=== PATIENT | female | born 1995 | race Caucasian/White ===

== ENCOUNTER 2023-02-05 07:30 | Outpatient (RCR) | payer OTHER, SELFPAY | END 2023-06-05 23:59 | disposition home or self-care (01) | PROVIDERS: PCP Family Medicine; Visit Provider Family Medicine | DX: M54.9 Dorsalgia, unspecified (principal); M25.519 Pain in unspecified shoulder; Z51.89 Encounter for other specified aftercare | CPT/HCPCS: 97110; 97140; 97163; 97530 ==

== ENCOUNTER 2023-08-16 17:41 | Emergency (ER) | payer OTHER, SELFPAY ==
[2023-08-16 17:46] VITALS: BP 115/76; PULSE 80; RESP 18; TEMP 36.9; O2SAT 100; BMI 23.6
--- NOTE | 2023-08-16 18:24 | ED_ITS ---
HPI - General Adult General Chief complaint: Dizziness/Vertigo Stated complaint: 4.5 weeks , lightheaded Time Seen by Provider: 08/16/23 17:41 History of Present Illness HPI narrative: This 27-year-old female is foreign half weeks and comes in stating that she felt several episodes of lightheadedness today. She measured her blood pressure with a cuff on her wrist at home and found readings of 80/50 at the time. Upon arrival here her vital signs are reassuring. She has a fair amount of anxiety about these symptoms as she is newly with her 1st . 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 She states that she has been drinking lots of fluids. Related Data Home Medications Medication Instructions Recorded Confirmed No Known Home Medications 08/16/23 08/16/23 Allergies Allergy/AdvReac Type Severity Reaction Status Date / Time morphine Allergy Verified 08/16/23 17:53 Review of Systems Status of ROS: Reports: 10 or more systems reviewed and unremarkable except as noted in History and below Narrative: Constitutional: No fevers, no weight gain or loss. Eyes: No discharge. No vision changes. HENT: No congestion, no sore throat, no ear pain. Cardiovascular: No chest pain, no palpitations. Respiratory: No shortness of breath, no wheezes, no cough. Gastrointestinal: No abdominal pain, no vomiting, no diarrhea. Genitourinary: No dysuria, no hematuria. Musculoskeletal: Normal range of motion. Skin: No rashes, no pruritis. Neurological: No weakness, sensory change, speech change. Some episodes of lightheadedness as described above. Endo/Heme/Allergies: No bruising or bleeding. No polydipsia. Pysch: no suicidality, no anxiety, no insomnia. All other systems reviewed and are negative. Exam Narrative: Exam Narrative: Constitutional: Well-developed, well-nourished, no acute distress. HEENT: Normocephalic, atraumatic. Neck: Normal range of motion. Nontender. Supple. Heart: Regular. No murmurs. Normal rate. Intact distal pulses. Lungs: Clear to auscultation. No chest discomfort. No wheezes, rhonchi, or rales. Abdomen: Normal bowel sounds. Nontender. No rebound tenderness. Genitalia: Deferred. Back: No midline tenderness. Normal range of motion. Extremities: Normal range of motion. No injury. Skin: Intact. No rash. Warm. No erythema or pallor. Neurologic: No altered sensation. No weakness. Alert and oriented. Psychiatric: No suicidality. No anxiety or depression. No insomnia. Nursing notes and vitals signs are reviewed. Const: Vital Signs, click to edit/add: Vital Signs - 24 hr 08/16/23 17:46 Temperature 98.4 F Pulse Rate [Right Pulse Oximeter] 80 Respiratory Rate 18 Blood Pressure [Ri ght Upper Arm] 115/76 Pulse Oximetry 100 Oxygen Delivery Me thod Room Air Course Vital Signs Vital signs: Initial Vital Signs Temperature 98.4 F 08/16/23 17:46 Temperature Source Temporal Artery Scan 08/16/23 17:46 Pulse Rate 80 08/16/23 17:46 Respiratory Rate 18 08/16/23 17:46 Blood Pressure 115/76 08/16/23 17:46 Blood Pressure Mean 89 08/16/23 17:46 Blood Pressure Position Sitting 08/16/23 17:46 Pulse Oximetry 100 08/16/23 17:46 Oxygen Delivery Method Room Air 08/16/23 17:46 Vital Signs Temperature 98.4 F 08/16/23 17:46 Pulse Rate 80 08/16/23 17:46 Respiratory Rate 18 08/16/23 17:46 Blood Pressure 115/76 08/16/23 17:46 Pulse Oximetry 100 08/16/23 17:46 Oxygen Delivery Method Room Air 08/16/23 17:46 Temperature 98.4 F 08/16/23 17:46 Pulse Rate 80 08/16/23 17:46 Respiratory Rate 18 08/16/23 17:46 Blood Pressure 115/76 08/16/23 17:46 Pulse Oximetry 100 08/16/23 17:46 Oxygen Delivery Method Room Air 08/16/23 17:46 Medical Decision Making MDM Narrative Medical decision making narrative: This 27-year-old female comes in concerned about some feelings of generalized malaise today with some lower blood pressure readings prior to arrival here. She was feeling some episodes of lightheadedness but arrives here feeling normal with normal vital signs. She is 4 and half weeks with her 1st . She does indicate lots of anxiety about these things. 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 She states that these things are triggering lots of thoughts for her and her own symptoms and . She is sufficiently reassured with vital signs being normal and with lab results also returning with normal findings. Her potassium just slightly low at 3.4. She is okay to be discharged home and will follow-up with her primary physician. Lab Data Labs: Lab Results 08/16/23 Range/Units 18:24 WBC 7.46 (4.50-11.00) K/uL RBC 4.13 (4.00-5.20) m/uL Hgb 12.4 (12.0-16.0) gm/dL Hct 37.3 (33.0-51.0) % MCV 90 (80-100) fL MCH 30 (26-34) pg MCHC 33 (32-36) gm/dL RDW Coeff of Young 12.0 (11.5-15.5) % Plt Count 274 (140-440) K/uL Neut % (Auto) 66.7 (42.0-72.0) % Lymph % (Auto) 25.5 (20-44) % Alcorn % (Auto) 5.6 (0.0-11.0) % Eos % (Auto) 1.6 (0.0-7.0) % Baso % (Auto) 0.5 (0.0-3.0) % Neut # (Auto) 4.97 (1.7-7.0) K/uL Lymph # (Auto) 1.90 (0.90-2.90) K/uL Alcorn # (Auto) 0.40 (0.00-0.90) K/UL Eos # (Auto) 0.12 (0.00-0.50) K/uL Baso # (Auto) 0.04 (0.00-0.30) K/uL Abs Immat Gran (auto) 0.01 (0.00-0.30) K/uL Imm/Tot Granulo (auto) 0.1 % Sodium 138 (135-149) mmol/L Potassium 3.4 L (3.6-5.1) mmol/L Chloride 108 (96-114) mmol/L Carbon Dioxide 26 (20-32) mmol/L Anion Gap 4 L (7-15) mEq/L BUN 9 (5-24) mg/dL Creatinine 0.6 (0.5-1.5) mg/dL Estimated Creat Clear 102.95 Estimated GFR 128 ml/min Glucose 99 (60-115) mg/dL Calcium 8.9 (8.4-10.6) mg/dL Discharge Plan Discharge Clinical Impression: Episodic lightheadedness, Patient Disposition: Home, Self-Care Condition: Stable Additional Instructions: Continue current plans. Follow up with MD or return if symptoms are recurrent or worsening. Prescriptions: No Action No Known Home Medications Follow Up/Referrals: Ariela Machado MD [Primary Care Provider] - Stand Alone Forms: [employer] Info Instructions
[2023-08-16 18:30] LABS: Basophils Absolute Auto 0.04 K/uL (0.00-0.30); Basophils Percent Auto 0.5 % (0.0-3.0); Eosinophils Absolute Auto 0.12 K/uL (0.00-0.50); Eosinophils Percent Auto 1.6 % (0.0-7.0); Hematocrit 37.3 % (33.0-51.0); Hemoglobin* 12.4 gm/dL (12.0-16.0); Immature Granulocytes Abs Auto 0.01 K/uL (0.00-0.30); Immature Granulocytes Pct Auto 0.1 %; Lymphocytes Percent Auto 25.5 % (20-44); Mean Corpuscular HGB Conc 33 gm/dL (32-36); Mean Corpuscular Hemoglobin 30 pg (26-34); Mean Corpuscular Volume 90 fL (80-100); Monocytes Percent Auto 5.6 % (0.0-11.0); Neutrophils Absolute Auto 4.97 K/uL (1.7-7.0); Neutrophils Percent Auto 66.7 % (42.0-72.0); Platelet Count* 274 K/uL (140-440); Red Blood Count 4.13 m/uL (4.00-5.20); White Blood Count* 7.46 K/uL (4.50-11.00)
[2023-08-16 18:36] LABS: Slide Review Reflex No
--- OUTSIDE RECORDS SUMMARY | 2023-08-16 18:40 | XMS_ITS | Clinical Summary ---
Author Name Unknown Organization [facility] Address [place], [place] [address] Care Team Providers Care Manager Lsw Name Role Phone Ariela Machado MD Primary Care Provider [phone] Allergies Active Allergy Reactions Criticality Noted Date Comments Bupropion Other - Describe In Comment Field Morphine Anaphylaxis,Rash High 04/21/2019 Medications No known medications Active Problems No known active problems Resolved Problems Problem Noted Date Diagnosed Date Resolved Date COVID-19 virus infection 02/17/2020 Encounters Date Type Department Care Team Description 08/07/2023 8:50 AM CDT Orders Only [address] [id number] [facility] 08/07/2023 Travel from Last 3 Months Immunizations Name Administration Dates Next Due Adenovirus Type 4 and 7 12/08/2016 COVID-19 vaccine (Moderna 100mcg/0.5mL) PF, MDV 05/31/2021,04/27/2021 HPV 9 (Gardasil 9) 08/11/2017 Hepatitis B (Adult) 08/11/2017 Hepatitis B (Peds) 01/09/2017,12/08/2016 Inactivated Polio Vaccine 01/09/2017 Influenza, IIV3 (Age >=3 years) 05/05/2021,01/18 Influenza, IIV4 12/24/2022,,02/17/2019,01/14,03/12/2017,02/10/2017 Influenza, IIV4 (=>6mos) MDV 02/17/2019 Meningococcal Vaccine (Menactra) 12/08/2016 Tdap 12/08/2016 Family History Medical History Relation Name Comments Autism Brother 1 Autism Brother 2 twin Other Brother 2 NF 1 and fronta l lobe damage. Aspergers Heart attack Father Heart Disease Maternal Grandfather Lung cancer Maternal Grandmother Other Mother prediabetes No Known Problems Paternal Grandfather da d was adopted No Known Problems Paternal Grandmother da d was adopted Autism Sister Relation Name Status Comments Brother 1 Alive Brother 2 Alive Father Alive Maternal Grandfather Maternal Grandmother Mother Alive Paternal Grandfather Paternal Grandmother Sister Alive Social History Tobacco Use Types Packs/Day Years Used Date Smoking Tobacco: Former Cigarettes 0.3 1 0 07/03/2017 - 07/03/2018 Smokeless Tobacco: Never Tobacco Cessation:Counseling Given: Yes Alcohol Use Standard Drinks/Week Comments Yes 1 (1 standard drink = 0.6 oz pur e alcohol) PHQ-2 Answer Date Recorded PHQ-2 TOTAL SCORE 0 12/05/2021 Social Connections Answer Date Recorded Frequency of Communication with Friends and Fami ly 0 11/19/2022 Financial Resource Strain Answer Date R ecorded Difficulty of Paying Living Expenses 3 11/19/2022 Difficulty of Paying Living Expenses Not on file 11/19/2022 Food Insecurity Answer Date Recorded Worried About Running Out of Food in the Last Ye ar 1 11/19/2022 Transportation Needs Answer Date Record ed Lack of Transportation (Medical) 1 11/19/2022 Housing Stability Answer Date Recorded Unable to Pay for Housing in the Last Year 1 11/19/2022 Sex and Gender Information Value Date Recorded Sex Assigned at Not on file Gender Identity Not on file Sexual Orientation Not on file Obstetrics History Last Filed Vital Signs Vital Sign Reading Time Taken Comments Blood Pressure 92/62 12/24/2022 8:05 AM CDT Pulse 74 12/24/2022 8:05 AM CDT Temperature 36.3 ??C (97.4 ??F) 08/20/2022 1 1:03 AM CDT Respiratory Rate 18 04/23/2022 5:40 PM [employer]ATHODE [employer] Oxygen Saturation 99% 12/24/2022 8:05 AM CDT Inhaled Oxygen Concentration - - Weight 56.6 kg (124 lb 12.8 oz) 12/24/2022 8:05 AM CDT Height 155.3 cm (5' 1.14) 12/24/2022 8:05 AM CD T Body Mass Index 23.47 12/24/2022 8:05 AM CDT Plan of Treatment Upcoming Encounters Date Type Department Care Team (Late st Contact Info) Description 08/17/2023 8:40 AM CDT Orders Only [facility] [address] [place] [address] Lab, [facility] 08/19/2023 3:15 PM CDT Orders Only [facility] [address] [facility] [address] [place] [place] 08/28/2023 10:00 AM CDT OB Encounter [facility] [address] [place] [address] 09/25/2023 8:45 AM CDT OB Encounter [facility] [address] [facility] [address] Ariela Machado MD [address] [place] [address] Health Maintenance Due Date Last Done Comments HPV series for age 9-26 (2 - 3-dose series) 09/08/2017 08/11/2017 COVID-19 vaccine series (2022- season) 2022 05/31/2021, 04/27/2021 Depression screening for age 12+ 12/09/2022 12/09/2021, 12/09/2021, 12/06/2021, Additional history exists Pap test for age 21-65 11/24/2023 11/23/2020 Influenza for age 9-49 11/29/2023 , 01/24/2022, 05/05/2021, Additional history exists BMI (ht and wt on same day) for age 18+ 12/25/2023 12/24/2022, 11/19/2022, 12/05/2021, Additional history exists Tetanus booster 12/08/2026 12/08/2016 Tdap Completed 12/08/2016 Hepatitis C screening for age 18-79 Completed 12/05/2021 HIV for age 15-65 Completed 12/24/2022 Pneumococcal series for age 6-64 Aged Out No longer eligible based on patient's age to complete this topic Procedures Procedure Name Priority Date/Time Associated Diagnosis Comments HCG BETA QUANT, Routine 08/07/2023 9:07 AM CDT Early stage of ANTI HIV 1/2 Routine 12/24/2022 9:03 AM CDT Screening for HIV (human immunodeficiency virus) ANTI HCV Routine 12/05/2021 12:44 PM CDT Need for hepatitis C screening test COMPETITIVE SHOPPER THIN PREP PAP SCREEN IMAGED Routine 11/23/2020 8:39 AM CDT Pap smear for cervical cancer screening from Last 3 Months or Most Recently Relevant to Health Maintenance Results * HCG BETA QUANT, (08/07/2023 9:07 AM CDT) HCG BETA QUANT,PREGNANC Y 20 mIU/mL 08/07/2023 9:42 AM CDT [facility] Blood BLOOD SPECIMEN / Unknown Venipuncture / Unknown 08/07/2023 9:07 AM CDT 08/07/2023 9:08 AM CDT [facility] - 08/07/2023 9:42 AM CDT Expected Value for Healthy Non- premenopausal women <5.3mIU/mL FOR GESTATIONAL ASSESSMENT-See Range Table Below Weeks of gestation hCG mIU/mL 3 weeks gestation (5.8 - 71.2) 4 weeks gestation (9.5 - 750) 5 weeks gestation (217 - 7138) 6 weeks gestation (158 - 31,795) 7 weeks gestation (3,697 - 163,563) 8 weeks gestation (32,065 - 149,571) 9 weeks gestation (63,803 - 151,410) 10 weeks gestation (46,509 - 186,977) 12 weeks gestation (27,832 - 210,612) 14 weeks gestation (13,950 - 62,530) 15 weeks gestation (12,039 - 70,971) 16 weeks gestation (9,040 - 56,451) 17 weeks gestation (8,175 - 55,868) 18 weeks gestation (8,645 - 58,291) Biotin supplements may cause clinically significant interference for this test assay. ??If interference is suspected, it is strongly recommended that biotin is discontinued for at least one week prior to retesting. Ariela Machado MD CHEMISTRY [facility] [address] [place] [address] * ANTI HIV 1/2 (12/24/2022 9:03 AM CDT) Pathologist [facility] HIV-1/HIV-2 SCREEN Non-Reacti ve Non-Reacti ve 12/24/2022 4:48 PM CDT [facility] Comment:HIV-1 p24 and HIV-1/ HIV-2 Ab Not Detected. Blood BLOOD SPECIMEN / Unknown Venipuncture / Unknown 12/24/2022 9:03 AM CDT 12/24/2022 9:05 AM CDT Ariela Machado MD SEND OUTS Performing Organization Address City/[facility]/ZIP Co de Phone Number [facility] [address] [place] [address], [place] * ANTI HCV (12/05/2021 12:44 PM CDT) Pathologist [facility] HEPATITIS C ANTIBODY Non-React kyara Non-React kyara 12/06/2021 6:46 AM CDT [facility] Comment:Antibodies to HCV no t detected; does not exclude the possibility of exposure to HCV. Blood BLOOD SPECIMEN / Unknown Venipuncture / Unknown 12/05/2021 12:44 PM CDT 12/05/2021 12:47 PM CDT Ariela Machado MD SEND OUTS [facility] [address] [place] [address], [place] * COMPETITIVE SHOPPER THIN PREP PAP SCREEN IMAGED (11/23/2020 8:39 AM CDT) Case Report Gynecologic Cytology Report ? Case: [id number] ? Authorizing Provider: ??Ariela Machado MD ? Collected: ? 11/23/2020 0839 ? Ordering Location: ? [facility] ?? Received: ?11/23/2020 0905 ? Clinic ? First Screen: ?Angie Mercado ? Specimen: ?COMPETITIVE SHOPPER ThinPrep Vial Screening, Cervical ? 12/06/2020 1:32 PM CDT [facility] INTERPRETATION/ RESULT NEGATIVE FOR INTRAEPITHELIAL LESION OR MALIGNANCY (NIL) (none) 12/06/2020 1:32 PM CDT [facility] IMEN ADEQUACY Satisfactory for evaluation Endocervical component present 12/06/2020 1:32 PM CDT [facility] HPV REQUEST HPV if ASCUS 12/06/2020 1:32 PM CDT [facility] Date of LMP suppressed 12/06/2020 1:32 PM CDT [facility] Last Pap Date first 12/06/2020 1:32 PM CDT [facility] Last Pap Result First Pap/Unknown 1:32 PM CDT [facility] Abnormal Pap or [place] Bx in last 5 years No 12/06/2020 1:32 PM CDT [facility] Menstrual Status Hormonally Suppressed 12/06/2020 1:32 PM CDT [facility] [place] Bx Done Today No 12/06/2020 1:32 PM CDT [facility] Additional Information None given 12/06/2020 1:32 PM CDT [facility] Comment: Cytology is screened at [facility] - [address] [address] and [facility] - [address] [place] [address] and [facility] - [address] [facility] [address] [place] [address] Interpreted at [facility] - [address], [place] [address] Automated Review Successful 12/06/2020 1:32 PM CDT [facility] Comment:Specimen processed s uccessfully by automated ribbon hand device, ThinPrep Imaging System, [employer] Note The pap test is a screening technique, not a diagnostic procedure. It is used primarily to screen for squamous cancers and precursor lesions. Published studies have shown that it is subject to both false negative and false positive results. The pap test should not be used as the sole means to diagnose or exclude pre-malignant and malignant lesions. 12/06/2020 1:32 PM CDT [facility] Other (Cervical) Non-Blood / Unknown 11/23/2020 8:39 AM CDT 11/23/2020 9:05 AM CDT Ariela Machado MD PATHOLOGY/CYTOLOGY [facility] [address] [place] [address], from Last 3 Months or Most Recently Relevant to Health Maintenance Care Teams Manager Lsw Relationship Specialty Start Date End Date Ariela Machado MD [address] [place] [address] PCP - General Family Practice 08/04/19
--- OUTSIDE RECORDS SUMMARY | 2023-08-16 18:40 | XMS_ITS | Continuity of Care Document ---
Author Name [facility] Organization [facility] Care Team Providers Care Internship Coordinator Name Role Phone [facility] Unavailable Unavailable Problems Combined list of problems from Department of Defense and Veterans Affairs facilities. It does not include entries that were removed or entered in error. Problem Status Onset Date Problem Type Date of Resolution Comme nts Source Encounter for other specified special examinations Active 12/30/2016 Condition DoD Overweight Active Condition [facility] Medications Combined list of outpatient medications from Department of Defense and Veterans Affairs facilities.Medications provided include 1) outpatient medications from the last 15 months, and 2) patient-reported medications. Medication Details Route Status Patient Instructions Prescription Expires Prescription Number Last Dispense Date Ordering Provider Order Date Order Qty Source PREDNISONE (prednisone ), 20 MG, TABLET, ORAL, NOVITIUM/AN I PH, 500 ea. BOTTLE Active [id number] 2023 5 Pharmac y Data Transac tion Service Facilit y Allergies, Adverse Reactions, Alerts Combined list of allergies from Department of Defense and Veterans Affairs facilities. It does not include entries that were removed or entered in error. Substance Category Reaction Severity Reaction type Status Date Reported Comments Source BUPROPION Propensity to adverse reactions to drug (finding) Suicidal thoughts active 9 [facility] morphine Propensity to adverse reactions to drug Swelling of oral cavity structure, Anaphylaxis Active 8 [facility] MORPHINE Propensity to adverse reactions to drug (finding) Anaphylaxis active 9 [facility] MORPHINE (MORPHINE SULFATE) Drug allergy (disorder) Rash, Swelling of oral cavity structure active 8 [facility] Cassandra n Immunizations Combined list of available immunizations from the Department of Defense and Veterans Affairs facilities. Immunization Series Date Given Administered By Site Reaction Lot Number CVX Code Drug E Commerce Manager Status Comments Source INFLUENZA, INJECTABLE, QUADRIVALENT 2018 158 complet ed Partner: [facility]. Administe red by: [facility] Clinician (NPI=Not Provided) . Partner 0 Lot#: [id number] Mfr: [facility] [place] [facility] influenza, injectable, quadrivalent- pf 2017 Left Arm [id number] GlaxoSmithKli ne complet ed influenza , injectabl e, quadrival ent-pf 01/18/18 Given Ambulat ory Pharmac y Influenza, injectable, quadrivalent, preservative free 1 2017 CAHRLENE THOMAS V [id number] 150 Smithine (SK) complet ed Influenza , injectabl e, quadrival ent, preservat kyara free DoD influenza, injectable, quadrivalent- pf 2017 [id number] 150 GlaxoSmithKli ne complet ed influenza , injectabl e, quadrival ent-pf 01/14/18 Given Ambulat ory Pharmac y Influenza, injectable, quadrivalent, preservative free 0 2017 [id number] 150 Smithine (SK) complet ed Influenza , injectabl e, quadrival ent, preservat kyara free DoD Human Papillomaviru s 9-valent vaccine 2017 Left Arm [id number] Merck & Company Inc complet ed Human Papilloma virus 9-valent vaccine 08/11/17 Given Ambulat ory Pharmac y hepatitis B adult vaccine 2017 Left Arm [id number] 43 GlaxoSmithKli ne complet ed hepatitis B adult vaccine 08/11/17 Given Ambulat ory Pharmac y hepatitis B vaccine, adult dosage 1 2017 VIVIENNE SANCHEZ [id number] 43 [facility] ([facility]) complet ed hepatitis B vaccine, adult dosage DoD Human Papillomaviru s 9-valent vaccine 1 2017 VIVIENNE SANCHEZ [id number] Merck (MSD) complet ed Human Papilloma virus 9-valent vaccine DoD influenza, injectable, quadrivalent- pf 2016 Left Arm [id number] 150 GlaxoSmithKli ne complet ed influenza , injectabl e, quadrival ent-pf 03/12/17 Given Ambulat ory Pharmac y Influenza, injectable, quadrivalent, preservative free 1 2016 MIGUELANGEL BILLINGSLEY [id number] 150 Smithine (SK) complet ed Influenza , injectabl e, quadrival ent, preservat kyara free DoD influenza, injectable, quadrivalent- pf 2016 [id number] 150 GlaxoSmithKli ne complet ed influenza , injectabl e, quadrival ent-pf 02/10/17 Given Ambulat ory Pharmac y Influenza, injectable, quadrivalent, preservative free 0 2016 [id number] 150 SmithKline (SKB) complet ed Influenza , injectabl e, quadrival ent, preservat kyara free DoD poliovirus vaccine, inactivated 2016 Right Arm [id number] sanofi pasteur complet ed polioviru s vaccine, inactivat ed 01/09/17 Given Ambulat ory Pharmac y hepatitis B pediatric/ado lescent 2016 Left Arm [id number] 08 GlaxoSmithKli ne complet ed hepatitis B pediatric /adolesce nt 01/09/17 Given Ambulat ory Pharmac y hepatitis B vaccine, pediatric or pediatric/ado lescent dosage 2 2016 MAK ROBERTS [id number] 08 SmithKline (SKB) complet ed hepatitis B vaccine, pediatric or pediatric /adolesce nt dosage DoD poliovirus vaccine, inactivated 1 2016 MAK ROBERTS [id number] 10 Sanofi Pasteur ([facility]) complet ed polioviru s vaccine, inactivat ed DoD measles and rubella virus vaccine 0 2016 04 () Not Given measles and rubella virus vaccine DoD varicella virus vaccine 0 2016 21 () Not Given varicella virus vaccine DoD hepatitis A vaccine, adult dosage 0 2016 52 () Not Given hepatitis A vaccine, adult dosage DoD tetanus, diphtheria, acellular pertu is 2016 Right Arm [id number] Unknown complet ed tetanus, diphtheri a, acellular pertussis 12/08/16 Given Ambulat ory Pharmac y meningococcal A,C,Y,W-135 (MCV4P) 2016 Left Arm [id number] sanofi pasteur complet ed meningoco ccal A,C,Y,W-1 35 (MCV4P) 12/08/16 Given Ambulat ory Pharmac y hepatitis B pediatric/ado lescent 2016 Left Arm [id number] 08 GlaxoSmithKli ne complet ed hepatitis B pediatric /adolesce nt 12/08/16 Given Ambulat ory Pharmac y adenovirus vaccine, live 2016 [id number] 143 Unknown complet ed adenoviru s vaccine, live 12/08/16 Given Ambulat ory Pharmac y hepatitis B vaccine, pediatric or pediatric/ado lescent dosage 1 2016 MAK ROBERTS [id number] 08 SmithKline (SKB) complet ed hepatitis B vaccine, pediatric or pediatric /adolesce nt dosage DoD meningococcal polysaccharid e (groups A, C, Y and W-135) diphtheria toxoid conjugate vaccine (MCV4P) 1 2016 MAK ROBERTS [id number] 114 Sanofi Pasteur ([facility]) complet ed meningoco ccal polysacch aride (groups A, C, Y and W-135) diphtheri a toxoid conjugate vaccine (MCV4P) DoD tetanus toxoid, reduced diphtheria toxoid, and acellular pertu is vaccine, adsorbed 1 2016 MAK ROBERTS [id number] 115 Other (OTH) complet ed tetanus toxoid, reduced diphtheri a toxoid, and acellular pertussis vaccine, adsorbed DoD Adenovirus, type 4 and type 7, live, oral 1 2016 MAK ROBERTS [id number] 143 Other (OTH) complet ed Adenoviru s, type 4 and type 7, live, oral DoD Encounters Combined list of: 1) Encounters from Department of Veterans Affairs facilities going back up to thelast 18 months. 2) Encounters from the Department of Defense facilities going back up to 280 months. Location Location Details Encounter Type Encounter Number Reason For Visit Attending Provider ADM Date DC Date Status Disposition Source One or More A Facilitie s JUICE SCALEMAN History 03/30 One or More A Facilit ies JUICE SCALEMAN [facility](Op tometry [facility] 1523) OUTPATIENT [id number] Notes Entered by: KEAGAN HAN 05 Dec 2016 09 ------- ------- ------- ------- -- recruit KEAGAN Braswell 12/05 Released w/o Limitations [facility]( Optomet ry [facility] 1523) [facility](Au diology [facility] 1523) OUTPATIENT [id number] WENDY JOSHUA 12/05 Released w/o Limitations [facility] Audiolo gy [facility] 1523) [facility](Fe male Screening 1523) OUTPATIENT [id number] [facility] JUAN CARLOS LEÓN 12/08 Released w/o Limitations [facility]( Female Screeni ng 1523) [facility](Im munizatio n 1523) OUTPATIENT [id number] Notes Entered by: LAMONT VIGIL 08 Dec 2016 1022 ------- ------- ------- ------- -- P4 Immuniz ations ELENA ROQUE 12/08 Released w/o Limitations [facility]( Immuniz ation 1523) [facility](Co urage (White) 1007) OUTPATIENT [id number] ERFU LEG PX AFSHAN JACINTO 12/11 Sick at Home/Quarter s [facility]( Courage (White) 1007) [facility](Co urage (White) 1007) OUTPATIENT [id number] Cold Sx/Vomi tting TONY MESA V 12/18 Sick at Home/Quarter s [facility]( [place] (White) 1007) [facility] Female) OUTPATIENT [id number] Notes Entered by: SUNDEEP PARKS 18 Dec 2016 1333 ------- ------- ------- ------- -- SHEREE BARLOW 12/18 Released w/o Limitations [facility]( [facility] Female) [facility](Sp ecial Physicals [facility] 1007) OUTPATIENT [id number] ALEXA DEMPSEY 12/23 Released w/o Limitations [facility]( Special Physica ls [facility] 1007) [facility](Sp ecial Physicals [facility] 1007) OUTPATIENT [id number] Notes Entered by: JOHN CARTER 30 Dec 2016 1136 ------- ------- ------- ------- -- UMO Special Duty Physica l Review JOHN RIVERA 12/30 Released w/o Limitations [facility]( Special Physica ls [facility] 1007) [facility](Im munizatio n 1523) OUTPATIENT [id number] Notes Entered by: LAMONT VIGIL ON L 09 Jan 2017 0922 ------- ------- ------- ------- -- 5-2 Immuniz ations DAVE PATEL 01/09 Released w/o Limitations [facility]( Immuniz ation 1523) [facility](We ekend Mil Sick Call 1007) OUTPATIENT [id number] Notes Entered by: CARMEN TAYLOR 11 Jan 2017 0640 ------- ------- ------- ------- -- Cold Sx TORRES OCAMPO 01/11 Sick at Home/Quarter s [facility]( Mil Sick Call 1007) [facility] Preventiv e Med) OUTPATIENT [id number] Notes Entered by: MIGUELANGEL BILLINGSLEY 12 Mar 2017 1110 ------- ------- ------- ------- -- Flu Vx MIGUELANGEL BILLINGSLEY 03/12 Released w/o Limitations [facility] Andrade mukul([facility] C Prevent kyara Med) [facility] Undersea Medicine) OUTPATIENT [id number] Notes Entered by: MARIFER KAMINSKI 08 Apr 2017 0648 ------- ------- ------- ------- -- RANKIN/ upset stomach SUDARSHAN BURT 04/08 Sick at Home/Quarter s [facility] Andrade gilman([facility] C Underse a Medicin e) [facility] Charlesviri nelson([facility]) OUTPATIENT [id number] Notes Entered by: MARIFER KAMINSKI 22 Apr 2017 0637 ------- ------- ------- ------- -- SUDARSHAN Gallegos 04/22 Sick at Home/Quarter s [facility] Andrade gilman([facility] C Underse a Medicin e) [facility] Cassandra nelson([facility]) OUTPATIENT [id number] Notes Entered by: NEEL HALL 07 May 2017 1455 ------- ------- ------- ------- -- MILAGRO MORA 05/07 Released w/o Limitations [facility] Andrade gilman([facility] C Underse a Medicin e) [facility] Cassandra nelson([facility] Medicine) OUTPATIENT [id number] back pain/so re throat RANGEL JOSE ANGEL Leonie 05/19 Released with Work/Duty Limitations [facility]rade gilman([facility] Underse a Medicin e) [facility] Cassandra nelson([facility]) OUTPATIENT [id number] parul zamora dunia,MILAGRO Cota 05/27 Released w/o Limitations [facility] Andrade mukul([facility] C Underse a Medicin e) [facility] Cassandra nelson([facility]) OUTPATIENT [id number] nose bleeds, headach e, MILAGRO Rehman 06/08 Released with Work/Duty Limitations [facility]rade [facility]ul([facility] C Underse a Medicin e) [facility] Cassandra nelson([facility] Physical Therapy) OUTPATIENT [id number] Low back pain TIMUR AVENDANO 06/10 Released w/o Limitations [facility]rade [facility]ul([facility] C Physica l Therapy ) [facility] Cassandra nelson([facility] Physical Therapy) OUTPATIENT [id number] BARBARA ALTAMIRANO 06/15 Released w/o Limitations [facility]rade [facility]ul([facility] C Physica l Therapy ) [facility] Physical Therapy) OUTPATIENT [id number] BARBARA ALTAMIRANO 06/17 Released w/o Limitations [facility] Andrade gilman([facility] C Physica l Therapy ) [facility] Physical Therapy) OUTPATIENT [id number] BARBARA ALTAMIRANO 06/24 Released w/o Limitations [facility]rade gilman([facility] C Physica l Therapy ) [facility] Physical Therapy) OUTPATIENT [id number] BARBARA ALTAMIRANO 06/29 Released w/o Limitations [facility] Andrade gilman([facility] C Physica l Therapy ) [facility] Occupjackson purchase medical centero [facility]) OUTPATIENT [id number] Notes Entered by: ALDA BAUGH 29 Jun 2017 1000 ------- ------- ------- ------- -- smoking cessati on SAUL DAVILA 06/29 Released w/o Limitations [facility] Anrdade gilman([facility] Occupat [facility]) [facility] Cassandra nelson([facility] Physical Therapy) OUTPATIENT [id number] BARBARA ALTAMIRANO 07/01 Released w/o Limitations [facility] C Physica l Therapy ) [facility] Cassandra nelson([facility] Undersea Medicine) OUTPATIENT [id number] Notes Entered by: ZOE THAKKAR 03 Jul 2017 1219 ------- ------- ------- ------- -- SUDARSHAN Buchanan 07/03 Released with Work/Duty Limitations [facility] C Underse a Medicin e) [facility] Cassandra nelson([facility] Undersea Medicine) OUTPATIENT [id number] PT F/U JOSE ANGEL MULTANI 07/03 Released w/o Limitations [facility]rade gil[facility] C Underse a Medicin e) [facility] Physical Therapy) OUTPATIENT [id number] BARBARA ALTAMIRANO 07/06 Released w/o Limitations [facility] Andrade gilman([facility] C Physica l Therapy ) [facility] n([facility] Psychiatr y Clinic) OUTPATIENT [id number] SOFIE PANTOJA 07/09 Released w/o Limitations [facility] Andrade gilman([facility] C Psychia try Clinic) [facility]) TELE CONSULT [id number] Notes Entered by: MARIA DEL ROSARIO DAVILA 13 Jul 2017 1128 ------- ------- ------- ------- -- Tobacco Cessati on F/u LOLA SAUL Thayer 07/13 Referred for Appointment [facility] Andrade gilman([facility] Occupat ional Health) [facility] Psychiatr y Clinic) OUTPATIENT [id number] f/SOFIE Lang 07/22 Released w/o Limitations [facility] Andrade mukul([facility] C Psychia try Clinic) [facility] Psychiatr y Clinic) OUTPATIENT [id number] F/U SOFIE JACOB 07/27 Released w/o Limitations [facility]rade [facility] C Psychia try Clinic) [facility]) TELE CONSULT [id number] Notes Entered by: MARIA DEL ROSARIO DAVILA 04 Aug 2017 1012 ------- ------- ------- ------- -- Tobacco cessati on follow up SAUL DAVILA 08/04 Referred for Appointment [facility] Occupat ional Health) [facility] nelson([facility] Unders Medicine) TELE CONSULT [id number] Notes Entered by: MAYDA FELIZ 07 Aug 2017 0955 ------- ------- ------- ------- -- Network [facility] - [facility] 4.[facility].18 JOSE ANGEL MULTANI 08/07 [facility] C Underse a Medicin e) [facility]) TELE CONSULT [id number] Notes Entered by: MAYDA FELIZ 07 Aug 2017 0956 ------- ------- ------- ------- -- Network Results - [facility] 4.23.18 JOSE ANGEL MULTANI Leonie 08/07 [facility] Underse a Medicin e) [facility]) OUTPATIENT [id number] Notes Entered by: Bronson SANCHEZ 10 Aug 2017 1527 ------- ------- ------- ------- -- HEP#3, HPV#1 VIVIENNE SANCHEZ 08/10 Released w/o Limitations [facility] Communi [facility]) [facility] Occupatio [facility]) OUTPATIENT [id number] HCW/BBF FABRIZIO ALVAREZ 08/13 Released w/o Limitations [facility] g[facility]man([facility]) [facility] Psychiatr y Clinic) OUTPATIENT [id number] f/u SOFIE JACOB 08/13 Released w/o Limitations [facility] Psychia try Clinic) [facility] Physical Therapy) OUTPATIENT [id number] TIMUR AVENDANO 08/13 Released w/o Limitations [facility] Physica l Therapy ) [facility] Fam Med [facility]) TELE CONSULT [id number] Notes Entered by: JORDON SIMEON 28 Aug 2017 1027 ------- ------- ------- ------- -- June Rai Hadley report JORDON SIMEON 08/28 [facility] Fam Med [facility] Gold) [facility] Undersea Medicine) OUTPATIENT [id number] Notes Entered by: CHAD CAST 31 Aug 2017 1050 ------- ------- ------- ------- -- NAUSEA/ VOMITTI NG X2 DAYS SUDARSHAN BURT 08/31 Sick at Home/Quarter s [facility] C Underse a Medicin e) [facility] n([facility] Physical Therapy) OUTPATIENT [id number] CARLOZ LEI 09/02 Released w/o Limitations [facility] C Physica l Therapy ) [facility] Cassandra nelson([facility] Physical Therapy) OUTPATIENT [id number] CARLOZ LEI 09/09 Released w/o Limitations [facility] C Physica l Therapy ) [facility] nelson([facility] Psychiatr y Clinic) OUTPATIENT [id number] F/U SOFIE JACOB 09/11 Released w/o Limitations [facility] C Psychia try Clinic) [facility] nelson([facility] Physical Therapy) OUTPATIENT [id number] CARLOZ LEI 09/14 Released w/o Limitations [facility] C Physica l Therapy ) [facility] nelson([facility] Undersea Medicine) OUTPATIENT [id number] CONNIE MCGINNIS 09/16 Released with Work/Duty Limitations [facility]rade [facility]ul([facility] C Underse a Medicin e) [facility]andra nelson([facility] Physical Therapy) OUTPATIENT [id number] CARLOZ LEI 09/23 Released w/o Limitations [facility] C Physica l Therapy ) [facility]andra nelson([facility] Psychiatr y Clinic) OUTPATIENT [id number] F/U SOFIE JACOB 09/23 Released w/o Limitations [facility]rade [facility] C Psychia try Clinic) [facility] Cassandra nelson([facility] Case Managemen t) OUTPATIENT [id number] Notes Entered by: CAROLINA PERES 29 Sep 2017 0752 ------- ------- ------- ------- -- LIMDU review for cc/cm needs SHREYAS , GORGE M 09/29 Released w/o Limitations [facility]rade g[facility]man([facility] C Case Managem ent) [facility] Cassandra nelson([facility] Undersea Medicine) OUTPATIENT [id number] Notes Entered by: SUDARSHAN ANDRADE 08 Oct 2017 0903 ------- ------- ------- ------- -- Cold Symptom s SUDARSHAN BURT 10/08 Sick at Home/Quarter s [facility] C Underse a Medicin e) [facility] Psychiatr y Clinic) OUTPATIENT [id number] f/u SOFIE JACOB 10/08 Released w/o Limitations [facility] C Psychia try Clinic) [facility] Physical Therapy) OUTPATIENT [id number] TIMUR Hebert 10/09 Released w/o Limitations [facility] C Physica l Therapy ) [facility] Psychiatr y Clinic) OUTPATIENT [id number] F/U SOFIE JACOB 10/27 Released w/o Limitations [facility] C Psychia try Clinic) [facility] Psychiatr y Clinic) OUTPATIENT [id number] f/u SOFIE JACOB 11/05 Released w/o Limitations [facility] C Psychia try Clinic) [facility] Undersea Medicine) TELE CONSULT [id number] Notes Entered by: CAMILA WATERMAN 06 Nov 2017 1053 ------- ------- ------- ------- -- Network Results - Mental Health 11/05/17 VENESSA BAKER 11/06 [facility] C Underse a Medicin e) [facility] Undersea Medicine) OUTPATIENT [id number] F/U TCD VENESSA BAKER 11/12 Released w/o Limitations [facility]rade [facility]man([facility] C Underse a Medicin e) [facility] Case Managemen t) OUTPATIENT [id number] Notes Entered by: Swati ARTEAGA 13 Nov 2017 1046 ------- ------- ------- ------- -- Case Managem ent BARBARA ARTEAGA 11/13 Released w/o Limitations [facility]rade [facility]ul([facility] Case Managem ent) [facility] Psychiatr y Clinic) OUTPATIENT [id number] F/U SOFIE JACOB 11/17 Released w/o Limitations [facility]rade [facility]ul([facility] Psychia try Clinic) [facility] Undersea Medicine) OUTPATIENT [id number] spider bite/he VENESSA Devine 11/26 Released w/o Limitations [facility] Andrade gilman([facility] C Underse a Medicin e) [facility] Occupatio nal Health) OUTPATIENT [id number] BRIANDA SHAW 12/17 Released w/o Limitations [facility] Andrade mukul([facility] Occupat ional Health) [facility] Undersea Medicine) OUTPATIENT [id number] prt VENESSA Young 12/21 Released w/o Limitations [facility] Andrade mukul([facility] C Underse a Medicin e) [facility] Undersea Medicine) OUTPATIENT [id number] Notes Entered by: ZOE THAKKAR 25 Dec 2017 0822 ------- ------- ------- ------- -- Cold sx x1wk SUDARSHAN BURT 12/25 Sick at Home/Quarter s [facility] Andrade mukul([facility] C Underse a Medicin [facility]) [facility] Hearing Conservat ion) OUTPATIENT [id number] Notes Entered by: RIVER ROBLES 06 Jan 2018 1348 ------- ------- ------- ------- -- Termina tion Audiogr RIVER Mayers 01/06 Released w/o Limitations [facility] Andrade gilman([facility] C Hearing Conserv ation) [facility] Cassandra n([facility] Optometry Clinic) OUTPATIENT [id number] EYE EXAM CATY NEW Graciela 01/13 Released w/o Limitations [facility] Andrade gilman([facility] Optomet ry Clinic) [facility] Preventiv e Med) OUTPATIENT [id number] Notes Entered by: West THOMAS 18 Jan 2018 1102 ------- ------- ------- ------- -- Flu Vx CHARLENE THOMAS 01/18 Released w/o Limitations [facility] Andrade gilman([facility] Prevent kyara Med) [facility] Undersea Medicine) OUTPATIENT [id number] Ad Sep Pe VENESSA BAKER 02/01 Released w/o Limitations [facility] Andrade gilman([facility] Underse a Medicin e) [facility] Undersea Medicine) OUTPATIENT [id number] 1 cold sx VENESSA BAKER 03/08 Released w/o Limitations [facility] Andrade gilman([facility] Underse a Medicin e) Procedures Combined list of: 1) Procedures from [facility], not all VA non-surgical procedures are included; 2) All procedures from the Department of Defense facilities. Procedure Procedure Type Code Date Perfomer Comments Sourc e No data available for this section Ambulatory Pharmacy Psychotherapy Individual Approximately 45 Minutes Psychotherapy Individual Approximately 45 Minutes [id number] 06/08 ESTEBAN WONG Influenza Split Virus Vaccine IM Preserv Free 0.5mL Dosage Quadrivalent Influenza Split Virus Vaccine IM Preserv Free 0.5mL Dosage Quadrivalent 41186 03/12 MIGUELANGEL BILLINGSLEY Influenza Seasonal, injectable quadrivalent - preservative free; Series #: 1; .5 mL; IM; Left Arm; g: [employer]; Lot: [id number]; VIS given (Itz: 11/03/2014). DoD Immunization Administration By Injection, One Vaccine Immunization Administration By Injection, One Vaccine 81690 03/12 MIGUELANGEL BILLINGSLEY [facility] Immunization Administration By Injection, One Vaccine Immunization Administration By Injection, One Vaccine 12917 01/09 MAK ROBERTS [facility] Immunization Administration By Injection, Each Additional Vaccine Immunization Administration By Injection, Each Additional Vaccine 20052 01/09 MAK ROBERTS [facility] Vaccines Viral Polio, Inactivated Vaccines Viral Polio, Inactivated 60692 01/09 MAK ROBERTS IPV; Series #: 1; .5 mL; SC; Right Arm; Mfg: Sanofi Pasteur; Lot: [id number]; VIS given (Itz: 10/17/15; 02/01/15 - Multiple). DoD Hepatitis B Vaccine (Active); To 11 Years Hepatitis B Vaccine (Active); To 11 Years 0267501/09 MAK ROBERTS Hep B, adolescent or pediatric; Series #: 2; .5 mL; IM; Left Arm; Mfg: [employer]; Lot: [id number]; VIS given (Itz: 10/17/2015). [facility] Patient education, not otherwise cla ified, non-physician provider, group, per se ion 12/18 SHEREE LATHAM [facility] Physician Supervised Injection Intramuscular Antibiotic Physician Supervised Injection Intramuscular Antibiotic 70042 12/08 MAK ROBERTS [facility] Injection, penicillin g benzathine, 100,000 units 12/08 MAK ROBERTS [facility] Immunization Admin Intranasal / Oral Each Additional Vaccine Immunization Admin Intranasal / Oral Each Additional Vaccine 59678 12/08 MAK ROBERTS [facility] Vaccines Adenovirus Type 4 Live, For Oral Use Vaccines Adenovirus Type 4 Live, For Oral Use 24346 12/08 MAK ROBERTS [facility] Vaccines Adenovirus Type 7 Live, For Oral Use Vaccines Adenovirus Type 7 Live, For Oral Use 81817 12/08 MAK ROBERTS [facility] Hepatitis B Vaccine (Active); To 11 Years Hepatitis B Vaccine (Active); Reader To 11 Years 3449512/08 MAK ROBERTS Hep B, adolescent or pediatric; Series #: 1; .5 mL; IM; Left Arm; Mfg: [employer]GoMet[employer]; Lot: [id number]; VIS given (Itz: 10/17/2015). [facility] Meningococcal Polysaccharide Diphtheria Toxoid Conjugate Vaccine 12/08 MAK ROBERTS Meningococcal MCV4P; Series #: 1; .5 mL; IM; Left Arm; Mfg: Sanofi Pasteur; Lot: [id number]; VIS given (Itz: 06/28/2015). [facility] Tdap Vaccine Tdap Vaccine 39637 12/08 MAK ROBERTS Tdap; Series #: 1; .5 mL; IM; Right Arm; Mfg: Other; Lot: [id number]; VIS given (Itz: 05/23/14). DoD Immunization Administration By Injection, One Vaccine Immunization Administration By Injection, One Vaccine 46875 12/08 MAK ROBERTS Immunization Administration By Injection, Each Additional Vaccine Immunization Administration By Injection, Each Additional Vaccine 64975 12/08 MAK ROBERTS Audiometry Group Testing Audiometry Group Testing 87765 12/05 WENDY JOSHUA Threshold Audiogram (Pure Tone) Threshold Audiogram (Pure Tone) 97329 12/05 WENDY JOSHUA [employer] Services Fitting Monofocal Except For Aphakia Spectacles Services Fitting Monofocal Except For Aphakia 11510 12/05 KEAGAN HAN Determination Of Refractive State Determination Of Refractive State 01312 12/05 KEAGAN HAN Visual Function Screening Visual Function Screening 29945 12/05 KEAGAN HAN Psychotherapy Individual Approximately 60 Minutes Psychotherapy Individual Approximately 60 Minutes 02036 01/27 ESTEBAN WONG Psychotherapy Individual Approximately 60 Minutes Psychotherapy Individual Approximately 60 Minutes 46268 01/18 ESTEBAN WONG Immunization Administration By Injection, One Vaccine Immunization Administration By Injection, One Vaccine 64416 01/18 MAJOR, CHARLENE LIMA [facility] Influenza Split Virus Vaccine IM Preserv Free 0.5mL Dosage Quadrivalent Influenza Split Virus Vaccine IM Preserv Free 0.5mL Dosage Quadrivalent 92239 01/18 CHARLENE THOMAS Influenza Seasonal, injectable quadrivalent - preservative free; Series #: 1; .5 mL; IM; Left Arm; Mfg: [employer]; Lot: [id number]; VIS given (Itz: 11/03/2014). [facility] Determination Of Refractive State Determination Of Refractive State 11649 01/13 CATY NEW [facility] Ophthalmological New Patient Start Comprehensive Care Ophthalmological New Patient Start Comprehensive Care 09218 01/13 CATY NEW [facility] Threshold Audiogram (Pure Tone) Automated Threshold Audiogram (Pure Tone) Automated 0208T 01/06 RIVER ROBLES DoD Psychotherapy Individual Approximately 30 Minutes Psychotherapy Individual Approximately 30 Minutes 24484 01/06 ESTEBAN WONG [facility] Psychotherapy Individual Approximately 60 Minutes Psychotherapy Individual Approximately 60 Minutes 41075 12/29 ESTEBAN WONG Psychotherapy Individual Approximately 60 Minutes Psychotherapy Individual Approximately 60 Minutes 47062 12/22 ESTEBAN WONG Preventive Medicine Administration Of Health Risk Questionnaire Patient-Focused Preventive Medicine Administration Of Health Risk Questionnaire Patient-Focused 50208 12/17 BRIANDA CASTILLO Psychotherapy Individual Approximately 60 Minutes Psychotherapy Individual Approximately 60 Minutes 10244 12/16 ESTEBAN WONG Psychotherapy Individual Approximately 60 Minutes Psychotherapy Individual Approximately 60 Minutes 48467 12/03 ESTEBAN WONG Psychotherapy Individual Approximately 30 Minutes Psychotherapy Individual Approximately 30 Minutes 49638 11/23 CHU SMITH Psychotherapy With Medication Management Psychotherapy With Medication Management 73366 11/19 SOFIE JACOB Psychotherapy Individual Approximately 45 Minutes Psychotherapy Individual Approximately 45 Minutes 43642 11/19 SOFIE JACOB Psychotherapy Individual Approximately 45 Minutes Psychotherapy Individual Approximately 45 Minutes 50030 11/16 ESTEBAN WONG Psychotherapy Individual Approximately 60 Minutes Psychotherapy Individual Approximately 60 Minutes 59309 11/13 ESTEBAN WONG Case Management, each 15 minutes 11/13 BARBARA ARTEAGA Psychotherapy Individual Approximately 60 Minutes Psychotherapy Individual Approximately 60 Minutes 57173 11/11 ESTEBAN WONG Psychotherapy With Medication Management Psychotherapy With Medication Management 40473 11/06 SOFIE JACOB Psychotherapy Individual Approximately 45 Minutes Psychotherapy Individual Approximately 45 Minutes 93796 11/06 SOFIE JACOB Psychotherapy Individual Approximately 60 Minutes Psychotherapy Individual Approximately 60 Minutes 57796 11/05 ESTEBAN WONG Psychotherapy With Medication Management Psychotherapy With Medication Management 14410 10/29 SOFIE JACOB Psychotherapy Individual Approximately 45 Minutes Psychotherapy Individual Approximately 45 Minutes 07528 10/29 SOFIE JACOB Psychotherapy Individual Approximately 60 Minutes Psychotherapy Individual Approximately 60 Minutes 07049 10/29 ESTEBAN WONG Psychotherapy Individual Approximately 30 Minutes Psychotherapy Individual Approximately 30 Minutes 79828 10/26 ESTEBAN WONG Psychotherapy Individual Approximately 60 Minutes Psychotherapy Individual Approximately 60 Minutes 17354 10/15 ESTEBAN WONG Psychotherapy Individual Approximately 60 Minutes Psychotherapy Individual Approximately 60 Minutes 65238 10/14 ESTEBAN WONG Psychotherapy Individual Approximately 60 Minutes Psychotherapy Individual Approximately 60 Minutes 88031 10/13 ESTEBAN WONG Physical Therapy Service Re-Evaluation Physical Therapy Service Re-Evaluation 59885 10/09 TIMUR AVENDANO [facility] Psychotherapy With Medication Management Psychotherapy With Medication Management 54233 10/08 SOFIE JACOB Psychotherapy Individual Approximately 45 Minutes Psychotherapy Individual Approximately 45 Minutes 42208 10/08 SOFIE JACOB Psychotherapy Individual Approximately 30 Minutes Psychotherapy Individual Approximately 30 Minutes 07019 10/05 ESTEBAN WONG Psychotherapy Individual Approximately 45 Minutes Psychotherapy Individual Approximately 45 Minutes 91209 10/02 ESTEBAN WONG Case Management, each 15 minutes 09/29 GORGE BARKER Psychotherapy Individual Approximately 30 Minutes Psychotherapy Individual Approximately 30 Minutes 44619 09/28 ESTEBAN WONG Modalities Cryotherapy Cold Packs Modalities Cryotherapy Cold Packs 00835 09/24 CARLOZ LEI Taping Knee Taping Knee 71903 09/24 CARLOZ LEI Physical Therapy: ___ Se ion Segments, 15 Minutes Each Physical Therapy: ___ Session Segments, 15 Minutes Each 33759 09/24 CARLOZ LEI Psychotherapy With Medication Management Psychotherapy With Medication Management 21015 09/23 SOFIE JACOB Psychotherapy Individual Approximately 45 Minutes Psychotherapy Individual Approximately 45 Minutes 72450 09/23 SOFIE JACOB Psychotherapy Individual Approximately 60 Minutes Psychotherapy Individual Approximately 60 Minutes 80503 09/22 ESTEBAN WONG Modalities Cryotherapy Cold Packs Modalities Cryotherapy Cold Packs 43160 09/15 RATNA LEIELA E Bao Physical Therapy Mobilization Joint Physical Therapy Mobilization Joint 19592 09/15 CARLOZ LEI E Bao Physical Therapy: ___ Se ion Segments, 15 Minutes Each Physical Therapy: ___ Session Segments, 15 Minutes Each 43610 09/15 RATNA LEIELA E Bao Psychotherapy Individual Approximately 30 Minutes Psychotherapy Individual Approximately 30 Minutes 17060 09/11 ESTEBAN WONG Psychotherapy With Medication Management Psychotherapy With Medication Management 82190 09/11 SOFIE JACOB Psychotherapy Individual Approximately 45 Minutes Psychotherapy Individual Approximately 45 Minutes 33294 09/11 SOFIE JACOB Psychotherapy Individual Approximately 60 Minutes Psychotherapy Individual Approximately 60 Minutes 86352 09/10 ESTEBAN WONG Modalities Cryotherapy Cold Packs Modalities Cryotherapy Cold Packs 45909 09/09 RATNA LEIELA Bronson Gore Physical Therapy: ___ Se ion Segments, 15 Minutes Each Physical Therapy: ___ Session Segments, 15 Minutes Each 91064 09/09 RATNA LEIELA Bronson Gore Psychotherapy Individual Approximately 45 Minutes Psychotherapy Individual Approximately 45 Minutes 91262 09/08 ESTEBAN WONG Psychotherapy Individual Approximately 30 Minutes Psychotherapy Individual Approximately 30 Minutes 74458 09/03 ESTEBAN WONG Modalities Cryotherapy Cold Packs Modalities Cryotherapy Cold Packs 74328 09/02 CARLOZ LEI Taping Lower Back Taping Lower Back 51626 09/02 CARLOZ LEI Physical Therapy: ___ Se ion Segments, 15 Minutes Each Physical Therapy: ___ Session Segments, 15 Minutes Each 37500 09/02 CARLOZ LEI Psychotherapy Individual Approximately 45 Minutes Psychotherapy Individual Approximately 45 Minutes 61502 08/25 ESTEBAN WONG Psychotherapy With Medication Management Psychotherapy With Medication Management 68550 08/13 SOFIE JACOB Psychotherapy Individual Approximately 45 Minutes Psychotherapy Individual Approximately 45 Minutes 33129 08/13 SOFIE JACOB Pelvic belt/harne /boot 08/13 TIMUR AVENDANO [facility] Physical Therapy Service Re-Evaluation Physical Therapy Service Re-Evaluation 46145 08/13 TIMUR AVENDANO Human Papilloma Virus Vaccine, Nonavalent Human Papilloma Virus Vaccine, Nonavalent 99600 08/11 VIVIENNE SANCHEZ HPV9; Series #: 1; .5 mL; IM; Left Arm; Mfg: Merck; Lot: [id number]; VIS given (Itz: 02/29/2016). [facility] Immunization Administration By Injection, One Vaccine Immunization Administration By Injection, One Vaccine 2935008/11 VIVIENNE SANCHEZ [facility] Immunization Administration By Injection, Each Additional Vaccine Immunization Administration By Injection, Each Additional Vaccine 9994608/11 VIVIENNE SANCHEZ [facility] Hepatitis B Vaccine (Active) Adult Dosage 3 Dose Schedule Hepatitis B Vaccine (Active) Adult Dosage 3 Dose Schedule 5549708/11 VIVIENNE SANCHEZ Hep B - Adult; Series #: 1; 1.0 mL; IM; Left Arm; Mfg: Sl[employer] Realty; Lot: [id number]; VIS given (Itz: 10/17/2015). [facility] Psychotherapy Individual Approximately 60 Minutes Psychotherapy Individual Approximately 60 Minutes 4929308/10 ESTEBAN WONG [facility] Psychotherapy Individual Approximately 45 Minutes Psychotherapy Individual Approximately 45 Minutes [id number]/27 ESTEBAN WONG [facility] Psychotherapy With Medication Management Psychotherapy With Medication Management 1765207/27 SOFIE JACOB [facility] Psychotherapy Individual Approximately 30 Minutes Psychotherapy Individual Approximately 30 Minutes 4730107/22 ESTEBAN WONG [facility] Psychotherapy With Medication Management Psychotherapy With Medication Management 5000207/22 SOFIE JACOB [facility] Psychotherapy Individual Approximately 45 Minutes Psychotherapy Individual Approximately 45 Minutes 3483307/22 SOFIE JACOB [facility] Psychotherapy Individual Approximately 30 Minutes Psychotherapy Individual Approximately 30 Minutes 3962807/21 ESTEBAN WONG [facility] Psychotherapy Individual Approximately 30 Minutes Psychotherapy Individual Approximately 30 Minutes 6084507/20 ESTEBAN WONG [facility] Psychotherapy Individual Approximately 30 Minutes Psychotherapy Individual Approximately 30 Minutes 6452107/10 ESTEBAN WONG [facility] Physical Therapy: ___ Se ion Segments, 15 Minutes Each Physical Therapy: ___ Session Segments, 15 Minutes Each 07202 07/09 BARBARA ALTAMIRANO [facility] Psychotherapy With Medication Management Psychotherapy With Medication Management 6163407/09 SOFIE JACOB [facility] Psychotherapy Individual Approximately 45 Minutes Psychotherapy Individual Approximately 45 Minutes [id number]/09 NIDIASOFIE Swati [facility] Psychotherapy Individual Approximately 60 Minutes Psychotherapy Individual Approximately 60 Minutes 32112 07/06 ESTEBAN WONG [facility] Physical Therapy: ___ Se ion Segments, 15 Minutes Each Physical Therapy: ___ Session Segments, 15 Minutes Each 85756 07/03 BARBARA ALTAMIRANO [facility] Psychotherapy Individual Approximately 45 Minutes Psychotherapy Individual Approximately 45 Minutes 91290 07/03 ESTEBAN WONG [facility] Psychotherapy Individual Approximately 60 Minutes Psychotherapy Individual Approximately 60 Minutes 82643 06/30 ESTEBAN WONG [facility] Physical Therapy: ___ Se ion Segments, 15 Minutes Each Physical Therapy: ___ Session Segments, 15 Minutes Each 75637 06/30 BARBARA ALTAMIRANO [facility] Physical Therapy: ___ Se ion Segments, 15 Minutes Each Physical Therapy: ___ Session Segments, 15 Minutes Each 80846 06/29 BARBARA ALTAMIRANO [facility] Patient Counseling Medical Management Individual Patient Patient Counseling Medical Management Individual Patient 26948 06/29 SAUL DAVILA [facility] Psychotherapy Individual Approximately 30 Minutes Psychotherapy Individual Approximately 30 Minutes 48264 06/25 ESTEBAN WONG [facility] Psychotherapy Individual Approximately 30 Minutes Psychotherapy Individual Approximately 30 Minutes 56613 06/23 ESTEBAN WONG [facility] Psychotherapy Individual Approximately 60 Minutes Psychotherapy Individual Approximately 60 Minutes 00204 06/23 ESTEBAN WONG [facility] Physical Therapy: ___ Se ion Segments, 15 Minutes Each Physical Therapy: ___ Session Segments, 15 Minutes Each 96551 06/22 BARBARA ALTAMIRANO [facility] Physical Therapy: ___ Se ion Segments, 15 Minutes Each Physical Therapy: ___ Session Segments, 15 Minutes Each 31095 06/19 BARBARA ALTAMIRANO [facility] Health And Behav A e mt Each Additional 15 Min [place] e ment Health And Behav Assessmt Each Additional 15 Min Reassessment 13304 06/18 ESTEBAN WONG [facility] Psychotherapy Individual Approximately 45 Minutes Psychotherapy Individual Approximately 45 Minutes 06846 06/17 ESTEBAN WONG [facility] Psychotherapy Individual Approximately 60 Minutes Psychotherapy Individual Approximately 60 Minutes 06096 06/17 ESTEBAN WONG [facility] Physical Therapy Service Evaluation Moderate Complexity Physical Therapy Service Evaluation Moderate Complexity 84311 06/10 TIMUR AVENDANO [facility] Physical Therapy: ___ Se ion Segments, 15 Minutes Each Physical Therapy: ___ Session Segments, 15 Minutes Each 03866 06/10 TIMUR AVENDANO [facility] Psychotherapy Individual Approximately 45 Minutes Psychotherapy Individual Approximately 45 Minutes 31295 06/09 ESTEBAN WONG DoD Psychotherapy Individual Approximately 60 Minutes Psychotherapy Individual Approximately 60 Minutes 01675 06/09 ESTEBAN WONG [facility] Brief communication technology-based service, e.g. virtual check-in, by a physician or other qualified health care profbronson nguyen who can report evaluation and management services, provided to an established patient, not originating from a related E/M service provided within the previous 7 days nor leading to an E/M service or procedure within the next 24 hours or soonest available appointment; 5-10 minutes of medical discu CARTER Pruitt [facility] BRIEF COMM TECH-BASE SERV,E.G. VIRT CHK-IN,BY PHYS/OTH QUAL HCP,RPT E&M SERV,PROV TO EST PT,NOT ORIG FRM REL E/M SERV PROV W/IN PREV 7DAY NOR LEAD TO E/M SRV/PX W/IN NEXT 24HR/SOON MIRIAM; 5-10 MIN DISC 07/31 [facility] HEPATITIS B VACCINE (HEPB), PEDIATRIC/ADOLESCENT DOSAGE, 3 DOSE SCHEDULE, FOR INTRAMUSCULAR USE 01/09 [facility] PATIENT EDUCATION, NOT OTHERWISE CLASSIFIED, NON-PHYSICIAN PROVIDER, GROUP, PER SESSION 12/18 [facility] INJECTION, PENICILLIN G BENZATHINE, 100,000 UNITS 12/08 [facility] AUDIOMETRIC TESTING OF GROUPS 12/05 [facility] DETERMINATION OF REFRACTIVE STATE 12/05 DoD PSYCHOTHERAPY, 60 MINUTES WITH PATIENT 01/27 DoD IMMUNIZATION ADMINISTRATION (INCLUDES PERCUTANEOUS, INTRADERMAL, SUBCUTANEOUS, OR INTRAMUSCULAR INJECTIONS); 1 VACCINE (SINGLE OR COMBINATION VACCINE/TOXOID) 01/18 DoD PSYCHOTHERAPY, 60 MINUTES WITH PATIENT 01/18 DoD DETERMINATION OF REFRACTIVE STATE 01/13 [facility] PURE TONE AUDIOMETRY (THRESHOLD), AUTOMATED; AIR ONLY 01/06 DoD PSYCHOTHERAPY, 30 MINUTES WITH PATIENT 01/06 DoD PSYCHOTHERAPY, 60 MINUTES WITH PATIENT 12/29 DoD PSYCHOTHERAPY, 60 MINUTES WITH PATIENT 12/22 DoD ADMINISTRATION OF PATIENT-FOCUSED HEALTH RISK ASSESSMENT INSTRUMENT (EG, HEALTH HAZARD APPRAISAL) WITH SCORING AND DOCUMENTATION, PER STANDARDIZED INSTRUMENT 12/17 DoD PSYCHOTHERAPY, 60 MINUTES WITH PATIENT 12/16 DoD PSYCHOTHERAPY, 60 MINUTES WITH PATIENT 12/03 DoD PSYCHOTHERAPY, 30 MINUTES WITH PATIENT 11/23 DoD PHARMACOLOGIC MANAGEMENT, INCLUDING PRESCRIPTION AND REVIEW OF MEDICATION, WHEN PERFORMED WITH PSYCHOTHERAPY SERVICES (LIST SEPARATELY IN ADDITION TO THE CODE FOR PRIMARY PROCEDURE) 11/17 DoD PSYCHOTHERAPY, 45 MINUTES WITH PATIENT 11/16 DoD PSYCHOTHERAPY, 60 MINUTES WITH PATIENT 11/13 DoD CASE MANAGEMENT, EACH 15 MINUTES 11/13 DoD PSYCHOTHERAPY, 60 MINUTES WITH PATIENT 11/11 DoD PSYCHOTHERAPY, 60 MINUTES WITH PATIENT 11/05 DoD PHARMACOLOGIC MANAGEMENT, INCLUDING PRESCRIPTION AND REVIEW OF MEDICATION, WHEN PERFORMED WITH PSYCHOTHERAPY SERVICES (LIST SEPARATELY IN ADDITION TO THE CODE FOR PRIMARY PROCEDURE) 11/05 DoD PSYCHOTHERAPY, 60 MINUTES WITH PATIENT 10/29 DoD PHARMACOLOGIC MANAGEMENT, INCLUDING PRESCRIPTION AND REVIEW OF MEDICATION, WHEN PERFORMED WITH PSYCHOTHERAPY SERVICES (LIST SEPARATELY IN ADDITION TO THE CODE FOR PRIMARY PROCEDURE) 10/27 DoD PSYCHOTHERAPY, 30 MINUTES WITH PATIENT 10/26 DoD PSYCHOTHERAPY, 60 MINUTES WITH PATIENT 10/15 DoD PSYCHOTHERAPY, 60 MINUTES WITH PATIENT 10/14 DoD PSYCHOTHERAPY, 60 MINUTES WITH PATIENT 10/13 DoD RE-EVAL,PHYSICAL THERAPY EST PLAN OF CARE,REQ:EXAM,REV,HX & USE,STAND TESTS &ROWDY REQ;REV PLAN OF CARE USING STAND PAT ASSESS INSTR &/ROWDY ASSESS FUNC OUTCOME TYP,20 MIN SPENT [id number]-OS-[id number] W PAT&/FAM 10/09 DoD PHARMACOLOGIC MANAGEMENT, INCLUDING PRESCRIPTION AND REVIEW OF MEDICATION, WHEN PERFORMED WITH PSYCHOTHERAPY SERVICES (LIST SEPARATELY IN ADDITION TO THE CODE FOR PRIMARY PROCEDURE) 10/08 DoD PSYCHOTHERAPY, 30 MINUTES WITH PATIENT 10/05 DoD PSYCHOTHERAPY, 45 MINUTES WITH PATIENT 10/02 DoD CASE MANAGEMENT, EACH 15 MINUTES 09/29 DoD PSYCHOTHERAPY, 30 MINUTES WITH PATIENT 09/28 DoD PHARMACOLOGIC MANAGEMENT, INCLUDING PRESCRIPTION AND REVIEW OF MEDICATION, WHEN PERFORMED WITH PSYCHOTHERAPY SERVICES (LIST SEPARATELY IN ADDITION TO THE CODE FOR PRIMARY PROCEDURE) 09/23 DoD APPLICATION OF A MODALITY TO 1 OR MORE AREAS; HOT OR COLD PACKS 09/23 DoD PSYCHOTHERAPY, 60 MINUTES WITH PATIENT 09/22 DoD APPLICATION OF A MODALITY TO 1 OR MORE AREAS; HOT OR COLD PACKS 09/14 DoD PSYCHOTHERAPY, 30 MINUTES WITH PATIENT 09/11 DoD PHARMACOLOGIC MANAGEMENT, INCLUDING PRESCRIPTION AND REVIEW OF MEDICATION, WHEN PERFORMED WITH PSYCHOTHERAPY SERVICES (LIST SEPARATELY IN ADDITION TO THE CODE FOR PRIMARY PROCEDURE) 09/11 DoD PSYCHOTHERAPY, 60 MINUTES WITH PATIENT 09/10 DoD APPLICATION OF A MODALITY TO 1 OR MORE AREAS; HOT OR COLD PACKS 09/09 DoD PSYCHOTHERAPY, 45 MINUTES WITH PATIENT 09/08 DoD PSYCHOTHERAPY, 30 MINUTES WITH PATIENT 09/03 DoD APPLICATION OF A MODALITY TO 1 OR MORE AREAS; HOT OR COLD PACKS 09/02 DoD PSYCHOTHERAPY, 45 MINUTES WITH PATIENT 08/25 DoD PELVIC BELT/HARNESS/BOOT 08/13 DoD PHARMACOLOGIC MANAGEMENT, INCLUDING PRESCRIPTION AND REVIEW OF MEDICATION, WHEN PERFORMED WITH PSYCHOTHERAPY SERVICES (LIST SEPARATELY IN ADDITION TO THE CODE FOR PRIMARY PROCEDURE) 08/13 DoD PSYCHOTHERAPY, 45 MINUTES WITH PATIENT 08/13 DoD IMMUNIZATION ADMINISTRATION (INCLUDES PERCUTANEOUS, INTRADERMAL, SUBCUTANEOUS, OR INTRAMUSCULAR INJECTIONS); EACH ADDITIONAL VACCINE (SINGLE OR COMBINATION VACCINE/TOXOID) 08/10 DoD PSYCHOTHERAPY, 60 MINUTES WITH PATIENT 08/10 DoD PSYCHOTHERAPY, 45 MINUTES WITH PATIENT 07/27 DoD PHARMACOLOGIC MANAGEMENT, INCLUDING PRESCRIPTION AND REVIEW OF MEDICATION, WHEN PERFORMED WITH PSYCHOTHERAPY SERVICES (LIST SEPARATELY IN ADDITION TO THE CODE FOR PRIMARY PROCEDURE) 07/27 DoD PHARMACOLOGIC MANAGEMENT, INCLUDING PRESCRIPTION AND REVIEW OF MEDICATION, WHEN PERFORMED WITH PSYCHOTHERAPY SERVICES (LIST SEPARATELY IN ADDITION TO THE CODE FOR PRIMARY PROCEDURE) 07/22 DoD PSYCHOTHERAPY, 30 MINUTES WITH PATIENT 07/22 DoD PSYCHOTHERAPY, 30 MINUTES WITH PATIENT 07/21 DoD PSYCHOTHERAPY, 30 MINUTES WITH PATIENT 07/20 DoD PSYCHOTHERAPY, 30 MINUTES WITH PATIENT 07/10 DoD PHARMACOLOGIC MANAGEMENT, INCLUDING PRESCRIPTION AND REVIEW OF MEDICATION, WHEN PERFORMED WITH PSYCHOTHERAPY SERVICES (LIST SEPARATELY IN ADDITION TO THE CODE FOR PRIMARY PROCEDURE) 07/09 DoD PSYCHOTHERAPY, 60 MINUTES WITH PATIENT 07/06 DoD THERAPEUTIC PROCEDURE, 1 OR MORE AREAS, EACH 15 MINUTES; THERAPEUTIC EXERCISES TO DEVELOP STRENGTH AND ENDURANCE, RANGE OF MOTION AND FLEXIBILITY 07/06 DoD PSYCHOTHERAPY, 45 MINUTES WITH PATIENT 07/03 DoD THERAPEUTIC PROCEDURE, 1 OR MORE AREAS, EACH 15 MINUTES; THERAPEUTIC EXERCISES TO DEVELOP STRENGTH AND ENDURANCE, RANGE OF MOTION AND FLEXIBILITY 07/01 DoD PSYCHOTHERAPY, 60 MINUTES WITH PATIENT 06/30 DoD EDUCATION &TRAINING, PATIENT SELF-MGT QUALIFIED, NONPHYSICIAN HEALTH STORE PROMOTER USING STDIZED CURRICULUM, [id number] W THE PATIENT (COULD INCL CAREGIVER/FAMILY) EA 30 MIN; INDIVIDUAL PATIENT 06/29 DoD THERAPEUTIC PROCEDURE, 1 OR MORE AREAS, EACH 15 MINUTES; THERAPEUTIC EXERCISES TO DEVELOP STRENGTH AND ENDURANCE, RANGE OF MOTION AND FLEXIBILITY 06/29 DoD PSYCHOTHERAPY, 30 MINUTES WITH PATIENT 06/25 DoD THERAPEUTIC PROCEDURE, 1 OR MORE AREAS, EACH 15 MINUTES; THERAPEUTIC EXERCISES TO DEVELOP STRENGTH AND ENDURANCE, RANGE OF MOTION AND FLEXIBILITY 06/24 DoD PSYCHOTHERAPY, 30 MINUTES WITH PATIENT 06/23 DoD HEALTH AND BEHAVIOR ASSESS (EG, HEALTH-FOC CLIN INTERVIEW, BEHAVIORAL OBSERVATIONS, PSYCHOPHYSICOLOGICAL MON, HEALTH-ORIENTED QUESTIONNAIRES), EACH 15 MIN OFKE-EL-HRVB WITH THE PATIENT; RE-ASSESS 06/18 DoD PSYCHOTHERAPY, 45 MINUTES WITH PATIENT 06/17 DoD THERAPEUTIC PROCEDURE, 1 OR MORE AREAS, EACH 15 MINUTES; THERAPEUTIC EXERCISES TO DEVELOP STRENGTH AND ENDURANCE, RANGE OF MOTION AND FLEXIBILITY 06/17 DoD THERAPEUTIC PROCEDURE, 1 OR MORE AREAS, EACH 15 MINUTES; THERAPEUTIC EXERCISES TO DEVELOP STRENGTH AND ENDURANCE, RANGE OF MOTION AND FLEXIBILITY 06/15 DoD THERAPEUTIC PROCEDURE, 1 OR MORE AREAS, EACH 15 MINUTES; THERAPEUTIC EXERCISES TO DEVELOP STRENGTH AND ENDURANCE, RANGE OF MOTION AND FLEXIBILITY 06/10 DoD PSYCHOTHERAPY, 45 MINUTES WITH PATIENT 06/09 DoD PSYCHOTHERAPY, 45 MINUTES WITH PATIENT 06/08 DoD IMMUNIZATION ADMINISTRATION (INCLUDES PERCUTANEOUS, INTRADERMAL, SUBCUTANEOUS, OR INTRAMUSCULAR INJECTIONS); 1 VACCINE (SINGLE OR COMBINATION VACCINE/TOXOID) 03/12 [facility] Social History Combined list of available smoking, tobacco, and other social history from [facility] facilities. Social History Type Response Date Comment [facility] e Tobacco smoking status [facility] NEVER USED 06/06/2021 [facility] This section is an empty social history section. DoD Assessment and Plan Combined list of future care activities from [facility] and [facility] facilities (e.g., assessment and plan notes, appointments, orders, and referrals). Additional future care activities may be listed in the Plan of Care section. Result Assessment and Plan Date Source Assessment and Plan No data available for this section 08/16/2023 [facility] Functional Status Combined list of recent functional and cognitive assessments recorded at [facility] Functional Real Measurement (FIM) Scale: 1 = Total Assistance (Subject = 0% +), 2 = Maximal Assistance (Subject = 25% +), 3 = Moderate Assistance (Subject = 50% +), 4 = Minimal Assistance (Subject = 75% +), 5 = Supervision, 6 = Modified Real (Device), 7 = Complete Real (Timely, Safely). Assessment Date/Time Source Assessment Type Assessment Skill Assessment Score Assessment Details No data available for this section
[2023-08-16 18:46] LABS: Chloride* 108 mmol/L (96-114)
[2023-08-16 18:47] LABS: Potassium* 3.4 mmol/L (3.6-5.1); Sodium* 138 mmol/L (135-149)
[2023-08-16 18:49] LABS: Creatinine* 0.6 mg/dL (0.5-1.5); Est. Creatinine Clearance* 102.95; Estimated Glomerular Filt Rate 128 ml/min
[2023-08-16 18:50] LABS: Anion Gap 4 mEq/L (7-15); Blood Urea Nitrogen* 9 mg/dL (5-24); Calcium* 8.9 mg/dL (8.4-10.6); Carbon Dioxide* 26 mmol/L (20-32); Glucose* 99 mg/dL (60-115)
[2023-08-16 19:15] VITALS: BP 118/74; PULSE 79; RESP 18; TEMP 36.9; O2SAT 100
[2023-08-16 19:16] VITALS: BP 118/74; PULSE 79; RESP 18; TEMP 36.9
== END 2023-08-16 19:16 | disposition home or self-care (01) ==
PROVIDERS: Emergency Provider Emergency Medicine Emergency Medical Services; PCP Family Medicine
DX: R42 Dizziness and giddiness (principal); Z3A.01 Less than 8 weeks gestation of pregnancy
CPT/HCPCS: 36415; 80048; 84702; 85025; 99283; 99284

== ENCOUNTER 2023-09-11 08:17 | Outpatient (CLI) | payer OTHER, SELFPAY ==
--- OUTSIDE RECORDS SUMMARY | 2023-09-11 08:21 | XMS_ITS | Clinical Summary ---
Author Organization [facility] Address [place], [place] [address] Care Team Providers Care Geriatric Case Manager Name Role Phone Ariela Machado MD Primary Care Provider [phone] Allergies Active Allergy Reactions Criticality Noted Date Comments Bupropion Other - Describe In Comment Field Morphine Anaphylaxis,Rash High 04/21/2019 Medications Medication Sig Dispensed Refills Start Date End Date Status vit/iron fum/folic ac ( 1 + 1 ORAL) Take by mouth. Active Active Problems Problem Noted Date Diagnosed Date Less than 8 weeks gestation of 024 Overview: Estimated Date of Delivery: 04/21/24 Patient's last menstrual period was 07/16/2023. GBS: 28wk labs: Last Tdap: 12/08/2016 Last Flu vaccine: 12/24/22 OB Labs: Allergies Allergen Reactions Morphine Anaphylaxis and Rash Bupropion Other - Describe In Comment Field OB History Para Term AB Living 1 0 0 0 0 0 SAB IAB Ectopic Multiple Live Births 0 0 0 0 0 # Outcome Date GA Lbr Lokesh/2nd Weight Sex Delivery Anes PTL Lv 1 Current Past Medical History: . Date Anemia age 10-13 Anxiety Asthma as child Depression Migraine headache early teens, none recently Panic attack Pleurisy 05/2019 PTSD (post-traumatic stress disorder) Past Surgical History: . Laterality Date APPENDECTOMY 2012 WISDOM TEETH EXTRACTION Problems (from 08/28/23 to present) Problem Noted Resolved Less than 8 weeks gestation of 08/28/2023 by Marilyn Tilley RN No Marilyn Tilley RN ....08/28/2023 11:06 AM Estimated Date of Delivery Comme nts Yes 04/21/2024 Resolved Problems Problem Noted Date Diagnosed Date Resolved Date COVID-19 virus infection 02/17/2020 Encounters Date Type Department Care Team Description 08/28/2023 10:00 AM CDT OB Encounter [facility] [address] [facility] [address] Education (OB intake) 08/28/2023 Travel 08/19/2023 3:15 PM CDT Orders Only [facility] [address] [facility] [address] Lab, [place] Lab 08/19/2023 Orders Only [facility] [address] [facility] [address] Ariela Machado MD <No scans attached> 08/19/2023 Travel 08/17/2023 Travel 08/07/2023 8:50 AM CDT Orders Only [facility] [address] [place] [id number] Lab, [place] Lab 08/07/2023 Travel from Last 3 Months [...] Heart Disease Maternal Grandfather Lung cancer Maternal Grandfather Emphysema Maternal Grandmother Mitral valve prolapse Mother Other Mother prediabetes No Known Problems Paternal Grandfather da d was adopted Lung cancer Paternal Grandmother Stroke Paternal Grandmother Autism Sister Preeclampsia Sister Relation Name Status Comments Brother 1 Alive Brother 2 Alive Father Alive Maternal Grandfather Maternal Grandmother Mother Alive Paternal Grandfather Paternal Grandmother Alive Sister Alive Social History Tobacco Use Types Packs/Day Years Used Date Smoking Tobacco: Former Cigarettes 0.3 1 0 07/03/2017 - 07/03/2018 Smokeless Tobacco: Never Tobacco Cessation:Counseling Given: Yes Alcohol Use Standard Drinks/Week Comments Not Currently 1 (1 standard drink = 0.6 oz [...] Housing in the Last Year 1 11/19/2022 Estimated Date of Delivery Comme nts Yes 04/21/2024 Sex and Gender Information Value Date Recorded Sex Assigned at Not on file Gender Identity Not on file Sexual Orientation Not on file Obstetrics History Para Term AB IAB SAB Ectopic Multiple Livin g Live Births 1 Date Outcome GA Total Labor Labor/2nd/3rd Weight Sex Type Anes PTL Oralia A1 A5 Name Clin Current Summary Episode Dates Number of Fetuses Estimated Date of Delivery 08/28/2023 - Present (09/11/2023) 04/21/2024 (set by Marilyn Tilley RN on 08/28/2023 based on Alternate DANAY Entry) Dating Summary Based On DANAY GA Diff Last Menstrual Period on 07/16/2023 04/21/2024 Same Alternate DANAY Entry 04/21/2024 Working Vitals Pregravid Weight Height TWG (As of 09/11/2023) Pregrav id BMI 1.549 m (5' 1) Notes Progress Notes - OB Encounte r - 08/28/2023 - GA:6w1d 08/28/2023 - 6w1d - Marilyn Tilley RN SUBJECTIVE: Jeannie Foster is a 27 y.o. female, , who presents for confirmation and ob education. Patient presents to the clinic with Navin. Had positive test at home. This was Unplanned, Desired. Patient was not on contraception. 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 MENSTRUAL HISTORY: Patient's last menstrual period was 07/16/2023.: Cycle Regularity: regular, every 28-30 days Past Medical History: . Date Anemia age 10-13 Anxiety Asthma as child Depression Migraine headache early teens, none recently Panic attack Pleurisy 05/2019 PTSD (post-traumatic stress disorder) OB History Para Term AB Living 1 SAB IAB Ectopic Multiple Live Births # Outcome Date GA Lbr Lokesh/2nd Weight Sex Delivery Anes PTL Lv 1 Current 5P'S SUBSTANCE ABUSE SCREEN FOR ALCOHOL, DRUGS AND TOBACCO: Did any of your parents have a problem with using alcohol or drugs? Yes, Dad of pt Do any of your friends (peers) have problems with drug or alcohol use? No Does your partner have a problem with drug or alcohol use? No Before you knew you were , how often did you drink beer, wine, wine coolers or liquor or use any kind of drug? Rarely In the past month, how often did you drink beer, wine, wine coolers or liquor or use any kind of drug? Not at all How much did you smoke, vape or use tobacco or nicotine in any form before you knew you were ? Former User -Quit Date 08/06/23 Genetic Screening Genetic Screening/Teratology Counseling- Includes patient, baby's father, or anyone in either family with: Patient's age 35 years or older as of estimated date of delivery: No Thalassemia (Swedish, Lao, Mediterranean, or background): MCV less than 80: No Neural tube defect (Meningomyelocele, Spina bifida, or Anencephaly): No Congenital heart defect: No Down syndrome: No Elver-Sachs (Ashkenazi Yarsani, Cajun, [place]uran [place]): No George disease (Ashkenazi Yarsani): No Familial dysautonomia (Ashkenazi Yarsani): No Sickle cell disease or trait (): No Hemophilia or other blood disorders: No Muscular dystrophy: No Cystic fibrosis: No Jovani's chorea: No Intellectual disability and/or autism: Yes If yes, was the person tested for Fragile X?: No (Comment: unsure) Other inherited genetic or chromosomal disorder: No Maternal metabolic disorder (eg. Type 1 diabetes, PKU): No Patient or baby's father had child with defects not listed above: No Recurrent loss, or a stillbirth: No Medications (including supplements, vitamins, herbs, or OTC drugs)/illicit/recreational drugs/alcohol since last menstrual period: No CURRENT MEDICATIONS: Current Outpatient Medications Medication Sig vit/iron fum/folic ac ( 1 + 1 ORAL) Take by mouth. No current facility-administered medications for this visit. Medications have been reviewed by me and are current to the best of my knowledge and ability. ALLERGIES: Morphine and Bupropion OBJECTIVE: Ht 1.549 m (5' 1) Wt 57.3 kg (126 lb 6.4 oz) LMP 07/16/2023 BMI 23.88 kg/m?? No results found for: PREGURINE ASSESSMENT/PLAN: ICD-10-CM 1. Encounter for supervision of normal first in first trimester Z34.01 CBC W PLT NO DIFF ANTI HIV 1/2 URINE CULTURE TYPE AND SCREEN RUBELLA IMMUNE STATUS TREPONEMA PALLIDUM HBSAG (HBS) ANTI HCV LEATHER FINISHER PROBE - CHLAMYDIA DNA PCR [[id number]] URINALYSIS W REFLEX MICROSCOPIC IF POSITIVE [76578.2] US 1ST TRIMESTER (< 14 weeks) [95124.0] EDUCATION/PATIENT INSTRUCTIONS - Advised patient to start/continue vitamin. - Discussed risk of using alcohol, tobacco, other drugs in . - Discussed healthy lifestyle in . - Provided copy of Beginnings book and book inserts, discussed fqge-bae-gadvasf medications, and follow up. - Encouraged patient to call clinic at [phone] with any vaginal bleeding, fluid leaking from vagina, severe abdominal pain, nausea with severe vomiting, fever higher than 100.4F, painful urination, headache not relieved by Tylenol, or other concerns - labs completed with today's visit. ordered - Patient informed to schedule 1st trimester dating ultrasound between 7-10 weeks. - Initial OB appointment with FP/OB scheduled. PHQ-9, and COVID-19 vaccine discussion to be completed at this visit. Future Appointments Date Time Provider Department Center 09/25/2023 8:45 AM [facility] Marilyn Tilley RN .................... 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 Oxygen Saturation 99% 12/24/2022 8:05 AM CDT Inhaled Oxygen Concentration - - Weight 57.3 kg (126 lb 6.4 oz) 08/28/2023 10:11 AM CDT Height 154.9 cm (5' 1) 08/28/2023 10:11 AM CDT Body Mass Index 23.88 08/28/2023 10:11 AM CDT Plan of Treatment Upcoming Encounters Date Type Department Care Team (Late st Contact Info) Description 09/25/2023 8:45 AM CDT OB Encounter [facility] [address] [place] [address] Ariela Machado MD [address] [place] [address] Health Maintenance Due Date Last Done Comments [...] wt on same day) for age 18+ 08/27/2024 08/28/2023, 12/24/2022, 11/19/2022, Additional history exists Tetanus booster 12/08/2026 12/08/2016 Tdap Completed 12/08/2016 HIV for age 15-65 Completed 08/28/2023, 12/24/2022 Hepatitis C screening for age 18-79 Completed 08/28/2023, 12/05/2021 Pneumococcal series for age 6-64 Aged Out No longer eligible based on patient's age to complete this topic Procedures Procedure Name Priority Date/Time Associated Diagnosis Comments UA W/ SEDIMENT EXAM REFLEXED PER CRITERIA Routine 08/28/2023 11:18 AM CDT Encounter for supervision of normal first in first trimester GC CHLAMYDIA TRACH PROBE Routine 08/28/2023 11:18 AM CDT Encounter for supervision of normal first in first trimester URINE CULTURE Routine 08/28/2023 11:18 AM CDT Encounter for supervision of normal first in first trimester TYPE & SCREEN Routine 08/28/2023 11:14 AM CDT Encounter for supervision of normal first in first trimester ANTI HCV Routine 08/28/2023 11:14 AM CDT Encounter for supervision of normal first in first trimester HBSAG (HBS) Routine 08/28/2023 11:14 AM CDT Encounter for supervision of normal first in first trimester TREPONEMA PALLIDUM Routine 08/28/2023 11 :14 AM CDT Encounter for supervision of normal first in first trimester RUBELLA IMMUNE STATUS Routine 08/28/2023 11:14 AM CDT Encounter for supervision of normal first in first trimester ANTI HIV 1/2 Routine 08/28/2023 11:14 AM CDT Encounter for supervision of normal first in first trimester CBC W PLT NO DIFF Routine 08/28/2023 11: 14 AM CDT Encounter for supervision of normal first in first trimester HCG BETA QUANT, Routine 08/19/2023 3:21 PM CDT Early stage of HCG BETA QUANT, Routine 08/17/2023 8:59 AM CDT Early stage of HCG BETA QUANT, Routine 08/07/2023 9:07 AM CDT Early stage of LEATHER FINISHER THIN PREP PAP SCREEN IMAGED Routine 11/23/2020 8:39 AM CDT Pap smear for cervical cancer screening from Last 3 Months or Most Recently Relevant to Health Maintenance Results * LEATHER FINISHER PROBE - GC CHLAMYDIA DNA PCR [[id number]] (08/28/2023 11:18 AM CDT) CHLAMYDIA PROBE Negative 3:23 AM CDT [facility] TRAL LABORATORY N GONORRHOEAE PROBE Negative 08/29/2023 3:23 AM CDT [facility] TR[facility] LAB[facility] Other URINE SPECIMEN / Unknown Non-Blood / Unknown 08/28/2023 11:18 AM CDT 08/28/2023 11:18 AM CDT Ariela Machado MD MICROBIOLOGY [facility] [address] [place] [address], * URINE CULTURE (08/28/2023 11:18 AM CDT) CULTURE No growth (<1,000 CFU/mL) 08/30/2023 9:03 AM CDT [facility] Urine URINE SPECIMEN / Unknown Non-Blood / Unknown 08/28/2023 11:18 AM CDT 08/28/2023 11:18 AM CDT Ariela Machado MD MICROBIOLOGY [facility] [address] [place] [address], * URINALYSIS W REFLEX MICROSCOPIC IF POSITIVE [30727.2] (08/28/2023 11:18 AM CDT) COLOR Yellow Yellow Color 08/28/2023 11:21 AM CDT [facility] CLARITY Clear Clear Clarity 08/28/2023 11:21 AM CDT [facility] SPECIFIC GRAVITY,URINE 1.010 1.010, 1.015, 1.020, 1.025 08/28/2023 11:21 AM CDT [facility] PH,URINE 7.0 6.0, 7.0, 8.0, 5.5, 6.5, 7.5, 8.5 08/28/2023 11:21 AM CDT [facility] UROBILINOGEN, QUALITATIVE Normal Normal EU/dl 08/28/2023 11:21 AM CDT [facility] PROTEIN, URINE Negative Negative mg/dL 08/28/2023 11:21 AM CDT [facility] GLUCOSE, URINE Negative Negative mg/dL 08/28/2023 11:21 AM CDT [facility] KETONES,URINE Negative Negative mg/dL 08/28/2023 11:21 AM CDT [facility] BILIRUBIN,URI NE Negative Negative 08/28/2023 11:21 AM CDT [facility] OCCULT BLOOD,URINE Negative Negative 08/28/2023 11:21 AM CDT [facility] NITRITE Negative Negative 08/28/2023 11:21 AM CDT [facility] LEUKOCYTE ESTERASE Negative Negative 08/28/2023 11:21 AM CDT [facility] Urine URINE SPECIMEN / Unknown Non-Blood / Unknown 08/28/2023 11:18 AM CDT 08/28/2023 11:18 AM CDT Ariela Machado MD URINE Performing Organization Address City/[facility]/ZIP Co de Phone Number [facility] [address] [place] [address], * TREPONEMA PALLIDUM (08/28/2023 11:14 AM CDT) TREPONEMA PALLIDUM Non-Reacti ve Non-Reacti ve 08/28/2023 11:48 PM CDT [facility] TRAL LABORATORY Blood BLOOD SPECIMEN / Unknown Venipuncture / Unknown 08/28/2023 11:14 AM CDT 08/28/2023 11:17 AM CDT Ariela Machado MD SEND OUTS Performing Organization Address City/[facility]/ZIP Co de Phone Number [facility] [address] [place] [address], * RUBELLA IMMUNE STATUS (08/28/2023 11:14 AM CDT) INTERPRETATION Positive 08/29/2023 9:28 AM CDT [facility] Comment:Presence of detectab le IgG antibodies. A positive result generally indicates exposure to the virus or previous vaccination, but is not an indication of active infection or stage of disease. RUBELLA IGG ANTIBODY 1.57 >=1.00 Index 08/29/2023 9:28 AM CDT [facility] Blood BLOOD SPECIMEN / Unknown Venipuncture / Unknown 08/28/2023 11:14 AM CDT 08/28/2023 11:17 AM CDT Narrative [facility] - 08/29/2023 9:28 AM CDT ??<0.90 ? Negative ?? 0.90-0.99 ?? Equivocal >=1.0 ?Positive Ariela Machado MD SEND OUTS [facility] [address] [place] [address], * TYPE AND SCREEN (08/28/2023 11:14 AM CDT) Pathologist [facility] ABORH B Rh Positive 08/28/2023 11:00 PM CDT [facility] LAB-CENTRAL LAB BLOOD BANK ANTIBODY SCREEN Negative Negative 08/28/2023 11:00 PM CDT [facility] LAB BLOOD BANK SPECIMEN EXPIRATION DATE/TIME 08/31/23 23:59 08/28/2023 11:00 PM CDT [facility] BLOOD BANK Blood BLOOD SPECIMEN / Unknown Venipuncture / Unknown 08/28/2023 11:14 AM CDT 08/28/2023 11:17 AM CDT Ariela Machado MD BLOOD BANK Performing Organization Address City/[facility]/ZIP Co de Phone Number [facility] LAB BLOOD BANK [address] [place] [address], * HBSAG (HBS) (08/28/2023 11:14 AM CDT) Pathologist [facility] HBSAG Nonreactive Nonreactive 08/28/2023 11:42 PM CDT [facility] TRAL LABORATORY Blood BLOOD SPECIMEN / Unknown Venipuncture / Unknown 08/28/2023 11:14 AM CDT 08/28/2023 11:17 AM CDT Ariela Machado MD SEND OUTS [facility] [address] [place] [address], * ANTI HCV (08/28/2023 11:14 AM CDT) Pathologist [facility] HEPATITIS C ANTIBODY Non-Reacti ve Non-React kyara 08/28/2023 11:39 PM CDT [facility] TRAL LABORATORY Comment:Please note, per www .CDC.gov: If a patient is known to be at high risk of HCV infection, or is symptomatic, and the physician's suspicion of HCV infection is high, HCV RNA testing is often employed and is of diagnostic value, even after an initial negative anti-HCV test result. Blood BLOOD SPECIMEN / Unknown Venipuncture / Unknown 08/28/2023 11:14 AM CDT 08/28/2023 11:17 AM CDT Ariela Machado MD [facility]S [facility] [address] [place] [address], * CBC W PLT NO DIFF (08/28/2023 11:14 AM CDT) WHITE BLOOD COUNT 7.0 4.5 - 11.0 thou/cu mm 08/28/2023 11:20 AM CDT [facility] RED BLOOD COUNT 4.20 4.00 - 5.20 mil/cu mm 08/28/2023 11:20 AM CDT [facility] HEMOGLOBIN 13.0 12.0 - 16.0 g/dL 08/28/2023 11:20 AM CDT [facility] HEMATOCRIT 37.7 33.0 - 51.0 % 08/28/2023 11:20 AM CDT [facility] MCV 90 80 - 100 fL 08/28/2023 11:20 AM CDT [facility] MCH 31.0 26.0 - 34.0 pg 08/28/2023 11:20 AM CDT [facility] MCHC 34.5 32.0 - 36.0 g/dL 08/28/2023 11:20 AM CDT [facility] RDW 12.2 11.5 - 15.5 % 08/28/2023 11:20 AM CDT [facility] PLATELET COUNT 278 140 - 440 thou/cu mm 08/28/2023 11:20 AM CDT [facility] MPV 10.0 6.5 - 11.0 fL 08/28/2023 11:20 AM CDT [facility] Blood BLOOD SPECIMEN / Unknown Venipuncture / Unknown 08/28/2023 11:14 AM CDT 08/28/2023 11:17 AM CDT Ariela Machado MD HEMATOLOGY [facility] [address] [place] [address], * ANTI HIV 1/2 (08/28/2023 11:14 AM CDT) Pathologist [facility] HIV-1/HIV-2 SCREEN Non-Reacti ve Non-Reacti ve 08/28/2023 11:42 PM CDT [facility] TRAL LABORATORY Comment:HIV-1 p24 and HIV-1/ HIV-2 Ab Not Detected. Blood BLOOD SPECIMEN / Unknown Venipuncture / Unknown 08/28/2023 11:14 AM CDT 08/28/2023 11:17 AM CDT Ariela Machado MD SEND OUTS Performing Organization Address City/[facility]/ZIP Co de Phone Number [facility] [address] [place] [address], * HCG BETA QUANT, (08/19/2023 3:21 PM CDT) Only the most recent of3 resultswithin the time period is included. HCG BETA QUANT,PREGNANC Y 5,698 mIU/mL 08/20/2023 6:06 AM CDT [facility] Blood BLOOD SPECIMEN / Unknown Venipuncture / Unknown 08/19/2023 3:21 PM CDT 08/19/2023 3:23 PM CDT Narrative [facility] - 08/20/2023 6:06 AM CDT Expected Value for Healthy Non- [...] gestation (8,175 - 55,868) 18 weeks gestation (8,099 - 58,176) Biotin supplements may cause clinically significant interference for this test assay. ??If interference is suspected, it is strongly recommended that biotin is discontinued for at least one week prior to retesting. Ariela Machado MD CHEMISTRY [facility] LABORATORY [address] [place] [address], * LEATHER FINISHER THIN PREP PAP SCREEN IMAGED (11/23/2020 8:39 AM CDT) Case Report Gynecologic Cytology Report ? Case: [id number] ? Authorizing Provider: ??Ariela Machado MD ? Collected: ? 11/23/2020 0839 ? Ordering Location: ? [facility] ?? Received: ?11/23/2020 0905 ? Clinic ? First Screen: ?Angie Mercado ? Specimen: ?LEATHER FINISHER ThinPrep Vial Screening, Cervical ? 12/06/2020 1:32 PM CDT [facility]-C ENTRAL LABORATORY INTERPRETATION/ RESULT NEGATIVE FOR INTRAEPITHELIAL LESION OR MALIGNANCY (NIL) (none) 12/06/2020 1:32 PM CDT [facility] ENTRAL LABORATORY IMEN ADEQUACY Satisfactory for evaluation Endocervical component present 12/06/2020 1:32 PM CDT [facility]- ENTRAL LABORATORY HPV REQUEST HPV if ASCUS 12/06/2020 1:32 PM CDT [facility]-C ENTRAL LABORATORY Date of LMP suppressed 12/06/2020 1:32 PM CDT [facility]-C ENTRAL LABORATORY Last Pap Date first 12/06/2020 1:32 PM CDT [facility]-C ENTRAL LABORATORY Last Pap Result First Pap/Unknown 1:32 PM CDT [facility]-C ENTRAL LABORATORY Abnormal Pap or [place] Bx in last 5 years No 12/06/2020 1:32 PM CDT [facility]-C ENTRAL LABORATORY Menstrual Status Hormonally Suppressed 12/06/2020 1:32 PM CDT [facility]-C ENTRAL LABORATORY [place] Bx Done Today No 12/06/2020 1:32 PM CDT [facility]-C ENTRAL LABORATORY Additional Information None given 12/06/2020 1:32 PM CDT [facility]- ENTRSD LABORATORY Comment: Cytology is screened at [facility] - [address], [place] [address] and [facility] - [address], [place] [address] and [facility] - [address] [place] [address] Interpreted at [facility] - [address], [place] [address] Automated Review Successful 12/06/2020 1:32 PM CDT [facility] ENTRSD LABORATORY Comment:Specimen processed s uccessfully by automated computer repair engineer device, [employer] Systems[employer] System, [employer] Note The pap test is a [...] and malignant lesions. 12/06/2020 1:32 PM CDT [facility] Other (Cervical) Non-Blood / Unknown 11/23/2020 8:39 AM CDT 11/23/2020 9:05 AM CDT Ariela Machado MD PATHOLOGY/CYTOLOGY [facility] [address] [place] [address], from Last 3 Months or Most Recently Relevant to Health Maintenance Care Teams Geriatric Case Manager Relationship Specialty Start Date End Date Ariela Machado [place] [address] PCP - General Family Practice 08/04/19
--- OUTSIDE RECORDS SUMMARY | 2023-09-11 08:21 | XMS_ITS | Continuity of Care Document ---
Author Name [facility] Organization [facility] Care Team Providers Care Microstrategy Architect Developer Name Role Phone [facility] Unavailable Unavailable Problems Combined list of problems from Department of Defense and Veterans Affairs facilities. It does not include entries that were removed or entered in error. Problem Status Onset Date Problem Type Date of Resolution Comme nts Source Encounter for other specified special examinations Active 12/30/2016 Condition DoD Overweight Active Condition [facility] Medications Combined list of outpatient medications from Department of Defense and Veterans Affairs facilities.Medications provided include 1) outpatient medications from the last 15 months, and 2) patient-reported medications. Medication Details Route Status Patient Instructions Prescription Expires Prescription Number Last Dispense Date Ordering Provider Order Date Order Qty Source PREDNISONE (prednisone ), 20 MG, TABLET, ORAL, NOVITIUM/AN I PH, 500 ea. BOTTLE Active [id number] 2023 5 Pharmac y Data Transac tion Service Facilit y Allergies, Adverse Reactions, Alerts Combined list of allergies from Department of Defense and Veterans Affairs facilities. It does not include entries that were removed or entered in error. Substance Category Reaction Severity Reaction type Status Date Reported Comments Source BUPROPION Propensity to adverse reactions to drug (finding) Suicidal thoughts active 9 [facility] morphine Propensity to adverse reactions to drug Swelling of oral cavity structure, Anaphylaxis Active 8 [facility] MORPHINE Propensity to adverse reactions to drug (finding) Anaphylaxis active 9 [facility] MORPHINE (MORPHINE SULFATE) Drug allergy (disorder) Rash, Swelling of oral cavity structure active 8 [facility] Cassandra n Immunizations Combined list of available immunizations from the Department of Defense and Veterans Affairs facilities. Immunization Series Date Given Administered By Site Reaction Lot Number CVX Code Drug Lvn Status Comments Source INFLUENZA, INJECTABLE, QUADRIVALENT 2018 158 complet ed Partner: [facility]. Administe red by: [facility] Clinician (NPI=Not Provided) . Partner 0 Lot#: [id number] Mfr: [facility] [place] [facility] influenza, injectable, quadrivalent- pf 2017 Left Arm [id number] 150 GlaxoSmithKli ne complet ed influenza , injectabl e, quadrival ent-pf 01/18/18 Given Ambulat ory Pharmac y Influenza, injectable, quadrivalent, preservative free 1 2017 CHARLENE THOMAS V [id number] 150 Smithine (SK) complet [...] Papillomaviru s 9-valent vaccine 2017 Left Arm [id number] Merck & Company Inc complet ed Human Papilloma virus 9-valent vaccine 08/11/17 Given Ambulat ory Pharmac y hepatitis B adult vaccine 2017 Left Arm [id number] 43 GlaxoSmithKli ne complet ed hepatitis B adult vaccine 08/11/17 Given Ambulat ory Pharmac y hepatitis B vaccine, adult dosage 1 2017 VIVIENNE SANCHEZ [id number] 43 [facility] ([facility]) complet ed hepatitis B vaccine, adult dosage DoD Human Papillomaviru s 9-valent vaccine 1 2017 VIVIENNE SANCHEZ [id number] Merck (MSD) complet ed Human Papilloma [...] DoD poliovirus vaccine, inactivated 2016 Right Arm [id number] 10 sanofi pasteur complet ed polioviru s [...] poliovirus vaccine, inactivated 1 2016 MAK ROBERTS [id number] 10 Sanofi Pasteur ([facility]) complet ed polioviru s vaccine, inactivat [...] y meningococcal A,C,Y,W-135 (MCV4P) 2016 Left Arm [id number] 114 sanofi pasteur complet ed meningoco ccal A,C,Y,W-1 35 (MCV4P) 12/08/16 Given Ambulat ory Pharmac y hepatitis B pediatric/ado lescent 2016 Left Arm [id number] 08 GlaxoSmithKli ne complet ed hepatitis B pediatric /adolesce nt 12/08/16 Given Ambulat ory Pharmac y adenovirus vaccine, live 2016 [id number] 143 Unknown complet ed adenoviru s vaccine, live 12/08/16 Given Ambulat ory Pharmac y hepatitis B vaccine, pediatric or pediatric/ado lescent dosage 1 2016 MAK ROBERTS [id number] 08 SmithKline (SKB) complet ed hepatitis B vaccine, pediatric or pediatric /adolesce nt dosage DoD meningococcal polysaccharid e (groups A, C, Y and W-135) diphtheria toxoid conjugate vaccine (MCV4P) 1 2016 MAK ROBERTS [id number] 114 Sanofi Pasteur (PMC) complet ed meningoco [...] 7, live, oral 1 2016 MAK ROBERTS [id number] 9 143 Other (OTH) complet ed Adenoviru [...] Source One or More A Facilitie s DOORKEEPER History 03/30 One or More A Facilit ies DOORKEEPER [facility](Op tometry [facility] 1523) OUTPATIENT [id number] Notes Entered by: KEAGAN HAN 05 Dec 2016 09 ------- ------- ------- ------- -- recruit KEAGAN Braswell 12/05 Released w/o Limitations [facility]( Optomet ry [facility] 1523) [facility](Au diology [facility] 1523) OUTPATIENT [id number] WENDY JOSHUA 12/05 Released w/o Limitations [facility]( Audiolo gy [facility] 1523) [facility](Fe male Screening 1523) OUTPATIENT [id number] [facility] JUAN CARLOS LEÓN 12/08 Released w/o Limitations [facility]( Female Screeni ng 1523) [facility](Im munizatio n 1523) OUTPATIENT [id number] Notes Entered by: LAMONT VIGIL 08 Dec 2016 1022 ------- ------- ------- ------- -- P4 Immuniz ations ELENA ROQUE 12/08 Released w/o Limitations [facility]( Immuniz ation 1523) [facility](Co urage (White) 1007) OUTPATIENT [id number] ERFU LEG PX AFSHAN JACINTO 12/11 Sick at Home/Quarter s [facility]( Courage (White) 1007) [facility](Co urage (White) 1007) OUTPATIENT [id number] Cold Sx/Vomi tting TONY MESA V 12/18 Sick at Home/Quarter s [facility]( Courage (White) 1007) [facility] Female) OUTPATIENT [id number] Notes Entered by: SUNDEEP PARKS 18 Dec 2016 1333 ------- ------- ------- ------- -- SHEREE BARLOW 12/18 Released w/o Limitations [facility]( [facility] Female) [facility](Sp ecial Physicals [facility] 1007) OUTPATIENT [id number] ALEXA DEMPSEY 12/23 Released w/o Limitations [facility]( Special Physica ls [facility] 1007) [facility](Sp ecial Physicals [facility] 1007) OUTPATIENT [id number] Notes Entered by: JOHN CARTER 30 Dec 2016 1136 ------- ------- ------- ------- -- UMO Special Duty Physica l Review JOHN RIVERA 12/30 Released w/o Limitations [facility]( Special Physica ls [facility] 1007) [facility](Im munizatio n 1523) OUTPATIENT [id number] Notes Entered by: LAMONT VIGIL ON L 09 Jan 2017 0922 ------- ------- ------- ------- -- 5-2 Immuniz ations DAVE PATEL 01/09 Released w/o Limitations [facility]( Immuniz ation 1523) [facility](We ekend Mil Sick Call 1007) OUTPATIENT [id number] Notes Entered by: CARMEN TAYLOR 11 Jan 2017 0640 ------- ------- ------- ------- -- Cold Sx TORRES OCAMPO 01/11 Sick at Home/Quarter s [facility]( Mil Sick Call 1007) [facility] omar([facility] Preventiv e Med) OUTPATIENT [id number] Notes Entered by: MIGUELANGEL BILLINGSLEY 12 Mar 2017 1110 ------- ------- ------- ------- -- Flu Vx MIGUELANGEL BILLINGSLEY 03/12 Released w/o Limitations [facility] Andrade mukul([facility] C Prevent kyara Med) [facility] n([facility] Undersea Medicine) OUTPATIENT [id number] Notes Entered by: MARIFER KAMINSKI 08 Apr 2017 0648 ------- ------- ------- ------- -- RANKIN/ upset stomach SUDARSHAN BURT 04/08 Sick at Home/Quarter s [facility] Andrade gilman([facility] C Underse a Medicin e) [facility] Charlesviri nelson([facility] Medicine) OUTPATIENT [id number] Notes Entered by: MARIFER KAMINSKI 22 Apr 2017 0637 ------- ------- ------- ------- -- SUDARSHAN Gallegos 04/22 Sick at Home/Quarter s [facility] Andrade gilman([facility] C Underse a Medicin e) [facility] Cassandra nelson([facility] Medicine) OUTPATIENT [id number] Notes Entered by: NEEL HALL 07 May 2017 1455 ------- ------- ------- ------- -- MILAGRO MORA 05/07 Released w/o Limitations [facility] gilman([facility] C Underse a Medicin e) [facility] Cassandra nelson([facility] Medicine) OUTPATIENT [id number] back pain/so re throat RANGEL JOSE ANGEL Leonie 05/19 Released with Work/Duty Limitations [facility]man([facility] Underse a Medicin e) [facility] Cassandra nelson([facility] Medicine) OUTPATIENT [id number] parul zamora dunia,MILAGRO Cota 05/27 Released w/o Limitations [facility] Andrade mukul([facility] C Underse a Medicin e) [facility] Cassandra nelson([facility] Medicine) OUTPATIENT [id number] nose bleeds, headach e, MILAGRO Rehman 06/08 Released with Work/Duty Limitations [facility] mukul([facility] C Underse a Medicin e) [facility] Cassandra nelson([facility] Physical Therapy) OUTPATIENT [id number] Low back pain TIMUR AVENDANO 06/10 Released w/o Limitations [facility] C Physica l Therapy ) [facility] nelson([facility] Physical Therapy) OUTPATIENT [id number] BARBARA ALTAMIRANO 06/15 Released w/o Limitations [facility]ul([facility] C Physica l Therapy ) [facility] n([facility] Physical Therapy) OUTPATIENT [id number] BARBARA ALTAMIRANO 06/17 Released w/o Limitations [facility] gilman([facility] C Physica l Therapy ) [facility] n([facility] Physical Therapy) OUTPATIENT [id number] BARBARA ALTAMIRANO 06/24 Released w/o Limitations [facility] g[facility]man([facility] C Physica l Therapy ) [facility] n([facility] Physical Therapy) OUTPATIENT [id number] BARBARA ALTAMIRANO 06/29 Released w/o Limitations [facility] C Physica l Therapy ) [facility] n([facility]) OUTPATIENT [id number] Notes Entered by: ALDA BAUGH 29 Jun 2017 1000 ------- ------- ------- ------- -- smoking cessati on SAUL DAVILA 06/29 Released w/o Limitations [facility] Occupat [facility]) [facility] Cassandra nelson([facility] Physical Therapy) OUTPATIENT [id number] BARBARA ALTAMIRANO 07/01 Released w/o Limitations [facility] C Physica l Therapy ) [facility] Cassandra nelson([facility] Undersea Medicine) OUTPATIENT [id number] Notes Entered by: ZOE THAKKAR 03 Jul 2017 1219 ------- ------- ------- ------- -- SUDARSHAN Buchanan 07/03 Released with Work/Duty Limitations [facility] C Underse a Medicin e) [facility] Cassandra nelson([facility] Undersea Medicine) OUTPATIENT [id number] PT F/U JOSE ANGEL MULTANI 07/03 Released w/o Limitations [facility] C Underse a Medicin e) [facility] Physical Therapy) OUTPATIENT [id number] BARBARA ALTAMIRANO 07/06 Released w/o Limitations [facility] g[facility]man([facility] C Physica l Therapy ) [facility] n([facility] Psychiatr y Clinic) OUTPATIENT [id number] SOFIE PANTOJA 07/09 Released w/o Limitations [facility] g[facility]man([facility] C Psychia try Clinic) [facility] n([facility]) TELE CONSULT [id number] Notes Entered by: MARIA DEL ROSARIO DAVILA 13 Jul 2017 1128 ------- ------- ------- ------- -- Tobacco Cessati on F/u LOLA SAUL Thayer 07/13 Referred for Appointment [facility] Occupat ional Health) [facility] Psychiatr y Clinic) OUTPATIENT [id number] f/SOFIE Lang 07/22 Released w/o Limitations [facility]ul([facility] C Psychia try Clinic) [facility] Psychiatr y Clinic) OUTPATIENT [id number] F/U SOFIE JACOB 07/27 Released w/o Limitations [facility] C Psychia try Clinic) [facility] omar([facility]) TELE CONSULT [id number] Notes Entered by: MARIA DEL ROSARIO DAVILA 04 Aug 2017 1012 ------- ------- ------- ------- -- Tobacco cessati on follow up SAUL DAVILA 08/04 Referred for Appointment [facility] Occupat ional Health) [facility] Cassandra nelson([facility] Unders Medicine) TELE CONSULT [id number] Notes Entered by: MAYDA FELIZ 07 Aug 2017 0955 ------- ------- ------- ------- -- Network Results - [facility] 4.21.18 JOSE ANGEL MULTANI 08/07 [facility] C Underse a Medicin e) [facility] Medicine) TELE CONSULT [id number] Notes Entered by: MAYDA FELIZ 07 Aug 2017 0956 ------- ------- ------- ------- -- Network Results - [facility] 4.23.18 JOSE ANGEL MULTANI Leonie 08/07 [facility] Underse a Medicin e) [facility] n(Critical access hospital) OUTPATIENT [id number] Notes Entered by: Bronson SANCHEZ 10 Aug 2017 1527 ------- ------- ------- ------- -- HEP#3, HPV#1 VIVIENNE SANCHEZ 08/10 Released w/o Limitations [facility] Communi [facility]) [facility] n([facility] Occupatio [facility]) OUTPATIENT [id number] HCW/BBF FABRIZIO ALVAREZ 08/13 Released w/o Limitations [facility]at [facility]) [facility] n([facility] Psychiatr y Clinic) OUTPATIENT [id number] f/u SOFIE JACOB 08/13 Released w/o Limitations [facility] Psychia try Clinic) [facility] n([facility] Physical Therapy) OUTPATIENT [id number] TIMUR AVENDANO 08/13 Released w/o Limitations [facility] Physica l Therapy ) [facility] Fam Med MHC Gold) TELE CONSULT [id number] Notes Entered by: JORDON SIMEON 28 Aug 2017 1027 ------- ------- ------- ------- -- June Rai Hadley report JORDON SIMEON 08/28 [facility] Fam Med MHC Gold) [facility] n([facility] Undersea Medicine) OUTPATIENT [id number] Notes Entered by: CHAD CAST 31 Aug 2017 1050 ------- ------- ------- ------- -- NAUSEA/ VOMITTI NG X2 DAYS SUDARSHAN BURT 08/31 Sick at Home/Quarter s [facility] C Underse a Medicin e) [facility] n([facility] Physical Therapy) OUTPATIENT [id number] CARLOZ LEI 09/02 Released w/o Limitations [facility] C Physica l Therapy ) [facility] Cassandra nelson([facility] Physical Therapy) OUTPATIENT [id number] CARLOZ LEI 09/09 Released w/o Limitations [facility] C Physica l Therapy ) [facility] Cassandra nelson([facility] Psychiatr y Clinic) OUTPATIENT [id number] F/U SOFIE JACOB 09/11 Released w/o Limitations [facility] C Psychia try Clinic) [facility] Cassandra nelson([facility] Physical Therapy) OUTPATIENT [id number] CARLOZ LEI 09/14 Released w/o Limitations [facility] C Physica l Therapy ) [facility] Cass[facility] nelson([facility] Undersea Medicine) OUTPATIENT [id number] CONNIE MCGINNIS 09/16 Released with Work/Duty Limitations [facility] C Underse a Medicin e) [facility] nelson([facility] Physical Therapy) OUTPATIENT [id number] CARLOZ LEI 09/23 Released w/o Limitations [facility] C Physica l Therapy ) [facility] nelson([facility] Psychiatr y Clinic) OUTPATIENT [id number] F/U SOFIE JACOB 09/23 Released w/o Limitations [facility] C Psychia try Clinic) [facility] nelson([facility] Case Managemen t) OUTPATIENT [id number] Notes Entered by: CAROLINA PERES 29 Sep 2017 0752 ------- ------- ------- ------- -- LIMDU review for cc/cm needs SHREYAS , GORGE M 09/29 Released w/o Limitations [facility] C Case Managem ent) [facility] nelson([facility] Undersea Medicine) OUTPATIENT [id number] Notes Entered by: SUDARSHAN ANDRADE 08 Oct 2017 0903 ------- ------- ------- ------- -- Cold Symptom s SUDARSHAN BURT 10/08 Sick at Home/Quarter s [facility] C Underse a Medicin e) [facility] Psychiatr y Clinic) OUTPATIENT [id number] f/u SOFIE JACOB 10/08 Released w/o Limitations [facility] C Psychia try Clinic) [facility] Physical Therapy) OUTPATIENT [id number] TIMUR Hebert 10/09 Released w/o Limitations [facility] C Physica l Therapy ) [facility] n([facility] Psychiatr y Clinic) OUTPATIENT [id number] F/U SOFIE JACOB 10/27 Released w/o Limitations [facility] C Psychia try Clinic) [facility] Psychiatr y Clinic) OUTPATIENT [id number] f/u SOFIE JACOB 11/05 Released w/o Limitations [facility] C Psychia try Clinic) [facility] Undersea Medicine) TELE CONSULT [id number] Notes Entered by: CAMILA WATERMAN 06 Nov 2017 1053 ------- ------- ------- ------- -- Network Results - Mental Health 11/05/17 VENESSA BAKER 11/06 [facility] C Underse a Medicin e) [facility] Charlesviri nelson([facility] Undersea Medicine) OUTPATIENT [id number] F/U TCD VENESSA BAKER 11/12 Released w/o Limitations [facility] C Underse a Medicin e) [facility] Case Managemen t) OUTPATIENT [id number] Notes Entered by: Swati ARTEAGA 13 Nov 2017 1046 ------- ------- ------- ------- -- Case Managem ent BARBARA ARTEAGA 11/13 Released w/o Limitations [facility] Case Managem ent) [facility] Psychiatr y Clinic) OUTPATIENT [id number] F/U SOFIE JACOB 11/17 Released w/o Limitations [facility] Psychia try Clinic) [facility] Undersea Medicine) OUTPATIENT [id number] spider bite/he VENESSA Devine 11/26 Released w/o Limitations [facility] C Underse a Medicin e) [facility] Occupatio nal Health) OUTPATIENT [id number] BRIANDA SHAW 12/17 Released w/o Limitations [facility] Occupat ional Health) [facility] Undersea Medicine) OUTPATIENT [id number] prt VENESSA Young 12/21 Released w/o Limitations [facility] C Underse a Medicin e) [facility] Undersea Medicine) OUTPATIENT [id number] Notes Entered by: ZOE THAKKAR 25 Dec 2017 0822 ------- ------- ------- ------- -- Cold sx x1wk SUDARSHAN BURT 12/25 Sick at Home/Quarter s [facility] C Underse a Medicin e) [facility] Hearing Conservat ion) OUTPATIENT [id number] Notes Entered by: RIVER ROBLES 06 Jan 2018 1348 ------- ------- ------- ------- -- Termina tion Audiogr am RIVER ROBLES 01/06 Released w/o Limitations [facility] Hearing Conserv ation) [facility] n([facility] Optometry Clinic) OUTPATIENT [id number] EYE EXAM CATY NEW Graciela 01/13 Released w/o Limitations [facility] Optomet ry Clinic) [facility] n([facility] Preventiv e Med) OUTPATIENT [id number] Notes Entered by: West THOMAS 18 Jan 2018 1102 ------- ------- ------- ------- -- Flu Vx CHARLENE THOMAS 01/18 Released w/o Limitations [facility] Prevent kyara Med) [facility] n([facility] Undersea Medicine) OUTPATIENT [id number] Ad Sep Pe VENESSA BAKER 02/01 Released w/o Limitations [facility] Underse a Medicin e) [facility] Cassandra n([facility]sea [facility]) OUTPATIENT [id number] 1 cold sx VENESSA BAKER 03/08 Released w/o Limitations [facility] Andrade gilman([facility] Underse a Medicin e) Procedures Combined list of: 1) Procedures from Department of Veterans Affairs facilities going back up to thelast 18 months, not all VA non-surgical procedures are included; 2) All procedures from the Department of Defense facilities. Procedure Procedure Type Code Date Perfomer Comments Sourc e BRIEF COMM TECH-BASE SERV,E.G. VIRT CHK-IN,BY PHYS/OTH QUAL HCP,RPT E&M SERV,PROV TO EST PT,NOT ORIG FRM REL E/M SERV PROV W/IN PREV 7DAY NOR LEAD TO E/M SRV/PX W/IN NEXT 24HR/SOON MIRIAM; 5-10 MIN DISC 07/31 [facility] HEPATITIS B VACCINE (HEPB), PEDIATRIC/ADOLESCENT DOSAGE, 3 DOSE SCHEDULE, FOR INTRAMUSCULAR USE 01/09 [facility] PATIENT EDUCATION, NOT OTHERWISE CLASSIFIED, NON-PHYSICIAN PROVIDER, GROUP, PER SESSION 12/18 [facility] INJECTION, PENICILLIN G BENZATHINE, 100,000 UNITS 12/08 [facility] AUDIOMETRIC TESTING OF GROUPS 12/05 [facility] DETERMINATION OF REFRACTIVE STATE 12/05 DoD PSYCHOTHERAPY, 60 MINUTES WITH PATIENT 01/27 [facility] IMMUNIZATION ADMINISTRATION (INCLUDES PERCUTANEOUS, INTRADERMAL, SUBCUTANEOUS, OR INTRAMUSCULAR INJECTIONS); 1 VACCINE (SINGLE OR COMBINATION VACCINE/TOXOID) 01/18 [facility]D PSYCHOTHERAPY, 60 MINUTES WITH PATIENT 01/18 [facility] DETERMINATION OF REFRACTIVE STATE 01/13 [facility] PURE TONE AUDIOMETRY (THRESHOLD), AUTOMATED; AIR ONLY [...] &/ROWDY ASSESS FUNC OUTCOME TYP,20 MIN SPENT [id number]-PY-[id number] W PAT&/FAM 10/09 DoD PHARMACOLOGIC MANAGEMENT, INCLUDING [...] EDUCATION &TRAINING, PATIENT SELF-MGT QUALIFIED, NONPHYSICIAN HEALTH HEAT READER USING STDIZED CURRICULUM, ORAY-BD-XZPT W THE PATIENT (COULD INCL CAREGIVER/FAMILY) EA [...] PSYCHOPHYSICOLOGICAL MON, HEALTH-ORIENTED QUESTIONNAIRES), EACH 15 MIN [id number]-TS-[id number] WITH THE PATIENT; RE-ASSESS 06/18 [facility] PSYCHOTHERAPY, [...] 1 VACCINE (SINGLE OR COMBINATION VACCINE/TOXOID) 03/12 [facility] Psychotherapy Individual Approximately 45 Minutes Psychotherapy Individual Approximately 45 Minutes 24130 06/08 RELIGION ESTEBAN [facility] Influenza Split Virus Vaccine IM Preserv Free 0.5mL Dosage Quadrivalent Influenza Split Virus Vaccine IM Preserv Free 0.5mL Dosage Quadrivalent 48081 03/12 MIGUELANGEL BILLINGSLEY Influenza Seasonal, injectable quadrivalent - preservative free; Series #: 1; .5 mL; IM; Left Arm; Mfg: SmithKline; Lot: [id number]; VIS given (Itz: 11/03/2014). DoD Immunization Administration By Injection, One Vaccine Immunization Administration By Injection, One Vaccine 13614 03/12 MIGUELANGEL BILLINGSLEY [facility] Immunization Administration By Injection, One Vaccine Immunization Administration By Injection, One Vaccine 3134101/09 MAK ROBERTS [facility] Immunization Administration By Injection, Each Additional Vaccine Immunization Administration By Injection, Each Additional Vaccine 18693 01/09 MAK ROBERTS [facility] Vaccines Viral Polio, Inactivated Vaccines Viral Polio, Inactivated 94855 01/09 MAK ROBERTS IPV; Series #: 1; .5 mL; SC; Right Arm; Mfg: Sanofi Pasteur; Lot: [id number]; VIS given (Itz: 10/17/15; 02/01/15 - Multiple). [facility] Hepatitis B Vaccine (Active); [place] To 11 Years Hepatitis B Vaccine (Active); To 11 Years 32757 01/09 MAK ROBERTS Hep B, adolescent or pediatric; Series #: 2; .5 mL; IM; Left Arm; Mfg: SmithInnolumeine; Lot: [id number]; VIS given (Itz: 10/17/2015). [facility] Patient education, not otherwise cla ified, non-physician provider, group, per se ion 12/18 SHEREE LATHAM [facility] Physician Supervised Injection Intramuscular Antibiotic Physician Supervised Injection Intramuscular Antibiotic 70476 12/08 MAK ROBERTS [facility] Injection, penicillin g benzathine, 100,000 units 12/08 MAK ROBERTS [facility] Immunization Admin Intranasal / Oral Each Additional Vaccine Immunization Admin Intranasal / Oral Each Additional Vaccine 06443 12/08 MAK ROBERTS Vaccines Adenovirus Type 4 Live, For Oral Use Vaccines Adenovirus Type 4 Live, For Oral Use 64271 12/08 MAK ROBERTS Vaccines Adenovirus Type 7 Live, For Oral Use Vaccines Adenovirus Type 7 Live, For Oral Use 80454 12/08 MAK ROBERTS [facility] Hepatitis B Vaccine (Active); [place] To 11 Years Hepatitis B Vaccine (Active); [place] To 11 Years 37162 12/08 MAK ROBERTS Hep B, adolescent or pediatric; Series #: 1; .5 mL; IM; Left Arm; Mfg: [email or web address]; Lot: [id number]; VIS given (Itz: 10/17/2015). [facility] Meningococcal Polysaccharide Diphtheria Toxoid Conjugate Vaccine 12/08 MAK ROBERTS Meningococcal MCV4P; Series #: 1; .5 mL; IM; Left Arm; Mfg: Sanofi Pasteur; Lot: [id number]; VIS given (Itz: 06/28/2015). [facility] Tdap Vaccine Tdap Vaccine 69883 12/08 MAK ROBERTS Tdap; Series #: 1; .5 mL; IM; Right Arm; Mfg: Other; Lot: [id number]; VIS given (Itz: 05/23/14). [facility] Immunization Administration By Injection, One Vaccine Immunization Administration By Injection, One Vaccine 36627 12/08 MAK ROBERTS [facility] Immunization Administration By Injection, Each Additional Vaccine Immunization Administration By Injection, Each Additional Vaccine 9434512/08 MAK ROBERTS Audiometry Group Testing Audiometry Group Testing 68133 12/05 WENDY JOSHUA Threshold Audiogram (Pure Tone) Threshold Audiogram (Pure Tone) 22907 12/05 WENDY JOSHUA [employer] Fitting Monofocal Except For Aphakia [employer] Fitting Monofocal Except For Aphakia 46876 12/05 KEAGAN HAN Determination Of Refractive State Determination Of Refractive State 64830 12/05 KEAGAN HAN Visual Function Screening Visual Function Screening 14179 12/05 KEAGAN HAN [facility] Psychotherapy Individual Approximately 60 Minutes Psychotherapy Individual Approximately 60 Minutes 53811 01/27 ESTEBAN WONG [facility] Psychotherapy Individual Approximately 60 Minutes Psychotherapy Individual Approximately 60 Minutes 41248 01/18 ESTEBAN WONG [facility] Immunization Administration By Injection, One Vaccine Immunization Administration By Injection, One Vaccine 69859 01/18 MAJOR, CHARLENE LIMA DoD Influenza Split Virus Vaccine IM Preserv Free 0.5mL Dosage Quadrivalent Influenza Split Virus Vaccine IM Preserv Free 0.5mL Dosage Quadrivalent 38061 01/18 MAJOR, CHARLENE LIMA Influenza Seasonal, injectable quadrivalent - preservative free; Series #: 1; .5 mL; IM; Left Arm; g: [email or web address]; Lot: [id number]; VIS given (Itz: 11/03/2014). [facility] Determination Of Refractive State Determination Of Refractive State 60859 01/13 CATY NEW Ophthalmological New Patient Start Comprehensive Care Ophthalmological New Patient Start Comprehensive Care 67846 01/13 CATY NEW Threshold Audiogram (Pure Tone) Automated Threshold Audiogram (Pure Tone) Automated [id number] 01/06 RIVER ROBLES [facility] Psychotherapy Individual Approximately 30 Minutes Psychotherapy Individual Approximately 30 Minutes 84108 01/06 ESTEBAN WONG [facility] Psychotherapy Individual Approximately 60 Minutes Psychotherapy Individual Approximately 60 Minutes 03009 12/29 ESTEBAN WONG [facility] Psychotherapy Individual Approximately 60 Minutes Psychotherapy Individual Approximately 60 Minutes 38558 12/22 ESETBAN WONG [facility] Preventive Medicine Administration Of Health Risk Questionnaire Patient-Focused Preventive Medicine Administration Of Health Risk Questionnaire Patient-Focused 96187 12/17 BRIANDA CASTILLO [facility] Psychotherapy Individual Approximately 60 Minutes Psychotherapy Individual Approximately 60 Minutes 87402 12/16 ESTEBAN WONG [facility] Psychotherapy Individual Approximately 60 Minutes Psychotherapy Individual Approximately 60 Minutes 86631 12/03 ESTEBAN WONG [facility] Psychotherapy Individual Approximately 30 Minutes Psychotherapy Individual Approximately 30 Minutes 59094 11/23 CHU SMITH [facility] Psychotherapy With Medication Management Psychotherapy With Medication Management 19717 11/19 SOFIE JACOB [facility] Psychotherapy Individual Approximately 45 Minutes Psychotherapy Individual Approximately 45 Minutes 81389 11/19 SOFIE JACOB [facility] Psychotherapy Individual Approximately 45 Minutes Psychotherapy Individual Approximately 45 Minutes 43964 11/16 ESTEBAN WONG Psychotherapy Individual Approximately 60 Minutes Psychotherapy Individual Approximately 60 Minutes 62068 11/13 ESTEBAN WONG Case Management, each 15 minutes 11/13 BARBARA ARTEAGA Psychotherapy Individual Approximately 60 Minutes Psychotherapy Individual Approximately 60 Minutes 43150 11/11 ESTEBAN WONG Psychotherapy With Medication Management Psychotherapy With Medication Management 16515 11/06 SOFIE JACOB Psychotherapy Individual Approximately 45 Minutes Psychotherapy Individual Approximately 45 Minutes 54242 11/06 SOFIE JACOB Psychotherapy Individual Approximately 60 Minutes Psychotherapy Individual Approximately 60 Minutes 93858 11/05 ESTEBAN WONG Psychotherapy With Medication Management Psychotherapy With Medication Management 40741 10/29 SOFIE JACOB Psychotherapy Individual Approximately 45 Minutes Psychotherapy Individual Approximately 45 Minutes 82402 10/29 SOFIE JACOB Psychotherapy Individual Approximately 60 Minutes Psychotherapy Individual Approximately 60 Minutes 64453 10/29 ESTEBAN WONG Psychotherapy Individual Approximately 30 Minutes Psychotherapy Individual Approximately 30 Minutes 42086 10/26 ESTEBAN WONG Psychotherapy Individual Approximately 60 Minutes Psychotherapy Individual Approximately 60 Minutes 50729 10/15 ESTEBAN WONG Psychotherapy Individual Approximately 60 Minutes Psychotherapy Individual Approximately 60 Minutes 61942 10/14 ESTEBAN WONG Psychotherapy Individual Approximately 60 Minutes Psychotherapy Individual Approximately 60 Minutes 93732 10/13 ESTEBAN WONG Physical Therapy Service Re-Evaluation Physical Therapy Service Re-Evaluation 31909 10/09 TIMUR AVENDANO [facility] Psychotherapy With Medication Management Psychotherapy With Medication Management 53862 10/08 SOFIE JACOB Psychotherapy Individual Approximately 45 Minutes Psychotherapy Individual Approximately 45 Minutes 64562 10/08 SOFIE JACOB Psychotherapy Individual Approximately 30 Minutes Psychotherapy Individual Approximately 30 Minutes 80731 10/05 ESTEBAN WONG Psychotherapy Individual Approximately 45 Minutes Psychotherapy Individual Approximately 45 Minutes 12472 10/02 ESTEBAN WONG Case Management, each 15 minutes 09/29 GORGE BARKER Psychotherapy Individual Approximately 30 Minutes Psychotherapy Individual Approximately 30 Minutes 22201 09/28 ESTEBAN WONG Modalities Cryotherapy Cold Packs Modalities Cryotherapy Cold Packs 30590 09/24 CARLOZ LEI Taping Knee Taping Knee 47521 09/24 CARLOZ LEI Physical Therapy: ___ Se ion Segments, 15 Minutes Each Physical Therapy: ___ Session Segments, 15 Minutes Each 60718 09/24 CARLOZ LEI Psychotherapy With Medication Management Psychotherapy With Medication Management 19979 09/23 SOFIE JACOB Psychotherapy Individual Approximately 45 Minutes Psychotherapy Individual Approximately 45 Minutes 16907 09/23 SOFIE JACOB Psychotherapy Individual Approximately 60 Minutes Psychotherapy Individual Approximately 60 Minutes 03122 09/22 ESTEBAN WONG Modalities Cryotherapy Cold Packs Modalities Cryotherapy Cold Packs 36351 09/15 CARLOZ LEI Physical Therapy Mobilization Joint Physical Therapy Mobilization Joint 67836 09/15 CARLOZ LEI Physical Therapy: ___ Se ion Segments, 15 Minutes Each Physical Therapy: ___ Session Segments, 15 Minutes Each 81919 09/15 CARLOZ LEI Psychotherapy Individual Approximately 30 Minutes Psychotherapy Individual Approximately 30 Minutes 84062 09/11 ESTEBAN WONG Psychotherapy With Medication Management Psychotherapy With Medication Management 88830 09/11 SOFIE JACOB Psychotherapy Individual Approximately 45 Minutes Psychotherapy Individual Approximately 45 Minutes 90209 09/11 SOFIE JACOB Psychotherapy Individual Approximately 60 Minutes Psychotherapy Individual Approximately 60 Minutes 78131 09/10 ESTEBAN WONG Modalities Cryotherapy Cold Packs Modalities Cryotherapy Cold Packs 89095 09/09 CALROZ LEI Physical Therapy: ___ Se ion Segments, 15 Minutes Each Physical Therapy: ___ Session Segments, 15 Minutes Each 67221 09/09 CARLOZ LEI Psychotherapy Individual Approximately 45 Minutes Psychotherapy Individual Approximately 45 Minutes 79727 09/08 ESTEBAN WONG Psychotherapy Individual Approximately 30 Minutes Psychotherapy Individual Approximately 30 Minutes 22668 09/03 ESTEBAN WONG Modalities Cryotherapy Cold Packs Modalities Cryotherapy Cold Packs 07803 09/02 CARLOZ LEI Taping Lower Back Taping Lower Back 23552 09/02 CARLOZ LEI Physical Therapy: ___ Se ion Segments, 15 Minutes Each Physical Therapy: ___ Session Segments, 15 Minutes Each 95105 09/02 CARLOZ LEI [facility] Psychotherapy Individual Approximately 45 Minutes Psychotherapy Individual Approximately 45 Minutes 97969 08/25 ESTEBAN WONG [facility] Psychotherapy With Medication Management Psychotherapy With Medication Management 06689 08/13 SOFIE JACOB [facility] Psychotherapy Individual Approximately 45 Minutes Psychotherapy Individual Approximately 45 Minutes 68001 08/13 SOFIE JACOB [facility] Pelvic belt/harne /boot 08/13 ROMANA TIMUR [facility] Physical Therapy Service Re-Evaluation Physical Therapy Service Re-Evaluation 12299 08/13 TIMUR AVENDANO [facility] Human Papilloma Virus Vaccine, Nonavalent Human Papilloma Virus Vaccine, Nonavalent 56749 08/11 VIVIENNE SANCHEZ HPV9; Series #: 1; .5 mL; IM; Left Arm; Mfg: VirtuOz; Lot: [id number]; VIS given (Itz: 02/29/2016). [facility] Immunization Administration By Injection, One Vaccine Immunization Administration By Injection, One Vaccine 3995608/11 VIVIENNE SANCHEZ Immunization Administration By Injection, Each Additional Vaccine Immunization Administration By Injection, Each Additional Vaccine 6881908/11 VIVIENNE SANCHEZ Hepatitis B Vaccine (Active) Adult Dosage 3 Dose Schedule Hepatitis B Vaccine (Active) Adult Dosage 3 Dose Schedule 31945 08/11 VIVIENNE SANCHEZ Hep B - Adult; Series #: 1; 1.0 mL; IM; Left Arm; Mfg: [email or web address]; Lot: [id number]; VIS given (Itz: 10/17/2015). [facility] Psychotherapy Individual Approximately 60 Minutes Psychotherapy Individual Approximately 60 Minutes 42628 08/10 ESTEBAN WONG [facility] Psychotherapy Individual Approximately 45 Minutes Psychotherapy Individual Approximately 45 Minutes 87309 07/27 ESTEBAN WONG [facility] Psychotherapy With Medication Management Psychotherapy With Medication Management [id number]/27 SOFIE JACOB [facility] Psychotherapy Individual Approximately 30 Minutes Psychotherapy Individual Approximately 30 Minutes 63781 07/22 ESTEBAN WONG [facility] Psychotherapy With Medication Management Psychotherapy With Medication Management 94329 07/22 SOFIE JACOB [facility] Psychotherapy Individual Approximately 45 Minutes Psychotherapy Individual Approximately 45 Minutes [id number]/22 SOFIE JACOB [facility] Psychotherapy Individual Approximately 30 Minutes Psychotherapy Individual Approximately 30 Minutes 29954 07/21 ESTEBAN WONG [facility] Psychotherapy Individual Approximately 30 Minutes Psychotherapy Individual Approximately 30 Minutes 33069 07/20 ESTEBAN WONG [facility] Psychotherapy Individual Approximately 30 Minutes Psychotherapy Individual Approximately 30 Minutes 58576 07/10 ESTEBAN WONG [facility] Physical Therapy: ___ Se ion Segments, 15 Minutes Each Physical Therapy: ___ Session Segments, 15 Minutes Each 15404 07/09 BARBARA ALTAMIRANO [facility] Psychotherapy With Medication Management Psychotherapy With Medication Management 95384 07/09 NIDIA SOFIE Swati [facility] Psychotherapy Individual Approximately 45 Minutes Psychotherapy Individual Approximately 45 Minutes 59702 07/09 SOFIE JACOB [facility] Psychotherapy Individual Approximately 60 Minutes Psychotherapy Individual Approximately 60 Minutes 97576 07/06 ESTEBAN WONG [facility] Physical Therapy: ___ Se ion Segments, 15 Minutes Each Physical Therapy: ___ Session Segments, 15 Minutes Each 70472 07/03 BARBARA ALTAMIRANO [facility] Psychotherapy Individual Approximately 45 Minutes Psychotherapy Individual Approximately 45 Minutes 55981 07/03 ESTEBAN WONG [facility] Psychotherapy Individual Approximately 60 Minutes Psychotherapy Individual Approximately 60 Minutes 04222 06/30 ESTEBAN WONG [facility] Physical Therapy: ___ Se ion Segments, 15 Minutes Each Physical Therapy: ___ Session Segments, 15 Minutes Each 15886 06/30 BARBARA ALTAMIRANO [facility] Physical Therapy: ___ Se ion Segments, 15 Minutes Each Physical Therapy: ___ Session Segments, 15 Minutes Each 24777 06/29 BARBARA ALTAMIRANO [facility] Patient Counseling Medical Management Individual Patient Patient Counseling Medical Management Individual Patient 15794 06/29 LOLA SAUL M [facility] Psychotherapy Individual Approximately 30 Minutes Psychotherapy Individual Approximately 30 Minutes [id number]/25 ESTEBAN WONG [facility] Psychotherapy Individual Approximately 30 Minutes Psychotherapy Individual Approximately 30 Minutes 28580 06/23 ESTEABN WONG [facility] Psychotherapy Individual Approximately 60 Minutes Psychotherapy Individual Approximately 60 Minutes 39366 06/23 ESTEBAN WONG [facility] Physical Therapy: ___ Se ion Segments, 15 Minutes Each Physical Therapy: ___ Session Segments, 15 Minutes Each 33086 06/22 BARBARA ALTAMIRANO [facility] Physical Therapy: ___ Se ion Segments, 15 Minutes Each Physical Therapy: ___ Session Segments, 15 Minutes Each 98744 06/19 EVELIA BARBARA ANGÉLICA [facility] Health And Behav A e mt Each Additional 15 Min [place] e ment Health And Behav Assessmt Each Additional 15 Min Reassessment 08025 06/18 ESTEBAN WONG [facility] Psychotherapy Individual Approximately 45 Minutes Psychotherapy Individual Approximately 45 Minutes 48407 06/17 RELIGION , ESTEBAN BARFIELD [facility] Psychotherapy Individual Approximately 60 Minutes Psychotherapy Individual Approximately 60 Minutes 23700 06/17 ESTEBAN WONG [facility] Physical Therapy Service Evaluation Moderate Complexity Physical Therapy Service Evaluation Moderate Complexity 68811 06/10 ROMANA [employer] [facility] Physical Therapy: ___ Se ion Segments, 15 Minutes Each Physical Therapy: ___ Session Segments, 15 Minutes Each 94697 06/10 ROMANA TIMUR [facility] Psychotherapy Individual Approximately 45 Minutes Psychotherapy Individual Approximately 45 Minutes 82830 06/09 RELIGION ESTEBAN BARFIELD [facility] Psychotherapy Individual Approximately 60 Minutes Psychotherapy Individual Approximately 60 Minutes 04062 06/09 ESTEBAN WONG [facility] Brief communication technology-based service, e.g. virtual check-in, by a physician or other qualified health care vish nguyen who can report evaluation and management services, provided to an established patient, not originating from a related E/M service provided within the previous 7 days nor leading to an E/M service or procedure within the next 24 hours or soonest available appointment; 5-10 minutes of medical discu CARTER Pruitt [facility] No data available for this section Ambulatory Pharmacy Social History Combined list of available smoking, tobacco, and other social history from Department of Defense and Veterans Affairs facilities. Social History Type Response Date Comment [facility] e Tobacco smoking status [facility] NEVER USED 06/06/2021 [facility] This section is an [...] Plan No data available for this section 09/11/2023 Ambulatory Pharmacy Functional Status Combined list of recent functional and cognitive assessments recorded at [facility] of Defense and [facility] ([facility] Functional [place] Measurement (FIM) Scale: 1 = Total Assistance (Subject = 0% +), 2 = Maximal Assistance (Subject = 25% +), 3 = Moderate Assistance (Subject = 50% +), 4 = Minimal Assistance (Subject = 75% +), 5 = Supervision, 6 = Modified [place] (Device), 7 = Complete [place] (Timely, Safely). Assessment Date/Time Source Assessment Type Assessment Skill Assessment Score Assessment Details No data available for this section
[2023-09-11 15:35] LABS: Chlamydia DNA Amplified* NOT DETECTED (No Detected); GC DNA Amplified* NOT DETECTED (No Detected)
== END 2023-09-11 08:18 | disposition home or self-care (01) ==
PROVIDERS: PCP Family Medicine; Visit Provider Registered Nurse
DX: Z34.91 Encounter for supervision of normal pregnancy, unspecified, first trimester (principal); Z3A.08 8 weeks gestation of pregnancy
CPT/HCPCS: 76817; 86592; 86703; 86704; 86706; 86762; 86787; 86803; 86850; 86900; 86901; 87086; 87340; 87491; 87591

== ENCOUNTER 2023-09-21 09:27 | Outpatient (CLI) | payer OTHER, SELFPAY ==
--- NOTE | 2023-09-21 09:30 | CRLHL7_ITS ---
For Patients: As a result of the Century Cures Act, medical imaging exams and procedure reports are released immediately into your electronic medical record. You may view this report before your referring provider. If you have questions, please contact your health care provider. OBSTETRICAL ULTRASOUND, 09/21/2023 INDICATION: Viability, number of fetuses. DANAY by LMP: 04/21/2024 Gestational age: 9 weeks 4 days COMPARISON: Previous ultrasound 09/11/2023. TECHNIQUE: Transabdominal and transvaginal pelvic ultrasound. FINDINGS: CRL: 3.4 cm, 10 weeks 2 days; DANAY 04/16/2024 heart rate: 157 BPM Gestational sac: 4.7 cm, appears within normal limits Yolk sac: 3.3 mm, appears within normal limits Right ovary: Within normal limits; 3.7 x 1.6 x 2.7 cm, CL Left ovary: Within normal limits; 2.9 x 1.5 x 2 cm IMPRESSION: 1) There is a single intrauterine . Measurements are consistent with clinical dates. 2) Possible mild hydrops. Follow-up imaging recommended. 3) 3.2 x 1.1 x 1.2 cm subchorionic hemorrhage. DALTON ALONZO M.D. Body/Diagnostic Radiologist [email or web address] Transcribed: 11:[address]/Dictated by: Dalton Alonzo MD @ 09/22/2023 9:46:00 AM (Electronically Signed)
--- OUTSIDE RECORDS SUMMARY | 2023-09-21 09:37 | XMS_ITS | Clinical Summary ---
Author Organization [employer] [facility] Address [place], [place] [address] Care Team Providers Care Senior Reactor Operator Name Role Phone Ariela Machado MD Primary Care Provider Allergies Active Allergy Reactions Criticality Noted Date [...] Encounters Date Type Department Care Team Description 09/16/2023 Orders Only [facility] [address] [address] [place] [address] Bea Fuentes MD <No scans attached> 09/16/2023 Orders Only [facility] [address] [place] [address] Ariela Machado MD 1 scan: (1-Ord) [place], OB TRANSVAGINAL, 09/11/2023 09/11/2023 Lab Requisition [facility] [phone] Tonya Scruggs, MEDICARE BILLER 08/28/2023 10:00 AM CDT OB Encounter [facility] [address] [place] [address] Education (OB intake) 08/28/2023 Travel 08/19/2023 3:15 PM CDT Orders Only [facility] [address] [place] [address] Lab, [place] [facility] 08/19/2023 Orders Only [facility] [address] [place] [address] Ariela Machado MD <No scans attached> 08/19/2023 Travel 08/17/2023 Travel 08/07/2023 8:50 AM CDT Orders Only [facility] [address] [place] [id number] Lab, [place] [facility] 08/07/2023 Travel from Last 3 Months Immunizations Name Administration Dates Next Due Adenovirus Type 4 and 7 12/08/2016 COVID-19 vaccine (Moderna 100mcg/0.5mL) MITRA AYALA 05/31/2021,04/27/2021 HPV 9 (Gardasil 9) 08/11/2017 Hepatitis [...] Estimated Date of Delivery 08/28/2023 - Present (09/21/2023) 04/21/2024 (set by Marilyn Tilley RN on 08/28/2023 based on Alternate DANAY Entry) Dating Summary Based On DANAY GA Diff Last Menstrual Period on 07/16/2023 04/21/2024 Same Alternate DANAY Entry 04/21/2024 Working Vitals Pregravid Weight Height TWG (As of 09/21/2023) Pregrav id BMI 1.549 m (5' 1) [...] Previous Delivery Type: NA 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, 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, 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 Name of Partner [...] of estimated date of delivery: No Thalassemia (Kiswahili, Sudanese, Mediterranean, or background): MCV less than 80: No Neural tube defect (Meningomyelocele, Spina bifida, or Anencephaly): No Congenital heart defect: No Down syndrome: No Elver-Sachs (Ashkenazi Yazidi, Cajun, Danish [place]oning): No George disease (Ashkenazi Yazidi): No Familial dysautonomia (Ashkenazi Yazidi): No Sickle cell disease or trait (): No Hemophilia or other blood disorders: No Muscular dystrophy: No Cystic fibrosis: No Alexandria's chorea: No Intellectual disability and/or autism: Yes [...] STATUS TREPONEMA PALLIDUM HBSAG (HBS) ANTI HCV MAINTAINER PLANT PROBE - CHLAMYDIA DNA PCR [[id number]] URINALYSIS W REFLEX MICROSCOPIC IF POSITIVE [09170.2] US 1ST TRIMESTER (< 14 weeks) [19824.0] EDUCATION/PATIENT INSTRUCTIONS - Advised patient to start/continue vitamin. - Discussed risk of using alcohol, tobacco, other drugs in . - Discussed healthy lifestyle in . - Provided copy of Beginnings book and book inserts, discussed [id number] medications, and follow up. - Encouraged patient to call clinic at [phone] with any vaginal bleeding, fluid leaking from [...] Center 09/25/2023 8:45 AM Ariela Machado MD [facility] Marilyn Tilley RN .................... 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 Oxygen Saturation 99% 12/24/2022 8:05 AM CDT Inhaled Oxygen Concentration - - Weight 57.3 kg (126 lb 6.4 oz) 08/28/2023 10:11 AM CDT Height 154.9 cm (5' 1) 08/28/2023 10:11 AM CDT Body Mass Index 23.88 08/28/2023 10:11 AM CDT Plan of Treatment Upcoming Encounters Date Type Department Care Team (Late st Contact Info) Description 09/25/2023 8:45 AM CDT OB Encounter [facility] [address] [facility] [address] Ariela Machado MD [address] [place] [address] Health Maintenance Due Date Last Done Comments HPV series for age 9-26 (2 - 3-dose series) 09/08/2017 08/11/2017 COVID-19 vaccine series (2022- season) 2022 05/31/2021, 04/27/2021 Depression screening for age 12+ 12/09/2022 12/09/2021, 12/09/2021, 12/06/2021, Additional history exists Influenza for age 9-49 11/29/2023 , 01/24/2022, 05/05/2021, Additional history exists BMI (ht and wt on same day) for age 18+ 08/27/2024 08/28/2023, 12/24/2022, 11/19/2022, Additional history exists Pap test for age 21-65 09/10/2026 09/11/2023, 2020 Tetanus booster 12/08/2026 12/08/2016 Tdap Completed 12/08/2016 HIV for age 15-65 Completed 08/28/2023, 12/24/2022 Hepatitis C screening for age 18-79 Completed 08/28/2023, 12/05/2021 Pneumococcal series for age 6-64 Aged Out No longer eligible based on patient's age to complete this topic Procedures Procedure Name Priority Date/Time Associated Diagnosis Comments LAB TRACKING EVENT Routine 09/11/2023 9: 00 AM CDT HPV THIN PREP Routine 09/11/2023 9:00 AM CDT US OB 1ST TRI SINGLE TA Routine 09/11/2023 12:00 AM CDT Encounter for supervision of normal first in first trimester UA W/ SEDIMENT EXAM REFLEXED PER CRITERIA [...] 08/07/2023 9:07 AM CDT Early stage of from Last 3 Months Results * LAB TRACKING EVENT (09/11/2023 9:00 AM CDT) Other (Other) Client Collect / Unknown 09/11/2023 9:00 AM CDT 09/11/2023 4:31 PM CDT Tonya Scruggs NP LAB BILL ONLY Performing Organization Address [facility] Co de Phone Number [facility] [address] [place] [address], * HPV HIGH RISK (09/11/2023 9:00 AM CDT) TYPE 16 Negative Negative 09/16/2023 6:04 AM CDT [facility] TYPE 18 Negative Negative 09/16/2023 6:04 AM CDT [facility] OTHER HIGH RISK TYPES Negative Negative 09/16/2023 6:04 AM CDT [facility] Other (Cervical) 09/11/2023 9:00 AM CDT 09/14/2023 12:50 PM CDT Narrative [facility] - 09/16/2023 6:04 AM CDT HPV types 16, 18, 31, 33, 35, 39, 45, 51, 52, 56, 58, 59, 66 and 68 DNA were undetectable or below the pre-set threshold. Methodology: Saniya Dani 4800 HPV Test Tonya Scruggs NP MICROBIOLOGY Performing Organization Address [facility] Co de Phone Number [facility] [address] [place] [address], [place] * US 1ST TRIMESTER (< 14 weeks) [20041.0] (09/11/2023 12:00 AM CDT) Anatomical Region Laterality Modality , 1ST TRIMESTER Ultrasound Ariela Macahdo MD US * MAINTAINER PLANT PROBE - GC CHLAMYDIA DNA PCR [[id number]] (08/28/2023 11:18 AM CDT) CHLAMYDIA PROBE Negative 3:23 AM CDT [facility] N GONORRHOEAE PROBE Negative 08/29/2023 3:23 AM CDT [facility] Other URINE SPECIMEN / Unknown Non-Blood / Unknown 08/28/2023 11:18 AM CDT 08/28/2023 11:18 AM CDT Ariela Machado MD MICROBIOLOGY Performing Organization Address [facility]/ZIP Co de Phone Number [facility] [address] [place] [address], [place] * URINE CULTURE (08/28/2023 11:18 AM CDT) CULTURE No growth (<1,000 CFU/mL) 08/30/2023 9:03 AM CDT [facility] Urine URINE SPECIMEN / Unknown Non-Blood / Unknown 08/28/2023 11:18 AM CDT 08/28/2023 11:18 AM CDT Ariela Machado MD MICROBIOLOGY Performing Organization Address [facility] de Phone Number [facility] [address] [place] [address], [place] * URINALYSIS W REFLEX MICROSCOPIC IF POSITIVE [77303.2] (08/28/2023 11:18 AM CDT) COLOR Yellow Yellow Color 08/28/2023 11:21 AM CDT [facility] CLARITY Clear Clear Clarity 08/28/2023 11:21 AM CDT [facility] SPECIFIC GRAVITY,URINE 1.010 1.010, 1.015, 1.020, 1.025 08/28/2023 11:21 AM CDT [facility] PH,URINE 7.0 6.0, 7.0, 8.0, 5.5, 6.5, 7.5, 8.5 08/28/2023 11:21 AM CDT [facility] UROBILINOGEN, QUALITATIVE Normal Normal EU/dl 08/28/2023 11:21 AM CDT [facility] PROTEIN, URINE Negative Negative mg/dL 08/28/2023 11:21 AM CDT [facility] GLUCOSE, URINE Negative Negative mg/dL 08/28/2023 11:21 AM CDT [facility] KETONES,URINE Negative Negative mg/dL 08/28/2023 11:21 AM CDT [facility] BILIRUBIN,URI NE Negative Negative 08/28/2023 11:21 AM CDT [facility] OCCULT BLOOD,URINE Negative Negative 08/28/2023 11:21 AM CDT [facility] NITRITE Negative Negative 08/28/2023 11:21 AM CDT [facility] LEUKOCYTE ESTERASE Negative Negative 08/28/2023 11:21 AM CDT [facility] Urine URINE SPECIMEN / Unknown Non-Blood / Unknown 08/28/2023 11:18 AM CDT 08/28/2023 11:18 AM CDT Ariela Machado MD URINE [facility] [address] [place] [address], * TREPONEMA PALLIDUM (08/28/2023 11:14 AM CDT) TREPONEMA PALLIDUM Non-Reacti ve Non-Reacti ve 08/28/2023 11:48 PM CDT [facility] Blood BLOOD SPECIMEN / Unknown Venipuncture / Unknown 08/28/2023 11:14 AM CDT 08/28/2023 11:17 AM CDT Ariela Machado MD SEND OUTS [facility] [address] [place] [address], * RUBELLA IMMUNE STATUS (08/28/2023 11:14 AM CDT) INTERPRETATION Positive 08/29/2023 9:28 AM CDT [facility] NTR[facility] LABOR[facility] Comment:Presence of detectab le IgG antibodies. A positive result generally indicates exposure to the virus or previous vaccination, but is not an indication of active infection or stage of disease. RUBELLA IGG ANTIBODY 1.57 >=1.00 Index 08/29/2023 9:28 AM CDT [facility] Blood BLOOD SPECIMEN / Unknown Venipuncture / Unknown 08/28/2023 11:14 AM CDT 08/28/2023 11:17 AM CDT Narrative [facility] - 08/29/2023 9:28 AM CDT ??<0.90 ? Negative ?? 0.90-0.99 ?? Equivocal >=1.0 ?Positive Ariela Machado MD SEND OUTS Performing Organization Address City/[facility]/ZIP Co de Phone Number [facility] [address] [place] [address], * TYPE AND SCREEN (08/28/2023 11:14 AM CDT) ABORH B Rh Positive 08/28/2023 11:00 PM CDT [facility] [employer] BLOOD BANK ANTIBODY SCREEN Negative Negative 08/28/2023 11:00 PM CDT [facility] BLOOD BANK SPECIMEN EXPIRATION DATE/TIME 08/31/23 23:59 08/28/2023 11:00 PM CDT [facility] BLOOD BANK Blood BLOOD SPECIMEN / Unknown Venipuncture / Unknown 08/28/2023 11:14 AM CDT 08/28/2023 11:17 AM CDT Ariela Machado MD BLOOD BANK [facility] BLOOD BANK [address] [place] [address], * HBSAG (HBS) (08/28/2023 11:14 AM CDT) HBSAG Nonreactive Nonreactive 08/28/2023 11:42 PM CDT [facility] Blood BLOOD SPECIMEN / Unknown Venipuncture / Unknown 08/28/2023 11:14 AM CDT 08/28/2023 11:17 AM CDT Ariela Machado MD SEND OUTS Performing Organization Address [facility] Co de Phone Number [facility] [address] [place] [address], [place] * ANTI HCV (08/28/2023 11:14 AM CDT) [facility] HEPATITIS C ANTIBODY Non-Reacti ve Non-React kyara 08/28/2023 11:39 PM CDT [facility] Comment:Please note, per www .CDC.gov: [...] Machado MD SEND OUTS Performing Organization Address [facility] Co de Phone Number [facility] [address] [place] [address], [place] * CBC W PLT NO DIFF (08/28/2023 11:14 AM CDT) [facility] WHITE BLOOD COUNT 7.0 4.5 - 11.0 thou/cu mm 08/28/2023 11:20 AM CDT [facility] RED BLOOD COUNT 4.20 4.00 - 5.20 mil/cu mm 08/28/2023 11:20 AM CDT [facility] HEMOGLOBIN 13.0 12.0 - 16.0 g/dL 08/28/2023 11:20 AM CDT [facility] HEMATOCRIT 37.7 33.0 - 51.0 % 08/28/2023 11:20 AM CDT [facility] MCV 90 80 - 100 fL 08/28/2023 11:20 AM CDT [facility] MCH 31.0 26.0 - 34.0 pg 08/28/2023 11:20 AM CDT [facility] MCHC 34.5 32.0 - 36.0 g/dL 08/28/2023 11:20 AM CDT [facility] RDW 12.2 11.5 - 15.5 % 08/28/2023 11:20 AM CDT [facility] PLATELET COUNT 278 140 - 440 thou/cu mm 08/28/2023 11:20 AM CDT [facility] MPV 10.0 6.5 - 11.0 fL 08/28/2023 11:20 AM CDT [facility] Blood BLOOD SPECIMEN / Unknown Venipuncture / Unknown 08/28/2023 11:14 AM CDT 08/28/2023 11:17 AM CDT Ariela Machado MD HEMATOLOGY [facility] [address] [place] [address], [place] [phone] * ANTI HIV 1/2 (08/28/2023 11:14 AM CDT) HIV-1/HIV-2 SCREEN Non-Reacti ve Non-Reacti ve 08/28/2023 11:42 PM CDT [facility] Comment:HIV-1 p24 and HIV-1/ HIV-2 Ab Not Detected. Blood BLOOD SPECIMEN / Unknown Venipuncture / Unknown 08/28/2023 11:14 AM CDT 08/28/2023 11:17 AM CDT Ariela Machado MD SEND OUTS [facility] [address] [place] [address], [place] * HCG BETA QUANT, (08/19/2023 3:21 PM CDT) Only the most recent of3 resultswithin the time period is included. HCG BETA QUANT,PREGNANC Y 5,698 mIU/mL 08/20/2023 6:06 AM CDT [facility] Blood BLOOD SPECIMEN / Unknown Venipuncture / Unknown 08/19/2023 3:21 PM CDT 08/19/2023 3:23 PM CDT Narrative [facility] - 08/20/2023 6:06 AM CDT Expected [...] prior to retesting. Ariela Machado MD CHEMISTRY [facility] [address] [place] [address], from Last 3 Months Care Teams Senior Reactor Operator Relationship Specialty Start Date End Date Ariela Machado MD [address] [place] [address] PCP - General Family Practice 08/04/19
--- OUTSIDE RECORDS SUMMARY | 2023-09-21 09:38 | XMS_ITS | Continuity of Care Document ---
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 It does not include entries that were removed or entered in error. Problem Status Onset Date Problem Type Date of Resolution Comme nts Source Encounter for other specified special examinations Active 12/30/2016 Condition DoD Overweight Active Condition [facility] Medications Combined list of outpatient [...] NOVITIUM/AN I PH, 500 ea. BOTTLE Active [id number] 2023 5 Pharmac y Data Transac tion Service Facilit y Allergies, Adverse Reactions, Alerts Combined list of allergies from Department of Defense and Veterans Affairs facilities. It does not include entries that were removed or entered in error. Substance Category Reaction Severity Reaction type Status Date Reported Comments Source BUPROPION Propensity to adverse reactions to drug (finding) Suicidal thoughts active 9 [facility] morphine Propensity to adverse reactions to drug Swelling of oral cavity structure, Anaphylaxis Active 8 [facility] MORPHINE Propensity to adverse reactions to drug (finding) Anaphylaxis active 9 [facility] MORPHINE (MORPHINE SULFATE) Drug allergy (disorder) Rash, Swelling of oral cavity structure active 8 [facility] Cassandra n Immunizations Combined list of available immunizations from the Department of Defense and Veterans Affairs facilities. Immunization Series Date Given Administered By Site Reaction Lot Number CVX Code Drug Bus T[employer]ley [employer] Instructor Status Comments Source INFLUENZA, INJECTABLE, QUADRIVALENT 2018 158 complet ed Partner: [facility]. Administe red by: [facility] Clinician (NPI=Not Provided) . Partner 0 Lot#: [id number] Mfr: [facility] [place] [facility] influenza, injectable, quadrivalent- pf 2017 Left Arm [...] Papillomaviru s 9-valent vaccine 2017 Left Arm [id number] [employer] complet ed Human Papilloma virus 9-valent vaccine 08/11/17 Given Ambulat ory Pharmac y hepatitis B adult vaccine 2017 Left Arm [id number] 43 GlaxoSmithKli ne complet ed hepatitis B adult vaccine 08/11/17 Given Ambulat ory Pharmac y hepatitis B vaccine, adult dosage 1 2017 VIVIENNE SANCHEZ [id number] 43 [facility] ([facility]) complet ed hepatitis B vaccine, adult dosage DoD Human Papillomaviru s 9-valent vaccine 1 2017 VIVIENNE SANCHEZ [id number] Merck (MSD) complet ed Human Papilloma [...] DoD poliovirus vaccine, inactivated 2016 Right Arm [id number] sanofi pasteur complet ed polioviru s [...] poliovirus vaccine, inactivated 1 2016 MAK ROBERTS [id number] 10 Sanofi Pasteur ([facility]) complet ed polioviru s vaccine, [...] y meningococcal A,C,Y,W-135 (MCV4P) 2016 Left Arm [id number] 114 sanofi pasteur complet ed meningoco ccal A,C,Y,W-1 35 (MCV4P) 12/08/16 Given Ambulat ory Pharmac y hepatitis B pediatric/ado lescent 2016 Left Arm [id number] GlaxoSmithKli ne complet ed hepatitis B pediatric /adolesce nt 12/08/16 Given Ambulat ory Pharmac y adenovirus vaccine, live 2016 [id number] 143 Unknown complet ed adenoviru s vaccine, live 12/08/16 Given Ambulat ory Pharmac y hepatitis B vaccine, pediatric or pediatric/ado lescent dosage 1 2016 MAK ROBERTS [id number] 08 SmithKline ([facility]) complet ed hepatitis B vaccine, pediatric or pediatric /adolesce nt dosage DoD meningococcal polysaccharid e (groups A, C, Y and W-135) diphtheria toxoid conjugate vaccine (MCV4P) 1 2016 MAK ROBERTS [id number] 114 Sanofi Pasteur ([facility]) complet ed meningoco [...] 7, live, oral 1 2016 MAK ROBERTS [id number] 143 Other (OTH) complet ed Adenoviru [...] Source One or More A Facilitie s JUDGE History 03/30 One or More A Facilit ies JUDGE [facility](Op tometry [facility] 1523) OUTPATIENT [id number] Notes Entered by: KEAGAN HAN 05 Dec 2016 09 ------- ------- ------- ------- -- recruit KEAGAN Braswell 12/05 Released w/o Limitations [facility]( Optomet ry [facility] 1523) [facility](Au diology [facility] 1523) OUTPATIENT [id number] WENDY JOSHUA 12/05 Released w/o Limitations [facility]( Audiolo gy [facility] 1523) [facility](Fe male Screening 1523) OUTPATIENT [id number] [facility] JUAN CARLOS LEÓN 12/08 Released w/o Limitations [facility]( Female Screeni ng 1523) [facility](Im munizatio n 1523) OUTPATIENT [id number] Notes Entered by: LAMONT IVGIL 08 Dec 2016 1022 ------- ------- ------- ------- -- P4 Immuniz ations ELENA ROQUE 12/08 Released w/o Limitations [facility]( Immuniz ation 1523) [facility](Co urage (White) 1007) OUTPATIENT [id number] ERFU LEG PX AFSHAN JACINTO 12/11 Sick at Home/Quarter s [facility]( Courage (White) 1007) [facility](Co urage (White) 1007) OUTPATIENT [id number] Cold Sx/Vomi tting TONY MESA V 12/18 Sick at Home/Quarter s [facility]( Courage (White) 1007) [facility] Female) OUTPATIENT [id number] Notes Entered by: SUNDEEP PARKS 18 Dec 2016 1333 ------- ------- ------- ------- -- SHEREE BARLOW 12/18 Released w/o Limitations [facility]( [facility] Female) [facility](Sp ecial Physicals [facility] 1007) OUTPATIENT [id number] ALEXA DEMPSEY 12/23 Released w/o Limitations [facility]( Special Physica ls [facility] 1007) [facility](Sp ecial Physicals [facility] 1007) OUTPATIENT [id number] Notes Entered by: JOHN CARTER 30 Dec 2016 1136 ------- ------- ------- ------- -- UMO Special Duty Physica l Review JOHN RIVERA 12/30 Released w/o Limitations [facility]( Special Physica ls [facility] 1007) [facility](Im munizatio n 1523) OUTPATIENT [id number] Notes Entered by: LAMONT VIGIL ON L 09 Jan 2017 0922 ------- ------- ------- ------- -- 5-2 Immuniz ations DAVE PATEL 01/09 Released w/o Limitations [facility]( Immuniz ation 1523) [facility](We ekend Mil Sick Call 1007) OUTPATIENT [id number] Notes Entered by: CARMEN TAYLOR 11 Jan 2017 0640 ------- ------- ------- ------- -- Cold Sx TORRES OCAMPO 01/11 Sick at Home/Quarter s [facility]( Mil Sick Call 1007) [facility] omar([facility] Preventiv e Med) OUTPATIENT [id number] Notes Entered by: MIGUELANGEL BILLINGSLEY 12 Mar 2017 1110 ------- ------- ------- ------- -- Flu Vx MIGUELANGEL BILLINGSLEY 03/12 Released w/o Limitations [facility] Andrade mukul([facility] Prevent kyara Med) [facility] n([facility] Undersea Medicine) OUTPATIENT [id number] Notes Entered by: MARIFER KAMINSKI 08 Apr 2017 0648 ------- ------- ------- ------- -- RANKIN/ upset stomach SUDARSHAN BURT 04/08 Sick at Home/Quarter s [facility] Andrade gilman([facility] Underse a Medicin e) [facility] Charlesviri nelson([facility]) OUTPATIENT [id number] Notes Entered by: MARIFER KAMINSKI 22 Apr 2017 0637 ------- ------- ------- ------- -- SUDARSHAN Gallegos 04/22 Sick at Home/Quarter s [facility] Andrade gilman([facility] Underse a Medicin e) [facility] Cassandra nelson([facility]) OUTPATIENT [id number] Notes Entered by: NEEL HALL 07 May 2017 1455 ------- ------- ------- ------- -- MILAGRO MORA 05/07 Released w/o Limitations [facility] Andrade gilman([facility] Underse a Medicin e) [facility] Cassandra nelson([facility]) OUTPATIENT [id number] back pain/so re throat RANGEL JOSE ANGEL Leonie 05/19 Released with Work/Duty Limitations [facility] Andrade gilman([facility] Underse a Medicin e) [facility] Cassandra nelson([facility]) OUTPATIENT [id number] parul zamora dunia,MILAGRO Cota 05/27 Released w/o Limitations [facility] Andrade mukul([facility] C Underse a Medicin e) [facility] Cassandra nelson([facility]) OUTPATIENT [id number] nose bleeds, headach e, MILAGRO Rehman 06/08 Released with Work/Duty Limitations [facility] Andrade mukul([facility] Underse a Medicin e) [facility] Cassandra nelson([facility] Physical Therapy) OUTPATIENT [id number] Low back pain TIMUR AVENDANO 06/10 Released w/o Limitations [facility] Andrade mukul([facility] C Physica l Therapy ) [facility] Cassandra nelson([facility] Physical Therapy) OUTPATIENT [id number] BARBARA ALTAMIRANO 06/15 Released w/o Limitations [facility] Andrade mukul([facility] Physica l Therapy ) [facility] Charlesviri n([facility] Physical Therapy) OUTPATIENT [id number] BARBARA ALTAMIRANO 06/17 Released w/o Limitations [facility] Andrade gilman([facility] Physica l Therapy ) [facility] Charlesviri n([facility] Physical Therapy) OUTPATIENT [id number] BARBARA ALTAMIRANO 06/24 Released w/o Limitations [facility] Andrade gilman([facility] Physica l Therapy ) [facility] Charlesviri n([facility] Physical Therapy) OUTPATIENT [id number] BARBARA ALTAMIRANO 06/29 Released w/o Limitations [facility] Andrade gilman([facility] Physica l Therapy ) [facility] n([facility]) OUTPATIENT [id number] Notes Entered by: ALDA BAUGH 29 Jun 2017 1000 ------- ------- ------- ------- -- smoking cessati on SAUL DAVILA 06/29 Released w/o Limitations [facility] Andrade gilman([facility] Occupat formerly [facility] Health) [facility] Cassandra nelson([facility] Physical Therapy) OUTPATIENT [id number] BARBARA ALTAMIRANO 07/01 Released w/o Limitations [facility] Andrade gilman([facility] Physica l Therapy ) [facility] Cassandra nelson([facility] Undersea Medicine) OUTPATIENT [id number] Notes Entered by: ZOE THAKKAR 03 Jul 2017 1219 ------- ------- ------- ------- -- SUDARSHAN Buchanan 07/03 Released with Work/Duty Limitations [facility] Andrade gilman([facility] Underse a Medicin e) [facility] Cassandra nelson([facility] Undersea Medicine) OUTPATIENT [id number] PT F/U JOSE ANGEL MULTANI 07/03 Released w/o Limitations [facility] Andrade gilman([facility] Underse a Medicin e) [facility] Physical Therapy) OUTPATIENT [id number] BARBARA ALTAMIRANO 07/06 Released w/o Limitations [facility] Andrade gilman([facility] Physica l Therapy ) [facility] Charlesviri n([facility] Psychiatr y Clinic) OUTPATIENT [id number] SOFIE PANTOJA 07/09 Released w/o Limitations [facility] Andrade gilman([facility] Psychia try Clinic) [facility] n([facility] Occup[facility]ans Health [facility]) TELE CONSULT [id number] Notes Entered by: MARIA DEL ROSARIO DAVILA 13 Jul 2017 1128 ------- ------- ------- ------- -- Tobacco Cessati on F/u LOLA SAUL Thayer 07/13 Referred for Appointment [facility] Andrade gilman([facility] Occupat ional Health) [facility] Psychiatr y Clinic) OUTPATIENT [id number] f/SOFIE Lang 07/22 Released w/o Limitations [facility] Andrade mukul([facility] Psychia try Clinic) [facility] Psychiatr y Clinic) OUTPATIENT [id number] F/U SOFIE JACOB 07/27 Released w/o Limitations [facility] Andrade gilman([facility] Psychia try Clinic) [facility]) TELE CONSULT [id number] Notes Entered by: MARIA DEL ROSARIO DAVILA 04 Aug 2017 1012 ------- ------- ------- ------- -- Tobacco cessati on follow up SAUL DAVILA 08/04 Referred for Appointment [facility] Andrade mukul([facility] Occupat ional Health) [facility] Cassandra nelson([facility] Unders Medicine) TELE CONSULT [id number] Notes Entered by: MAYDA FELIZ 07 Aug 2017 0955 ------- ------- ------- ------- -- [facility] 4[facility]18 JOSE ANGEL MULTANI 08/07 [facility] Andrade mukul([facility] Underse a Medicin e) [facility]) TELE CONSULT [id number] Notes Entered by: MAYDA FELIZ 07 Aug 2017 0956 ------- ------- ------- ------- -- Network Results - [facility] 4.23.18 JOSE ANGEL MULTANI Leonie 08/07 [facility] Andrade gilman([facility] Underse a Medicin e) [facility] n([facility]) OUTPATIENT [id number] Notes Entered by: Bronson SANCHEZ 10 Aug 2017 1527 ------- ------- ------- ------- -- HEP#3, HPV#1 VIVIENNE SANCHEZ 08/10 Released w/o Limitations [facility] Andrade gilman([facility] Communi [facility]) [facility] n([facility] Occupatio [facility]) OUTPATIENT [id number] HCW/BBF FABRIZIO ALVAREZ 08/13 Released w/o Limitations [facility] Andrade gilman([facility]) [facility] n([facility] Psychiatr y Clinic) OUTPATIENT [id number] f/u SOFIE JACOB 08/13 Released w/o Limitations [facility] Andrade gilman([facility] Psychia try Clinic) [facility] n([facility] Physical Therapy) OUTPATIENT [id number] TIMUR AVENDANO 08/13 Released w/o Limitations [facility] Andrade gilman([facility] Physica l Therapy ) [facility] n([facility] Fam Med [employer]) TELE CONSULT [id number] Notes Entered by: JORDON SIMEON 28 Aug 2017 1027 ------- ------- ------- ------- -- June Rai Hadley report JORDON SIMEON 08/28 [facility] Andrade gilman([facility] Fam Med [employer] Gold) [facility] n([facility] Undersea Medicine) OUTPATIENT [id number] Notes Entered by: CHAD CAST 31 Aug 2017 1050 ------- ------- ------- ------- -- NAUSEA/ VOMITTI NG X2 DAYS SUDARSHAN BURT 08/31 Sick at Home/Quarter s [facility] Andrade mukul([facility] Underse a Medicin e) [facility] Cassandra n([facility] Physical Therapy) OUTPATIENT [id number] CARLOZ LEI 09/02 Released w/o Limitations [facility] Andrade mukul([facility] Physica l Therapy ) [facility] Cassandra nelson([facility] Physical Therapy) OUTPATIENT [id number] CARLOZ LEI 09/09 Released w/o Limitations [facility] Andrade mukul([facility] Physica l Therapy ) [facility] Cassandra nelson([facility] Psychiatr y Clinic) OUTPATIENT [id number] F/U SOFIE JACOB 09/11 Released w/o Limitations [facility] Andrade mukul([facility] Psychia try Clinic) [facility] Cassandra nelson([facility] Physical Therapy) OUTPATIENT [id number] CARLOZ LEI 09/14 Released w/o Limitations [facility] Andrade mukul([facility] Physica l Therapy ) [facility] Cassandra nelson([facility] Undersea Medicine) OUTPATIENT [id number] CONNIE MCGINNIS 09/16 Released with Work/Duty Limitations [facility] Andrade mukul([facility] Underse a Medicin e) [facility] Cassandra nelson([facility] Physical Therapy) OUTPATIENT [id number] CARLOZ LEI 09/23 Released w/o Limitations [facility] Andrade mukul([facility] Physica l Therapy ) [facility] Cassandra nelson([facility] Psychiatr y Clinic) OUTPATIENT [id number] F/U SOFIE JACOB 09/23 Released w/o Limitations [facility] Andrade mukul([facility] Psychia try Clinic) [facility] Cassandra nelson([facility] Case Managemen t) OUTPATIENT [id number] Notes Entered by: CAROLINA PERES 29 Sep 2017 0752 ------- ------- ------- ------- -- LIMDU review for cc/cm needs SHREYAS , GORGE M 09/29 Released w/o Limitations [facility] Andrade gilman([facility] Case Managem ent) [facility] Cassandra nelson([facility] Undersea Medicine) OUTPATIENT [id number] Notes Entered by: SUDARSHAN ANDRADE 08 Oct 2017 0903 ------- ------- ------- ------- -- Cold Symptom s SUDARSHAN BURT 10/08 Sick at Home/Quarter s [facility] Andrade gilman([facility] Underse a Medicin e) [facility] Psychiatr y Clinic) OUTPATIENT [id number] f/u SOFIE JACOB 10/08 Released w/o Limitations [facility] Andrade gilman([facility] Psychia [facility] Clinic) [facility] Physical Therapy) OUTPATIENT [id number] TIMUR Hebert 10/09 Released w/o Limitations [facility] Andrade gilman([facility] Physica l Therapy ) [facility] n([facility] Psychiatr y Clinic) OUTPATIENT [id number] F/U SOFIE JACOB 10/27 Released w/o Limitations [facility] Andrade gilman([facility] Psychia try Clinic) [facility] Psychiatr y Clinic) OUTPATIENT [id number] f/u SOFIE JACOB 11/05 Released w/o Limitations [facility] Andrade mukul([facility] Psychia try Clinic) [facility] Undersea Medicine) TELE CONSULT [id number] Notes Entered by: CAMILA WATERMAN 06 Nov 2017 1053 ------- ------- ------- ------- -- Network Results - Mental Health 11/05/17 VENESSA BAKER 11/06 [facility] Andrade mukul([facility] Underse a Medicin e) [facility] Charlesviri nelson([facility] Undersea Medicine) OUTPATIENT [id number] F/U TCD VENESSA BAKER 11/12 Released w/o Limitations [facility] Andrade gilman([facility] Underse a Medicin e) [facility] Case Managemen t) OUTPATIENT [id number] Notes Entered by: Swati ARTEAGA 13 Nov 2017 1046 ------- ------- ------- ------- -- Case Managem ent BARBARA ARTEAGA 11/13 Released w/o Limitations [facility] Andrade mukul([facility] Case Managem ent) [facility] Psychiatr y Clinic) OUTPATIENT [id number] F/U SOFIE JACOB 11/17 Released w/o Limitations [facility] Andrade mukul([facility] Psychia try Clinic) [facility] Undersea Medicine) OUTPATIENT [id number] spider bite/he VENESSA Devine 11/26 Released w/o Limitations [facility] Andrade gilman([facility] Underse a Medicin e) [facility] n([facility] Occupatio nal Health) OUTPATIENT [id number] BRIANDA SHAW 12/17 Released w/o Limitations [facility] Andrade mukul([facility] Occupat ional Health) [facility] n([facility] Undersea Medicine) OUTPATIENT [id number] prt VENESSA Young 12/21 Released w/o Limitations [facility] Andrade mukul([facility] Underse a Medicin e) [facility] n([facility] Undersea Medicine) OUTPATIENT [id number] Notes Entered by: ZOE THAKKAR 25 Dec 2017 0822 ------- ------- ------- ------- -- Cold sx x1wk SUDARSHAN BURT 12/25 Sick at Home/Quarter s [facility] Andrade mukul([facility] Underse a Medicin e) [facility] Hearing Conservat ion) OUTPATIENT [id number] Notes Entered by: RIVER ROBLES 06 Jan 2018 1348 ------- ------- ------- ------- -- Termina tion Audiogr RIVER Mayers 01/06 Released w/o Limitations [facility] Andrade gilman([facility] Hearing Conserv ation) [facility] Cassandra n([facility] Optometry Clinic) OUTPATIENT [id number] EYE EXAM CATY NEW Graciela 01/13 Released w/o Limitations [facility] Andrade gilman([facility] Optomet ry Clinic) [facility] n([facility] Preventiv e Med) OUTPATIENT [id number] Notes Entered by: West THOMAS 18 Jan 2018 1102 ------- ------- ------- ------- -- Flu Vx CHARLENE THOMAS 01/18 Released w/o Limitations [facility] Andrade gilman([facility] Prevent kyara Med) [facility] n([facility] Undersea Medicine) OUTPATIENT [id number] Ad Sep Pe VENESSA BAKER 02/01 Released w/o Limitations [facility] Andrade gilman([facility] Underse a Medicin e) [facility] n([facility] Undersea Medicine) OUTPATIENT [id number] 1 cold sx VENESSA BAKER 03/08 Released w/o Limitations [facility] Andrade gilman([facility] Underse a Medicin e) Procedures Combined list of: 1) Procedures from Department of Veterans Affairs facilities [facility], not all VA non-surgical procedures are included; 2) All procedures from the Department of Defense facilities. Procedure Procedure Type Code Date Perfomer Comments Sourc e No data available for this section Ambulatory Pharmacy Psychotherapy Individual Approximately 45 Minutes Psychotherapy Individual Approximately 45 Minutes 50998 06/08 ESTEBAN WONG Influenza Split Virus Vaccine IM Preserv Free 0.5mL Dosage Quadrivalent Influenza Split Virus Vaccine IM Preserv Free 0.5mL Dosage Quadrivalent 41804 03/12 MIGUELANGEL BILLINGSLEY Influenza Seasonal, injectable quadrivalent - preservative free; Series #: 1; .5 mL; IM; Left Arm; g: [employer]; Lot: [id number]; VIS given (Itz: 11/03/2014). DoD Immunization Administration By Injection, One Vaccine Immunization Administration By Injection, One Vaccine 37518 03/12 MIGUELANGEL BILLIGNSLEY [facility] Immunization Administration By Injection, One Vaccine Immunization Administration By Injection, One Vaccine 49265 01/09 MAK ROBERTS [facility] Immunization Administration By Injection, Each Additional Vaccine Immunization Administration By Injection, Each Additional Vaccine 09155 01/09 MAK ROBERTS [facility] Vaccines Viral Polio, Inactivated Vaccines Viral Polio, Inactivated 87973 01/09 MAK ROBERTS IPV; Series #: 1; .5 mL; SC; Right Arm; Mfg: Sanofi Pasteur; Lot: [id number]; VIS given (Itz: 10/17/15; 02/01/15 - Multiple). DoD Hepatitis B Vaccine (Active); [place] To 11 Years Hepatitis B Vaccine (Active); [place] To 11 Years 0502601/09 MKA ROBERTS Hep B, adolescent or pediatric; Series #: 2; .5 mL; IM; Left Arm; Mfg: [employer]; Lot: [id number]; VIS given (Itz: 10/17/2015). [facility] Patient education, not otherwise cla ified, non-physician provider, group, per se ion 12/18 SHEREE LATHAM [facility] Physician Supervised Injection Intramuscular Antibiotic Physician Supervised Injection Intramuscular Antibiotic 57146 12/08 MAK ROBERTS [facility] Injection, penicillin g benzathine, 100,000 units 12/08 MAK ROBERTS [facility] Immunization Admin Intranasal / Oral Each Additional Vaccine Immunization Admin Intranasal / Oral Each Additional Vaccine 99565 12/08 MAK ROBERTS [facility] Vaccines Adenovirus Type 4 Live, For Oral Use Vaccines Adenovirus Type 4 Live, For Oral Use 76114 12/08 MAK ROBERTS [facility] Vaccines Adenovirus Type 7 Live, For Oral Use Vaccines Adenovirus Type 7 Live, For Oral Use 09691 12/08 MAK ROBERTS [facility] Hepatitis B Vaccine (Active); [place] To 11 Years Hepatitis B Vaccine (Active); To 11 Years 7892512/08 MAK ROBERTS Hep B, adolescent or pediatric; Series #: 1; .5 mL; IM; Left Arm; Mfg: [employer]; Lot: [id number]; VIS given (Itz: 10/17/2015). [facility] Meningococcal Polysaccharide Diphtheria Toxoid Conjugate Vaccine 12/08 MAK ROBERTS Meningococcal MCV4P; Series #: 1; .5 mL; IM; Left Arm; Mfg: Sanofi Pasteur; Lot: [id number]; VIS given (Itz: 06/28/2015). [facility] Tdap Vaccine Tdap Vaccine 69156 12/08 MAK ROBERTS Tdap; Series #: 1; .5 mL; IM; Right Arm; Mfg: Other; Lot: [id number]; VIS given (Itz: 05/23/14). DoD Immunization Administration By Injection, One Vaccine Immunization Administration By Injection, One Vaccine 35776 12/08 MAK ROBERTS Immunization Administration By Injection, Each Additional Vaccine Immunization Administration By Injection, Each Additional Vaccine 66425 12/08 MAK ROBERTS Audiometry Group Testing Audiometry Group Testing 81819 12/05 WENDY JOSHUA Threshold Audiogram (Pure Tone) Threshold Audiogram (Pure Tone) 46335 12/05 WENDY JOSHUA [employer] [facility] Fitting Monofocal Except For Aphakia [employer] [facility] Fitting Monofocal Except For Aphakia 27007 12/05 KEAGAN HAN Determination Of Refractive State Determination Of Refractive State 60346 12/05 KEAGAN HAN Visual Function Screening Visual Function Screening 22042 12/05 KEAGAN HAN Psychotherapy Individual Approximately 60 Minutes Psychotherapy Individual Approximately 60 Minutes 48792 01/27 ESTEBAN WONG Psychotherapy Individual Approximately 60 Minutes Psychotherapy Individual Approximately 60 Minutes 08516 01/18 ESTEBAN WONG Immunization Administration By Injection, One Vaccine Immunization Administration By Injection, One Vaccine 16347 01/18 MAJOR, CHARLENE LIMA [facility] Influenza Split Virus Vaccine IM Preserv Free 0.5mL Dosage Quadrivalent Influenza Split Virus Vaccine IM Preserv Free 0.5mL Dosage Quadrivalent 68793 01/18 CHARLENE THOMAS Influenza Seasonal, injectable quadrivalent - preservative free; Series #: 1; .5 mL; IM; Left Arm; Mfg: [employer]; Lot: [id number]; VIS given (Itz: 11/03/2014). [facility] Determination Of Refractive State Determination Of Refractive State 34790 01/13 CATY NEW [facility] Ophthalmological New Patient Start Comprehensive Care Ophthalmological New Patient Start Comprehensive Care 20328 01/13 CATY NEW [facility] Threshold Audiogram (Pure Tone) Automated Threshold Audiogram (Pure Tone) Automated 0208T 01/06 RIVER ROBLES DoD Psychotherapy Individual Approximately 30 Minutes Psychotherapy Individual Approximately 30 Minutes 81268 01/06 ESTEBAN WONG [facility] Psychotherapy Individual Approximately 60 Minutes Psychotherapy Individual Approximately 60 Minutes 80277 12/29 ESTEBAN WONG Psychotherapy Individual Approximately 60 Minutes Psychotherapy Individual Approximately 60 Minutes 82253 12/22 ESTEBAN WONG Preventive Medicine Administration Of Health Risk Questionnaire Patient-Focused Preventive Medicine Administration Of Health Risk Questionnaire Patient-Focused 37855 12/17 BRIANDA CASTILLO Psychotherapy Individual Approximately 60 Minutes Psychotherapy Individual Approximately 60 Minutes 59605 12/16 ESTEBAN WONG Psychotherapy Individual Approximately 60 Minutes Psychotherapy Individual Approximately 60 Minutes 02607 12/03 ESTEBAN WONG Psychotherapy Individual Approximately 30 Minutes Psychotherapy Individual Approximately 30 Minutes 11227 11/23 CHU SMITH Psychotherapy With Medication Management Psychotherapy With Medication Management 07534 11/19 SOFIE JACOB Psychotherapy Individual Approximately 45 Minutes Psychotherapy Individual Approximately 45 Minutes 80948 11/19 SOFIE JACOB Psychotherapy Individual Approximately 45 Minutes Psychotherapy Individual Approximately 45 Minutes 24922 11/16 ESTEBAN WONG Psychotherapy Individual Approximately 60 Minutes Psychotherapy Individual Approximately 60 Minutes 68479 11/13 ESTEBAN WONG Case Management, each 15 minutes 11/13 BARBARA ARTEAGA Psychotherapy Individual Approximately 60 Minutes Psychotherapy Individual Approximately 60 Minutes 36851 11/11 ESTEBAN WONG Psychotherapy With Medication Management Psychotherapy With Medication Management 77097 11/06 SOFIE JACOB Psychotherapy Individual Approximately 45 Minutes Psychotherapy Individual Approximately 45 Minutes 25384 11/06 SOFIE JACOB Psychotherapy Individual Approximately 60 Minutes Psychotherapy Individual Approximately 60 Minutes 28123 11/05 ESTEBAN WONG Psychotherapy With Medication Management Psychotherapy With Medication Management 35610 10/29 SOFIE JACOB Psychotherapy Individual Approximately 45 Minutes Psychotherapy Individual Approximately 45 Minutes 24939 10/29 SOFIE JACOB Psychotherapy Individual Approximately 60 Minutes Psychotherapy Individual Approximately 60 Minutes 40786 10/29 ESTEBAN WONG Psychotherapy Individual Approximately 30 Minutes Psychotherapy Individual Approximately 30 Minutes 77878 10/26 ESTEBAN WONG Psychotherapy Individual Approximately 60 Minutes Psychotherapy Individual Approximately 60 Minutes 51399 10/15 ESTEBAN WONG Psychotherapy Individual Approximately 60 Minutes Psychotherapy Individual Approximately 60 Minutes 85338 10/14 ESTEBAN WONG Psychotherapy Individual Approximately 60 Minutes Psychotherapy Individual Approximately 60 Minutes 04202 10/13 ESTEBAN WONG Physical Therapy Service Re-Evaluation Physical Therapy Service Re-Evaluation 00057 10/09 TIMUR AVENDANO [facility] Psychotherapy With Medication Management Psychotherapy With Medication Management 54462 10/08 SOFIE JACOB Psychotherapy Individual Approximately 45 Minutes Psychotherapy Individual Approximately 45 Minutes 36062 10/08 SOFIE JACOB Psychotherapy Individual Approximately 30 Minutes Psychotherapy Individual Approximately 30 Minutes 72421 10/05 ESTEBAN WONG Psychotherapy Individual Approximately 45 Minutes Psychotherapy Individual Approximately 45 Minutes 14927 10/02 ESTEBAN WONG Case Management, each 15 minutes 09/29 GORGE BARKER Psychotherapy Individual Approximately 30 Minutes Psychotherapy Individual Approximately 30 Minutes 86912 09/28 ESTEBAN WONG Modalities Cryotherapy Cold Packs Modalities Cryotherapy Cold Packs 22132 09/24 CARLOZ LEI Taping Knee Taping Knee 25820 09/24 CARLOZ LEI Physical Therapy: ___ Se ion Segments, 15 Minutes Each Physical Therapy: ___ Session Segments, 15 Minutes Each 30012 09/24 CARLOZ LEI Psychotherapy With Medication Management Psychotherapy With Medication Management 90898 09/23 SOFIE JACOB Psychotherapy Individual Approximately 45 Minutes Psychotherapy Individual Approximately 45 Minutes 41708 09/23 SOFIE JACOB Psychotherapy Individual Approximately 60 Minutes Psychotherapy Individual Approximately 60 Minutes 44201 09/22 ESTEBAN WONG Modalities Cryotherapy Cold Packs Modalities Cryotherapy Cold Packs 02363 09/15 RATNA LEIELA [facility] Physical Therapy Mobilization Joint Physical Therapy Mobilization Joint 59136 09/15 CARLOZ LEI E Bao Physical Therapy: ___ Se ion Segments, 15 Minutes Each Physical Therapy: ___ Session Segments, 15 Minutes Each 46861 09/15 RATNA LEIELA [facility] Psychotherapy Individual Approximately 30 Minutes Psychotherapy Individual Approximately 30 Minutes 33891 09/11 ESTEBAN WONG Psychotherapy With Medication Management Psychotherapy With Medication Management 69058 09/11 SOFIE JACOB Psychotherapy Individual Approximately 45 Minutes Psychotherapy Individual Approximately 45 Minutes 63218 09/11 SOFIE JACOB Psychotherapy Individual Approximately 60 Minutes Psychotherapy Individual Approximately 60 Minutes 06099 09/10 ESTEBAN WONG Modalities Cryotherapy Cold Packs Modalities Cryotherapy Cold Packs 62568 09/09 RATNA LEIELA [facility] Physical Therapy: ___ Se ion Segments, 15 Minutes Each Physical Therapy: ___ Session Segments, 15 Minutes Each 88804 09/09 RATNA LEIELA [facility] Psychotherapy Individual Approximately 45 Minutes Psychotherapy Individual Approximately 45 Minutes 51219 09/08 ESTEBAN WONG Psychotherapy Individual Approximately 30 Minutes Psychotherapy Individual Approximately 30 Minutes 43099 09/03 ESTEBAN WONG Modalities Cryotherapy Cold Packs Modalities Cryotherapy Cold Packs 09093 09/02 CARLOZ LEI Taping Lower Back Taping Lower Back 91974 09/02 CARLOZ LEI Physical Therapy: ___ Se ion Segments, 15 Minutes Each Physical Therapy: ___ Session Segments, 15 Minutes Each 95683 09/02 CARLOZ LEI Psychotherapy Individual Approximately 45 Minutes Psychotherapy Individual Approximately 45 Minutes 05816 08/25 ESTEBAN WONG Psychotherapy With Medication Management Psychotherapy With Medication Management 14280 08/13 SOFIE JACOB Psychotherapy Individual Approximately 45 Minutes Psychotherapy Individual Approximately 45 Minutes 53021 08/13 SOFIE JACOB Pelvic belt/harne /boot 08/13 TIMUR AVENDANO [facility] Physical Therapy Service Re-Evaluation Physical Therapy Service Re-Evaluation 42016 08/13 TIMUR AVENDANO Human Papilloma Virus Vaccine, Nonavalent Human Papilloma Virus Vaccine, Nonavalent 09092 08/11 VIVIENNE SANCHEZ HPV9; Series #: 1; .5 mL; IM; Left Arm; Mfg: Merck; Lot: [id number]; VIS given (Itz: 02/29/2016). [facility] Immunization Administration By Injection, One Vaccine Immunization Administration By Injection, One Vaccine 5987208/11 VIVIENNE SANCHEZ [facility] Immunization Administration By Injection, Each Additional Vaccine Immunization Administration By Injection, Each Additional Vaccine 9860408/11 VIVIENNE SANCHEZ [facility] Hepatitis B Vaccine (Active) Adult Dosage 3 Dose Schedule Hepatitis B Vaccine (Active) Adult Dosage 3 Dose Schedule 1060908/11 VIVIENNE SANCHEZ Hep B - Adult; Series #: 1; 1.0 mL; IM; Left Arm; Mfg: [employer]; Lot: [id number]; VIS given (Itz: 10/17/2015). [facility] Psychotherapy Individual Approximately 60 Minutes Psychotherapy Individual Approximately 60 Minutes 8820908/10 ESTEBAN WONG [facility] Psychotherapy Individual Approximately 45 Minutes Psychotherapy Individual Approximately 45 Minutes 9755007/27 ESTEBAN WONG [facility] Psychotherapy With Medication Management Psychotherapy With Medication Management 1643407/27 SOFIE JACOB [facility] Psychotherapy Individual Approximately 30 Minutes Psychotherapy Individual Approximately 30 Minutes 1310507/22 ESTEBAN WONG [facility] Psychotherapy With Medication Management Psychotherapy With Medication Management 7890907/22 SOFIE JACOB [facility] Psychotherapy Individual Approximately 45 Minutes Psychotherapy Individual Approximately 45 Minutes 7563207/22 SOFIE JACOB [facility] Psychotherapy Individual Approximately 30 Minutes Psychotherapy Individual Approximately 30 Minutes 4754007/21 ESTEBAN WONG [facility] Psychotherapy Individual Approximately 30 Minutes Psychotherapy Individual Approximately 30 Minutes 3547207/20 ESTEBAN WONG [facility] Psychotherapy Individual Approximately 30 Minutes Psychotherapy Individual Approximately 30 Minutes 3986607/10 ESTEBAN WONG [facility] Physical Therapy: ___ Se ion Segments, 15 Minutes Each Physical Therapy: ___ Session Segments, 15 Minutes Each 17087 07/09 BARBARA ALTAMIRANO [facility] Psychotherapy With Medication Management Psychotherapy With Medication Management 2643207/09 SOFIE JACOB [facility] Psychotherapy Individual Approximately 45 Minutes Psychotherapy Individual Approximately 45 Minutes 9292507/09 NIDIASOFIE Swati [facility] Psychotherapy Individual Approximately 60 Minutes Psychotherapy Individual Approximately 60 Minutes 69090 07/06 ESTEBAN WONG [facility] Physical Therapy: ___ Se ion Segments, 15 Minutes Each Physical Therapy: ___ Session Segments, 15 Minutes Each 38726 07/03 BARBARA ALTAMIRANO [facility] Psychotherapy Individual Approximately 45 Minutes Psychotherapy Individual Approximately 45 Minutes 52703 07/03 ESTEBAN WONG [facility] Psychotherapy Individual Approximately 60 Minutes Psychotherapy Individual Approximately 60 Minutes 89480 06/30 ESTEBAN WONG [facility] Physical Therapy: ___ Se ion Segments, 15 Minutes Each Physical Therapy: ___ Session Segments, 15 Minutes Each 34581 06/30 BARBARA ALTAMIRANO [facility] Physical Therapy: ___ Se ion Segments, 15 Minutes Each Physical Therapy: ___ Session Segments, 15 Minutes Each 39978 06/29 BARBARA ALTAMIRANO [facility] Patient Counseling Medical Management Individual Patient Patient Counseling Medical Management Individual Patient 87479 06/29 SAUL DAVILA [facility] Psychotherapy Individual Approximately 30 Minutes Psychotherapy Individual Approximately 30 Minutes 07505 06/25 ESTEBAN WONG [facility] Psychotherapy Individual Approximately 30 Minutes Psychotherapy Individual Approximately 30 Minutes 33829 06/23 ESTEBAN WONG [facility] Psychotherapy Individual Approximately 60 Minutes Psychotherapy Individual Approximately 60 Minutes 84930 06/23 ESTEBAN WONG [facility] Physical Therapy: ___ Se ion Segments, 15 Minutes Each Physical Therapy: ___ Session Segments, 15 Minutes Each 49471 06/22 BARBARA ALTAMIRANO [facility] Physical Therapy: ___ Se ion Segments, 15 Minutes Each Physical Therapy: ___ Session Segments, 15 Minutes Each 58204 06/19 BARBARA ALTAMIRANO [facility] Health And Behav A e mt Each Additional 15 Min Kiarra e ment Health And Behav Assessmt Each Additional 15 Min Reassessment 66936 06/18 ESTEBAN WONG [facility] Psychotherapy Individual Approximately 45 Minutes Psychotherapy Individual Approximately 45 Minutes 84017 06/17 ESTEBAN WONG [facility] Psychotherapy Individual Approximately 60 Minutes Psychotherapy Individual Approximately 60 Minutes 71320 06/17 ESTEBAN WONG [facility] Physical Therapy Service Evaluation Moderate Complexity Physical Therapy Service Evaluation Moderate Complexity 06504 06/10 TIMUR AVENDANO [facility] Physical Therapy: ___ Se ion Segments, 15 Minutes Each Physical Therapy: ___ Session Segments, 15 Minutes Each 80396 06/10 TIMUR AVENDANO [facility] Psychotherapy Individual Approximately 45 Minutes Psychotherapy Individual Approximately 45 Minutes 61593 06/09 ESTEBAN WONG DoD Psychotherapy Individual Approximately 60 Minutes Psychotherapy Individual Approximately 60 Minutes 45295 06/09 ESTEBAN WONG [facility] Brief communication technology-based service, e.g. [...] 5-10 minutes of medical discu CARTER Pruitt [facility] BRIEF COMM TECH-BASE SERV,E.G. VIRT CHK-IN,BY PHYS/OTH QUAL HCP,RPT E&M SERV,PROV TO EST PT,NOT ORIG FRM REL E/M SERV PROV W/IN PREV 7DAY NOR LEAD TO E/M SRV/PX W/IN NEXT 24HR/SOON MIRIAM; 5-10 MIN DISC 07/31 [facility] HEPATITIS B VACCINE (HEPB), PEDIATRIC/ADOLESCENT DOSAGE, 3 DOSE SCHEDULE, FOR INTRAMUSCULAR USE 01/09 [facility] PATIENT EDUCATION, NOT OTHERWISE CLASSIFIED, NON-PHYSICIAN PROVIDER, GROUP, PER SESSION 12/18 [facility] INJECTION, PENICILLIN G BENZATHINE, 100,000 UNITS 12/08 [facility] AUDIOMETRIC TESTING OF GROUPS 12/05 [facility] DETERMINATION OF REFRACTIVE STATE 12/05 DoD PSYCHOTHERAPY, 60 MINUTES WITH PATIENT 01/27 [facility]D IMMUNIZATION ADMINISTRATION (INCLUDES PERCUTANEOUS, INTRADERMAL, SUBCUTANEOUS, OR INTRAMUSCULAR INJECTIONS); 1 VACCINE (SINGLE OR COMBINATION VACCINE/TOXOID) 01/18 [facility]D PSYCHOTHERAPY, 60 MINUTES WITH PATIENT 01/18 [facility]D DETERMINATION OF REFRACTIVE STATE 01/13 [facility] PURE TONE AUDIOMETRY (THRESHOLD), AUTOMATED; [...] &/ROWDY ASSESS FUNC OUTCOME TYP,20 MIN SPENT [id number] W PAT&/FAM 10/09 [facility]D PHARMACOLOGIC MANAGEMENT, INCLUDING [...] EDUCATION &TRAINING, PATIENT SELF-MGT QUALIFIED, NONPHYSICIAN HEALTH PLASTIC MAKER USING STDIZED CURRICULUM, [id number] W THE PATIENT (COULD INCL CAREGIVER/FAMILY) EA [...] PSYCHOPHYSICOLOGICAL MON, HEALTH-ORIENTED QUESTIONNAIRES), EACH 15 MIN [id number] WITH THE PATIENT; RE-ASSESS 06/18 [facility]D PSYCHOTHERAPY, [...] 1 VACCINE (SINGLE OR COMBINATION VACCINE/TOXOID) 03/12 [facility] Social History Combined list of available smoking, tobacco, and other social history from Department of Defense and Veterans Affairs facilities. Social History Type Response Date Comment [facility] e Tobacco smoking status [facility] NEVER USED 06/06/2021 CHIQUIS Griggs FITZ [...] Plan No data available for this section 09/21/2023 Ambulatory Pharmacy Functional Status Combined list of recent functional and cognitive assessments recorded at Department of Defense and Veterans Affairs ([facility]).VA Functional Lynn Measurement (FIM) Scale: 1 = Total Assistance (Subject = 0% +), 2 = Maximal Assistance (Subject = 25% +), 3 = Moderate Assistance (Subject = 50% +), 4 = Minimal Assistance (Subject = 75% +), 5 = Supervision, 6 = Modified Lynn (Device), 7 = Complete Lynn (Timely, Safely). Assessment Date/Time Source Assessment Type Assessment Skill Assessment Score Assessment Details No data available for this section
== END 2023-09-21 09:28 | disposition home or self-care (01) ==
LOC: US 09:27
PROVIDERS: PCP Family Medicine; Visit Provider Registered Nurse
DX: Z34.91 Encounter for supervision of normal pregnancy, unspecified, first trimester (principal); O20.9 Hemorrhage in early pregnancy, unspecified; Z3A.09 9 weeks gestation of pregnancy
CPT/HCPCS: 76816; 76817

== ENCOUNTER 2023-11-03 06:51 | Emergency (ER) | payer OTHER, SELFPAY ==
[2023-11-03 06:59] VITALS: BP 108/74; PULSE 103; RESP 18; TEMP 37; O2SAT 100; BMI 25.0
--- NOTE | 2023-11-03 07:25 | CRLHL7_ITS ---
For Patients: As a result of the Century Cures Act, medical imaging exams and procedure reports are released immediately into your electronic medical record. You may view this report before your referring provider. If you have questions, please contact your health care provider. Indication: Left upper extremity pain in the setting of . Technique: Ultrasound examination of the left upper extremity venous system was performed as per protocol. Grayscale common grayscale compression, color Doppler, spectral Doppler and augmentation technique was utilized. Comparison: None of this area Findings: The right internal jugular vein is patent There is no venous thrombosis abnormality identified on the left. The structure studied include the internal jugular vein, subclavian vein, axillary vein, brachial vein, basilic vein, cephalic vein, radial vein and ulnar vein Impression: Negative examination of the left upper extremity venous system Dictated by Dima Khan MD @ 11/03/2023 8:02:33 AM (Electronically Signed)
--- NOTE | 2023-11-03 07:26 | ED_ITS ---
HPI - General Adult General Chief complaint: Extremity Pain/Injury, Upper Stated complaint: LT hand throbbing, cant open, tingling, painful Time Seen by Provider: 11/03/23 07:11 Source: patient Mode of arrival: ambulatory Limitations: no limitations History of Present Illness HPI narrative: 27-year-old primigravid female at 17 weeks presents to the emergency department for evaluation of left hand pain. It has been going on for about 4 days, intermittent and worsening in nature. No trauma or injury. Pain is at the lateral distal wrist. Worse with movement of the 2nd finger. Reports numbness and tingling, states that she cannot open or close the hand but clearly is opening and closing the hand during her description. No prior history of similar symptoms. Admits that she was likely ?overdoing it? with her hand that does not give any specific new hobbies, examples or activities that could be contributing. Did try taking 325 mg of Tylenol last night with no significant improvement in symptoms. No fevers, no history of DVT. She admits that she is worried hear about a potential blood clot in her arm. There is no swelling. No history of carpal tunnel. No pain in the palm. The 1st and 2nd finger are the only fingers affected but mostly just the 2nd. Past medical history notable for migraine. Denies prescription medications. Allergies reviewed. ROS was notable for no other generalized, musculoskeletal, neurological or skin changes reported today Related Data Home Medications ?Medication ?Instructions ?Recorded ?Confirmed docosahexaenoic acid 200 mg mg PO 09/11/23 09/21/23 capsule ( DHA) ferrous sulfate 325 mg (65 mg 325 mg PO QDAY 09/21/23 09/21/23 iron) tablet (Feosol) Previous Rx's ?Medication ?Instructions ?Recorded hydrocodone 5 mg-acetaminophen 325 1 tab PO Q4-6H PRN pain #6 tabs 11/03/23 mg tablet Allergies Allergy/AdvReac Type Severity Reaction Status Date / Time bupropion Allergy Unknown Unknown Verified 09/21/23 10:36 morphine Allergy Unknown Unknown Verified 09/21/23 10:36 [facility] Medical History Pleurisy ?R09.1 - Pleurisy (ICD-10) Migraines ?G43.909 - Migraine, unspecified, not intractable, without status migrainosus (ICD-10) Asthma ?J45.909 - Unspecified asthma, uncomplicated (ICD-10) Anemia ?D64.9 - Anemia, unspecified (ICD-10) Family History Brother Neurofibromatosis, type 1 Social History What is your current living situation?: I presently have a place to live Problems where you live: no known problems In past 12 months, lack of transportation kept you from medical appts, meetings, work, or getting things needed for daily living: no How hard is it for you to pay for the very basics like food, housing, medical care, and heating: not very hard In the past 12 mos, have been you worried that your food would run out before you had money to buy more?: never true In the past 12 mos, the food you bought just didn't last and you didn't have money to buy more?: never true Smoking Status: Never smoker Non-prescribed substance use: denies use How often does anyone, including family, friends and others, physically hurt you : never How often does anyone, including family, friends and others, insult or talk down to you: never How often does anyone, including family, friends and others, threaten you with harm: never How often does anyone, including family, friends and others, scream or curse at you: never Little interest or pleasure in doing things: not at all Feeling down, depressed, or hopeless: not at all Exam Const: Vital Signs, click to edit/add: Vital Signs - 24 hr 11/03/23 06:59 Temperature 98.6 F Pulse Rate [Pulse Oximeter] 103 H Respiratory Rate 18 Blood Pressure [Ri ght Upper Arm] 108/74 Pulse Oximetry 100 Oxygen Delivery Me thod Room Air Documenting provider has reviewed patient's vital signs: yes Common normals: no apparent distress and alert General appearance: well kempt HENMT: Common normals: normocephalic and oropharynx normal Head and scalp: normocephalic Eye: General eye: normal appearance of both eyes Resp: Common normals: normal respiratory effort Effort & inspection: able to speak in complete sentences Cardio: Other: Regular radial pulses with normal capillary refill of all fingers. Extremity: Other: Left wrist tender to palpation at extensor indices tendon specifically, only other area of any tenderness is mildly along the de Quervain area and can be reproduced with this maneuver. Carpal tunnel testing is negative. No effusion. Nails and fingers appear and move normal. Pain significantly worsened with extension of 2nd finger. No tenderness palpation of palm. Normal range of motion of thumb. Normal range of motion of wrist. No bruising. Palpation along cephalic and basilic area veins is nontender. No palpable cords. Normal range of motion of elbow and shoulder as well. Opposite right hand with normal range of motion and function. Neuro: Sensorium/orientation: alert Speech: speech normal Psych: Appearance: well kempt Attitude: engaged Activity/motor behavior: appropriate eye contact Mood and affect: anxious Skin: Common normals: no rashes or lesions noted General skin exam: no rashes or lesions noted Course Course ED Course: Focal hand and wrist pain with tenderness of extensor indices and de Quervain area likely consistent with tendinitis. Counseled patient on findings. Low risk for venous thrombus. Patient remains quite anxious about this. I try to reassure her but am unable to do so. She would like ultrasound, this is ordered. Counseled on Tylenol, would recommend a 1000 mg every 6 hours for pain. Okay to use Benadryl at night. If this is not helping after a week, she should discuss a muscle relaxant and or more aggressive treatment, physical therapy and other options with her primary care provider. Will place in a thumb spica, instructed to wear this as much as possible for the next 5 days but especially at night for the next few weeks. Will hand over care to incoming day shift partner while we await ultrasound findings. Vital Signs Vital signs: Initial Vital Signs Temperature 98.6 F 11/03/23 06:59 Temperature Source Temporal Artery Scan 11/03/23 06:59 Pulse Rate 103 H 11/03/23 06:59 Respiratory Rate 18 11/03/23 06:59 Blood Pressure 108/74 11/03/23 06:59 Blood Pressure Mean 85 11/03/23 06:59 Blood Pressure Position Sitting 11/03/23 06:59 Pulse Oximetry 100 11/03/23 06:59 Oxygen Delivery Method Room Air 11/03/23 06:59 Vital Signs Temperature 98.6 F 11/03/23 06:59 Pulse Rate 103 H 11/03/23 06:59 Respiratory Rate 18 11/03/23 06:59 Blood Pressure 108/74 11/03/23 06:59 Pulse Oximetry 100 11/03/23 06:59 Oxygen Delivery Method Room Air 11/03/23 06:59 Temperature 98.6 F 11/03/23 06:59 Pulse Rate 103 H 11/03/23 06:59 Respiratory Rate 18 11/03/23 06:59 Blood Pressure 108/74 11/03/23 06:59 Pulse Oximetry 100 11/03/23 06:59 Oxygen Delivery Method Room Air 11/03/23 06:59 Medical Decision Making Imaging Data Left upper extremity venous ultrasound: Attestation: I have reviewed the pertinent imaging results. My impression: No signs of DVT on preliminary images Radiologist's impression: Preliminary tech impression is negative, will update if there are any changes based on formal report only. Discharge Plan Discharge Clinical Impression: Extensor tendinitis of hand Patient Disposition: Home, Self-Care Condition: Stable Instructions: Tendinitis (ED) Additional Instructions: As we discussed, there are no signs of blood clot in the arm. Your exam is consistent with a tendinitis of the muscles that control the 1st and 2nd fingers. I have given you a brace that will help take some of the pressure off of those muscles and tendons and allow them to rest and heal. Would like for you to wear this as much as possible for the next 5 days but then especially at night for the next few weeks. Try to avoid repetitive hand movements, tight gr ipping and vibrating tools. It is okay to continue working with the brace on with no other restrictions. For pain, you may take Tylenol 1000 mg every 6 hours. It is okay to use Benadryl or melatonin to help you sleep. If things are not starting to improve after a week in the brace, please make a follow-up appoint with her primary care provider to discuss physical therapy, other medication options or other treatments. Activity Level: No Restrictions Discharge Diet: Regular Prescriptions: New hydrocodone-acetaminophen 5-325 mg tablet 1 tab PO Q4-6H PRN (Reason: pain) Qty: 6 0RF No Action ferrous sulfate [Feosol] 325 mg (65 mg iron) tablet 325 mg PO QDAY DHA 200 mg capsule PO Follow Up/Referrals: Ariela Machado MD [Primary Care Provider] - Stand Alone Forms: PharmMD Info Instructions
--- OUTSIDE RECORDS SUMMARY | 2023-11-03 08:24 | XMS_ITS | Clinical Summary ---
Author Organization [employer] [facility] Address [place], [place] [address] Care Team Providers Care Filenet Architect Name Role Phone Melissa Machado MD Primary Care Provider [phone] Melissa Machado MD Unavailable [phone] Allergies Active Allergy Reactions Criticality Noted Date Comments Bupropion Other - Describe In Comment Field Morphine Anaphylaxis,Rash High 04/21/2019 Medications Medication Sig Dispensed Refills Start Date End Date Status vit/iron fum/folic ac ( 1 + 1 ORAL) Take by mouth. Active iron bisgly,ps-FA-B-C#12 -succ 65 mg-65 mg -1,000 mcg (24) tab Take by mouth. 09/25/2023 A ctive miconazole nitrate (MONISTAT 7) 2 % vaginal creamIndications:Va ginal yeast infection Insert 1 Applicatorful into the vagina at bedtime. 54 g 10/22/2023 Active Active Problems Problem Noted Date Diagnosed Date anomaly suspected but not found 09/29/2023 [facility] Supervision of high-risk Overview: SRO MPP - Completed [x] Patient name: Jeannie Foster : 1995 Age: 27 y.o. Date of SRO: 09/25/2023 Estimated Date of Delivery: 04/21/24 Gest Age: 10w1d G/P: Current BMI: 24 Requested Discussion Topics: had ultrasound x 3. first showed twin, 2 US showed warren. Possible hydrops on most recent . REFERRING PROVIDER/CLINIC LOCATION/FAX #: Melissa Machado MD - Elizabeth Fish MD approves scheduling of recommended ultrasounds/testing: Yes Please schedule the following: [x] Warren [] Multiples: [] Consult [x] Ultrasound: - Complete less than 14 wks. Add MD time: Yes [] Lab: [x] Genetic Counseling [x] Before [] After []15 [x] 30 []45 []NT []CVS []Amnio [] BMI > 40 [] Lead Auditor - Language [] [place] Insurance: Location Specialty Days Any [facility] Clinic [] In-person [] Virtual [] Either N/A Comments: RN: Gail Swenson RN Cutting Machine Operator Helper: REGINE GC: DANIEL DING/Provider: Date:09/25/2023 Urgency: BLANCA []Can be sooner [] Can be split Jeannie Alberto Foster : 1995 REFERRING PROVIDER/CLINIC LOCATION/FAX #: Melissa Machado MD - Elizabeth Fish MD approves scheduling of recommended ultrasounds/testing: Yes [facility] ULTRASOUND/TESTING PATIENT [facility] CONSULT ON Support person name: Navin ULTRASOUND TYPE: REASON FOR VISIT: NEXT VISIT ALERTS: Final DANAY by LMP LMP Date: Patient's last menstrual period was 07/16/2023. DANAY: 04/21/24 Early US: Date: 09/21/23 GA: 10w2d DANAY: 04/16/24 PrePregnancy Weight: 127 Height: 5'1 BMI: 24 PLANS & FUTURE APPOINTMENTS: ULTRASOUND/GROWTH PLAN: - Through: - Growth: Next TESTING PLAN: - Testing: Through DELIVERY PLAN: - Scheduled delivery: - Preferred delivery location: PRIMARY DIAGNOSIS: 27 y.o. Estimated Date of Delivery: 04/21/24 possible mild hydrops subchorionic hemorrhage MATERNAL Anxiety/depression/PTSD Asthma migraines Family hx: Brother with Neurofibromatosis 1 and Aspergers, multiple siblings with autism PREVIOUS ULTRASOUNDS: 09/21/23 9w4d. CRL 10w2d possible mild hydrops, subchorionic hemorrhage (PCP) ECHO: SPECIALISTS/CONSULTS: Include: Specialty MD Clinic Name Phone# [place] and ADDED TO PATIENT CARE TEAM Yes GENETICS: NIPS: AFP: First screen (NT/seq/integ): if positive add .FIRSTABNORMAL Quad screen (Tetra/Triple screen): if positive add .QUADABNORMAL Amniocentesis/CVS: IVF with PGT: Carrier screening: Declines/Not Done CARE COORDINATION: PERTINENT LABS: Labs reviewed? Normal? Blood type: B Rh Positive Antibody screen: Negative PERTINENT MEDS: PROCEDURES: IF FGR <10% or EFW <2000 grams: Add FGRPCOM PLAN OF CARE: Original and updated POC Less than 8 weeks gestation of 024 Overview: Estimated Date of Delivery: 04/21/24 Patient's last menstrual period was 07/16/2023. GBS: 28wk labs: Last Tdap: 12/08/2016 Last Flu vaccine: 12/24/22 OB Labs: ABORH Date Value Ref Range Status 08/28/2023 B Rh Positive Final ANTIBODY SCREEN Date Value Ref Range Status 08/28/2023 Negative Negative Final TREPONEMA PALLIDUM Date Value Ref Range Status 08/28/2023 Non-Reactive Non-Reactive Final RUBELLA IGG ANTIBODY Date Value Ref Range Status 08/28/2023 1.57 >=1.00 Index Final INTERPRETATION Date Value Ref Range Status 08/28/2023 Positive Final Comment: Presence of detectable IgG antibodies. A positive result generally indicates exposure to the virus or previous vaccination, but is not an indication of active infection or stage of disease. HBSAG Date Value Ref Range Status 08/28/2023 Nonreactive Nonreactive Final HEPATITIS C ANTIBODY Date Value Ref Range Status 08/28/2023 Non-Reactive Non-Reactive Final Comment: Please note, per www.CDC.gov: If a patient is known to be at high risk of HCV infection, or is symptomatic, and the physician's suspicion of HCV infection is high, HCV RNA testing is often employed and is of diagnostic value, even after an initial negative anti-HCV test result. HIV-1/HIV-2 SCREEN Date Value Ref Range Status 08/28/2023 Non-Reactive Non-Reactive Final Comment: HIV-1 p24 and HIV-1/HIV-2 Ab Not Detected. VARICELLA ZOSTER IGG ANTIBODY Date Value Ref Range Status 10/28/2021 362.3 >=165.0 INDEX Final HEMOGLOBIN Date Value Ref Range Status 08/28/2023 13.0 12.0 - 16.0 g/dL Final PLATELET COUNT Date Value Ref Range Status 08/28/2023 278 140 - 440 thou/cu mm Final CHLAMYDIA PROBE Date Value Ref Range Status 08/28/2023 Negative Final N GONORRHOEAE PROBE Date Value Ref Range Status 08/28/2023 Negative Final Allergies Allergen Reactions Morphine Anaphylaxis and Rash [...] 8 weeks gestation of 08/28/2023 by Marilyn Tilley, RN No Marilyn Tilley RN ....08/28/2023 11:06 AM Estimated Date of Delivery Comme nts Yes 04/21/2024 Based on last me nstrual period of 07/16/2023 Resolved Problems Problem Noted Date Diagnosed Date Resolved Date COVID-19 virus infection 02/17/2020 Encounters Date Type Department Care Team Description 10/22/2023 Orders Only [facility] [address] [place] [address] Melissa Machado MD <No scans attached> 10/21/2023 10:25 AM CDT OB Encounter [facility] [address] [place] [address] Melissa Machado MD Care (13w6d/) 10/21/2023 Travel 09/28/2023 1:00 PM CDT - 09/28/2023 11:59 PM CDT Hospital Encounter [facility] [address] [facility] [address] [place] [address] anomaly suspected but not found (Primary Dx); Supervision of high risk in first trimester; Gestational edema in first trimester; High-risk in first trimester 09/28/2023 Travel 09/25/2023 8:45 AM CDT OB Encounter [facility] [address] [place] [address] Melissa Machado MD Care (10w1d) 09/25/2023 Transcribe Orders [facility] [address] [facility] [address] [place] [address] Melissa Machado MD 09/25/2023 Travel 09/24/2023 Orders Only [facility] Scanner 1 scan: (1-Ord) LAB [facility], LABS, 09/24/2023 09/21/2023 Orders Only [facility] Scanner 1 scan: (1-Ord) [place], OB FOLLOW UP, 09/21/2023 09/16/2023 Orders Only [facility] [address] [place] [address] Bea Fuentes MD <No scans attached> 09/16/2023 Orders Only [facility] [address] [place] [address] Melissa Machado MD 1 scan: (1-Ord) [place], OB TRANSVAGINAL, 09/11/2023 09/11/2023 Lab Requisition [facility] [phone] Tonya Scruggs NP 08/28/2023 10:00 AM CDT OB Encounter [facility] [address] [place] [address] Education (OB intake) 08/28/2023 Travel 08/19/2023 3:15 PM CDT Orders Only [facility] [address] [place] [address] Lab, [place] Lab 08/19/2023 Orders Only [facility] [address] [place] [address] Melissa Machado MD <No scans attached> 08/19/2023 Travel 08/17/2023 Travel 08/07/2023 8:50 AM CDT Orders Only [facility] [address] [place] [id number] Lab, [place] Lab 08/07/2023 Travel from Last [...] Date of Delivery Comme nts Yes 04/21/2024 Based on last me nstrual period of 07/16/2023 Sex and Gender Information Value Date Recorded [...] Estimated Date of Delivery 08/28/2023 - Present (11/03/2023) 04/21/2024 (set by Melissa Machado MD on 09/25/2023 based on Last Menstrual Period on 07/16/2023) Dating Summary Based On DANAY GA Diff Last Menstrual Period on 07/16/2023 04/21/2024 Working Ultrasound on 09/21/2023 04/16/2024 +5d GA:10w2d Alternate DANAY Entry 04/21/2024 Same Vitals Pregravid Weight Height TWG (As of 11/03/2023) Pregrav id BMI 1.549 m (5' 1) Date GA Fund Present FHR Mvmt BP Weight Edema Alb Glu Ket Dil/ Eff/Sta 4 10w4d Inpatient data not displayed here. See encounter summary. Notes Progress Notes - OB Encounte r - 10/21/2023 - GA:13w6d 10/21/2023 - 13w6d - Flaca Machado MD Patient is here for routine care at 13w6d Concerns: having brief pain on one side of the other with movement. Consistent with round ligament pain. Thighs have been more fatigued. Is on iron, had hemoglobin of 12 at hospital. No Contractions, bleeding, loss of fluid Saw Perinatology: Possible twins and hydrops on outside scans Low risk NIPS Intrauterine at 10w 4d. No adnexal pathology identified. U/S agrees with the DANAY OF 04/21/2024. Warren No evidence of hydrops Normal first trimester scan Will do gender reveal on November 12. Has been having increased congestion and having more fluid in the ear. Right ear will pop and she won't be able to hear anything for an hour. Bulging of right ear. Discussed nasal saline +/- flonase. Not sure if she is getting vaginal infection. Has not had intercourse in 3 weeks. Has felt more raw and painful/itchy. Will feel ok, then will return for period of time. Self swab TGC done today. RTC in 4 weeks, sooner with concerns. Melissa Machado MD .................... 10/21/2023 10:37 AM CC: [facility] Progress Notes - Hospital En counter - 09/28/2023 - GA:10w4d 09/28/2023 - w4d - Alphonse Boston MD MPP Ultrasound Visit Your patient had an ultrasound with [facility] on 09/28/2023. The report is ready and can be found in the Results review [facility]. Recommendations regarding further care are listed below. The Impression from the report is below. Thank you for sending her to see us. Alphonse Linda MD .................... 09/29/2023 7:31 AM INDICATION Possible twins and hydrops on outside scans Low risk NIPS Intrauterine at 10w 4d. No adnexal pathology identified. U/S agrees with the DANAY OF 04/21/2024. Warren No evidence of hydrops Normal first trimester scan RECOMMENDATIONS Return to primary provider for continued care. Present findings are reassuring. Consider MSAFP We recommend a targeted ultrasound study at 20 weeks. If you would like MPP to perform this follow up Ultrasound, please submit a new referral to our clinic to facilitate scheduling. COMMENT The patient was seen by the Perinatologist today. The previous ultrasound and the records were reviewed. The results of today's ultrasound were communicated to the patient. Discussed. It is certainly possible that there were 2 sacs earlier in the . Ms Foster showed me a video of her ultrasound at the [facility] from that morning (09/28/2023) that purportedly demonstrated twins. I think the person performing the ultrasound showed the same fetus twice in different planes. I was unable to see the US that suggested hydrops. Today's was a normal 10 week ultrasound with no evidence of a second sac or any evidence of hydrops. As Ms Foster's LMP correlated with her first US I will keep her dating criteria (even though we get an 8 day difference today). The NT was not enlarged. In summary, this looks like a normal single intrauterine with no first trimester concerns. It would be reasonable to perform a targeted US at 20 weeks. I don't think an early echocardiogram is indicated as the NT is normal and there is no evidence of a cystic hygroma or hydrops. Ms Foster is still concerned about the differences between all the scans. I reassured her that what I see is a normal warren . All questions answered. Alphonse Linda MD .................... 09/29/2023 7:41 AM New government regulations related to the 21st Century Cures act require that this note be released to the patient immediately, sometimes before the referring provider has been contacted. A portion of the information was presented verbally to the patient. The remainder is submitted as background for the referring provider, to be discussed as needed. Medical Decision Making Low Level [address] Minimal Diagnoses including one self limited problem: with discrepant outside US Limited Data including review of prior ultrasound and review of prior external notes Minimal risk of morbidity to the fetus from additional testing. 09/28/2023 - 10w4d - Bea Ruby i, MS, [facility] Genetic Counseling RE: Jeannie Foster : 1995 MR: [id number] Partner name: Navin - present for today's visit Referred By: Melissa Machado MD Indication for Visit: Possible hydrops and determination of warren vs twin gestation History: Estimated Date of Delivery: 04/21/24 by LMP, confirmed by ultrasound GAA: 10w4d Complete genetic screening/testing: Low risk cell free DNA screening ([id number]) for Trisomies 21, 18, 13, sex chromosome aneuploidy, and select microdeletions. sex included but not disclosed. Medications: none Exposures/infections: none Family History: A formal family history was not collected due to focus on other topics. For negative family history information, please see scans for GC Questionnaire. This is the first for Rebekah. Patient history: Jeannie's twin brother has Neurofibromatosis Type I (likely a clinical diagnosis). He also has autism. No one else in their family has NF1. Jeannie has no clinical symptoms. Jeannie's older brother and older sister both are on the autism spectrum. Family history was otherwise unremarkable for defects, intellectual disability, developmental delays, recurrent miscarriages, sudden unexpected deaths, and known genetic conditions that would increased the risk to the . Partner history: Navin has a third cousin that was born with a condition where his skin would change colors depending on the food he was given as a baby. He is now on a specialized diet and has had multiple cancers. Family history was otherwise unremarkable for defects, intellectual disability, developmental delays, recurrent miscarriages, sudden unexpected deaths, and known genetic conditions that would increased the risk to the . Patient Ancestry: Partner Ancestry: Consanguinity: none noted. Risk Assessment: Discussed the suspected finding of mild hydrops . Hydrops is a condition in which abnormal amounts of fluid accumulate in two or more body areas of an unborn baby. Although the fluid buildup may appear anywhere in the baby's body, it most often occurs in the abdomen, around the heart or lungs, or under the skin. Other symptoms of the condition include eaxpre-ghym-skqmcd amounts of amniotic fluid (polyhydramnios) and a thickening of the placenta. Hydrops fetalis is not a disease, but a symptom of an underlying health problem with the baby. The prognosis can vary greatly depending on the underlying cause and severity. Hydrops fetalis can be due to immune (i.e. allommunization of Rh D factor) or nonimmune cases (Eryn et al., 2020). NIHF accounts for approximately 80 to 90% of all cases of hydrops fetalis and occurs in approximately 1 in 1500 pregnancies. It occurs when an underlying disease, genetic disorder or defect interferes with the ability of the baby's body to manage fluid. Discussed the above family history including NF1, autism, and an unknown condition. Neurofibromatosis type 1 is a condition characterized by changes in skin coloring and the growth of tumors along nerves in the skin, brain, and other parts of the body. The signs and symptoms of this condition vary widely among affected people. ~25% of people with NF1 are diagnosed with autism. NF1 is an autosomal dominant condition and occurs de joyce in 50% of cases. As Jeannie does not have NF1, there is not an increased risk for the to have NF1. Autism Spectrum Disorder is often caused by a combination of underlying genetic and environmental factors. It is not always possible to identify an underlying genetic cause. In general, families with one affected child face an increased risk of an autism spectrum disorder in subsequent children. The recurrence risk of autism for full siblings has been estimated to be between 3% and 10%. This number is likely higher when multiple children (two or more) in the family have ASD. At this time, without a specific genetic cause, the risk for this would be increased from the general population but below 10% given the affected relatives are 2 degrees of relation from . This assessment could be altered if an underlying genetic etiology for the familial autism were known. Without a known genetic condition, risk assessment is difficult. Given the distance of relation of Navin's family member and lack of family history, there is likely not a significant increased risk to the . We reviewed the potential for an autosomal recessive condition and carrier status or a de joyce autosomal dominant condition. There is a 3-5% background risk for defects and a 1-2% background risk for intellectual disability and/or developmental delay for any given . Discussed Jeannie's low risk NIPS result. The low risk cell-free DNA screening test ([id number]) decreases the risk for this to be affected by one of the common chromosomal conditions to less than 1/10,000. This significantly reduces, but does not eliminate, the possibility for a chromosomal difference in this . Report has not yet been uploaded. The following carrier screening options were offered: carrier screening Carrier screening was presented as an option to determine if Celas is a carrier for a recessive or X-Linked genetic condition and inform risk for a to be affected with a genetic condition. X-Linked conditions are inherited through variants on the X chromosome. Typically females are unaffected or mildly affected but can have male sons who are severely affected Carriers of recessive genetic conditions do not have symptoms of the genetic condition, but their children have a 25% chance to be affected if both partners are carriers for the same condition. If Jeannie and her reproductive partner are not carriers for the same genetic condition, it greatly reduces the odds their child could be born with that condition. Carrier screening can be performed via patient pay for $349 per patient. Discussion: Jeannie presented today for genetic counseling regarding the possible hydrops and determining gestation of the . Jeannie explained they were very confused by the conflicting reports on the [facility] and [facility]. She has not looked into hydrops and has been trying to stay positive. I explained that the main goal for today will be gathering information with ultrasound and reviewing family history. Based on the outside ultrasound report, there is not a definitive diagnosis of hydrops. We briefly reviewed the possible finding and the variability of etiologies and prognosis. Should hydrops be confirmed, further discussion on genetic etiologies will occur. During our consult, Jeannie received her low risk cell free DNA screening results. We reviewed the benefits and limitations of the results. They are very reassuring risk for the common chromosome conditions. Given the screen was run for a warren , I explained that I am suspicious it is a warren as an overrepresentation of chromosome material was not noted. We reviewed the above family history. There is likely an increased risk for autism based on Jeannie's siblings' history. I also offered carrier screening to provide an assessment for recessive and X-Linked conditions. This would be informative for this and future pregnancies. I handout was provided, and Jeannie was encouraged to contact me if she would like to proceed. Jeannie also saw Dr. Linda today; please see their notes for further details regarding today's appointment. The couple verbalized their understanding of our consult today and have no further questions at this time. Plan: Jeannie elected to proceed with her scheduled ultrasound after today? s consult. Please see the corresponding report for final impressions and recommendations. Thank you for allowing us to participate in your patient's care. Please do not hesitate to contact me with any additional questions or concerns. Sincerely, Bea Nicolas MS, CGC Licensed Genetic Counselor Total time: 30 minutes in person Total time preparing to see this patient, ylez-tt-vaag time, and coordinating care time on the same calendar date: 35 minutes. [facility] [place] [address], [address] [place] [address] Progress Notes - OB Encounte r - 09/25/2023 - GA:10w1d 09/25/2023 - 10w1d - Flaca Machado MD Clinic Note: First OB Visit 09/25/2023 Jeannie Foster is a 27 y.o. with Estimated Date of Delivery: 04/21/24, here today for a first visit. JENNA Holden is here today. Has been having headaches more frequently than prior. They are not debilitating, improve with tylenol. Seem random. More often come in the evening. She typically does not drink caffeine. She does note that if she takes a sip of her significant other's caffeine drink it does help. She feels exhausted. Is having more acne. Has never had acne before. Feels angry/irritable. She doesn't feel angry at anything specific, but feels frustrated. Feels a little overwhelming at times. [facility] showed twin gestation. (8 week [address] days). [address] [facility]-- had ultrasound at 8 week 1day-- showed warren (did have incomplete fusion of amnion and chorion) [facility]-- had another ultrasound 09/21/2023- 10w2d. Possible mild hydrops. 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 /Father of baby: Navin MENSTRUAL HISTORY Patient's last menstrual period was 07/16/2023.: Cycle Regularity: regular, every 28-30 days Flow: normal DANAY by LMP Calculator: Estimated Date of Delivery: 04/21/24 MEDICAL HISTORY Medical, surgical, family, and social history reviewed today and updated if necessary. Past Medical History: . Date Anemia age 10-13 Anxiety Asthma as child Depression Migraine headache early teens, none recently Panic attack Pleurisy 05/2019 PTSD (post-traumatic stress disorder) Past Surgical History: . Laterality Date APPENDECTOMY 2012 WISDOM TEETH EXTRACTION Family History Problem Relation Age of Onset Other Mother prediabetes Mitral valve prolapse Mother Heart attack Father 43 Autism Sister Preeclampsia Sister Autism Brother Autism Brother twin Other Brother NF 1 and frontal lobe damage. Aspergers Emphysema Maternal Grandmother Heart Disease Maternal Grandfather Lung cancer Maternal Grandfather Lung cancer Paternal Grandmother Stroke Paternal Grandmother No Known Problems Paternal Grandfather dad was adopted Social History Socioeconomic History Marital status: Occupational History Employer: [employer] Tobacco Use Smoking status: Former Current packs/day: 0.00 Average packs/day: 0.3 packs/day for 1 year (0.3 ttl pk-yrs) Types: Cigarettes Start date: 07/03/2017 Quit date: 07/03/2018 Years since quittin.2 Smokeless tobacco: Never Vaping Use Vaping status: Former Start date: 07/03/2018 Quit date: 08/06/2023 Substances: Nicotine, Flavoring Substance and Sexual Activity Alcohol use: Not Currently Alcohol/week: 1.0 - 3.0 standard drink of alcohol Types: 1 - 3 Glasses of wine per week Drug use: Never Sexual activity: Yes Partners: Male Current Outpatient Medications Medication Sig Dispense Refill iron bisgly,ps-FA-B-C#12-succ 65 mg-65 mg -1,000 mcg (24) tab Take by mouth. vit/iron fum/folic ac ( 1 + 1 ORAL) Take by mouth. RISK FACTORS Seat Belt Use: 100% Alcohol/day: 0 Meds/Drugs/ETOH Since LMP: No Control Method: none High Risk Behavior: none INFECTION HISTORY Current Drug Use: none HIV Risk Evaluation: low risk Hepatitis B Risk Evaluation: low risk Hepatitis B Immunized: yes Personal History of Genital Herpes: no Partner History of Genital Herpes: no Rash/Viral Illness Since LMP: No History of STD: no history of STD's Chicken pox immunization? yes Family history of - defects: no Chromosomal problems: no Stillbirths: no Desire Test for CYSTIC FIBROSIS or SMA? no Desire genetic testing otherwise? [facility] REVIEW OF SYSTEMS: General: no fevers, chills, appetite changes, weight changes, fatigue Eyes: no blurry vision, double vision. Ears/Nose/Throat: no hearing changes, pain. no nasal congestion, rhinorrhea, frequent epistaxis. no throat pain, difficulty swallowing. Cardiovascular: no chest pain, chest pressure, syncope, orthostatic symptoms Respiratory: no cough, shortness of breath, dyspnea on exertion, orthopnea Gastrointestinal: + nausea, No vomiting, constipation, diarrhea, melena or bright red rectal bleeding Genitourinary - female: no hematuria, dysuria, incontinence, nocturia. no vaginal bleeding, cramping. Musculoskeletal: no back, arm or leg pain Skin: no rashes or lesions Neurologic: no numbness, weakness, tingling, falls. +headaches Psychiatric: + depression, anxiety Endocrine: no polyuria, polydipsia, heat or cold intolerance Heme/Lymphatic: no easy bruising, easy bleeding Allergic/Immunologic: no frequent infections PHYSICAL EXAM BP 98/54 (Cuff Site: Left Arm, Position: Sitting, Cuff Size: Adult Regular) Pulse 97 Wt 57.6 kg (127 lb) LMP 07/16/2023 SpO2 100% BMI 24.00 kg/m?? General Appearance: Alert, well-developed, well-nourished, with appropriate grooming and dress. No acute distress HEENT Exam: PERRL. MMM. TMs pearly bilaterally. Neck / Thyroid Exam: Supple, no masses, nodes or enlargement. Chest/Respiratory Exam: Normal chest wall and respirations. Clear to auscultation. Breast Exam: deferred Cardiovascular Exam: Regular rate and rhythm. Normal S1, S2. No murmur, click, gallop, or rubs. Gastrointestinal Exam: Soft, non-tender, no masses or organomegaly. Musculoskeletal Exam: Back is straight and non-tender, full ROM of upper and lower extremities. Skin: no rash or abnormalities Neurologic Exam: Normal gait and speech, no tremor. DTR's 2+ and symmetric Psychiatric Exam: Alert and oriented, appropriate affect. ASSESSMENT/PLAN: ICD-10-CM 1. Supervision of high risk in first trimester O09.91 AMB CONSULT TO MATERNAL- MEDICINE 2. Gestational edema in first trimester O12.01 AMB CONSULT TO MATERNAL- MEDICINE Patient has had 4 ultrasound. 2 at [facility] that showed twin gestation. 2 at [facility] that showed warren. Most recent showed concern for mild hydrops and ADRIAN. Bedside ultrasound shows Will send to perinatology for follow up imaging and further evaluation. Did have NIPT drawn at [facility]-- will alert me when this results is available. Discussed mental health and offered resources for therapy, medications. She will reach out as needed. Reviewed OB labs. Follow up in 4 weeks, sooner with concerns. Total time preparing to see this patient, [id number] time, and coordinating care time on the same calendar date: 45 minutes. Melissa Machado MD .................... 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 Name of Partner [...] of estimated date of delivery: No Thalassemia (Angolan, Bengali, Mediterranean, or background): MCV less than 80: No Neural tube defect (Meningomyelocele, Spina bifida, or Anencephaly): No Congenital heart defect: No Down syndrome: No Elver-Sachs (Ashkenazi Advent, Cajun, Dominican Coryell): No George disease (Ashkenazi Advent): No Familial dysautonomia (Ashkenazi Advent): No Sickle cell disease or trait (): No Hemophilia or other blood disorders: No Muscular dystrophy: No Cystic fibrosis: No Hooker's chorea: No Intellectual disability and/or autism: Yes [...] STATUS TREPONEMA PALLIDUM HBSAG (HBS) ANTI HCV COMMERCIAL ACCOUNT EXECUTIVE PROBE - CHLAMYDIA DNA PCR [[id number]] URINALYSIS W REFLEX MICROSCOPIC IF POSITIVE [64367.2] US 1ST TRIMESTER (< 14 weeks) [61474.0] EDUCATION/PATIENT INSTRUCTIONS - Advised patient to start/continue vitamin. - Discussed risk of using alcohol, tobacco, other drugs in . - Discussed healthy lifestyle in . - Provided copy of Beginnings book and book inserts, discussed [id number] medications, and follow up. - Encouraged patient to call clinic at [phone] with any vaginal bleeding, fluid leaking from [...] Time Provider Department Center 09/25/2023 8:45 AM Melissa Machado [facility] Tilley RN .................... 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 Oxygen Saturation 100% 10/21/2023 10:29 AM CDT Inhaled Oxygen Concentration - - Weight 58.3 kg (128 lb 9.6 oz) 10/21/2023 10:29 AM CDT Height 154.9 cm (5' 1) 08/28/2023 10:11 AM CDT Body Mass Index 24.3 08/28/2023 10:11 AM CDT Plan of Treatment Upcoming Encounters Date Type Department Care Team (Late st Contact Info) Description 12/02/2023 1:45 PM CDT Ancillary Procedure [facility] [address] [place] [address] 12/02/2023 4:05 PM CDT OB Encounter [facility] [address] [place] [address] Melissa Machado MD [address] [place] [address] 12/16/2023 3:40 PM CDT OB Encounter [facility] [address] [place] [address] Melissa Machado MD [address] [place] [address] 01/14/2024 10:50 AM CDT OB Encounter [facility] [address] [place] [address] Melissa Machado MD [address] [place] [address] Health Maintenance Due Date Last Done Comments HPV series for age 9-26 (2 - 3-dose series) 09/08/2017 08/11/2017 COVID-19 vaccine series ( season) 2022 05/31/2021, 04/27/2021 Depression screening for age 12+ 12/09/2022 12/09/2021, 12/09/2021, 12/06/2021, Additional history exists Influenza for age 9-49 11/29/2023 3, 01/24/2022, 05/05/2021, Additional history exists BMI (ht and wt on same day) for age 18+ 08/27/2024 08/28/2023, 12/24/2022, 11/19/2022, Additional history exists Pap test for age 21-65 09/10/2026 4, 09/11/2023, 11/23/2020 Tetanus booster 12/08/2026 12/08/2016 Tdap Completed 12/08/2016 HIV for age 15-65 Completed 08/28/2023, 12/24/2022 Hepatitis C screening for age 18-79 Completed 08/28/2023, 12/05/2021 Pneumococcal series for age 6-64 Aged Out No longer eligible based on patient's age to complete this topic Procedures Procedure Name Priority Date/Time Associated Diagnosis Comments HEMOGLOBIN Routine 10/21/2023 11:15 AM CDT Supervision of high risk in first trimester TRICHOMONAS, LIDIA, AND BACTERIAL VAGINOSIS BY SMOOTH Routine 10/21/2023 10:56 AM CDT Vaginal irritation US OB 1ST TRI SINGLE TA Routine 09/28/2023 2:16 PM CDT High-risk in first trimester SCAN-LABORATORY REPORT 09/24/2023 12:00 AM CDT SCAN-ULTRASOUND REPORT 09/21/2023 12:00 AM CDT LAB TRACKING EVENT Routine 09/11/2023 9: 00 AM CDT COMMERCIAL ACCOUNT EXECUTIVE THIN PREP PAP SCREEN IMAGED Routine 09/11/2023 9:00 AM CDT HPV THIN PREP Routine 09/11/2023 [...] of from Last 3 Months Results * (ABNORMAL) HEMOGLOBIN (10/21/2023 11:15 AM CDT) HEMOGLOBIN 11.9(L) 12.0 - 16.0 g/dL 10/21/2023 11:30 AM CDT [facility] MCV 87 80 - 100 fL 10/21/2023 11:30 AM CDT [facility] Blood BLOOD SPECIMEN / Unknown Venipuncture / Unknown 10/21/2023 11:15 AM CDT 10/21/2023 11:16 AM CDT Melissa Machado MD HEMATOLOGY Performing Organization Address City/[facility]/ZIP Co de Phone Number [facility] [address] [place] [address], * (ABNORMAL) TRICHOMONAS, LIDIA, AND BACTERIAL VAGINOSIS BY SMOOTH (10/21/2023 10:56 AM CDT) LIDIA SPECIES Positive(A) Negative 10/21/19 10:05 PM CDT [facility] LIDIA GLABRATA Negative Negative 10/21/2023 10:05 PM CDT [facility] TRICHOMONAS VVA Negative Negative 10:05 PM CDT [facility] BACTERIAL VAGINOSIS Negative Negative 10/21/2023 10:05 PM CDT [facility] Other VAGINAL SWAB / Unknown Non-Blood / Unknown 10/21/2023 10:56 AM CDT 10/21/2023 11:31 AM CDT Melissa Machado MD MICROBIOLOGY [facility] [address] [place] [address], [place] * US OB 1ST TRI SINGLE TA (09/28/2023 2:16 PM CDT) Only the most recent of2 resultswithin the time period is included. Anatomical Region Laterality Modality , 1ST TRIMESTER Ultrasound 09/28/2023 1:42 PM CDT Narrative 09/29/2023 7:42 AM CDT Referred By: ??MIKE ?? INDICATION Possible twins and hydrops on outside scans Low risk NIPS ?? Intrauterine at 10w 4d. ?? No adnexal pathology identified. U/S agrees with the DANAY OF 04/21/2024. ?? Warren No evidence of hydrops Normal first trimester scan RECOMMENDATIONS Return to primary provider for continued care. ?? Present findings are reassuring. Consider MSAFP We recommend a targeted ultrasound study at 20 weeks. ?? If you would like [facility] to perform this follow up Ultrasound, please submit a new referral to our clinic to facilitate scheduling. COMMENT The patient was seen by the Perinatologist today. ??The previous ultrasound and the records were reviewed. ??The results of today's ultrasound were communicated to the patient. ?? New government regulations related to the Century Cures act require that this note be released to the patient immediately, sometimes before the referring provider has been contacted. ??A portion of the information was presented verbally to the patient. ??The remainder is submitted as background for the referring provider, to be discussed as needed. Medical Decision Making Low Level 80383 ?Minimal Diagnoses including one self limited problem: with discrepant outside US ?Limited Data including review of prior ultrasound and review of prior external notes ?Minimal risk of morbidity to the fetus from additional testing. Services Provided Procedures Code COMPLETE < 14 WKS 42240.0 Procedure Note Alphonse Linda MD - 09/29/2023 Referred By: MELISSA MACHADO MD INDICATION Possible twins and hydrops on outside scans Low risk NIPS Intrauterine at 10w 4d. No adnexal pathology identified. U/S agrees with the DANAY OF 04/21/2024. Warren No evidence of hydrops Normal first trimester scan RECOMMENDATIONS Return to primary provider for continued care. Present findings are reassuring. Consider MSAFP We recommend a targeted ultrasound study at 20 weeks. If you would like [facility] to perform this follow up Ultrasound, please submita new referral to our clinic to facilitate scheduling. COMMENT The patient was seen by the Perinatologist today. The previous ultrasoundand the records were reviewed. The results of today's ultrasound werecommunicated to the patient. New government regulations related to the Cures act requirethat this note be released to the patient immediately, sometimes before the referringprovider has been contacted. A portion of the information was presented verbally to thepatient. The remainder is submitted as background for the referring provider, to be discussed asneeded. Medical Decision Making Low Level 42057 Minimal Diagnoses including one self limited problem: withdiscrepant outside US Limited Data including review of prior ultrasound and review of priorexternal notes Minimal risk of morbidity to the fetus from additional testing. Services Provided ProceduresCode COMPLETE < 14 [id number] Melissa Machado MD [place] * SCAN-LABORATORY REPORT (09/24/2023 12:00 AM CDT) Scanner OTHER * SCAN-ULTRASOUND REPORT (09/21/2023 12:00 AM CDT) Anatomical Region Laterality Modality Other Scanner OTHER * LAB TRACKING EVENT (09/11/2023 9:00 AM CDT) Other (Other) Client Collect / Unknown 09/11/2023 9:00 AM CDT 09/11/2023 4:31 PM CDT Tonya Scruggs NP LAB BILL ONLY [facility] [address] [place] [address], * COMMERCIAL ACCOUNT EXECUTIVE THIN PREP PAP SCREEN IMAGED (09/11/2023 9:00 AM CDT) Case Report Gynecologic Cytology Report ? Case: [id number] ? Authorizing Provider: ??Tonya Scruggs, ACOUSTICAL CARPENTER ?? Collected: ? 09/11/2023 0900 ? Ordering Location: ? [facility] ?Received: ?09/14/2023 1250 ? First Screen: ?Ryanne, Jeannie ? Rescreen: ?Lynda Langley ? Specimen: ?COMMERCIAL ACCOUNT EXECUTIVE ThinPrep Vial Screening, Cervical ? 09/23/2023 12:16 PM [facility]T [facility] INTERPRETATION/ RESULT NEGATIVE FOR INTRAEPITHELIAL LESION OR MALIGNANCY (NIL) (none) 09/23/2023 12:16 PM CDT [facility] NISM(S) Fungal organisms morphologically consistent with Lidia species 09/23/2023 12:16 PM CDT [facility] SPECIMEN ADEQUACY Satisfactory for evaluation Endocervical component present 09/23/2023 12:16 PM CDT [facility] HPV REQUEST HPV and PAP 09/23/2023 12:16 PM CDT [facility] Date of LMP 07/16/2023 09/23/2023 12:16 PM CDT [facility] Last Pap Date 11/23/2020 09/23/2023 12:16 PM CDT [facility] Last Pap Result NIL 12:16 PM CDT [facility] Abnormal Pap or [place] Bx in last 5 years No 09/23/2023 12:16 PM CDT [facility] Menstrual Status 09/23/2023 12:16 PM CDT [facility] [place] Bx Done Today No 09/23/2023 12:16 PM CDT [facility] Additional Information 09/23/2023 12:16 PM CDT [facility] Comment: Interpreted at [facility] Central Laboratory - [address] [place] [address] S. [facility] [address] [address] Automated Review Successful 09/23/2023 12:16 PM CDT [facility] Comment:Specimen processed s uccessfully by automated sales representative leather goods device, ThinPrep Imaging System, [employer] ANCILLARY TESTING COMMERCIAL ACCOUNT EXECUTIVE HPV Ordered, Please see separate report 09/23/2023 12:16 PM CDT [facility] Note The pap test is a screening technique, not a diagnostic procedure. It is used primarily to screen for squamous cancers and precursor lesions. Published studies have shown that it is subject to both false negative and false positive results. The pap test should not be used as the sole means to diagnose or exclude pre-malignant and malignant lesions. 09/23/2023 12:16 PM CDT [facility] Other (Cervical) 09/11/2023 9:00 AM CDT 09/14/2023 12:50 PM CDT Tonya Scruggs NP PATHOLOGY/CYTOLOG Y [facility] [address] [place] [address], * HPV HIGH RISK (09/11/2023 9:00 AM CDT) TYPE 16 Negative Negative 09/16/2023 6:04 AM CDT [facility] TYPE 18 Negative Negative 09/16/2023 6:04 AM CDT [facility] TRA [facility]ATORY OTHER HIGH RISK TYPES Negative Negative 09/16/2023 6:04 AM CDT [facility] Other (Cervical) 09/11/2023 9:00 AM CDT 09/14/2023 12:50 PM CDT Narrative [facility] - 09/16/2023 6:04 AM CDT HPV types 16, 18, 31, 33, 35, 39, 45, 51, 52, 56, 58, 59, 66 and 68 DNA were undetectable or below the pre-set threshold. Methodology: Saniya Dani 4800 HPV Test Tonya Scruggs NP MICROBIOLOGY Performing Organization Address City/[facility]/ZIP Co de Phone Number [facility] [address] [place] [address], * COMMERCIAL ACCOUNT EXECUTIVE PROBE - GC CHLAMYDIA DNA PCR [[id number]] (08/28/2023 11:18 AM CDT) CHLAMYDIA PROBE Negative 3:23 AM CDT [facility] N GONORRHOEAE PROBE Negative 08/29/2023 3:23 AM CDT [facility] Other URINE SPECIMEN / Unknown Non-Blood / Unknown 08/28/2023 11:18 AM CDT 08/28/2023 11:18 AM CDT Melissa Machado MD MICROBIOLOGY [facility] [address] [place] [address], [place] * URINE CULTURE (08/28/2023 11:18 AM CDT) CULTURE No growth (<1,000 CFU/mL) 08/30/2023 9:[address] [facility] Urine URINE SPECIMEN / Unknown Non-Blood / Unknown 08/28/2023 11:18 AM CDT 08/28/2023 11:18 AM CDT Melissa Machado MD MICROBIOLOGY [facility] [address] [place] [address], * URINALYSIS W REFLEX MICROSCOPIC IF POSITIVE [77522.2] (08/28/2023 11:18 AM CDT) COLOR Yellow Yellow [...] 11:18 AM CDT 08/28/2023 11:18 AM CDT Melissa Machado MD URINE Performing Organization Address City/[facility]/ZIP Co de Phone Number [facility] [address] [place] [address], * TREPONEMA PALLIDUM (08/28/2023 11:14 AM CDT) TREPONEMA PALLIDUM Non-Reacti ve Non-Reacti ve 08/28/2023 11:48 PM CDT [facility] Blood BLOOD SPECIMEN / Unknown Venipuncture / Unknown 08/28/2023 11:14 AM CDT 08/28/2023 11:17 AM CDT Melissa Machado MD SEND OUTS Performing Organization Address City/[facility]/ZIP Co de Phone Number [facility] [address] [place] [address], * RUBELLA IMMUNE STATUS (08/28/2023 11:14 AM CDT) INTERPRETATION Positive 08/29/2023 9:28 AM CDT [facility] Comment:Presence of detectab le IgG antibodies. A positive result generally indicates exposure to the virus or previous vaccination, but is not an indication of active infection or stage of disease. RUBELLA IGG ANTIBODY 1.57 >=1.00 Index 08/29/2023 9:28 AM CDT [facility] N[facility]AL [facility] Blood BLOOD SPECIMEN / Unknown Venipuncture / Unknown 08/28/2023 11:14 AM CDT 08/28/2023 11:17 AM CDT Narrative [email or web address] - 08/29/2023 9:28 AM CDT ??<0.90 ? Negative ?? 0.90-0.99 ?? Equivocal >=1.0 ?Positive Melissa Machado MD SEND OUTS [email or web address] [address] [place] [address], * TYPE AND SCREEN (08/28/2023 11:14 AM CDT) Pathologist [facility] ABORH B Rh Positive 08/28/2023 11:00 PM CDT [facility] BLOOD BANK ANTIBODY SCREEN Negative Negative 08/28/2023 11:00 PM CDT [facility] LAB BLOOD BANK SPECIMEN EXPIRATION DATE/TIME 08/31/23 23:59 08/28/2023 11:00 PM CDT [facility] LAB BLOOD BANK Blood BLOOD SPECIMEN / Unknown Venipuncture / Unknown 08/28/2023 11:14 AM CDT 08/28/2023 11:17 AM CDT Melissa Machado MD BLOOD BANK Performing Organization Address City/[facility]/ZIP Co de Phone Number [facility] [address] [place] [address], * HBSAG (HBS) (08/28/2023 11:14 AM CDT) [facility] HBSAG Nonreactive Nonreactive 08/28/2023 11:42 PM CDT [email or web address] Blood BLOOD SPECIMEN / Unknown Venipuncture / Unknown 08/28/2023 11:14 AM CDT 08/28/2023 11:17 AM CDT Melissa Machado MD SEND OUTS [email or web address] [address] [place] [address], * ANTI HCV (08/28/2023 11:14 AM CDT) [facility] HEPATITIS C ANTIBODY Non-Reacti ve Non-React kyara 08/28/2023 11:39 PM CDT [facility] Comment:Please note, per www .CDC.gov: [...] 11:14 AM CDT 08/28/2023 11:17 AM CDT Melissa Machado MD SEND OUTS [facility] [address] [place] [address], * CBC W PLT NO DIFF (08/28/2023 [...] 11:14 AM CDT 08/28/2023 11:17 AM CDT Melissa Machado MD HEMATOLOGY [facility] [address] [place] [address], [place] [phone] * ANTI HIV 1/2 (08/28/2023 11:14 AM CDT) Pathologist [facility] HIV-1/HIV-2 SCREEN Non-Reacti ve Non-Reacti ve 08/28/2023 11:42 PM CDT [facility] Comment:HIV-1 p24 and HIV-1/ HIV-2 Ab Not Detected. Blood BLOOD SPECIMEN / Unknown Venipuncture / Unknown 08/28/2023 11:14 AM CDT 08/28/2023 11:17 AM CDT Melissa Machado MD SEND OUTS Performing Organization Address City/[facility]/ZIP Co de Phone Number [facility] [address] [place] [address], [place] * HCG BETA QUANT, (08/19/2023 3:21 PM CDT) Only the most recent of3 resultswithin the time period is included. HCG BETA QUANT,PREGNANC Y 5,698 mIU/mL 08/20/2023 6:[address] [facility] Blood BLOOD SPECIMEN / Unknown Venipuncture / Unknown 08/19/2023 3:21 PM CDT 08/19/2023 3:23 PM CDT Narrative [facility] 08/20/2023 6:06 AM CDT Expected [...] at least one week prior to retesting. Melissa Machado MD CHEMISTRY [facility] [address] [place] [address], from Last 3 Months Care Teams Filenet Architect Relationship Specialty Start Date End Date Melissa Machado MD [address] [place] [address] PCP - General Family Practice 08/04/19 Melissa Machado MD [address] [place] [address] Referring Provider Family Practice 09/25/23
--- OUTSIDE RECORDS SUMMARY | 2023-11-03 08:24 | XMS_ITS | Continuity of Care Document ---
Author Name [facility] Organization [facility] Care Team Providers Care Chief Meter Reader Name Role Phone [facility] Unavailable Unavailable Problems Combined list of problems from Department of Defense and Veterans Affairs facilities. It does not include entries that were removed or entered in error. Problem Status Onset Date Problem Type Date of Resolution Comme nts Source Encounter for other specified special examinations Active 12/30/2016 Condition DoD Overweight Active Condition [facility] Medications Combined list of outpatient medications from Department of Defense and Veterans Affairs facilities.Medications provided include 1) outpatient medications from the last 15 months, and 2) patient-reported medications. Medication Details Route Status Patient Instructions Prescription Expires Prescription Number Last Dispense Date Ordering Provider Order Date Order Qty Source PREDNISONE (prednisone ), 20 MG, TABLET, ORAL, NOVITIUM/AN I PH, 500 ea. BOTTLE Active [id number] 2023 5 Pharmac y Data Transac tion Service Facilit y Allergies, Adverse Reactions, Alerts Combined list of allergies from Department of Defense and Veterans Affairs facilities. It does not include entries that were removed or entered in error. Substance Category Reaction Severity Reaction type Status Date Reported Comments Source BUPROPION Propensity to adverse reactions to drug (finding) Suicidal thoughts active 9 [facility] morphine Propensity to adverse reactions to drug Swelling of oral cavity structure, Anaphylaxis Active 8 [facility] MORPHINE Propensity to adverse reactions to drug (finding) Anaphylaxis active 9 [facility] MORPHINE (MORPHINE SULFATE) Drug allergy (disorder) Rash, Swelling of oral cavity structure active 8 [facility] n Immunizations Combined list of available immunizations from the Department of Defense and Veterans Affairs facilities. Immunization Series Date Given Administered By Site Reaction Lot Number CVX Code Drug Special Warfare Operator Status Comments Source INFLUENZA, INJECTABLE, QUADRIVALENT 2018 158 complet ed Partner: [facility]. Administe red by: [facility] Clinician (NPI=Not Provided) . Partner 0 Lot#: [id number] Mfr: [facility] influenza, injectable, quadrivalent- pf 2017 Left [...] Papillomaviru s 9-valent vaccine 2017 Left Arm [id number] [employer] complet ed Human Papilloma virus 9-valent vaccine 08/11/17 Given Ambulat ory Pharmac y hepatitis B adult vaccine 2017 Left Arm [id number] 43 GlaxoSmithKli ne complet ed hepatitis B adult vaccine 08/11/17 Given Ambulat ory Pharmac y hepatitis B vaccine, adult dosage 1 2017 VIVIENNE SANCHEZ [id number] 43 [facility] ([facility]) complet ed hepatitis B vaccine, adult dosage DoD Human Papillomaviru s 9-valent vaccine 1 2017 VIVIENNE SANCHEZ [id number] Merck (MSD) complet ed Human Papilloma [...] DoD poliovirus vaccine, inactivated 2016 Right Arm [id number] sanofi pasteur complet ed polioviru s [...] poliovirus vaccine, inactivated 1 2016 MAK ROBERTS [id number] 10 Sanofi Pasteur ([facility]) complet ed polioviru s vaccine, inactivat ed [...] y meningococcal A,C,Y,W-135 (MCV4P) 2016 Left Arm [id number] 114 sanofi pasteur complet ed meningoco ccal A,C,Y,W-1 35 (MCV4P) 12/08/16 Given Ambulat ory Pharmac y hepatitis B pediatric/ado lescent 2016 Left Arm [id number] GlaxoSmithKli ne complet ed hepatitis B pediatric /adolesce nt 12/08/16 Given Ambulat ory Pharmac y adenovirus vaccine, live 2016 [id number] 143 Unknown complet ed adenoviru s vaccine, live 12/08/16 Given Ambulat ory Pharmac y hepatitis B vaccine, pediatric or pediatric/ado lescent dosage 1 2016 MAK ROBERTS [id number] 08 SmithKline ([facility]) complet ed hepatitis B vaccine, pediatric or pediatric /adolesce nt dosage DoD meningococcal polysaccharid e (groups A, C, Y and W-135) diphtheria toxoid conjugate vaccine (MCV4P) 1 2016 MAK ROBERTS [id number] 114 Sanofi Pasteur ([facility]) complet ed meningoco [...] 7, live, oral 1 2016 MAK ROBERTS [id number] 143 Other (OTH) complet ed Adenoviru [...] Source One or More A Facilitie s EMISSIONS REPAIR TECHNICIAN History 03/30 One or More A Facilit ies EMISSIONS REPAIR TECHNICIAN [facility](Op tometry [facility] 1523) OUTPATIENT [id number] Notes Entered by: KEAGAN HAN 05 Dec 2016 09 ------- ------- ------- ------- -- recruit KEAGAN Braswell 12/05 Released w/o Limitations [facility]( Optomet ry [facility] 1523) [facility](Au diology [facility] 1523) OUTPATIENT [id number] WENDY JOSHUA 12/05 Released w/o Limitations [facility]( Audiolo gy [facility] 1523) [facility](Fe male Screening 1523) OUTPATIENT [id number] [facility] JUAN CARLOS LEÓN 12/08 Released w/o Limitations [facility]( Female Screeni ng 1523) [facility](Im munizatio n 1523) OUTPATIENT [id number] Notes Entered by: LAMONT VIGIL 08 Dec 2016 1022 ------- ------- ------- ------- -- P4 Immuniz ations ELENA ROQUE 12/08 Released w/o Limitations [facility]( Immuniz ation 1523) [facility](Co urage (White) 1007) OUTPATIENT [id number] ERFU LEG PX AFSHAN JACINTO 12/11 Sick at Home/Quarter s [facility]( Courage (White) 1007) [facility](Co urage (White) 1007) OUTPATIENT [id number] Cold Sx/Vomi tting TONY MESA V 12/18 Sick at Home/Quarter s [facility]( Courage (White) 1007) [facility] Female) OUTPATIENT [id number] Notes Entered by: SUNDEEP PARKS 18 Dec 2016 1333 ------- ------- ------- ------- -- SHEREE BARLOW 12/18 Released w/o Limitations [facility]( [facility] Female) [facility](Sp ecial Physicals [facility] 1007) OUTPATIENT [id number] ALEXA DEMPSEY 12/23 Released w/o Limitations [facility]( Special Physica ls [facility] 1007) [facility](Sp ecial Physicals [facility] 1007) OUTPATIENT [id number] Notes Entered by: JOHN CARTER 30 Dec 2016 1136 ------- ------- ------- ------- -- UMO Special Duty Physica l Review JOHN RIVERA 12/30 Released w/o Limitations [facility]( Special Physica ls [facility] 1007) [facility](Im munizatio n 1523) OUTPATIENT [id number] Notes Entered by: LAMONT VIIGL ON L 09 Jan 2017 0922 ------- ------- ------- ------- -- 5-2 Immuniz ations DAVE PATEL 01/09 Released w/o Limitations [facility]( Immuniz ation 1523) [facility](We ekend Mil Sick Call 1007) OUTPATIENT [id number] Notes Entered by: CARMEN TAYLOR 11 Jan 2017 0640 ------- ------- ------- ------- -- Cold Sx TORRES OCAMPO 01/11 Sick at Home/Quarter s [facility]( Mil Sick Call 1007) [facility] omar([facility] Preventiv e Med) OUTPATIENT [id number] Notes Entered by: MIGUELANGEL BILLINGSLEY 12 Mar 2017 1110 ------- ------- ------- ------- -- Flu Vx MIGUELANGEL BILLINGSLEY 03/12 Released w/o Limitations [facility] Andrade mukul([facility] C Prevent kyara Med) [facility] n([facility] Undersea Medicine) OUTPATIENT [id number] Notes Entered by: MARIFER KAMINSKI 08 Apr 2017 0648 ------- ------- ------- ------- -- RANKIN/ upset stomach SUDARSHAN BURT 04/08 Sick at Home/Quarter s [facility] Andrade gilman([facility] C Underse a Medicin e) [facility] [place]([facility] Medicine) OUTPATIENT [id number] Notes Entered by: MARIFER KAMINSKI 22 Apr 2017 0637 ------- ------- ------- ------- -- SUDARSHAN Gallegos 04/22 Sick at Home/Quarter s [facility] Andrade gilman([facility] C Underse a Medicin e) [facility] [place] nelson([facility] Medicine) OUTPATIENT [id number] Notes Entered by: NEEL HALL 07 May 2017 1455 ------- ------- ------- ------- -- MILAGRO MORA 05/07 Released w/o Limitations [facility] Andrade gilman([facility] C Underse a Medicin e) [facility] [place] nelson([facility] Medicine) OUTPATIENT [id number] back pain/so re throat RANGEL JOSE ANGEL Leonie 05/19 Released with Work/Duty Limitations [facility] Andrade gilman([facility] Underse a Medicin e) [facility] [place] nelson([facility] Medicine) OUTPATIENT [id number] parul zamora dunia,MILAGRO Cota 05/27 Released w/o Limitations [facility] Andrade mukul([facility] C Underse a Medicin e) [facility] [place] nelson([facility] Medicine) OUTPATIENT [id number] nose bleeds, headach e, MILAGRO Rehman 06/08 Released with Work/Duty Limitations [facility]rade mukul([facility] C Underse a Medicin e) [facility] [place] nelson([facility] Physical Therapy) OUTPATIENT [id number] Low back pain TIMUR AVENDANO 06/10 Released w/o Limitations [facility]ul([facility] C Physica l Therapy ) [facility] [place] nelson([facility] Physical Therapy) OUTPATIENT [id number] BARBARA ALTAMIRANO 06/15 Released w/o Limitations [facility]rade mukul([facility] C Physica l Therapy ) [facility] [place] [facility] Physical Therapy) OUTPATIENT [id number] BARBARA ALTAMIRANO 06/17 Released w/o Limitations [facility]rade gilman([facility] C Physica l Therapy ) [facility] [place] n([facility] Physical Therapy) OUTPATIENT [id number] BARBARA ALTAMIRANO 06/24 Released w/o Limitations [facility] g[facility]man([facility] C Physica l Therapy ) [facility] [place]([facility] Physical Therapy) OUTPATIENT [id number] BARBARA ALTAMIRANO 06/29 Released w/o Limitations [facility]man([facility] C Physica l Therapy ) [facility] n([facility]) OUTPATIENT [id number] Notes Entered by: ALDA BAUGH 29 Jun 2017 1000 ------- ------- ------- ------- -- smoking cessati on SAUL DAVILA 06/29 Released w/o Limitations [facility] Andrade gilman([facility] Occupat [facility] Health) [facility] [place] nelson([facility] Physical Therapy) OUTPATIENT [id number] BARBARA ALTAMIRANO 07/01 Released w/o Limitations [facility] Andrade iglman([facility] C Physica l Therapy ) [facility] [place] nelson([facility] Undersea Medicine) OUTPATIENT [id number] Notes Entered by: ZOE THAKKAR 03 Jul 2017 1219 ------- ------- ------- ------- -- SUDARSHAN Buchanan 07/03 Released with Work/Duty Limitations [facility]rade gilman([facility] C Underse a Medicin e) [facility] [place] nelson([facility] Undersea Medicine) OUTPATIENT [id number] PT F/U JOSE ANGEL MULTANI 07/03 Released w/o Limitations [facility] Andrade gilman([facility] C Underse a Medicin e) [facility] Physical Therapy) OUTPATIENT [id number] BARBARA ALTAMIRANO 07/06 Released w/o Limitations [facility] Andrade gilman([facility] C Physica l Therapy ) [facility] [place] n([facility] Psychiatr y Clinic) OUTPATIENT [id number] SOFIE PANTOJA 07/09 Released w/o Limitations [facility] Andrade gilman([facility] C Psychia try Clinic) [facility] n([facility]) TELE CONSULT [id number] Notes Entered by: MARIA DEL ROSARIO DAVILA 13 Jul 2017 1128 ------- ------- ------- ------- -- Tobacco Cessati on F/u LOLA SAUL Thayer 07/13 Referred for Appointment [facility] Andrade gilman([facility] Occupat ional Health) [facility] Psychiatr y Clinic) OUTPATIENT [id number] f/SOFIE Lang 07/22 Released w/o Limitations [facility] Andrade mukul([facility] C Psychia try Clinic) [facility] Psychiatr y Clinic) OUTPATIENT [id number] F/U SOFIE JACOB 07/27 Released w/o Limitations [facility] Andrade gilman([facility] C Psychia try Clinic) [facility] omar([facility]) TELE CONSULT [id number] Notes Entered by: MARIA DEL ROSARIO DAVILA 04 Aug 2017 1012 ------- ------- ------- ------- -- Tobacco cessati on follow up SAUL DAVILA 08/04 Referred for Appointment [facility]ul([facility] Occupat ional Health) [facility] [place] nelson([facility] Unders Medicine) TELE CONSULT [id number] Notes Entered by: MAYDA FELIZ 07 Aug 2017 0955 ------- ------- ------- ------- -- [facility] JOSE ANGEL MULTANI 08/07 [facility]ul([facility] C Underse a Medicin e) [facility] Medicine) TELE CONSULT [id number] Notes Entered by: MAYDA FELIZ 07 Aug 2017 0956 ------- ------- ------- ------- -- Network Results - [facility] 4.23.18 JOSE ANGEL MULTANI Leonie 08/07 [facility] Underse a Medicin e) [facility] n([facility]) OUTPATIENT [id number] Notes Entered by: Bronson SNACHEZ 10 Aug 2017 1527 ------- ------- ------- ------- -- HEP#3, HPV#1 VIVIENNE SANCHEZ 08/10 Released w/o Limitations [facility]rade [facility]man([facility] Communi [facility]) [facility] n([facility] Occupatio [facility]) OUTPATIENT [id number] HCW/BBF FABRIZIO ALVAREZ 08/13 Released w/o Limitations [facility]rade g[facility]man([facility]) [facility] n([facility] Psychiatr y Clinic) OUTPATIENT [id number] f/u SOFIE JACOB 08/13 Released w/o Limitations [facility] Psychia try Clinic) [facility] n([facility] Physical Therapy) OUTPATIENT [id number] TIMUR AVENDANO 08/13 Released w/o Limitations [facility] Physica l Therapy ) [facility] n([facility] Fam Med MHC Gold) TELE CONSULT [id number] Notes Entered by: JORDON SIMEON 28 Aug 2017 1027 ------- ------- ------- ------- -- June Rai Hadley report JORDON SIMEON 08/28 [facility] Fam Med MHC Gold) [facility] n([facility] Undersea Medicine) OUTPATIENT [id number] Notes Entered by: CHAD CAST 31 Aug 2017 1050 ------- ------- ------- ------- -- NAUSEA/ VOMITTI NG X2 DAYS SUDARSHAN BURT 08/31 Sick at Home/Quarter s [facility] C Underse a Medicin e) [facility] [place] [facility] Physical Therapy) OUTPATIENT [id number] CARLOZ LEI 09/02 Released w/o Limitations [facility] C Physica l Therapy ) [facility] [place] nelson([facility] Physical Therapy) OUTPATIENT [id number] CARLOZ LEI 09/09 Released w/o Limitations [facility]rade m[facility]ul([facility] C Physica l Therapy ) [facility] [place] nelson([facility] Psychiatr y Clinic) OUTPATIENT [id number] F/U SOFIE JACOB 09/11 Released w/o Limitations [facility]rade [facility]ul([facility] C Psychia try Clinic) [facility] [place] nelson([facility] Physical Therapy) OUTPATIENT [id number] CARLOZ LEI 09/14 Released w/o Limitations [facility]rade mukul([facility] C Physica l Therapy ) [facility] [place] nelson([facility] Undersea Medicine) OUTPATIENT [id number] CONNIE MCGINNIS 09/16 Released with Work/Duty Limitations [facility]rade m[facility]ul([facility] C Underse a Medicin e) [facility] [place] nelson([facility] Physical Therapy) OUTPATIENT [id number] CARLOZ LEI 09/23 Released w/o Limitations [facility]rade m[facility]ul([facility] C Physica l Therapy ) [facility] [place] nelson([facility] Psychiatr y Clinic) OUTPATIENT [id number] F/U SOFIE JACOB 09/23 Released w/o Limitations [facility]rade m[facility]ul([facility] C Psychia try Clinic) [facility] [place] nelson([facility] Case Managemen t) OUTPATIENT [id number] Notes Entered by: CAROLINA PERES 29 Sep 2017 0752 ------- ------- ------- ------- -- LIMDU review for cc/cm needs SHREYAS , GORGE M 09/29 Released w/o Limitations [facility] C Case Managem ent) [facility] [place] nelson([facility] Undersea Medicine) OUTPATIENT [id number] Notes Entered by: SUDARSHAN ANDRADE 08 Oct 2017 0903 ------- ------- ------- ------- -- Cold Symptom s SUDARSHAN BURT 10/08 Sick at Home/Quarter s [facility]man([facility] C Underse a Medicin e) [facility] Psychiatr y Clinic) OUTPATIENT [id number] f/u SOFIE JACOB 10/08 Released w/o Limitations [facility] C Psychia try Clinic) [facility] Physical Therapy) OUTPATIENT [id number] TIMUR Hebert 10/09 Released w/o Limitations [facility] C Physica l Therapy ) [facility] n([facility] Psychiatr y Clinic) OUTPATIENT [id number] F/U SOFIE JACOB 10/27 Released w/o Limitations [facility] C Psychia try Clinic) [facility] Psychiatr y Clinic) OUTPATIENT [id number] f/u SOFIE JACOB 11/05 Released w/o Limitations [facility]rade m[facility]ul([facility] C Psychia try Clinic) [facility] Undersea Medicine) TELE CONSULT [id number] Notes Entered by: CAMILA WATERMAN 06 Nov 2017 1053 ------- ------- ------- ------- -- Network Results - Mental Health 11/05/17 VENESSA BAKER 11/06 [facility] C Underse a Medicin e) [facility] [place]([facility] Undersea Medicine) OUTPATIENT [id number] F/U TCD VENESSA BAKER 11/12 Released w/o Limitations [facility] Andrade gimlan([facility] C Underse a Medicin e) [facility] Case Managemen t) OUTPATIENT [id number] Notes Entered by: Swati ARTEAGA 13 Nov 2017 1046 ------- ------- ------- ------- -- Case Managem ent BARBARA ARTEAGA 11/13 Released w/o Limitations [facility]rade [facility]ul([facility] Case Managem ent) [facility] Psychiatr y Clinic) OUTPATIENT [id number] F/U SOFIE JACOB 11/17 Released w/o Limitations [facility]rade m[facility]ul([facility] Psychia try Clinic) [facility] Undersea Medicine) OUTPATIENT [id number] spider bite/he VENESSA Devine 11/26 Released w/o Limitations [facility]rade g[facility]man([facility] C Underse a Medicin e) [facility] n([facility] Occupatio nal Health) OUTPATIENT [id number] BRIANDA SHAW 12/17 Released w/o Limitations [facility]rade [facility]ul([facility] Occupat ional Health) [facility] n([facility] Undersea Medicine) OUTPATIENT [id number] prt VENESSA Young 12/21 Released w/o Limitations [facility]ul([facility] C Underse a Medicin e) [facility] n([facility] Undersea Medicine) OUTPATIENT [id number] Notes Entered by: ZOE THAKKAR 25 Dec 2017 0822 ------- ------- ------- ------- -- Cold sx x1wk SUDARSHAN BURT 12/25 Sick at Home/Quarter s [facility]rade mukul([facility] C Underse a Medicin e) [facility] Hearing Conservat ion) OUTPATIENT [id number] Notes Entered by: RIVER ROBLES 06 Jan 2018 1348 ------- ------- ------- ------- -- Termina tion Audiogr am RIVER ROBLES 01/06 Released w/o Limitations [facility]rade gilman([facility] C Hearing Conserv ation) [facility] [place] n([facility] Optometry Clinic) OUTPATIENT [id number] EYE EXAM CATY NEW 01/13 Released w/o Limitations [facility]rade g[facility]man([facility] Optomet ry Clinic) [facility] [place] [facility] Preventiv e Med) OUTPATIENT [id number] Notes Entered by: West THOMAS 18 Jan 2018 1102 ------- ------- ------- ------- -- Flu Vx CHARLENE THOMAS 01/18 Released w/o Limitations [facility]rade gilman([facility] Prevent kyara Med) [facility] n([facility] Undersea Medicine) OUTPATIENT [id number] Ad Sep Pe VENESSA BAKER 02/01 Released w/o Limitations [facility] Andrade gilman([facility] Underse a Medicin e) [facility] Cassandra n([facility]sea [facility]) OUTPATIENT [id number] 1 cold sx VENESSA BAKER 03/08 Released w/o Limitations [facility] Andrade gilman([facility] Underse a Medicin e) Procedures Combined list of: 1) Procedures from [facility] of [facility] facilities [facility], not all [facility] non-surgical procedures are included; 2) All procedures from the Department of Defense facilities. Procedure Procedure Type Code Date Perfomer Comments Sourc e No data available for this section Ambulatory Pharmacy PSYCHOTHERAPY, 60 MINUTES WITH PATIENT 01/27 DoD IMMUNIZATION ADMINISTRATION (INCLUDES PERCUTANEOUS, INTRADERMAL, SUBCUTANEOUS, OR INTRAMUSCULAR INJECTIONS); 1 VACCINE (SINGLE OR COMBINATION VACCINE/TOXOID) 01/18 DoD PSYCHOTHERAPY, 60 MINUTES WITH PATIENT 01/18 DoD DETERMINATION OF REFRACTIVE STATE 01/13 DoD PURE TONE AUDIOMETRY (THRESHOLD), AUTOMATED; AIR ONLY [...] &/ROWDY ASSESS FUNC OUTCOME TYP,20 MIN SPENT [id number] W PAT&/FAM 10/09 DoD PHARMACOLOGIC MANAGEMENT, INCLUDING [...] TO THE CODE FOR PRIMARY PROCEDURE) 09/23 [facility] APPLICATION OF A MODALITY TO 1 OR [...] EDUCATION &TRAINING, PATIENT SELF-MGT QUALIFIED, NONPHYSICIAN HEALTH COSMETICS COUNTER MANAGER USING STDIZED CURRICULUM, [id number] W THE PATIENT (COULD INCL CAREGIVER/FAMILY) EA [...] PSYCHOPHYSICOLOGICAL MON, HEALTH-ORIENTED QUESTIONNAIRES), EACH 15 MIN QUMK-[id number] WITH THE PATIENT; RE-ASSESS 06/18 DoD PSYCHOTHERAPY, [...] DoD PSYCHOTHERAPY, 45 MINUTES WITH PATIENT 06/08 [facility] IMMUNIZATION ADMINISTRATION (INCLUDES PERCUTANEOUS, INTRADERMAL, SUBCUTANEOUS, OR INTRAMUSCULAR INJECTIONS); 1 VACCINE (SINGLE OR COMBINATION VACCINE/TOXOID) 03/12 [facility] BRIEF COMM TECH-BASE SERV,E.G. VIRT CHK-IN,BY PHYS/OTH QUAL HCP,RPT E&M SERV,PROV TO EST PT,NOT ORIG FRM REL E/M SERV PROV W/IN PREV 7DAY NOR LEAD TO E/M SRV/PX W/IN NEXT 24HR/SOON MIRIAM; 5-10 MIN DISC 07/31 [facility] HEPATITIS B VACCINE (HEPB), PEDIATRIC/ADOLESCENT DOSAGE, 3 DOSE SCHEDULE, FOR INTRAMUSCULAR USE 01/09 [facility] PATIENT EDUCATION, NOT OTHERWISE CLASSIFIED, NON-PHYSICIAN PROVIDER, GROUP, PER SESSION 12/18 [facility] INJECTION, PENICILLIN G BENZATHINE, 100,000 UNITS 12/08 [facility] AUDIOMETRIC TESTING OF GROUPS 12/05 [facility] DETERMINATION OF REFRACTIVE STATE 12/05 [facility] Psychotherapy Individual Approximately 45 Minutes Psychotherapy Individual Approximately 45 Minutes [id number] 06/08 ESTEBAN WONG [facility] Influenza Split Virus Vaccine IM Preserv Free 0.5mL Dosage Quadrivalent Influenza Split Virus Vaccine IM Preserv Free 0.5mL Dosage Quadrivalent 62641 03/12 MIGUELANGEL BILLINGSLEY Influenza Seasonal, injectable quadrivalent - preservative free; Series #: 1; .5 mL; IM; Left Arm; Mfg: SmithKline; Lot: [id number]; VIS given (Itz: 11/03/2014). DoD Immunization Administration By Injection, One Vaccine Immunization Administration By Injection, One Vaccine 18724 03/12 MIGUELANGEL BILLINGSLEY [facility] Immunization Administration By Injection, One Vaccine Immunization Administration By Injection, One Vaccine 71109 01/09 MAK ROBERTS [facility] Immunization Administration By Injection, Each Additional Vaccine Immunization Administration By Injection, Each Additional Vaccine 38303 01/09 MAK ROBERTS [facility] Vaccines Viral Polio, Inactivated Vaccines Viral Polio, Inactivated 23352 01/09 MAK ROBERTS IPV; Series #: 1; .5 mL; SC; Right Arm; Mfg: Sanofi Pasteur; Lot: [id number]; VIS given (Itz: 10/17/15; 02/01/15 - Multiple). [facility] Hepatitis B Vaccine (Active); To 11 Years Hepatitis B Vaccine (Active); To 11 Years 56913 01/09 MAK ROBERTS Hep B, adolescent or pediatric; Series #: 2; .5 mL; IM; Left Arm; Mfg: SmithDeliveryChef.inine; Lot: [id number]; VIS given (Itz: 10/17/2015). [facility] Patient education, not otherwise cla ified, non-physician provider, group, per se ion 12/18 SHEREE LATHAM [facility] Physician Supervised Injection Intramuscular Antibiotic Physician Supervised Injection Intramuscular Antibiotic 78713 12/08 MAK ROBERTS [facility] Injection, penicillin g benzathine, 100,000 units 12/08 MAK ROBERTS [facility] Immunization Admin Intranasal / Oral Each Additional Vaccine Immunization Admin Intranasal / Oral Each Additional Vaccine 41807 12/08 MAK ROBERTS Vaccines Adenovirus Type 4 Live, For Oral Use Vaccines Adenovirus Type 4 Live, For Oral Use 23225 12/08 MAK ROBERTS Vaccines Adenovirus Type 7 Live, For Oral Use Vaccines Adenovirus Type 7 Live, For Oral Use 75084 12/08 MAK ROBERTS DoD Hepatitis B Vaccine (Active); To 11 Years Hepatitis B Vaccine (Active); [place] To 11 Years 45753 12/08 MAK ROBERTS Hep B, adolescent or pediatric; Series #: 1; .5 mL; IM; Left Arm; Mfg: Foodspotting; Lot: [id number]; VIS given (Itz: 10/17/2015). [facility] Meningococcal Polysaccharide Diphtheria Toxoid Conjugate Vaccine 12/08 MAK ROBERTS Meningococcal MCV4P; Series #: 1; .5 mL; IM; Left Arm; Mfg: Sanofi Pasteur; Lot: [id number]; VIS given (Itz: 06/28/2015). [facility] Tdap Vaccine Tdap Vaccine 82579 12/08 MAK ROBERTS Tdap; Series #: 1; .5 mL; IM; Right Arm; Mfg: Other; Lot: [id number]; VIS given (Itz: 05/23/14). [facility] Immunization Administration By Injection, One Vaccine Immunization Administration By Injection, One Vaccine 3785512/08 MAK ROBERTS [facility] Immunization Administration By Injection, Each Additional Vaccine Immunization Administration By Injection, Each Additional Vaccine 3338312/08 MAK ROBERTS Audiometry Group Testing Audiometry Group Testing 38329 12/05 WENDY JOSHUA Threshold Audiogram (Pure Tone) Threshold Audiogram (Pure Tone) 46225 12/05 WENDY JOSHUA [employer] Fitting Monofocal Except For Aphakia [employer] Fitting Monofocal Except For Aphakia 62193 12/05 KEAGAN HAN Determination Of Refractive State Determination Of Refractive State 81245 12/05 KEAGAN HAN Visual Function Screening Visual Function Screening 34560 12/05 KEAGAN HAN [facility] Psychotherapy Individual Approximately 60 Minutes Psychotherapy Individual Approximately 60 Minutes 59835 01/27 ESTEBAN WONG [facility] Psychotherapy Individual Approximately 60 Minutes Psychotherapy Individual Approximately 60 Minutes 66193 01/18 ESTEBAN WONG Immunization Administration By Injection, One Vaccine Immunization Administration By Injection, One Vaccine 98160 01/18 MAJOR, CHARLENE LIMA DoD Influenza Split Virus Vaccine IM Preserv Free 0.5mL Dosage Quadrivalent Influenza Split Virus Vaccine IM Preserv Free 0.5mL Dosage Quadrivalent 82907 01/18 MAJOR, CHARLENE LIMA Influenza Seasonal, injectable quadrivalent - preservative free; Series #: 1; .5 mL; IM; Left Arm; g: Foodspotting; Lot: [id number]; VIS given (Itz: 11/03/2014). [facility] Determination Of Refractive State Determination Of Refractive State 11071 01/13 CATY NEW Ophthalmological New Patient Start Comprehensive Care Ophthalmological New Patient Start Comprehensive Care 77270 01/13 CATY NEW Threshold Audiogram (Pure Tone) Automated Threshold Audiogram (Pure Tone) Automated [id number] 01/06 RIVER ROBLES [facility] Psychotherapy Individual Approximately 30 Minutes Psychotherapy Individual Approximately 30 Minutes 87851 01/06 ESTEBAN WONG [facility] Psychotherapy Individual Approximately 60 Minutes Psychotherapy Individual Approximately 60 Minutes 91513 12/29 ESTEBAN WONG [facility] Psychotherapy Individual Approximately 60 Minutes Psychotherapy Individual Approximately 60 Minutes 94306 12/22 ESTEBAN WONG [facility] Preventive Medicine Administration Of Health Risk Questionnaire Patient-Focused Preventive Medicine Administration Of Health Risk Questionnaire Patient-Focused 10949 12/17 BRIANDA CASTILLO [facility] Psychotherapy Individual Approximately 60 Minutes Psychotherapy Individual Approximately 60 Minutes 87386 12/16 ESTEBAN WONG [facility] Psychotherapy Individual Approximately 60 Minutes Psychotherapy Individual Approximately 60 Minutes 11280 12/03 ESTEBAN WONG [facility] Psychotherapy Individual Approximately 30 Minutes Psychotherapy Individual Approximately 30 Minutes 94536 11/23 CHU SMITH [facility] Psychotherapy With Medication Management Psychotherapy With Medication Management 31473 11/19 SOFIE JACOB [facility] Psychotherapy Individual Approximately 45 Minutes Psychotherapy Individual Approximately 45 Minutes 91883 11/19 SOFIE JACOB [facility] Psychotherapy Individual Approximately 45 Minutes Psychotherapy Individual Approximately 45 Minutes 48301 11/16 ESTEBAN WONG Psychotherapy Individual Approximately 60 Minutes Psychotherapy Individual Approximately 60 Minutes 30111 11/13 ESTEBAN WONG Case Management, each 15 minutes 11/13 BARBARA ARTEAGA Psychotherapy Individual Approximately 60 Minutes Psychotherapy Individual Approximately 60 Minutes 72682 11/11 ESTEBAN WONG Psychotherapy With Medication Management Psychotherapy With Medication Management 74375 11/06 SOFIE JACOB Psychotherapy Individual Approximately 45 Minutes Psychotherapy Individual Approximately 45 Minutes 26493 11/06 NIDIA SOFIE Swati Gore Psychotherapy Individual Approximately 60 Minutes Psychotherapy Individual Approximately 60 Minutes 01672 11/05 ESTEBAN WONG Psychotherapy With Medication Management Psychotherapy With Medication Management 08441 10/29 NIDIA SOFIE Swati Gore Psychotherapy Individual Approximately 45 Minutes Psychotherapy Individual Approximately 45 Minutes 89504 10/29 NIDIA SOFIE Swati Gore Psychotherapy Individual Approximately 60 Minutes Psychotherapy Individual Approximately 60 Minutes 74645 10/29 ESTEBAN WONG Psychotherapy Individual Approximately 30 Minutes Psychotherapy Individual Approximately 30 Minutes 67773 10/26 ESTEBAN WONG Psychotherapy Individual Approximately 60 Minutes Psychotherapy Individual Approximately 60 Minutes 61600 10/15 ESTEBAN WONG Psychotherapy Individual Approximately 60 Minutes Psychotherapy Individual Approximately 60 Minutes 73331 10/14 ESTEBAN WONG Psychotherapy Individual Approximately 60 Minutes Psychotherapy Individual Approximately 60 Minutes 07032 10/13 ESTEBAN WONG Physical Therapy Service Re-Evaluation Physical Therapy Service Re-Evaluation 83212 10/09 TIMUR AVENDANO [facility] Psychotherapy With Medication Management Psychotherapy With Medication Management 99030 10/08 NIDIA SOFIE Swati Gore Psychotherapy Individual Approximately 45 Minutes Psychotherapy Individual Approximately 45 Minutes 72036 10/08 NIDIA SOFIE Swati Gore Psychotherapy Individual Approximately 30 Minutes Psychotherapy Individual Approximately 30 Minutes 65366 10/05 ESTEBAN WONG Psychotherapy Individual Approximately 45 Minutes Psychotherapy Individual Approximately 45 Minutes 22636 10/02 ESTEBAN WONG Case Management, each 15 minutes 09/29 GORGE BARKER Psychotherapy Individual Approximately 30 Minutes Psychotherapy Individual Approximately 30 Minutes 69904 09/28 ESTEBAN WONG Modalities Cryotherapy Cold Packs Modalities Cryotherapy Cold Packs 04348 09/24 CARLOZ LEI Taping Knee Taping Knee 71844 09/24 CARLOZ LEI Physical Therapy: ___ Se ion Segments, 15 Minutes Each Physical Therapy: ___ Session Segments, 15 Minutes Each 98160 09/24 CARLOZ LEI Psychotherapy With Medication Management Psychotherapy With Medication Management 40636 09/23 SOFIE JACOB Psychotherapy Individual Approximately 45 Minutes Psychotherapy Individual Approximately 45 Minutes 46737 09/23 SOFIE JACOB Psychotherapy Individual Approximately 60 Minutes Psychotherapy Individual Approximately 60 Minutes 20402 09/22 ESTEBAN WONG Modalities Cryotherapy Cold Packs Modalities Cryotherapy Cold Packs 21449 09/15 CARLOZ LEI Physical Therapy Mobilization Joint Physical Therapy Mobilization Joint 86252 09/15 CARLOZ LEI Physical Therapy: ___ Se ion Segments, 15 Minutes Each Physical Therapy: ___ Session Segments, 15 Minutes Each 29005 09/15 CARLOZ LEI Psychotherapy Individual Approximately 30 Minutes Psychotherapy Individual Approximately 30 Minutes 26024 09/11 ESTEBAN WONG Psychotherapy With Medication Management Psychotherapy With Medication Management 91331 09/11 SFOIE JACOB Psychotherapy Individual Approximately 45 Minutes Psychotherapy Individual Approximately 45 Minutes 56663 09/11 SOFIE JACOB Psychotherapy Individual Approximately 60 Minutes Psychotherapy Individual Approximately 60 Minutes 74270 09/10 ESTEBAN WONG Modalities Cryotherapy Cold Packs Modalities Cryotherapy Cold Packs 67357 09/09 CARLOZ LEI Physical Therapy: ___ Se ion Segments, 15 Minutes Each Physical Therapy: ___ Session Segments, 15 Minutes Each 45117 09/09 CARLOZ LEI Psychotherapy Individual Approximately 45 Minutes Psychotherapy Individual Approximately 45 Minutes 74145 09/08 ESTEBAN WONG Psychotherapy Individual Approximately 30 Minutes Psychotherapy Individual Approximately 30 Minutes 00886 09/03 ESTEBAN WONG Modalities Cryotherapy Cold Packs Modalities Cryotherapy Cold Packs 04426 09/02 CARLOZ LEI Taping Lower Back Taping Lower Back 93707 09/02 CARLOZ LEI Physical Therapy: ___ Se ion Segments, 15 Minutes Each Physical Therapy: ___ Session Segments, 15 Minutes Each 65285 09/02 CARLOZ LEI Psychotherapy Individual Approximately 45 Minutes Psychotherapy Individual Approximately 45 Minutes 80714 08/25 ESTEBAN WONG [facility] Psychotherapy With Medication Management Psychotherapy With Medication Management 35601 08/13 SOFIE JACOB [facility] Psychotherapy Individual Approximately 45 Minutes Psychotherapy Individual Approximately 45 Minutes 72725 08/13 SOFIE JACOB Pelvic belt/harne /boot 08/13 TIMUR AVENDANO [facility] Physical Therapy Service Re-Evaluation Physical Therapy Service Re-Evaluation 47823 08/13 TIMUR AVENDANO [facility] Human Papilloma Virus Vaccine, Nonavalent Human Papilloma Virus Vaccine, Nonavalent 90890 08/11 VIVIENNE SANCHEZ HPV9; Series #: 1; .5 mL; IM; Left Arm; Mfg: Yapmo; Lot: [id number]; VIS given (Itz: 02/29/2016). [facility] Immunization Administration By Injection, One Vaccine Immunization Administration By Injection, One Vaccine 9002108/11 VIVIENNE SANCHEZ Immunization Administration By Injection, Each Additional Vaccine Immunization Administration By Injection, Each Additional Vaccine 7639808/11 VIVIENNE SANCHEZ Hepatitis B Vaccine (Active) Adult Dosage 3 Dose Schedule Hepatitis B Vaccine (Active) Adult Dosage 3 Dose Schedule 71827 08/11 VIVIENNE SANCHEZ Hep B - Adult; Series #: 1; 1.0 mL; IM; Left Arm; g: Foodspotting; Lot: [id number]; VIS given (Itz: 10/17/2015). [facility] Psychotherapy Individual Approximately 60 Minutes Psychotherapy Individual Approximately 60 Minutes 29332 08/10 ESTEBAN WONG [facility] Psychotherapy Individual Approximately 45 Minutes Psychotherapy Individual Approximately 45 Minutes 76327 07/27 ESTEBAN WONG [facility] Psychotherapy With Medication Management Psychotherapy With Medication Management [id number]/27 SOFIE JACOB [facility] Psychotherapy Individual Approximately 30 Minutes Psychotherapy Individual Approximately 30 Minutes [id number]/22 ESTEBAN WONG [facility] Psychotherapy With Medication Management Psychotherapy With Medication Management 33489 07/22 SOFIE JACOB [facility] Psychotherapy Individual Approximately 45 Minutes Psychotherapy Individual Approximately 45 Minutes [id number]/22 SOFIE JACOB [facility] Psychotherapy Individual Approximately 30 Minutes Psychotherapy Individual Approximately 30 Minutes 02476 07/21 ESTEBAN WONG [facility] Psychotherapy Individual Approximately 30 Minutes Psychotherapy Individual Approximately 30 Minutes 96172 07/20 ESTEBAN WONG [facility] Psychotherapy Individual Approximately 30 Minutes Psychotherapy Individual Approximately 30 Minutes 55128 07/10 ESTEBAN WONG [facility] Physical Therapy: ___ Se ion Segments, 15 Minutes Each Physical Therapy: ___ Session Segments, 15 Minutes Each 82819 07/09 BARBARA ALTAMIRANO [facility] Psychotherapy With Medication Management Psychotherapy With Medication Management 72704 07/09 SOFIE JACOB [facility] Psychotherapy Individual Approximately 45 Minutes Psychotherapy Individual Approximately 45 Minutes 17484 07/09 SOFIE JACOB [facility] Psychotherapy Individual Approximately 60 Minutes Psychotherapy Individual Approximately 60 Minutes 59071 07/06 ESTEBAN WONG [facility] Physical Therapy: ___ Se ion Segments, 15 Minutes Each Physical Therapy: ___ Session Segments, 15 Minutes Each 77795 07/03 BARBARA ALTAMIRANO [facility] Psychotherapy Individual Approximately 45 Minutes Psychotherapy Individual Approximately 45 Minutes 35202 07/03 ESTEBAN WONG [facility] Psychotherapy Individual Approximately 60 Minutes Psychotherapy Individual Approximately 60 Minutes 52785 06/30 ESTEBAN WONG [facility] Physical Therapy: ___ Se ion Segments, 15 Minutes Each Physical Therapy: ___ Session Segments, 15 Minutes Each 59408 06/30 BARBARA ALTAMIRANO [facility] Physical Therapy: ___ Se ion Segments, 15 Minutes Each Physical Therapy: ___ Session Segments, 15 Minutes Each 93575 06/29 BARBARA ALTAMIRANO [facility] Patient Counseling Medical Management Individual Patient Patient Counseling Medical Management Individual Patient 55989 06/29 SAUL DAVILA [facility] Psychotherapy Individual Approximately 30 Minutes Psychotherapy Individual Approximately 30 Minutes 07745 06/25 ESTEBAN WONG [facility] Psychotherapy Individual Approximately 30 Minutes Psychotherapy Individual Approximately 30 Minutes 29787 06/23 ESTEBAN WONG [facility] Psychotherapy Individual Approximately 60 Minutes Psychotherapy Individual Approximately 60 Minutes 49744 06/23 ESTEBAN WONG [facility] Physical Therapy: ___ Se ion Segments, 15 Minutes Each Physical Therapy: ___ Session Segments, 15 Minutes Each 68624 06/22 BARBARA ALTAMIRANO [facility] Physical Therapy: ___ Se ion Segments, 15 Minutes Each Physical Therapy: ___ Session Segments, 15 Minutes Each 79664 06/19 BARBARA ALTAMIRANO [facility] Health And Behav A e mt Each Additional 15 Min Kiarra e ment Health And Behav Assessmt Each Additional 15 Min Reassessment 95336 06/18 ESTEBAN WONG [facility] Psychotherapy Individual Approximately 45 Minutes Psychotherapy Individual Approximately 45 Minutes 84170 06/17 ESTEBAN WONG [facility] Psychotherapy Individual Approximately 60 Minutes Psychotherapy Individual Approximately 60 Minutes 97735 06/17 ESTEBAN WONG [facility] Physical Therapy Service Evaluation Moderate Complexity Physical Therapy Service Evaluation Moderate Complexity 10448 06/10 TIMUR AVENDANO [facility] Physical Therapy: ___ Se ion Segments, 15 Minutes Each Physical Therapy: ___ Session Segments, 15 Minutes Each 13059 06/10 ROMANA TIMUR [facility] Psychotherapy Individual Approximately 45 Minutes Psychotherapy Individual Approximately 45 Minutes 87953 06/09 JUDITH ESTEBAN BARFIELD [facility] Psychotherapy Individual Approximately 60 Minutes Psychotherapy Individual Approximately 60 Minutes 19442 06/09 ESTEBAN WONG [facility] Brief communication technology-based service, e.g. virtual [...] 5-10 minutes of medical discu CARTER Pruitt [facility] Social History Combined list of available smoking, tobacco, and other social history from Department of Defense and Veterans Affairs facilities. Social History Type Response Date Comment [facility] e Tobacco smoking status [facility] VA-TOBACCO NEVER USED 06/06/2021 CHIQUIS FERRERABronson FOLEY FED [...] Plan No data available for this section 11/03/2023 Ambulatory Pharmacy Functional Status Combined list of recent functional and cognitive assessments recorded at [facility] Defense and [facility] ([facility] Functional [place] Measurement (FIM) Scale: 1 = Total Assistance (Subject = 0% +), 2 = Maximal Assistance (Subject = 25% +), 3 = Moderate Assistance (Subject = 50% +), 4 = Minimal Assistance (Subject = 75% +), 5 = Supervision, 6 = Modified [place] (Device), 7 = Complete [place] (Timely, Safely). Assessment Date/Time Source Assessment Type Assessment Skill Assessment Score Assessment Details No data available for this section
== END 2023-11-03 08:35 | disposition home or self-care (01) ==
LOC: ED 08:21
PROVIDERS: Emergency Provider Family Medicine; PCP Family Medicine
DX: M77.8 Other enthesopathies, not elsewhere classified (principal)
CPT/HCPCS: 93971; 99283

== ENCOUNTER 2024-01-15 10:46 | Outpatient (CLI) | payer OTHER, SELFPAY ==
--- OUTSIDE RECORDS SUMMARY | 2024-01-19 14:16 | XMS_ITS | Continuity of Care Document ---
Author Name [facility] Organization [facility] Care Team Providers Care Trolley Operator Name Role Phone [facility] Unavailable Unavailable Problems Combined list of problems from Department of Defense and Veterans Affairs facilities. It does not include entries that were removed or entered in error. Problem Status Onset Date Problem Type Date of Resolution Comme nts Source Encounter for other specified special examinations Active 12/30/2016 Condition DoD Overweight Active Condition [facility] Medications Combined list of outpatient medications from Department of Defense and Veterans Affairs facilities.Medications provided include 1) outpatient medications from the last 15 months, and 2) patient-reported medications. Medication Details Route Status Patient Instructions Prescription Expires Prescription Number Last Dispense Date Ordering Provider Order Date Order Qty Source PREDNISONE (prednisone ), 20 MG, TABLET, ORAL, NOVITIUM/AN I PH, 500 ea. BOTTLE Active [id number] 2023 5 Pharmac y Data Transac tion Service Facilit y Allergies, Adverse Reactions, Alerts Combined list of allergies from Department of Defense and Veterans Affairs facilities. It does not include entries that were removed or entered in error. Substance Category Reaction Severity Reaction type Status Date Reported Comments Source BUPROPION Propensity to adverse reactions to drug (finding) Suicidal thoughts active 9 [facility] morphine Propensity to adverse reactions to drug Swelling of oral cavity structure, Anaphylaxis Active 8 [facility] MORPHINE Propensity to adverse reactions to drug (finding) Anaphylaxis active 9 [facility] MORPHINE (MORPHINE SULFATE) Drug allergy (disorder) Rash, Swelling of oral cavity structure active 8 [facility] n Immunizations Combined list of available immunizations from the Department of Defense and Veterans Affairs facilities. Immunization Series Date Given Administered By Site Reaction Lot Number CVX Code Drug Design Transferrer Status Comments Source INFLUENZA, INJECTABLE, QUADRIVALENT 2018 158 complet ed Partner: [facility]. Administe red by: [facility] Clinician (NPI=Not Provided) . Partner 0 Lot#: [id number] Mfr: SEQIRUS MARTINAP ANDRÉS [facility] influenza, injectable, quadrivalent- pf 2017 zzLef t Arm [id number] GlaxoSmithKli ne complet ed influenza , injectabl e, quadrival ent-pf 01/18/18 Given Ambulat ory Pharmac y Influenza, injectable, quadrivalent, preservative free 1 2017 CHARLENE THOMAS V [id number] 150 Smithine ([facility]) complet ed Influenza , injectabl e, quadrival ent, preservat kyara free DoD influenza, injectable, quadrivalent- pf 2017 [id number] 150 GlaxoSmithKli ne complet ed influenza , injectabl e, quadrival ent-pf 01/14/18 Given Ambulat ory Pharmac y Influenza, injectable, quadrivalent, preservative free 0 2017 [id number] 150 [facility] complet ed Influenza , injectabl e, quadrival ent, preservat kyara free DoD Human Papillomaviru s 9-valent vaccine 2017 zzLef t Arm [id number] Merck & Company Inc complet ed Human Papilloma virus 9-valent vaccine 08/11/17 Given Ambulat ory Pharmac y hepatitis B adult vaccine 2017 zzLef t Arm [id number] 43 GlaxoSmithKli ne complet ed hepatitis B adult vaccine 08/11/17 Given Ambulat ory Pharmac y hepatitis B vaccine, adult dosage 1 2017 VIVIENNE SANCHEZ [id number] 43 [facility] ([facility]) complet ed hepatitis B vaccine, adult dosage DoD Human Papillomaviru s 9-valent vaccine 1 2017 VIVIENNE SANCHEZ [id number] Merck (MSD) complet ed Human Papilloma virus 9-valent vaccine DoD influenza, injectable, quadrivalent- pf 2016 zzLef t Arm [id number] 150 GlaxoSmithKli ne complet ed influenza , injectabl e, quadrival ent-pf 03/12/17 Given Ambulat ory Pharmac y Influenza, injectable, quadrivalent, preservative free 1 2016 MIGUELANGEL BILLINGSLEY [id number] 150 [facility]) complet ed Influenza , injectabl e, quadrival ent, preservat kyara free DoD influenza, injectable, quadrivalent- pf 2016 [id number] 150 GlaxoSmithKli ne complet ed influenza , injectabl e, quadrival ent-pf 02/10/17 Given Ambulat ory Pharmac y Influenza, injectable, quadrivalent, preservative free 0 2016 [id number] 150 Smithine ([facility]) complet ed Influenza , injectabl e, quadrival ent, preservat kyara free DoD poliovirus vaccine, inactivated 2016 zzHi Arm [id number] sanofi pasteur complet ed polioviru s vaccine, inactivat ed 01/09/17 Given Ambulat ory Pharmac y hepatitis B pediatric/ado lescent 2016 zzLef t Arm [id number] 08 GlaxoSmithKli ne complet ed hepatitis B pediatric /adolesce nt 01/09/17 Given Ambulat ory Pharmac y hepatitis B vaccine, pediatric or pediatric/ado lescent dosage 2 2016 MAK ROBERTS [id number] 08 [facility] complet ed hepatitis B vaccine, pediatric or pediatric /adolesce nt dosage DoD poliovirus vaccine, inactivated 1 2016 MAK ROBERTS [id number] 10 Sanofi Pasteur ([facility]) complet ed polioviru s vaccine, inactivat ed DoD measles and rubella virus vaccine 0 2016 04 () Not Given measles and rubella virus vaccine DoD varicella virus vaccine 0 2016 21 () Not Given varicella virus vaccine DoD hepatitis A vaccine, adult dosage 0 2016 52 () Not Given hepatitis A vaccine, adult dosage DoD tetanus, diphtheria, acellular pertu is 2016 zzRig Arm [id number] 115 Unknown complet ed tetanus, diphtheri a, acellular pertussis 12/08/16 Given Ambulat ory Pharmac y meningococcal A,C,Y,W-135 (MCV4P) 2016 zzLef t Arm [id number] 114 sanofi pasteur complet ed meningoco ccal A,C,Y,W-1 35 (MCV4P) 12/08/16 Given Ambulat ory Pharmac y hepatitis B pediatric/ado lescent 2016 zzLef t Arm [id number] 08 GlaxoSmithKli ne complet ed hepatitis B pediatric /adolesce nt 12/08/16 Given Ambulat ory Pharmac y adenovirus vaccine, live 2016 [id number] 143 Unknown complet ed adenoviru s vaccine, live 12/08/16 Given Ambulat ory Pharmac y hepatitis B vaccine, pediatric or pediatric/ado lescent dosage 1 2016 MAK ROBERTS [id number] 08 SmithKline ([facility]) complet ed hepatitis B vaccine, pediatric or pediatric /adolesce nt dosage DoD meningococcal polysaccharid e (groups A, C, Y and W-135) diphtheria toxoid conjugate vaccine (MCV4P) 1 2016 MAK ROBERTS [id number] 114 Sanofi Pasteur ([facility]) complet ed meningoco [...] 7, live, oral 1 2016 MAK ROBERTS [id number] 143 Other (OTH) complet ed Adenoviru s, type 4 and type 7, live, oral DoD Vital Signs Combined list of inpatient and outpatient Vital Signs from Department of Defense and Veterans Affairs, ranging from 12 months to all on record, depending upon the facility. Vital Sign Value Date Comments Source No data available for this section Ambulatory Pharmacy Encounters Combined list of: 1) Encounters from Department of Veterans Affairs facilities going back up to thelast 18 months. 2) Encounters from the Department of Defense facilities going back up to 280 months. Location Location Details Encounter Type Encounter Number Reason For Visit Attending Provider ADM Date DC Date Status Disposition Source One or More A Facilitie s REGISTERED PHARMACY TECHNICIAN History 03/30 One or More A Facilit ies REGISTERED PHARMACY TECHNICIAN Nirmal Foster [facility]Op tometry [facility] 1523) OUTPATIENT [id number] Notes Entered by: KEAGAN HAN 05 Dec [id number] ------- ------- ------- ------- -- recruit screen KEAGAN HAN N 12/05 Released w/o Limitations [facility]( Optomet ry [facility] 1523) [facility](Au diology [facility] 1523) OUTPATIENT [id number] WENDY JOSHUA A 12/05 Released w/o Limitations [facility]( Audiolo gy HC 1523) [facility](Fe male Screening 1523) OUTPATIENT [id number] [facility] JUAN CARLOS LEÓN 12/08 Released w/o Limitations [facility]( Female Screeni ng 1523) [facility] [place](Im munizatio n 1523) OUTPATIENT [id number] Notes Entered by: LAMONT VIGIL ON L 08 Dec 2016 1022 ------- ------- ------- ------- -- P4 Immuniz ations ELENA ROQUE 12/08 Released w/o Limitations [facility]( Immuniz ation 1523) [facility](Co urage (White) 1007) OUTPATIENT [id number] NILDAFU LEG AFSHAN DAMON 12/11 Sick at Home/Quarter s [facility]( [place]age (White) 1007) [facility] [place](Co urage (White) 1007) OUTPATIENT [id number] Cold Sx/Vomi tting TONY MESA V 12/18 Sick at Home/Quarter s [facility]( [place] (White) 1007) [facility] Female) OUTPATIENT [id number] Notes Entered by: SUNDEEP PARKS 18 Dec 2016 1333 ------- ------- ------- ------- -- SHEREE BARLOW 12/18 Released w/o Limitations [facility]( [facility] Female) [facility](Sp ecial Physicals [facility] 1007) OUTPATIENT [id number] ALEXA DEMPSEY Flaca 12/23 Released w/o Limitations [facility]( Special Physica ls [facility] 1007) [facility] [place] [place] [address]) OUTPATIENT [id number] Notes Entered by: JOHN CARTER 30 Dec 2016 1136 ------- ------- ------- ------- -- UMO Special Duty Physica l Review JOHN RIVERA 12/30 Released w/o Limitations [facility]( Special Physica ls [facility] 1007) [facility] [place](Im munizatio n 1523) OUTPATIENT [id number] Notes Entered by: LAMONT VIGIL 09 Jan 2017 0922 ------- ------- ------- ------- -- 5-2 Immuniz ations DAVE PATEL 01/09 Released w/o Limitations [facility]( Immuniz ation 1523) [facility](We ekend Mil Sick Call 1007) OUTPATIENT [id number] Notes Entered by: CARMEN TAYLOR 11 Jan 2017 0640 ------- ------- ------- ------- -- Cold STORRES Shepherd 01/11 Sick at Home/Quarter s [facility]( Weekend Mil Sick Call 1007) [facility] Preventiv e Med) OUTPATIENT [id number] Notes Entered by: MIGUELANGEL BILLINGSLEY 12 Mar 2017 1110 ------- ------- ------- ------- -- Flu Vx MIGUELANGEL BILLINGSLEY 03/12 Released w/o Limitations [facility] Andrade gilman([facility] C Prevent kyara Med) [facility] o[facility] Undersea Medicine) OUTPATIENT [id number] Notes Entered by: MARIFER KAMINSKI 08 Apr 2017 0648 ------- ------- ------- ------- -- RANKIN/ upset SUDARSHAN [place] 04/08 Sick at Home/Quarter s [facility] Andrade mukul([facility] C Underse a Medicin e) [facility] Cassandra nelson([facility] Medicine) OUTPATIENT [id number] Notes Entered by: MARIFER KAMINSKI 22 Apr 2017 0637 ------- ------- ------- ------- -- cold josettex SUDARSHAN BURT 04/22 Sick at Home/Quarter s [facility] Andrade mukul([facility] C Underse a Medicin e) [facility] Cassandra nelson([facility] Medicine) OUTPATIENT [id number] Notes Entered by: NEEL HALL 07 May 2017 1455 ------- ------- ------- ------- -- LBP MILAGRO ROBLEDO 05/07 Released w/o Limitations [facility] Andrade mukul([facility] C Underse a Medicin e) [facility] Cassandra nelson([facility] Medicine) OUTPATIENT [id number] back pain/so re throat JOSE ANGEL MULTANI 05/19 Released with Work/Duty Limitations [facility] Andrade mukul([facility] C Underse a Medicin e) [facility]andra nelson([facility] Medicine) OUTPATIENT [id number] parul zamora dunia,con gestMILAGRO Melendez 05/27 Released w/o Limitations [facility] Andrade mukul([facility] C Underse a Medicin e) [facility]andra nelson([facility] Medicine) OUTPATIENT [id number] nose bleeds, kylie hollins PETRONILO J 06/08 Released with Work/Duty Limitations [facility] Andrade mukul([facility] C Underse a Medicin e) [facility] Cassandra nelson([facility] Physical Therapy) OUTPATIENT [id number] Low back pain TIMUR AVENDANO 06/10 Released w/o Limitations [facility] Andrade mukul([facility] C Physica l Therapy ) [facility] Charlesviri n([facility] Physical Therapy) OUTPATIENT [id number] BARBARA ALTAMIRANO 06/15 Released w/o Limitations [facility] Andrade mukul([facility] C Physica l Therapy ) [facility]i n([facility] Physical Therapy) OUTPATIENT [id number] BARBARA ALTAMIRANO 06/17 Released w/o Limitations [facility] Andrade gilman([facility] C Physica l Therapy ) [facility] Physical Therapy) OUTPATIENT [id number] BARBARA ALTAMIRANO 06/24 Released w/o Limitations [facility] Andrade gilman([facility] C Physica l Therapy ) [facility] n([facility] Physical Therapy) OUTPATIENT [id number] BARBARA ALTAMIRANO 06/29 Released w/o Limitations [facility] Andrade gilman([facility] C Physica l Therapy ) [facility] n([facility]) OUTPATIENT [id number] Notes Entered by: ALDA ABUGH 29 Jun 2017 1000 ------- ------- ------- ------- -- smoking cessati on SAUL DAVILA 06/29 Released w/o Limitations [facility] Andrade gilman([facility] Occupat [facility] Health) [facility] Physical Therapy) OUTPATIENT [id number] BARBARA ALTAMIRANO 07/01 Released w/o Limitations [facility] Andrade gilman([facility] C Physica l Therapy ) [facility] Undersea Medicine) OUTPATIENT [id number] Notes Entered by: ZOE THAKKAR 03 Jul 2017 1219 ------- ------- ------- ------- -- SUDARSHAN Buchanan 07/03 Released with Work/Duty Limitations [facility] Andrade gilman([facility] C Underse a Medicin e) [facility] Cassandra nelson([facility] Undersea Medicine) OUTPATIENT [id number] PT F/U JOSE ANGEL MULTANI 07/03 Released w/o Limitations [facility] Andrade gilman([facility] C Underse a Medicin e) [facility] Physical Therapy) OUTPATIENT [id number] EVELIA BARBARA LINDSAY 07/06 Released w/o Limitations [facility] Andrade gilman([facility] C Physica l Therapy ) [facility] Psychiatr y Clinic) OUTPATIENT [id number] SOFIE PANTOJA 07/09 Released w/o Limitations [facility] Andrade gilman([facility] C Psychia try Clinic) [facility] n([facility]) TELE CONSULT [id number] Notes Entered by: MARIA DEL ROSARIO DAVILA 13 Jul 2017 1128 ------- ------- ------- ------- -- Tobacco Cessati on F/u SAUL DAVILA 07/13 Referred for Appointment [facility] Andrade mukul([facility] Occupat ional Health) [facility] nelson([facility] Psychiatr y Clinic) OUTPATIENT [id number] f/u SOFIE JACOB 07/22 Released w/o Limitations [facility] Andrade gilman([facility] C Psychia try Clinic) [facility] Psychiatr y Clinic) OUTPATIENT [id number] F/U SOFIE JACOB 07/27 Released w/o Limitations [facility] Andrade gilman([facility] C Psychia try Clinic) [facility] n([facility]) TELE CONSULT [id number] Notes Entered by: MARIA DEL ROSARIO DAVILA 04 Aug 2017 1012 ------- ------- ------- ------- -- Tobacco cessati on follow up SAUL DAVILA 08/04 Referred for Appointment [facility] Andrade mukul([facility] Occupat ional Health) [facility] nelson([facility] Undersea Medicine) TELE CONSULT [id number] Notes Entered by: MAYDA FELIZ 07 Aug 2017 0955 ------- ------- ------- ------- -- Network Results - Emergen cy 4.21.18 [place]SE ANGEL DURAN Leonie 08/07 [facility] Andrade gilman([facility] C Underse a Medicin e) [facility] Cassandra nelson([facility] Unders Medicine) TELE CONSULT [id number] Notes Entered by: MAYDA FELIZ 07 Aug 2017 0956 ------- ------- ------- ------- -- Network Results - Emergen cy 4.23.18 DEEJAYCHARLEEN DURANSUSSY [place] 08/07 [facility] Andrade gilman([facility] Underse a Medicin e) [facility] nelson([facility]) OUTPATIENT [id number] Notes Entered by: Bronson SANCHEZ 10 Aug 2017 1527 ------- ------- ------- ------- -- HEP#3, HPV#1 VIVIENNE SANCHEZ 08/10 Released w/o Limitations [facility] Andrade gilman([facility] Communi Health Clinic) [facility] Cassandra nelson([facility] Occupatio [facility] Health) OUTPATIENT [id number] HCW/BBF FABRIZIO ALVAREZ 08/13 Released w/o Limitations [facility] Andrade gilman([facility] Occupat ional Health) [facility] nelson([facility] Psychiatr y Clinic) OUTPATIENT [id number] f/u SOFIE JACOB 08/13 Released w/o Limitations [facility] Andrade gilman([facility] C Psychia try Clinic) [facility] nelson([facility] Physical Therapy) OUTPATIENT [id number] TIMUR AVENDANO 08/13 Released w/o Limitations [facility]rade gilman([facility] Physica l Therapy ) [facility] Med MHC Gold) TELE CONSULT [id number] Notes Entered by: JORDON SIMEON 28 Aug 2017 1027 ------- ------- ------- ------- -- June Rai tucker JORDON SIMEON Leonie 08/28 [facility] Andrade mukul([facility] C [facility] Gold) [facility] Undersea Medicine) OUTPATIENT [id number] Notes Entered by: CHAD CAST 31 Aug 2017 1050 ------- ------- ------- ------- -- NAUSEA/ VOMITTI NG X2 DAYS SUDARSHAN BURT 08/31 Sick at Home/Quarter s [facility]rade gilman([facility] C Underse a Medicin e) [facility] Cassandra nelson([facility] Physical Therapy) OUTPATIENT [id number] CARLOZ LEI 09/02 Released w/o Limitations [facility] Andrade gilman([facility] C Physica l Therapy ) [facility] Cassandra nelson([facility] Physical Therapy) OUTPATIENT [id number] CARLOZ LEI 09/09 Released w/o Limitations [facility] Andrade gilman([facility] C Physica l Therapy ) [facility] Cassandra nelson([facility] Psychiatr y Clinic) OUTPATIENT [id number] F/U SOFIE JACOB 09/11 Released w/o Limitations [facility] Andrade gilman([facility] C Psychia try Clinic) [facility] nelson([facility] Physical Therapy) OUTPATIENT [id number] CARLOZ LIE 09/14 Released w/o Limitations [facility]rade [facility]man([facility] C Physica l Therapy ) [facility] n([facility] Undersea Medicine) OUTPATIENT [id number] CONNIE MCGINNIS 09/16 Released with Work/Duty Limitations [facility]man([facility] C Underse a Medicin e) [facility] Physical Therapy) OUTPATIENT [id number] CARLOZ LEI 09/23 Released w/o Limitations [facility]rade gilman([facility] C Physica l Therapy ) [facility] Psychiatr y Clinic) OUTPATIENT [id number] F/U SOFIE JACOB 09/23 Released w/o Limitations [facility] Andrade mukul([facility] C Psychia try Clinic) [facility] Cass[facility] n([facility] Case Managemen t) OUTPATIENT [id number] Notes Entered by: CAROLINA PERES 29 Sep 2017 0752 ------- ------- ------- ------- -- LIMDU review for cc/cm needs GORGE PRITCHETT 09/29 Released w/o Limitations [facility] Andrade mukul([facility] C Case Managem ent) [facility] Cassandra nelson([facility] Undersea Medicine) OUTPATIENT [id number] Notes Entered by: SUDARSHAN ANDRADE 08 Oct 2017 0903 ------- ------- ------- ------- -- Cold Symptom s SUDARSHAN BURT 10/08 Sick at Home/Quarter s [facility] Andrade muukl([facility] C Underse a Medicin e) [facility] Psychiatr y Clinic) OUTPATIENT [id number] f/u SOFIE JACOB 10/08 Released w/o Limitations [facility] Andrade mukul([facility] C Psychia try Clinic) [facility] Physical Therapy) OUTPATIENT [id number] TIMUR Hebert 10/09 Released w/o Limitations [facility] Andrade mukul([facility] C Physica l Therapy ) [facility] Psychiatr y Clinic) OUTPATIENT [id number] F/U SOFIE JACOB 10/27 Released w/o Limitations [facility] Andrade mukul([facility] C Psychia try Clinic) [facility] Psychiatr y Clinic) OUTPATIENT [id number] f/u SOFIE JACOB 11/05 Released w/o Limitations [facility] Andrade mukul([facility] C Psychia try Clinic) [facility] Charlesviri n([facility] Undersea Medicine) TELE CONSULT [id number] Notes Entered by: CAMILA WATERMAN 06 Nov 2017 1053 ------- ------- ------- ------- -- Network Results - Mental Health 11/05/17 VENESSA BAKER 11/06 [facility] Andrade gilman([facility] Underse a Medicin e) [facility] Cassandra nelson([facility] Undersea Medicine) OUTPATIENT [id number] F/U TCD VENESSA BAKER 11/12 Released w/o Limitations [facility] Andrade gilman([facility] Underse a Medicin e) [facility] Case Managemen t) OUTPATIENT [id number] Notes Entered by: Swati ARTEAGA 13 Nov 2017 1046 ------- ------- ------- ------- -- Case Managem ent BARBARA ARTEAGA 11/13 Released w/o Limitations [facility] Andrade gilman([facility] Case Managem ent[facility] Psychiatr y Clinic) OUTPATIENT [id number] F/U SOFIE JACOB 11/17 Released w/o Limitations [facility] Andrade gilman([facility] Psychia try Clinic) [facility] Undersea Medicine) OUTPATIENT [id number] spider bite/he VENESSA Devine 11/26 Released w/o Limitations [facility] Andrade gilman([facility] Underse a Medicin e) [facility] omar([facility] Occupatio nal Health) OUTPATIENT [id number] BRIANDA SHAW 12/17 Released w/o Limitations [facility] Andrade gilman([facility] Occupat ional Health) [facility] Andrade n([facility] Undersea Medicine) OUTPATIENT [id number] prt VENESSA Young 12/21 Released w/o Limitations [facility] Andrade gilman([facility] Underse a Medicin e) [facility] OUTPATIENT [id number] Notes Entered by: ZOE THAKKAR 25 Dec 2017 0822 ------- ------- ------- ------- -- Cold sx x1wk SUDARSHAN BURT 12/25 Sick at Home/Quarter s [facility] Andrade gilman([facility] Underse a Medicin e) [facility] Charlesto n([facility] Hearing Conservat ion) OUTPATIENT [id number] Notes Entered by: RIVER ROBLES 06 Jan 2018 1348 ------- ------- ------- ------- -- Termina tion Audiogr am RIVER ROBLES 01/06 Released w/o Limitations [facility] Andrade gilman([facility] Hearing Conserv ation) [facility] Optometry Clinic) OUTPATIENT [id number] EYE EXAM CATY NEW 01/13 Released w/o Limitations [facility] Andrade gilman([facility] Optomet ry Clinic) [facility] Andradeivri n([facility] Preventiv e Med) OUTPATIENT [id number] Notes Entered by: West THOMAS 18 Jan 2018 1102 ------- ------- ------- ------- -- Flu Vx CHARLENE THOMAS 01/18 Released w/o Limitations [facility] Andrade gilman([facility] Prevent kyara Med) [facility] Cassandra n([facility] Undersea Medicine) OUTPATIENT [id number] Ad Sep Pe VENESSA BAKER 02/01 Released w/o Limitations [facility] Andrade gilman([facility] Underse a Medicin e) [facility] Undersea Medicine) OUTPATIENT [id number] 1 cold sx VENESSA BAKER 03/08 Released w/o Limitations [facility] Andrade mukul([facility] Underse a Medicin e) Procedures [...] Pharmacy PSYCHOTHERAPY, 60 MINUTES WITH PATIENT 01/27 [facility] IMMUNIZATION ADMINISTRATION (INCLUDES PERCUTANEOUS, INTRADERMAL, SUBCUTANEOUS, OR INTRAMUSCULAR INJECTIONS); 1 VACCINE (SINGLE OR COMBINATION VACCINE/TOXOID) 01/18 DoD PSYCHOTHERAPY, 60 MINUTES WITH PATIENT 01/18 DoD DETERMINATION OF REFRACTIVE STATE 01/13 [facility] PURE TONE AUDIOMETRY (THRESHOLD), AUTOMATED; AIR [...] &/ROWDY ASSESS FUNC OUTCOME TYP,20 MIN SPENT [id number]-ABTG W PAT&/FAM 10/09 [facility] PHARMACOLOGIC MANAGEMENT, INCLUDING PRESCRIPTION AND REVIEW OF [...] EDUCATION &TRAINING, PATIENT SELF-MGT QUALIFIED, NONPHYSICIAN HEALTH CONTAMINATED LAND CONSULTANT USING STDIZED CURRICULUM, [id number] W THE PATIENT (COULD INCL CAREGIVER/FAMILY) EA [...] PSYCHOPHYSICOLOGICAL MON, HEALTH-ORIENTED QUESTIONNAIRES), EACH 15 MIN [id number] WITH THE PATIENT; RE-ASSESS 06/18 DoD PSYCHOTHERAPY, [...] 1 VACCINE (SINGLE OR COMBINATION VACCINE/TOXOID) 03/12 [facility] BRIEF COMM TECH-BASE SERV,E.G. VIRT CHK-IN,BY PHYS/OTH QUAL HCP,RPT E&M SERV,PROV TO EST PT,NOT ORIG FRM REL E/M SERV PROV W/IN PREV 7DAY NOR LEAD TO E/M SRV/PX W/IN NEXT 24HR/SOON MIRIAM; 5-10 MIN DISC 07/31 [facility] HEPATITIS B VACCINE (HEPB), PEDIATRIC/ADOLESCENT DOSAGE, 3 DOSE SCHEDULE, FOR INTRAMUSCULAR USE 01/09 [facility] PATIENT EDUCATION, NOT OTHERWISE CLASSIFIED, NON-PHYSICIAN PROVIDER, GROUP, PER SESSION 12/18 [facility] INJECTION, PENICILLIN G BENZATHINE, 100,000 UNITS 12/08 [facility] AUDIOMETRIC TESTING OF GROUPS 12/05 [facility] DETERMINATION OF REFRACTIVE STATE 12/05 DoD Psychotherapy Individual Approximately 45 Minutes Psychotherapy Individual Approximately 45 Minutes 89054 06/08 ESTEBAN WONG [facility] Influenza Split Virus Vaccine IM Preserv Free 0.5mL Dosage Quadrivalent Influenza Split Virus Vaccine IM Preserv Free 0.5mL Dosage Quadrivalent 15259 03/12 MIGUELANGEL BILLINGSLEY Influenza Seasonal, injectable quadrivalent - preservative free; Series #: 1; .5 mL; IM; Left Arm; Mfg: [employer]; Lot: [id number]; VIS given (Itz: 11/03/2014). [facility] Immunization Administration By Injection, One Vaccine Immunization Administration By Injection, One Vaccine 77917 03/12 MIGUELANGEL BILLINGSLEY [facility] Immunization Administration By Injection, One Vaccine Immunization Administration By Injection, One Vaccine 01506 01/09 MAK ROBERTS [facility] Immunization Administration By Injection, Each Additional Vaccine Immunization Administration By Injection, Each Additional Vaccine 04620 01/09 MAK ROBERTS DoD Vaccines Viral Polio, Inactivated Vaccines Viral Polio, Inactivated 59198 01/09 MAK ROBERTS IPV; Series #: 1; .5 mL; SC; Right Arm; Mfg: San[employer]; Lot: [id number]; VIS given (Itz: 10/17/15; 02/01/15 - Multiple). DoD Hepatitis B Vaccine (Active); To 11 Years Hepatitis B Vaccine (Active); [place] To 11 Years 42730 01/09 MAK ROBERTS Hep B, adolescent or pediatric; Series #: 2; .5 mL; IM; Left Arm; Mfg: [employer]; Lot: [id number]; VIS given (Itz: 10/17/2015). [facility] Patient education, not otherwise cla ified, non-physician provider, group, per se ion 12/18 SHEREE LATHAM [facility] Physician Supervised Injection Intramuscular Antibiotic Physician Supervised Injection Intramuscular Antibiotic 05306 12/08 MAK ROBERTS [facility] Injection, penicillin g benzathine, 100,000 units 12/08 MAK ROBERTS [facility] Immunization Admin Intranasal / Oral Each Additional Vaccine Immunization Admin Intranasal / Oral Each Additional Vaccine 13962 12/08 MAK ROBERTS [facility] Vaccines Adenovirus Type 4 Live, For Oral Use Vaccines Adenovirus Type 4 Live, For Oral Use 12410 12/08 MAK ROBERTS [facility] Vaccines Adenovirus Type 7 Live, For Oral Use Vaccines Adenovirus Type 7 Live, For Oral Use 51122 12/08 MAK ROBERTS DoD Hepatitis B Vaccine (Active); To 11 Years Hepatitis B Vaccine (Active); To 11 Years 28962 12/08 MAK ROBERTS Hep B, adolescent or pediatric; Series #: 1; .5 mL; IM; Left Arm; Mfg: Iotelligent; Lot: [id number]; VIS given (Itz: 10/17/2015). [facility] Meningococcal Polysaccharide Diphtheria Toxoid Conjugate Vaccine 12/08 MAK ROBERTS Meningococcal MCV4P; Series #: 1; .5 mL; IM; Left Arm; Mfg: [employer]; Lot: [id number]; VIS given (Itz: 06/28/2015). [facility] Tdap Vaccine Tdap Vaccine 31240 12/08 MAK ROBERTS Tdap; Series #: 1; .5 mL; IM; Right Arm; Mfg: Other; Lot: [id number]; VIS given (Itz: 05/23/14). [facility] Immunization Administration By Injection, One Vaccine Immunization Administration By Injection, One Vaccine 5655912/08 MAK ROBERTS [facility] Immunization Administration By Injection, Each Additional Vaccine Immunization Administration By Injection, Each Additional Vaccine 9058812/08 MAK ROBERTS [facility] Audiometry Group Testing Audiometry Group Testing 65332 12/05 WENDY JOSHUA [facility] Threshold Audiogram (Pure Tone) Threshold Audiogram (Pure Tone) 07165 12/05 JOSHUA WENDY [facility] Fitting Monofocal Except For Aphakia [employer] [facility] Fitting Monofocal Except For Aphakia 58859 12/05 KEAGAN HAN Determination Of Refractive State Determination Of Refractive State 10628 12/05 KEAGAN HAN Visual Function Screening Visual Function Screening 89277 12/05 KEAGAN HAN Psychotherapy Individual Approximately 60 Minutes Psychotherapy Individual Approximately 60 Minutes 04302 01/27 ESTEBAN WONG Psychotherapy Individual Approximately 60 Minutes Psychotherapy Individual Approximately 60 Minutes 72654 01/18 ESTEBAN WONG Immunization Administration By Injection, One Vaccine Immunization Administration By Injection, One Vaccine 15817 01/18 MAJOR, CHARLENE LIMA DoD Influenza Split Virus Vaccine IM Preserv Free 0.5mL Dosage Quadrivalent Influenza Split Virus Vaccine IM Preserv Free 0.5mL Dosage Quadrivalent 44339 01/18 [facility] Influenza Seasonal, injectable quadrivalent - preservative free; Series #: 1; .5 mL; IM; Left Arm; g: [employer]; Lot: [id number]; VIS given (Itz: 11/03/2014). [facility] Determination Of Refractive State Determination Of Refractive State 50372 01/13 CATY NEW Ophthalmological New Patient Start Comprehensive Care Ophthalmological New Patient Start Comprehensive Care 69305 01/13 CATY NEW Threshold Audiogram (Pure Tone) Automated Threshold Audiogram (Pure Tone) Automated [id number] 01/06 RIVER ROBLES Psychotherapy Individual Approximately 30 Minutes Psychotherapy Individual Approximately 30 Minutes 22419 01/06 ESTEBAN WONG Psychotherapy Individual Approximately 60 Minutes Psychotherapy Individual Approximately 60 Minutes 82297 12/29 ESTEBAN WONG Psychotherapy Individual Approximately 60 Minutes Psychotherapy Individual Approximately 60 Minutes 03775 12/22 ESTEBAN WONG Preventive Medicine Administration Of Health Risk Questionnaire Patient-Focused Preventive Medicine Administration Of Health Risk Questionnaire Patient-Focused 71038 12/17 BRIANDA CASTILLO Psychotherapy Individual Approximately 60 Minutes Psychotherapy Individual Approximately 60 Minutes 13945 12/16 ESTEBAN WONG Psychotherapy Individual Approximately 60 Minutes Psychotherapy Individual Approximately 60 Minutes 23539 12/03 ESTEBAN WONG Psychotherapy Individual Approximately 30 Minutes Psychotherapy Individual Approximately 30 Minutes 56442 11/23 CHU SMITH Psychotherapy With Medication Management Psychotherapy With Medication Management 45612 11/19 SOFIE JACOB Psychotherapy Individual Approximately 45 Minutes Psychotherapy Individual Approximately 45 Minutes 06588 11/19 SOFIE JACOB Psychotherapy Individual Approximately 45 Minutes Psychotherapy Individual Approximately 45 Minutes 08048 11/16 ESTEBAN WONG Psychotherapy Individual Approximately 60 Minutes Psychotherapy Individual Approximately 60 Minutes 41643 11/13 ESTEBAN WONG Case Management, each 15 minutes 11/13 BARBARA ARTEAGA DoD Psychotherapy Individual Approximately 60 Minutes Psychotherapy Individual Approximately 60 Minutes 70656 11/11 ESTEBAN WONG Psychotherapy With Medication Management Psychotherapy With Medication Management 94277 11/06 SOFIE JACOB Psychotherapy Individual Approximately 45 Minutes Psychotherapy Individual Approximately 45 Minutes 54017 11/06 SOFIE JACOB Psychotherapy Individual Approximately 60 Minutes Psychotherapy Individual Approximately 60 Minutes 86052 11/05 ESTEBAN WONG Psychotherapy With Medication Management Psychotherapy With Medication Management 63235 10/29 SOFIE JACOB Psychotherapy Individual Approximately 45 Minutes Psychotherapy Individual Approximately 45 Minutes 77763 10/29 SOFIE JACOB Psychotherapy Individual Approximately 60 Minutes Psychotherapy Individual Approximately 60 Minutes 72475 10/29 ESTEBAN WONG Psychotherapy Individual Approximately 30 Minutes Psychotherapy Individual Approximately 30 Minutes 31999 10/26 ESTEBAN WONG Psychotherapy Individual Approximately 60 Minutes Psychotherapy Individual Approximately 60 Minutes 68158 10/15 ESTEBAN WONG Psychotherapy Individual Approximately 60 Minutes Psychotherapy Individual Approximately 60 Minutes 67394 10/14 ESTEBAN WONG Psychotherapy Individual Approximately 60 Minutes Psychotherapy Individual Approximately 60 Minutes 79046 10/13 ESTEBAN WONG Physical Therapy Service Re-Evaluation Physical Therapy Service Re-Evaluation 61372 10/09 TIMUR AVENDANO Psychotherapy With Medication Management Psychotherapy With Medication Management 36169 10/08 SOFIE JACOB Psychotherapy Individual Approximately 45 Minutes Psychotherapy Individual Approximately 45 Minutes 28475 10/08 SOFIE JACOB Psychotherapy Individual Approximately 30 Minutes Psychotherapy Individual Approximately 30 Minutes 39148 10/05 ESTEBAN WONG Psychotherapy Individual Approximately 45 Minutes Psychotherapy Individual Approximately 45 Minutes 09822 10/02 ESTEBAN WONG [facility] Case Management, each 15 minutes 09/29 GORGE BARKER Psychotherapy Individual Approximately 30 Minutes Psychotherapy Individual Approximately 30 Minutes 24250 09/28 ESTEBAN WONG [facility] Modalities Cryotherapy Cold Packs Modalities Cryotherapy Cold Packs 34147 09/24 CARLOZ LEI Taping Knee Taping Knee 88526 09/24 CARLOZ LEI Physical Therapy: ___ Se ion Segments, 15 Minutes Each Physical Therapy: ___ Session Segments, 15 Minutes Each 29014 09/24 CARLOZ LEI Psychotherapy With Medication Management Psychotherapy With Medication Management 43138 09/23 SOFIE JACOB Psychotherapy Individual Approximately 45 Minutes Psychotherapy Individual Approximately 45 Minutes 57386 09/23 SOFIE JACOB Psychotherapy Individual Approximately 60 Minutes Psychotherapy Individual Approximately 60 Minutes 31803 09/22 ESTEBAN WONG [facility] Modalities Cryotherapy Cold Packs Modalities Cryotherapy Cold Packs 48744 09/15 CARLOZ LEI Physical Therapy Mobilization Joint Physical Therapy Mobilization Joint 09747 09/15 CARLOZ LEI Physical Therapy: ___ Se ion Segments, 15 Minutes Each Physical Therapy: ___ Session Segments, 15 Minutes Each 91524 09/15 CARLOZ LEI Psychotherapy Individual Approximately 30 Minutes Psychotherapy Individual Approximately 30 Minutes 14664 09/11 ESTEBAN WONG [facility] Psychotherapy With Medication Management Psychotherapy With Medication Management 37137 09/11 SOFIE JACOB Psychotherapy Individual Approximately 45 Minutes Psychotherapy Individual Approximately 45 Minutes 28987 09/11 SOFIE JACOB [facility] Psychotherapy Individual Approximately 60 Minutes Psychotherapy Individual Approximately 60 Minutes 26440 09/10 ESTEBAN WONG [facility] Modalities Cryotherapy Cold Packs Modalities Cryotherapy Cold Packs 89178 09/09 CARLOZ LEI Physical Therapy: ___ Se ion Segments, 15 Minutes Each Physical Therapy: ___ Session Segments, 15 Minutes Each 89065 09/09 CARLOZ LEI Psychotherapy Individual Approximately 45 Minutes Psychotherapy Individual Approximately 45 Minutes 05083 09/08 ESTEBAN WONG [facility] Psychotherapy Individual Approximately 30 Minutes Psychotherapy Individual Approximately 30 Minutes 84005 09/03 ESTEBAN WONG [facility] Modalities Cryotherapy Cold Packs Modalities Cryotherapy Cold Packs 63135 09/02 CARLOZ LEI Taping Lower Back Taping Lower Back 99748 09/02 CARLOZ LEI Physical Therapy: ___ Se ion Segments, 15 Minutes Each Physical Therapy: ___ Session Segments, 15 Minutes Each 93024 09/02 CARLOZ LEI Psychotherapy Individual Approximately 45 Minutes Psychotherapy Individual Approximately 45 Minutes 76652 08/25 ESTEBAN WONG Psychotherapy With Medication Management Psychotherapy With Medication Management 47394 08/13 SOFIE JACOB Psychotherapy Individual Approximately 45 Minutes Psychotherapy Individual Approximately 45 Minutes 51866 08/13 SOFIE JACOB Pelvic belt/harne /boot 08/13 TIMUR AVENDANO [facility] Physical Therapy Service Re-Evaluation Physical Therapy Service Re-Evaluation 70028 08/13 TIMUR AVENDANO Human Papilloma Virus Vaccine, Nonavalent Human Papilloma Virus Vaccine, Nonavalent 88732 08/11 VIVIENNE SANCHEZ HPV9; Series #: 1; .5 mL; IM; Left Arm; g: [employer]; Lot: [id number]; VIS given (Itz: 02/29/2016). [facility] Immunization Administration By Injection, One Vaccine Immunization Administration By Injection, One Vaccine 0443508/11 VIVIENNE SANCHEZ [facility] Immunization Administration By Injection, Each Additional Vaccine Immunization Administration By Injection, Each Additional Vaccine 2226508/11 VIVIENNE SANCHEZ [facility] Hepatitis B Vaccine (Active) Adult Dosage 3 Dose Schedule Hepatitis B Vaccine (Active) Adult Dosage 3 Dose Schedule 14898 08/11 VIVIENNE SANCHEZ Hep B - Adult; Series #: 1; 1.0 mL; IM; Left Arm; [facility]: [employer]; Lot: [id number]; VIS given (Itz: 10/17/2015). [facility] Psychotherapy Individual Approximately 60 Minutes Psychotherapy Individual Approximately 60 Minutes 48388 08/10 ESTEBAN WONG [facility] Psychotherapy Individual Approximately 45 Minutes Psychotherapy Individual Approximately 45 Minutes 45911 07/27 ESTEBAN WONG Psychotherapy With Medication Management Psychotherapy With Medication Management 74549 07/27 SOFIE JACOB Psychotherapy Individual Approximately 30 Minutes Psychotherapy Individual Approximately 30 Minutes 57796 07/22 ESTEBAN WONG Psychotherapy With Medication Management Psychotherapy With Medication Management 41273 07/22 SOFIE JACOB Psychotherapy Individual Approximately 45 Minutes Psychotherapy Individual Approximately 45 Minutes 44549 07/22 SOFIE JACOB Psychotherapy Individual Approximately 30 Minutes Psychotherapy Individual Approximately 30 Minutes 91926 07/21 ESTEBAN WONG Psychotherapy Individual Approximately 30 Minutes Psychotherapy Individual Approximately 30 Minutes 00695 07/20 ESTEBAN WONG Psychotherapy Individual Approximately 30 Minutes Psychotherapy Individual Approximately 30 Minutes 00978 07/10 ESTEBAN WONG Physical Therapy: ___ Se ion Segments, 15 Minutes Each Physical Therapy: ___ Session Segments, 15 Minutes Each 88487 07/09 BARBARA ALTAMIRANO Psychotherapy With Medication Management Psychotherapy With Medication Management 42487 07/09 SOFIE JACOB Psychotherapy Individual Approximately 45 Minutes Psychotherapy Individual Approximately 45 Minutes 03132 07/09 SOFIE JACOB Psychotherapy Individual Approximately 60 Minutes Psychotherapy Individual Approximately 60 Minutes 11390 07/06 ESTEBAN WONG Physical Therapy: ___ Se ion Segments, 15 Minutes Each Physical Therapy: ___ Session Segments, 15 Minutes Each 37316 07/03 BARBARA ALTAMIRANO Psychotherapy Individual Approximately 45 Minutes Psychotherapy Individual Approximately 45 Minutes 45485 07/03 ESTEBAN WONG Psychotherapy Individual Approximately 60 Minutes Psychotherapy Individual Approximately 60 Minutes 79419 06/30 ESTEBAN WONG Physical Therapy: ___ Se ion Segments, 15 Minutes Each Physical Therapy: ___ Session Segments, 15 Minutes Each 73639 06/30 BARBARA ALTAMIRANO Physical Therapy: ___ Se ion Segments, 15 Minutes Each Physical Therapy: ___ Session Segments, 15 Minutes Each 00365 06/29 BARBARA ALTAMIRANO Patient Counseling Medical Management Individual Patient Patient Counseling Medical Management Individual Patient 73259 06/29 LOLA SAUL [facility] Psychotherapy Individual Approximately 30 Minutes Psychotherapy Individual Approximately 30 Minutes 15184 06/25 ESTEBAN WONG Psychotherapy Individual Approximately 30 Minutes Psychotherapy Individual Approximately 30 Minutes 74753 06/23 ESTEBAN WONG Psychotherapy Individual Approximately 60 Minutes Psychotherapy Individual Approximately 60 Minutes 94359 06/23 ESTEBAN WONG [facility] Physical Therapy: ___ Se ion Segments, 15 Minutes Each Physical Therapy: ___ Session Segments, 15 Minutes Each 52734 06/22 BARBARA ALTAMIRANO [facility] Physical Therapy: ___ Se ion Segments, 15 Minutes Each Physical Therapy: ___ Session Segments, 15 Minutes Each 33531 06/19 EVELIABARBARA GAGNON [facility] Health And Behav A e mt Each Additional 15 Min Dyke e ment Health And Behav Assessmt Each Additional 15 Min Reassessment 72869 06/18 ESTEBAN WONG [facility] Psychotherapy Individual Approximately 45 Minutes Psychotherapy Individual Approximately 45 Minutes 97751 06/17 ESTEBAN WONG [facility] Psychotherapy Individual Approximately 60 Minutes Psychotherapy Individual Approximately 60 Minutes 39526 06/17 ESTEBAN WONG [facility] Physical Therapy Service Evaluation Moderate Complexity Physical Therapy Service Evaluation Moderate Complexity 80041 06/10 ROMANAKAYKI Sha-Sha [facility] Physical Therapy: ___ Se ion Segments, 15 Minutes Each Physical Therapy: ___ Session Segments, 15 Minutes Each 83136 06/10 AVENDANO TIMUR [facility] Psychotherapy Individual Approximately 45 Minutes Psychotherapy Individual Approximately 45 Minutes 32045 06/09 ESTEBAN WONG [facility] Psychotherapy Individual Approximately 60 Minutes Psychotherapy Individual Approximately 60 Minutes 71900 06/09 ESTEBAN WONG [facility] Brief communication technology-based service, e.g. virtual [...] 5-10 minutes of medical discu CARTER Pruitt Social History Combined list of available smoking, tobacco, and other social history from [facility] facilities. Social History Type Response Date Comment [facility] e Tobacco smoking status [facility]IS VA-TOBACCO NEVER USED 06/06/2021 [facility] This section is [...] Plan No data available for this section 01/19/2024 Ambulatory Pharmacy Functional Status Combined list of recent functional and cognitive assessments recorded at [facility] ([facility] Functional [place] Measurement (FIM) Scale: 1 = Total Assistance (Subject = 0% +), 2 = Maximal Assistance (Subject = 25% +), 3 = Moderate Assistance (Subject = 50% +), 4 = Minimal Assistance (Subject = 75% +), 5 = Supervision, 6 = Modified [place] (Device), 7 = Complete [place] (Timely, Safely). Assessment Date/Time Source Assessment Type Assessment Skill Assessment Score Assessment Details No data available for this section
--- OUTSIDE RECORDS SUMMARY | 2024-01-19 14:16 | XMS_ITS | Clinical Summary ---
Author Organization [facility] Address [place], [place] [address] Care Team Providers Care Cutlet Maker Pork Name Role Phone Ariela Machado MD Primary Care Provider [phone] Ariela Machado MD Unavailable [phone] Allergies Active Allergy Reactions Criticality Noted Date [...] Date anomaly suspected but not found 09/29/2023 [facility] Supervision of high-risk 4 Overview (09/25/2023): SRO MPP - Completed [x] Patient name: Jeannie Foster : 1995 Age: 27 y.o. Date of SRO: 09/25/2023 Estimated Date of Delivery: 04/21/24 Gest Age: 10w1d G/P: Current BMI: 24 Requested Discussion Topics: had ultrasound x 3. first showed twin, 2 US showed warren. Possible hydrops on most recent . REFERRING PROVIDER/CLINIC LOCATION/FAX #: Ariela Machado MD - Elizabeth Fish MD approves scheduling of recommended ultrasounds/testing: Yes Please schedule the following: [x] Warren [] Multiples: [] Consult [x] Ultrasound: - Complete less than 14 wks. Add MD time: Yes [] Lab: [x] Genetic Counseling [x] Before [] After []15 [x] 30 []45 []NT []CVS []Amnio [] BMI > 40 [] Clothing Pattern Preparer - Language [] [place] Insurance: Location Specialty Days Any [facility] Clinic [] In-person [] Virtual [] Either N/A Comments: RN: Gail Swenson RN Bottomer Operator: REGINE GC: DANIEL DING/Provider: Date:09/25/2023 Urgency: BLANCA []Can be sooner [] Can be split Jeannie Alberto Foster : 1995 REFERRING PROVIDER/CLINIC LOCATION/FAX #: Ariela Machado MD - Elizabeth Fish MD approves scheduling of recommended ultrasounds/testing: Yes [facility] ULTRASOUND/TESTING PATIENT [facility] CONSULT ON Support person name: [...] Less than 8 weeks gestation of 024 Overview (10/20/2023): Estimated Date of Delivery: 04/21/24 Patient's last [...] Encounters Date Type Department Care Team Description 12/02/2023 4:05 PM CDT OB Encounter [facility] [address] [place] [address] Ariela Machado MD Care (19w6d/) 12/02/2023 1:45 PM CDT Ancillary Procedure [facility] [address] [place] [address] 12/02/2023 Travel 11/03/2023 Orders Only [facility] Scanner 1 scan: (1-Ord) [facility]OUS UE LT, 11/03/2023 10/22/2023 Orders Only [facility] [address] [place] [address] Ariela Machado MD <No scans attached> 10/21/2023 10:25 AM CDT OB Encounter [facility] [address] [place] [address] Ariela Machado MD Care (13w6d/) 10/21/2023 Travel from Last 3 Months Immunizations Name [...] Communication with Friends and Fami ly 0 12/02/2023 Financial Resource Strain Answer Date R ecorded Difficulty of Paying Living Expenses 3 12/02/2023 Difficulty of Paying Living Expenses Not on file 12/02/2023 Food Insecurity Answer Date Recorded Do you worry your food will run out before you are able to buy more? 1 12/02/2023 Transportation Needs Answer Date Record ed Lack of Transportation (Medical) 1 12/02/2023 Housing Stability Answer Date Recorded What is your housing situation today? 1 12/02/2023 Estimated Date of Delivery Comme nts Yes [...] Estimated Date of Delivery 08/28/2023 - Present (01/19/2024) 1 04/21/2024 (set by Ariela Machado MD on 09/25/2023 based on Last Menstrual Period on 07/16/2023) Dating Summary Based On DANAY GA Diff Last Menstrual Period on 07/16/2023 04/21/2024 Working Ultrasound on 09/21/2023 04/16/2024 +5d GA:10w2d Alternate DANAY Entry 04/21/2024 Same Vitals Pregravid Weight Height TWG (As of 01/19/2024) Pregrav id BMI 57.2 kg (126 lb) 1.549 m (5' 1) 4.54 kg (10 lb) 23.82 Date GA Fund Present FHR Mvmt BP Weight Edema Alb Glu Ket Dil/ Eff/Sta 10w4d Inpatient data not displayed here. See encounter summary. Notes Progress Notes - OB Encounte r - 12/02/2023 - GA:19w6d 12/02/2023 - d - Flaca Machado MD Patient is here for routine care at 19w6d Concerns: Nausea is better. Had 4-5 days of feeling light headed. Had syncopal episode at work-- while admitting an induction. Made it through the nurses station. Kalyn helped her feel better. Wearing compression on legs. We discuss increasing hydration/ongoing work to avoid presyncopal symptoms. Discussed most likely related to relative hypotension. No cramping, bleeding, loss of fluid Baby is moving well survey today. Results pending. BOY! Patient desires water . 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 We discuss that I do water births, but certainly support her to transfer care if that is what she desires. Recommend follow up with them in 4 weeks for transfer of care. Ariela Machado MD .................... 12/02/2023 4:45 PM CC: [facility] Progress Notes - OB Encounte r - 10/21/2023 - GA:13w6d 10/21/2023 - wd - Flaca Machado MD Patient is here [...] RTC in 4 weeks, sooner with concerns. Ariela Machado MD .................... 10/21/2023 10:37 AM CC: [facility] Progress Notes - Hospital En counter - 09/28/2023 - GA:10w4d 09/28/2023 - 10w - Alphonse Bostno MD [facility] Ultrasound Visit Your patient had an ultrasound with [facility] on 09/28/2023. The report is ready and can be found in the [facility]. Recommendations regarding further care are listed [...] continued care. Present findings are reassuring. [facility] We recommend a targeted ultrasound study at 20 weeks. If you would like [facility] to perform this follow up [...] a video of her ultrasound at the [facility] from that morning (09/28/2023) that purportedly demonstrated [...] AM New government regulations related to the Century Cures act require that this note be released to the patient immediately, sometimes before the referring provider has been contacted. A portion of the information was presented verbally to the patient. The remainder is submitted as background for the referring provider, to be discussed as needed. Medical Decision Making Low Level [address] Minimal Diagnoses including one self limited problem: with discrepant outside US Limited Data including review of prior ultrasound and review of prior external notes Minimal risk of morbidity to the fetus from additional testing. 09/28/2023 - 10w4d - Bea Ruby i, MS, [place] [facility] [place] / Clinic Note Genetic Counseling RE: Jeannie Foster : 1995 MR: [id number] Partner name: Navin - present for today's visit Referred By: Ariela Machado MD Indication for Visit: Possible hydrops and determination of warren vs twin gestation History: Estimated Date of Delivery: 04/21/24 by LMP, confirmed by ultrasound GAA: 10w4d Complete genetic screening/testing: Low risk cell free DNA screening ([id number]) for Trisomies 21, 18, 13, sex chromosome aneuploidy, and select microdeletions. sex included but not disclosed. Medications: none Exposures/infections: none Family History: A formal family history was not collected due to focus on other topics. For negative family history information, please see scans for GC Questionnaire. This is the first for Rebkeah. Patient history: Jeannie's twin brother has Neurofibromatosis [...] skin. Other symptoms of the condition include cgogtq-puck-simurj amounts of amniotic fluid (polyhydramnios) and a [...] The low risk cell-free DNA screening test (HueighfL82) decreases the risk for this to be affected by one of the common chromosomal conditions to less than 1/10,000. This significantly reduces, but does not eliminate, the possibility for a chromosomal difference in this . Report has not yet been uploaded. The following carrier screening options were offered: carrier screening Carrier screening was presented as an option to determine if Celsa is a carrier for a recessive or [...] confused by the conflicting reports on the [facility] and [facility]. She has not looked into hydrops and [...] future pregnancies. I handout was provided, and Jenanie was encouraged to contact me if she [...] questions or concerns. Sincerely, Bea Nicolas MS, [place] [facility] [place] Licensed Genetic Counselor Total time: 30 minutes in person Total time preparing to see this patient, tiim-vr-rhth time, and coordinating care time on the same calendar date: 35 minutes. [facility] - [place] [address], [address] [place] [address] Progress Notes - OB Encounte r - [...] gestation. (8 week 0 days). Went to [facility]-- had ultrasound at 8 week 1day-- showed warren (did have incomplete fusion of amnion and chorion) [facility]-- had another ultrasound 09/21/2023- 10w2d. Possible mild hydrops. 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 /Father of baby: Navin MENSTRUAL [...] Socioeconomic History Marital status: Occupational History Employer: [employer] Tobacco Use Smoking status: Former Current packs/day: [...] Patient has had 4 ultrasound. 2 at [facility] that showed twin gestation. 2 at [facility] that showed warren. Most recent showed concern for mild hydrops and ADRIAN. Bedside ultrasound shows Will send to perinatology for follow up imaging and further evaluation. [facility]-- will alert me when this results is available. Discussed mental health and offered resources for therapy, medications. She will reach out as needed. Reviewed OB labs. Follow up in 4 weeks, sooner with concerns. Total time preparing to see this patient, jlyi-jy-yovs time, and coordinating care time on the same calendar date: 45 minutes. Ariela Machado MD .................... 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 Name of Partner [...] of estimated date of delivery: No Thalassemia (Czech, Italian, Mediterranean, or background): MCV less than 80: No Neural tube defect (Meningomyelocele, Spina bifida, or Anencephaly): No Congenital heart defect: No Down syndrome: No Elver-Sachs (Ashkenazi Oriental Orthodox, Cajun, Cayman Islander Afghan): No George disease (Ashkenazi Oriental Orthodox): No Familial dysautonomia (Ashkenazi Oriental Orthodox): No Sickle cell disease or trait (): No Hemophilia or other blood disorders: No Muscular dystrophy: No Cystic fibrosis: No Hawthorne's chorea: No Intellectual disability and/or autism: Yes [...] STATUS TREPONEMA PALLIDUM HBSAG (HBS) ANTI HCV PLASTIC ROLLER PROBE - GC CHLAMYDIA DNA PCR [[id number]] URINALYSIS W REFLEX MICROSCOPIC IF POSITIVE [37540.2] US 1ST TRIMESTER (< 14 weeks) [25127.0] EDUCATION/PATIENT INSTRUCTIONS - Advised patient to start/continue vitamin. - Discussed risk of using alcohol, tobacco, other drugs in . - Discussed healthy lifestyle in . - Provided copy of Beginnings book and book inserts, discussed znqk-njz-pxngptj medications, and follow up. - Encouraged patient to call clinic at [phone] with any vaginal bleeding, fluid leaking from [...] Center 09/25/2023 8:45 AM Ariela Machado MD [facility] Marilyn Tilley RN .................... 08/28/2023 10:33 AM Last Filed Vital Signs Vital Sign Reading Time Taken Comments Blood Pressure 97/62 12/02/2023 4:37 PM CDT Pulse 75 12/02/2023 4:37 PM CDT Temperature 36.3 ??C (97.4 ??F) 08/20/2022 11:03 AM C DT Respiratory Rate 18 04/23/2022 5:40 PM MANAGER ATHLETICS Oxygen Saturation 100% 12/02/2023 4:37 PM CDT Inhaled Oxygen Concentration - - Weight 61.7 kg (136 lb) 12/02/2023 4:37 PM CDT Height 154.9 cm (5' 1) 08/28/2023 10:11 AM CDT Body Mass Index 25.7 08/28/2023 10:11 AM CDT Plan of Treatment Health Maintenance Due Date Last Done Comments HPV series for age 9-26 (2 - 3-dose series) 09/08/2017 08/11/2017 Depression screening for age 12+ 12/09/2022 12/09/2021, 12/09/2021, 12/06/2021, Additional history exists COVID-19 vaccine series ( season) 2023 05/31/2021, 04/27/2021 Influenza for age 9-49 11/29/2023 3, 01/24/2022, 05/05/2021, Additional history exists RSV vaccine for adults or (1 - Risk 1-dose series) 02/25/2024 BMI (ht and wt on same day) [...] Procedure Name Priority Date/Time Associated Diagnosis Comments US OB BASIC ANATOMY SCREEN SINGLE TA Routine 12/02/2023 2:28 PM CDT Supervision of high risk in first trimester SCAN-ULTRASOUND REPORT 11/03/2023 12:00 AM CDT HEMOGLOBIN Routine 10/21/2023 11:15 AM CDT Supervision of high risk in first trimester TRICHOMONAS, SHELBY, AND BACTERIAL VAGINOSIS BY SMOOTH Routine 10/21/2023 10:56 AM CDT Vaginal irritation HPV HIGH RISK Routine 09/11/2023 9:00 AM CDT ANTI HIV 1/2 Routine 08/28/2023 11:14 AM CDT Encounter for supervision of normal first in first trimester ANTI HCV Routine 08/28/2023 11:14 AM CDT Encounter for supervision of normal first in first trimester from Last 3 Months or Most Recently Relevant to Health Maintenance Results * US OB BASIC ANATOMY SCREEN SINGLE TA (12/02/2023 2:28 PM CDT) Anatomical Region Laterality Modality , 2or 3 TRIMESTER Ultrasound Impressions 12/04/2023 1:35 PM CDT ??Single live intrauterine gestation at 20 weeks 3 days. DANAY 04/17/2024. No gross anomaly is visualized. Edel Whitaker M.D. Diagnostic/Breast Radiologist [email or web address] TKP/[email or web address] / ?? Narrative 12/04/2023 1:35 PM CDT Table formatting from the original result was not included. For Patients: As a result of the Cures Act, medical imaging exams and procedure reports are released immediately into your electronic medical record. ??You may view this report before your referring provider. ?? If you have questions, please contact your health care provider. OBSTETRICAL ULTRASOUND ANATOMY SURVEY 12/02/2023 CLINICAL HISTORY: ??Survey. TECHNIQUE: ??Multiple sonographic images were obtained transabdominally. ?? LMP: ??07/16/2023. FINDINGS: ?? Gestational age by LMP: ??19 weeks 6 days. Gestational age by first ultrasound: ??20 weeks 2 days. Gestational age by today's ultrasound: ??20 weeks 3 days. DANAY by LMP: ??04/21/2024 DANAY by first ultrasound: ??04/18/2024. DANAY by today's ultrasound: ??04/17/2024. Heart Rate: ??146 beats per minute. SDP: ??3.4 cm. Cervical Length: ??3.3 cm. Estimated Weight: ??381 grams. ?? Percentile: ??92%. Placenta: ??Posterior. ?? Position: ??Transverse. ?? BPD: 4.51 cm, 19 weeks 5 days, 41%. HC: ??17.27 cm, 19 weeks 6 days, 41%. AC (Avg): 16.38 cm, 21 weeks 4 days, 89%. FL: ??3.35 cm, 20 weeks 4 days, 66%. SURVEY STRUCTURE ??VISUALIZED ??INADEQUATELY VISUALIZED ?? Lateral Ventricles x ?? Cerebellum/Cisterna Magna ??x ?? Profile ??x ?? Face x ?? Nose/Lips x ?? Spine C, T, L, S x ?? Four-chamber Heart x ?? RVOT/LVOT ??x ?? 3VV x ?? Stomach x ?? Kidneys x ?? Bladder x ?? Three-vessel Cord x ?? Cord Insertion; placenta & x ?? Extremities ??x ?? Diaphragm x ?? Ariela Machado MD US * SCAN-ULTRASOUND REPORT (11/03/2023 12:00 AM CDT) Anatomical Region Laterality Modality Other Scanner OTHER * (ABNORMAL) HEMOGLOBIN (10/21/2023 11:15 AM CDT) HEMOGLOBIN 11.9(L) 12.0 - 16.0 g/dL 10/21/2023 11:30 AM CDT [facility] MCV 87 80 - 100 fL 10/21/2023 11:30 AM CDT [facility] Blood BLOOD SPECIMEN / Unknown Venipuncture / Unknown 10/21/2023 11:15 AM CDT 10/21/2023 11:16 AM CDT Ariela Machado MD HEMATOLOGY [facility] [address] [place] [address], * (ABNORMAL) TRICHOMONAS, SHELBY, AND BACTERIAL VAGINOSIS BY SMOOTH (10/21/2023 10:56 AM CDT) SHELBY SPECIES Positive(A) Negative 10/21/19 10:05 PM CDT [facility] SHELBY GLABRATA Negative Negative 10/21/2023 10:05 PM CDT [facility] TRICHOMONAS VVA Negative Negative 10:05 PM CDT [facility] BACTERIAL VAGINOSIS Negative Negative 10/21/2023 10:05 PM CDT [facility] Other VAGINAL SWAB / Unknown Non-Blood / Unknown 10/21/2023 10:56 AM CDT 10/21/2023 11:31 AM CDT Ariela Machado MD MICROBIOLOGY [facility] [address] [place] [address], * HPV HIGH RISK (09/11/2023 9:00 AM CDT) TYPE 16 Negative Negative 09/16/2023 6:04 AM CDT [facility] TYPE 18 Negative Negative 09/16/2023 6:04 AM CDT [facility] OTHER HIGH RISK TYPES Negative Negative 09/16/2023 6:04 AM CDT [facility] Other (Cervical) 09/11/2023 9:00 AM CDT 09/14/2023 12:50 PM CDT Narrative [facility] - 09/16/2023 6:04 AM CDT HPV types 16, 18, 31, 33, 35, 39, 45, 51, 52, 56, 58, 59, 66 and 68 DNA were undetectable or below the pre-set threshold. Methodology: Saniya Dani 4800 HPV Test Tonya N Kael [employer] MICROBIOLOGY Performing Organization Address City/[facility] Co de Phone Number [facility] [address] [place] [address], * ANTI HCV (08/28/2023 11:14 AM CDT) HEPATITIS C ANTIBODY Non-Reacti ve Non-React kyara 08/28/2023 11:39 PM CDT [facility] Comment:Please note, per [...] Machado MD SEND OUTS Performing Organization Address [facility] Co de Phone Number [facility] [address] [place] [address], * ANTI HIV 1/2 (08/28/2023 11:14 AM CDT) Pathologist [facility] HIV-1/HIV-2 SCREEN Non-Reacti ve Non-Reacti ve 08/28/2023 11:42 PM CDT [facility] Comment:HIV-1 p24 and HIV-1/ HIV-2 Ab Not Detected. Blood BLOOD SPECIMEN / Unknown Venipuncture / Unknown 08/28/2023 11:14 AM CDT 08/28/2023 11:17 AM CDT Ariela Machado MD SEND OUTS Performing Organization Address City/[facility] Co de Phone Number [facility] [address] [place] [address], from Last 3 Months or Most Recently Relevant to Health Maintenance Care Teams Cutlet Maker Pork Relationship Specialty Start Date End Date Ariela Machado MD [address] [place] [address] PCP - General Family Practice 08/04/19 Ariela Machado MD [address] [place] [address] Referring Provider Family Practice 09/25/23
== END 2024-01-15 10:47 | disposition home or self-care (01) ==
LOC: NFLDREF 01-19 14:14
PROVIDERS: PCP Family Medicine; Referring Provider Family Medicine; Visit Provider Advanced Practice Midwife
DX: Z34.92 Encounter for supervision of normal pregnancy, unspecified, second trimester (principal); Z3A.26 26 weeks gestation of pregnancy
CPT/HCPCS: 86592; 87086

== ENCOUNTER 2024-02-10 10:19 | Outpatient (CLI) | payer OTHER, SELFPAY ==
--- OUTSIDE RECORDS SUMMARY | 2024-02-10 10:21 | XMS_ITS | Clinical Summary ---
Author Organization [facility] Address [place], [place] [address] Care Team Providers Care Commercial Reporter Name Role Phone Ariela Machado MD Primary Care Provider [phone] Ariela Machado MD Unavailable [phone] Allergies Active Allergy Reactions Criticality Noted Date [...] Date anomaly suspected but not found 09/29/2023 [facility] Supervision of high-risk 4 Overview (09/25/2023): SRO [...] []CVS []Amnio [] BMI > 40 [] Patient Support Assistant - Language [] [place] Insurance: Location Specialty Days Any [facility] Clinic [] In-person [] Virtual [] Either N/A Comments: RN: Gail Swenson RN Poultry Slaughterer: REGINE GC: DANIEL DING/Provider: Date:09/25/2023 Urgency: BLANCA []Can be sooner [] Can be split Jeannie Alberto Foster : 1995 REFERRING PROVIDER/CLINIC LOCATION/FAX #: Ariela Machado MD - Elizabeth Fish MD approves scheduling of recommended ultrasounds/testing: Yes [facility] ULTRASOUND/TESTING PATIENT [facility] CONSULT ON Support person name: Navin ULTRASOUND [...] PLAN OF CARE: Original and updated POC 08/28/2023 Overview (10/20/2023): Estimated Date of Delivery: 04/21/24 [...] Description 12/02/2023 4:05 PM CDT OB Encounter [facility] [address] [place] [address] Ariela Machado MD Care (19w6d/) 12/02/2023 1:45 PM CDT Ancillary Procedure [facility] [address] [place] [address] 12/02/2023 Travel from Last 3 Months Immunizations Name [...] 0 12/05/2021 Social Connections Answer Date Recorded Do you often feel lonely or isolated from those around you? 0 12/02/2023 Financial Resource Strain Answer Date R ecorded Difficulty of Paying Living Expenses 3 12/02/2023 Difficulty of Paying Living Expenses Not on file 12/02/2023 Food Insecurity Answer Date Recorded Do you worry your food will run out before you are able to buy more? 1 12/02/2023 Transportation Needs Answer Date Record ed Does lack of transportation keep you from medica l appointments? 1 12/02/2023 Does lack of transportation keep you from work, meetings or getting things that you need? 1 12/02/2023 Housing Stability Answer Date Recorded [...] Estimated Date of Delivery 08/28/2023 - Present (02/10/2024) 1 04/21/2024 (set by Ariela Machado MD on 09/25/2023 based on Last Menstrual Period on 07/16/2023) Dating Summary Based On DANAY GA Diff Last Menstrual Period on 07/16/2023 04/21/2024 Working Ultrasound on 09/21/2023 04/16/2024 +5d GA:10w2d Alternate DANAY Entry 04/21/2024 Same Vitals Pregravid Weight Height TWG (As of 02/10/2024) Pregrav id BMI 57.2 kg (126 lb) 1.549 m (5' 1) 4.54 kg (10 lb) 23.82 Date GA Fund Present FHR Mvmt BP Weight Edema Alb Glu Ket Dil/ Eff/Sta 4 10w4d Inpatient data not displayed here. See encounter summary. Notes Progress Notes - OB Encounte r - 12/02/2023 - GA:19w6d 12/02/2023 - 19w6d - Flaca Machado MD Patient is here [...] center she has become close to the pets salesperson providers and appreciates how they deliver babies. We discuss that I do water births, but certainly support her to transfer care if that is what she desires. Recommend follow up with them in 4 weeks for transfer of care. Ariela Machado MD .................... 12/02/2023 4:45 PM CC: [facility] Progress Notes - OB Encounte r - 10/21/2023 - GA:13w6d 10/21/2023 - 13wd - Flaca Machado MD Patient is here [...] Machado MD .................... 10/21/2023 10:37 AM CC: [facility] Progress Notes - Hospital En counter - 09/28/2023 - GA:10w4d 09/28/2023 - 10w4d - Alphonse Boston MD [facility] Ultrasound Visit Your patient had an ultrasound with [facility] on 09/28/2023. The report is ready and can be found in the Results review section of the [facility] chart. Recommendations regarding further care are listed [...] at 20 weeks. If you would like [facility] to perform this follow up Ultrasound, please [...] a video of her ultrasound at the [facility] from that morning (09/28/2023) that purportedly demonstrated [...] as needed. Medical Decision Making Low Level [address] Minimal Diagnoses including one self limited problem: with discrepant outside [place] Limited Data including review of prior ultrasound and review of prior external notes Minimal risk of morbidity to the fetus from additional testing. 09/28/2023 - w4d - Bea Ruby i, MS, [facility] / Clinic Note Genetic Counseling RE: Jeannie Foster : 1995 MR: [id number] Partner name: Navin - present for today's visit Referred By: Ariela Machado MD Indication for Visit: Possible hydrops and determination of warren vs twin gestation History: Estimated Date of Delivery: 04/21/24 by LMP, confirmed by ultrasound GAA: 10w4d Complete genetic screening/testing: Low risk cell free DNA screening ([id number]) for Trisomies 21, 18, 13, sex chromosome [...] skin. Other symptoms of the condition include ofjcnm-uyqe-mdmuuo amounts of amniotic fluid (polyhydramnios) and a [...] The low risk cell-free DNA screening test (NoclcseZ87) decreases the risk for this to be [...] by the conflicting reports on the free outside clinic and [facility]. She has not looked into hydrops and [...] questions or concerns. Sincerely, Bea Nicolas MS, [facility] Licensed Genetic Counselor Total time: 30 minutes in person Total time preparing to see this patient, vupe-vn-vcvz time, and coordinating care time on the same calendar date: 35 minutes. [facility] [place] [address], [address] [place] [address] Progress Notes - OB Encounte r - 09/25/2023 - GA:10w1d 09/25/2023 - 10wFlaca Acosta MD Clinic Note: First OB Visit 09/25/2023 [...] gestation. (8 week 0 days). Went to [facility]-- had ultrasound at 8 week 1day-- showed warren (did have incomplete fusion of amnion and chorion) [facility]-- had another ultrasound 09/21/2023- 10w2d. Possible mild hydrops. 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 /Father of baby: Navin MENSTRUAL HISTORY [...] Socioeconomic History Marital status: Occupational History Employer: [employer] Tobacco Use Smoking status: Former Current packs/day: [...] Patient has had 4 ultrasound. 2 at [facility] that showed twin gestation. 2 at [facility] that showed warren. Most recent showed concern for mild hydrops and ADRIAN. Bedside ultrasound shows Will send to perinatology for follow up imaging and further evaluation. Did have NIPT drawn at [facility] clinic-- will alert me when this results is available. Discussed mental health and offered resources for therapy, medications. She will reach out as needed. Reviewed OB labs. Follow up in 4 weeks, sooner with concerns. Total time preparing to see this patient, kgyv-fe-ipzs time, and coordinating care time on the same calendar date: 45 minutes. Ariela Machado MD .................... 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 Name of Partner [...] of estimated date of delivery: No Thalassemia (German, Pitcairn Islander, Mediterranean, or background): MCV less than 80: No Neural tube defect (Meningomyelocele, Spina bifida, or Anencephaly): No Congenital heart defect: No Down syndrome: No Elver-Sachs (Ashkenazi Temple, Cajun, Maori Hettinger): No George disease (Ashkenazi Temple): No Familial dysautonomia (Ashkenazi Temple): No Sickle cell disease or trait (): [...] STATUS TREPONEMA PALLIDUM HBSAG (HBS) ANTI HCV BAG REPAIRER PROBE - GC CHLAMYDIA DNA PCR [[id number]] URINALYSIS W REFLEX MICROSCOPIC IF POSITIVE [80753.2] US 1ST TRIMESTER (< 14 weeks) [40138.0] EDUCATION/PATIENT INSTRUCTIONS - Advised patient to start/continue vitamin. - Discussed risk of using alcohol, tobacco, other drugs in . - Discussed healthy lifestyle in . - Provided copy of Beginnings book and book inserts, discussed fllw-phb-xtxoeii medications, and follow up. - Encouraged patient to call clinic at [phone] with any vaginal bleeding, fluid leaking from [...] Center 09/25/2023 8:45 AM Ariela Machado MD [facility] Marilyn Tilley RN .................... 08/28/2023 10:33 AM Last Filed Vital Signs Vital Sign Reading Time Taken Comments Blood Pressure 97/62 12/02/2023 4:37 PM CDT Pulse 75 12/02/2023 4:37 PM CDT Temperature 36.3 ??C (97.4 ??F) 08/20/2022 11:03 AM C DT Respiratory Rate 18 04/23/2022 5:40 PM [facility] Oxygen Saturation 100% 12/02/2023 4:37 PM CDT [...] exists Pap test for age 21-65 09/10/2026 , 09/11/2023, 11/23/2020 Tetanus booster 12/08/2026 12/08/2016 Tdap [...] Supervision of high risk in first trimester HPV HIGH RISK Routine 09/11/2023 9:00 AM [...] is visualized. Edel Whitaker M.D. Diagnostic/Breast Radiologist [email or web address] MARIANNEP/jsb / ?? Narrative 12/04/2023 1:35 PM CDT [...] ?? Diaphragm x ?? Ariela Machado MD * HPV HIGH RISK (09/11/2023 9:00 AM CDT) TYPE 16 Negative Negative 09/16/2023 6:04 AM CDT [facility] TYPE 18 Negative Negative 09/16/2023 6:04 AM CDT [facility] OTHER HIGH RISK TYPES Negative Negative 09/16/2023 6:04 AM CDT [facility] Other (Cervical) 09/11/2023 9:00 AM CDT 09/14/2023 12:50 PM CDT Narrative [facility] - 09/16/2023 6:04 AM CDT HPV types 16, 18, 31, 33, 35, 39, 45, 51, 52, 56, 58, 59, 66 and 68 DNA were undetectable or below the pre-set threshold. Methodology: Saniya Dani 4800 HPV Test Tonya Scruggs NP MICROBIOLOGY [facility] [address] [place] [address], * ANTI HCV (08/28/2023 11:14 AM CDT) Pathologist [facility] HEPATITIS C ANTIBODY Non-Reacti ve Non-React kyara 08/28/2023 11:39 PM CDT [facility] Comment:Please note, per www .CDC.gov: If [...] AM CDT Ariela Machado MD SEND OUTS [facility] [employer] [facility] [address] [place] [id number], [place] * ANTI HIV 1/2 (08/28/2023 11:14 AM CDT) HIV-1/HIV-2 SCREEN Non-Reacti ve Non-Reacti ve 08/28/2023 11:42 PM CDT [facility] [employer] [facility] Comment:HIV-1 p24 and HIV-1/ HIV-2 Ab Not Detected. Blood BLOOD SPECIMEN / Unknown Venipuncture / Unknown 08/28/2023 11:14 AM CDT 08/28/2023 11:17 AM CDT Ariela Machado MD SEND OUTS Performing Organization Address City/[facility]/ZIP Co de Phone Number [facility] [employer] [facility] [address] [place] [phone], from Last 3 Months or Most Recently Relevant to Health Maintenance Care Teams Commercial Reporter Relationship Specialty Start Date End Date Ariela Machado MD [address] [place] [address] PCP - General Family Practice 08/04/19 Ariela Machado MD [address] [place] [address] Referring Provider Family Practice 09/25/23
--- OUTSIDE RECORDS SUMMARY | 2024-02-10 10:22 | XMS_ITS | Continuity of Care Document ---
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 It does not include entries that were removed or entered in error. Problem Status Onset Date Problem Type Date of Resolution Comme nts Source Encounter for other specified special examinations Active 12/30/2016 Condition DoD Overweight Active Condition [facility] Medications Combined list of outpatient [...] NOVITIUM/AN I PH, 500 ea. BOTTLE Active [id number] 2023 5 Pharmac y Data Transac tion Service Facilit y Allergies, Adverse Reactions, Alerts Combined list of allergies from Department of Defense and Veterans Affairs facilities. It does not include entries that were removed or entered in error. Substance Category Reaction Severity Reaction type Status Date Reported Comments Source BUPROPION Propensity to adverse reactions to drug (finding) Suicidal thoughts active 9 [facility] morphine Propensity to adverse reactions to drug Swelling of oral cavity structure, Anaphylaxis Active 8 [facility] MORPHINE Propensity to adverse reactions to drug (finding) Anaphylaxis active 9 [facility] MORPHINE (MORPHINE SULFATE) Drug allergy (disorder) Rash, Swelling of oral cavity structure active 8 [facility] n Immunizations Combined list of available immunizations from the Department of Defense and Veterans Affairs facilities. Immunization Series Date Given Administered By Site Reaction Lot Number CVX Code Drug Morning Caregiver Status Comments Source INFLUENZA, INJECTABLE, QUADRIVALENT 2018 158 complet ed Partner: [facility]. Administe red by: [facility] Clinician (NPI=Not Provided) . Partner 0 Lot#: [id number] Mfr: SEQIRUS MARTINAP ANDRÉS [facility] influenza, injectable, quadrivalent- pf 2017 zzLef t Arm [id number] 150 GlaxoSmithKli ne complet ed influenza , injectabl e, quadrival ent-pf 01/18/18 Given Ambulat ory Pharmac y Influenza, injectable, quadrivalent, preservative free 1 2017 CHARLENE THOMAS V [id number] 150 [employer] ([facility]) complet ed Influenza , injectabl e, quadrival ent, preservat kyara free DoD influenza, injectable, quadrivalent- pf 2017 [id number] 150 GlaxoSmithKli ne complet ed influenza , injectabl e, quadrival ent-pf 01/14/18 Given Ambulat ory Pharmac y Influenza, injectable, quadrivalent, preservative free 0 2017 [id number] 150 [facility] ([facility]) complet ed Influenza , injectabl e, quadrival ent, preservat kyara free DoD Human Papillomaviru s 9-valent vaccine 2017 zzLef t Arm [id number] 165 Merck & Company Inc complet ed Human Papilloma virus 9-valent vaccine 08/11/17 Given Ambulat ory Pharmac y hepatitis B adult vaccine 2017 zzLef t Arm [id number] 43 GlaxoSmithKli ne complet ed hepatitis B adult vaccine 08/11/17 Given Ambulat ory Pharmac y hepatitis B vaccine, adult dosage 1 2017 VIVIENNE SANCHEZ [id number] 43 [facility] ([facility]) complet ed hepatitis B vaccine, adult dosage DoD Human Papillomaviru s 9-valent vaccine 1 2017 VIVIENNE SANCHEZ [id number] 165 Merck (MSD) complet ed Human Papilloma virus 9-valent vaccine DoD influenza, injectable, quadrivalent- pf 2016 zzLef t Arm [id number] 150 GlaxoSmithKli ne complet ed influenza , injectabl e, quadrival ent-pf 03/12/17 Given Ambulat ory Pharmac y Influenza, injectable, quadrivalent, preservative free 1 2016 MIGUELANGEL BILLINGSLEY [id number] 150 [facility] ([facility]) complet ed Influenza , injectabl e, quadrival [...] DoD poliovirus vaccine, inactivated 2016 zzHi Arm [id number] sanofi pasteur complet ed polioviru s vaccine, inactivat ed 01/09/17 Given Ambulat ory Pharmac y hepatitis B pediatric/ado lescent 2016 zzLef t Arm [id number] 08 GlaxoSmithKli ne complet ed hepatitis B pediatric /adolesce nt 01/09/17 Given Ambulat ory Pharmac y hepatitis B vaccine, pediatric or pediatric/ado lescent dosage 2 2016 MAK ROBERTS [id number] 08 [facility] ([facility]) complet ed hepatitis B vaccine, pediatric or pediatric /adolesce nt dosage DoD poliovirus vaccine, inactivated 1 2016 MAK ROBERTS [id number] 10 Sanofi Pasteur ([facility]) complet ed polioviru s vaccine, inactivat [...] meningococcal A,C,Y,W-135 (MCV4P) 2016 zzLef t Arm [id number] 114 sanofi pasteur complet ed meningoco ccal A,C,Y,W-1 35 (MCV4P) 12/08/16 Given Ambulat ory Pharmac y hepatitis B pediatric/ado lescent 2016 zzLef t Arm [id number] 08 GlaxoSmithKli ne complet ed hepatitis B pediatric /adolesce nt 12/08/16 Given Ambulat ory Pharmac y adenovirus vaccine, live 2016 [id number] 143 Unknown complet ed adenoviru s vaccine, live 12/08/16 Given Ambulat ory Pharmac y hepatitis B vaccine, pediatric or pediatric/ado lescent dosage 1 2016 MAK ROBERTS [id number] 08 SmithKline (SKB) complet ed hepatitis B vaccine, pediatric or pediatric /adolesce nt dosage DoD meningococcal polysaccharid e (groups A, C, Y and W-135) diphtheria toxoid conjugate vaccine (MCV4P) 1 2016 MAK ROBERTS [id number] 114 Sanofi Pasteur ([facility]) complet ed meningoco [...] 7, live, oral 1 2016 MAK ROBERTS [id number] 9 143 Other (OTH) complet ed Adenoviru [...] Source One or More A 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 03/30 One or More A Facilit ies 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 Nirmal Foster [facility](Op tometry [facility] 1523) OUTPATIENT [id number] Notes Entered by: KEAGAN HAN 05 Dec [id number] ------- ------- ------- ------- -- recruit screen KEAGAN HAN N 12/05 Released w/o Limitations [facility]( Optomet ry [facility] 1523) [facility](Au diology [facility] 1523) OUTPATIENT [id number] WENDY JOSHUA A 12/05 Released w/o Limitations [facility]( Audiolo gy HC 1523) [facility](Fe male Screening 1523) OUTPATIENT [id number] [facility] JUAN CARLOS LEÓN 12/08 Released w/o Limitations [facility]( Female Screeni ng 1523) [facility] [place](Im munizatio n 1523) OUTPATIENT [id number] Notes Entered by: LAMONT VIGIL ON L 08 Dec 2016 1022 ------- ------- ------- ------- -- P4 Immuniz ations ELENA ROQUE 12/08 Released w/o Limitations [facility]( Immuniz ation 1523) [facility](Co urage (White) 1007) OUTPATIENT [id number] NILDAFU LEG AFSHAN DAMON 12/11 Sick at Home/Quarter s [facility]( Courage (White) 1007) [facility] [place](Co urage (White) 1007) OUTPATIENT [id number] Cold Sx/Vomi tting TONY MESA V 12/18 Sick at Home/Quarter s [facility]( [place] (White) 1007) [facility] OUTPATIENT [id number] Notes Entered by: SUNDEEP PARKS 18 Dec 2016 1333 ------- ------- ------- ------- -- SHEREE BARLOW 12/18 Released w/o Limitations [facility]( [facility] Female) [facility](Sp ecial Physicals [facility] 1007) OUTPATIENT [id number] ALEXA DEMPSEY Flaca 12/23 Released w/o Limitations [facility]( Special Physica ls [facility] 1007) [facility] [place] [place] [address]) OUTPATIENT [id number] Notes Entered by: JOHN CARTER 30 Dec 2016 1136 ------- ------- ------- ------- -- UMO Special Duty Physica l Review JOHN RIVERA 12/30 Released w/o Limitations [facility]( Special Physica ls [facility] 1007) [facility] [place](Im munizatio n 1523) OUTPATIENT [id number] Notes Entered by: LAMONT VIGIL 09 Jan 2017 0922 ------- ------- ------- ------- -- 5-2 Immuniz ations DAVE PATEL 01/09 Released w/o Limitations [facility]( Immuniz ation 1523) [facility](We ekend Mil Sick Call 1007) OUTPATIENT [id number] Notes Entered by: CARMEN TAYLOR 11 Jan 2017 0640 ------- ------- ------- ------- -- Cold STORRES Shepherd 01/11 Sick at Home/Quarter s [facility]( Weekend Mil Sick Call 1007) [facility] Preventiv e Med) OUTPATIENT [id number] Notes Entered by: MIGUELANGEL BILLINGSLEY 12 Mar 2017 1110 ------- ------- ------- ------- -- Flu Vx MIGUELANGEL BILLINGSLEY 03/12 Released w/o Limitations [facility] Andrade gilman([facility] C Prevent kyara Med) [facility] omar([facility] Undersea Medicine) OUTPATIENT [id number] Notes Entered by: MARIFER KAMINSKI 08 Apr 2017 0648 ------- ------- ------- ------- -- RANKIN/ upset SUDARSHAN [facility] 04/08 Sick at Home/Quarter s [facility] Andrade mukul([facility] C Underse a Medicin e) [facility] Cassandra nelson([facility] Medicine) OUTPATIENT [id number] Notes Entered by: MARIFER KAMINSKI 22 Apr 2017 0637 ------- ------- ------- ------- -- cold josettex SUDARSHAN BURT 04/22 Sick at Home/Quarter s [facility] mukul([facility] C Underse a Medicin e) [facility]andra nelson([facility] Medicine) OUTPATIENT [id number] Notes Entered by: NEEL HALL 07 May 2017 1455 ------- ------- ------- ------- -- LBP MILAGRO ROBLEDO 05/07 Released w/o Limitations [facility]ul([facility] C Underse a Medicin e) [facility] Cass[facility] nelson([facility] Medicine) OUTPATIENT [id number] back pain/so re throat JOSE ANGEL MULTANI 05/19 Released with Work/Duty Limitations [facility]rade m[facility]ul([facility] C Underse a Medicin e) [facility] nelson([facility] Medicine) OUTPATIENT [id number] parul zamora dunia,con gestMILAGRO Melendez 05/27 Released w/o Limitations [facility] m[facility]ul([facility] C Underse a Medicin e) [facility] nelson([facility] Medicine) OUTPATIENT [id number] nose bleeds, kylie hollins PETRONILO J 06/08 Released with Work/Duty Limitations [facility]ul([facility] C Underse a Medicin e) [facility] nelson([facility] Physical Therapy) OUTPATIENT [id number] Low back pain TIMUR AVENDANO 06/10 Released w/o Limitations [facility] C Physica l Therapy ) [facility]viri n([facility] Physical Therapy) OUTPATIENT [id number] BARBARA ALTAMIRANO 06/15 Released w/o Limitations [facility] C Physica l Therapy ) [facility] Physical Therapy) OUTPATIENT [id number] BARBARA ALTAMIRANO 06/17 Released w/o Limitations [facility] Andrade gilman([facility] C Physica l Therapy ) [facility] Physical Therapy) OUTPATIENT [id number] BARBARA ALTAMIRANO 06/24 Released w/o Limitations [facility] C Physica l Therapy ) [facility] n([facility] Physical Therapy) OUTPATIENT [id number] BARBARA ALTAMIRANO 06/29 Released w/o Limitations [facility] C Physica l Therapy ) [facility] n([facility]) OUTPATIENT [id number] Notes Entered by: ALDA BAUGH 29 Jun 2017 1000 ------- ------- ------- ------- -- smoking cessati on SAUL DAVILA 06/29 Released w/o Limitations [facility] Occupat [facility]) [facility] Physical Therapy) OUTPATIENT [id number] BARBARA ALTAMIRANO 07/01 Released w/o Limitations [facility]man([facility] C Physica l Therapy ) [facility] Undersea Medicine) OUTPATIENT [id number] Notes Entered by: ZOE THAKKAR 03 Jul 2017 1219 ------- ------- ------- ------- -- SUDARSHAN Buchanan 07/03 Released with Work/Duty Limitations [facility]rade [facility]man([facility] C Underse a Medicin e) [facility] Cassandra nelson([facility] Undersea Medicine) OUTPATIENT [id number] PT F/U JOSE ANGEL MULTANI 07/03 Released w/o Limitations [facility] C Underse a Medicin e) [facility] Physical Therapy) OUTPATIENT [id number] EVELIA BARBARA LINDSAY 07/06 Released w/o Limitations [facility] C Physica l Therapy ) [facility] Psychiatr y Clinic) OUTPATIENT [id number] SOFIE PANTOJA 07/09 Released w/o Limitations [facility] Andrade g[facility]man([facility] C Psychia try Clinic) [facility] n([facility]) TELE CONSULT [id number] Notes Entered by: MARIA DEL ROSARIO DAVILA 13 Jul 2017 1128 ------- ------- ------- ------- -- Tobacco Cessati on F/u SAUL DAVILA 07/13 Referred for Appointment [facility] Andrade mukul([facility] Occupat ional Health) [facility] Cassandra nelson([facility] Psychiatr y Clinic) OUTPATIENT [id number] f/u SOFIE JACOB 07/22 Released w/o Limitations [facility] C Psychia try Clinic) [facility] Psychiatr y Clinic) OUTPATIENT [id number] F/U SOFIE JACOB 07/27 Released w/o Limitations [facility] C Psychia try Clinic) [facility] n([facility]) TELE CONSULT [id number] Notes Entered by: MARIA DEL ROSARIO DAVILA 04 Aug 2017 1012 ------- ------- ------- ------- -- Tobacco cessati on follow up SAUL DAVILA 08/04 Referred for Appointment [facility] Andrade mukul([facility] Occupat ional Health) [facility] nelson([facility] Undersea Medicine) TELE CONSULT [id number] Notes Entered by: MAYDA FELIZ 07 Aug 2017 0955 ------- ------- ------- ------- -- Network Results - Emergen cy 4.21.18 KOST[place]OJOSE ANGEL DURAN Leonie 08/07 [facility] C Underse a Medicin e) [facility] nelson([facility] Unders Medicine) TELE CONSULT [id number] Notes Entered by: MAYDA FELIZ 07 Aug 2017 0956 ------- ------- ------- ------- -- Network Results - Emergen cy 4.23.18 DEEJAYCHARLEEN DURANSUSSY Hadley 08/07 [facility] Underse a Medicin e) [facility] Cassandra nelson([facility]) OUTPATIENT [id number] Notes Entered by: Bronson SANCHEZ 10 Aug 2017 1527 ------- ------- ------- ------- -- HEP#3, HPV#1 VIVIENNE SANCHEZ 08/10 Released w/o Limitations [facility] Communi Health Clinic) [facility] nelson([facility]) OUTPATIENT [id number] HCW/BBF FABRIZIO ALVAREZ 08/13 Released w/o Limitations [facility] Occupat ional Health) [facility] nelson([facility] Psychiatr y Clinic) OUTPATIENT [id number] f/u SOFIE JACOB 08/13 Released w/o Limitations [facility] C Psychia try Clinic) [facility] nelson([facility] Physical Therapy) OUTPATIENT [id number] TIMUR AVENDANO 08/13 Released w/o Limitations [facility] Physica l Therapy ) [facility] Med MHC Gold) TELE CONSULT [id number] Notes Entered by: JORDON SIMEON 28 Aug 2017 1027 ------- ------- ------- ------- -- June Rai tucker JORDON SIMEON Leonie 08/28 [facility] C [facility] Med [facility] Gold) [facility] Undersea Medicine) OUTPATIENT [id number] Notes Entered by: CHAD CAST 31 Aug 2017 1050 ------- ------- ------- ------- -- NAUSEA/ VOMITTI NG X2 DAYS SUDARSHAN BURT 08/31 Sick at Home/Quarter s [facility] C Underse a Medicin e) [facility] nelson([facility] Physical Therapy) OUTPATIENT [id number] CARLOZ LEI 09/02 Released w/o Limitations [facility]rade [facility] C Physica l Therapy ) [facility] nelson([facility] Physical Therapy) OUTPATIENT [id number] CARLOZ LEI 09/09 Released w/o Limitations [facility] C Physica l Therapy ) [facility] nelson([facility] Psychiatr y Clinic) OUTPATIENT [id number] F/U SOFIE JACOB 09/11 Released w/o Limitations [facility] C Psychia try Clinic) [facility] nelson([facility] Physical Therapy) OUTPATIENT [id number] CARLOZ LEI 09/14 Released w/o Limitations [facility]rade g[facility]man([facility] C Physica l Therapy ) [facility] n([facility] Undersea Medicine) OUTPATIENT [id number] CONNIE MCGINNIS 09/16 Released with Work/Duty Limitations [facility] C Underse a Medicin e) [facility] Physical Therapy) OUTPATIENT [id number] CARLOZ LEI 09/23 Released w/o Limitations [facility] C Physica l Therapy ) [facility] Psychiatr y Clinic) OUTPATIENT [id number] F/U SOFIE JACOB 09/23 Released w/o Limitations [facility]rade [facility] C Psychia try Clinic) [facility] Case Managemen t) OUTPATIENT [id number] Notes Entered by: CAROLINA PERES 29 Sep 2017 0752 ------- ------- ------- ------- -- LIMDU review for cc/cm needs GORGE PRITCHETT 09/29 Released w/o Limitations [facility] C Case Managem ent) [facility] Cass[facility] nelson([facility] Undersea Medicine) OUTPATIENT [id number] Notes Entered by: SUDARSHAN ANDRADE 08 Oct 2017 0903 ------- ------- ------- ------- -- Cold Symptom s SUDARSHAN BURT 10/08 Sick at Home/Quarter s [facility] C Underse a Medicin e) [facility] Psychiatr y Clinic) OUTPATIENT [id number] f/u SOFIE JACOB 10/08 Released w/o Limitations [facility] C Psychia try Clinic) [facility] Physical Therapy) OUTPATIENT [id number] TIMUR Hebert 10/09 Released w/o Limitations [facility] C Physica l Therapy ) [facility] Psychiatr y Clinic) OUTPATIENT [id number] F/U SOFIE JACOB 10/27 Released w/o Limitations [facility] C Psychia try Clinic) [facility] Psychiatr y Clinic) OUTPATIENT [id number] f/u SOFIE JACOB 11/05 Released w/o Limitations [facility]rade m[facility]ul([facility] C Psychia try Clinic) [facility] Undersea Medicine) TELE CONSULT [id number] Notes Entered by: CAMILA WATERMAN 06 Nov 2017 1053 ------- ------- ------- ------- -- Network Results - Mental Health 11/05/17 VENESSA BAKER 11/06 [facility] Underse a Medicin e) [facility] Cassandra nelson([facility] Undersea Medicine) OUTPATIENT [id number] F/U TCD VENESSA BAKER 11/12 Released w/o Limitations [facility]rade gilman([facility] Underse a Medicin e) [facility] Case Managemen t) OUTPATIENT [id number] Notes Entered by: Swati ARTEAGA 13 Nov 2017 1046 ------- ------- ------- ------- -- Case Managem ent BARBARA ARTEAGA 11/13 Released w/o Limitations [facility]rade gilman([facility] Case Managem ent) [facility] Psychiatr y Clinic) OUTPATIENT [id number] F/U SOFIE JACOB 11/17 Released w/o Limitations [facility] Andrade gilman([facility] Psychia try Clinic) [facility] Undersea Medicine) OUTPATIENT [id number] spider bite/he VENESSA Devine 11/26 Released w/o Limitations [facility] Andrade gilman([facility] Underse a Medicin e) [facility] omar([facility] Occupatio nal Health) OUTPATIENT [id number] BRIANDA SHAW 12/17 Released w/o Limitations [facility]rade g[facility]man([facility] Occupat ional Health) [facility] Andrade n([facility] Undersea Medicine) OUTPATIENT [id number] prt VENESSA Young 12/21 Released w/o Limitations [facility]rade g[facility]man([facility] Underse a Medicin e) [facility] n[facility] OUTPATIENT [id number] Notes Entered by: ZOE THAKKAR 25 Dec 2017 0822 ------- ------- ------- ------- -- Cold sx x1wk SUDARSHAN BURT 12/25 Sick at Home/Quarter s [facility] Andrade gilman([facility]LY [facility] Underse a Medicin e) [facility] Charlesto n([facility] Hearing Conservat ion) OUTPATIENT [id number] Notes Entered by: RIVER ROBLES 06 Jan 2018 1348 ------- ------- ------- ------- -- Termina tion Audiogr am RIVER ROBLES 01/06 Released w/o Limitations [facility] Andrade gilman([facility] Hearing Conserv ation) [facility] Cassandra n([facility] Optometry Clinic) OUTPATIENT [id number] EYE EXAM CATY NEW 01/13 Released w/o Limitations [facility] Andrade gilman([facility] Optomet ry Clinic) [facility] Cassandra nelson([facility] Preventiv e Med) OUTPATIENT [id number] Notes Entered by: West THOMAS 18 Jan 2018 1102 ------- ------- ------- ------- -- Flu Vx CHARLENE THOMAS 01/18 Released w/o Limitations [facility] Andrade gilman([facility] Prevent kyara Med) [facility] Cassandra nelson([facility] Undersea Medicine) OUTPATIENT [id number] Ad Sep Pe VENESSA BAKER 02/01 Released w/o Limitations [facility] Andrade gilman([facility] Underse a Medicin e) [facility] Undersea Medicine) OUTPATIENT [id number] cold sx VENESSA BAKER 03/08 Released w/o Limitations [facility] Andrade mukul([facility] Underse a Medicin e) Procedures Combined list of: 1) Procedures from Department of Veterans Affairs facilities going back up to thelast 18 months, not all VA non-surgical procedures are included; 2) All procedures from the Department of Defense facilities. Procedure Procedure Type Code Date Perfomer Comments [facility] e PSYCHOTHERAPY, 60 MINUTES WITH PATIENT 01/27 DoD [...] &/ROWDY ASSESS FUNC OUTCOME TYP,20 MIN SPENT [id number] W PAT&/FAM 10/09 [facility] PHARMACOLOGIC MANAGEMENT, INCLUDING PRESCRIPTION AND REVIEW OF [...] EDUCATION &TRAINING, PATIENT SELF-MGT QUALIFIED, NONPHYSICIAN HEALTH PROJECTION PRINTER USING STDIZED CURRICULUM, [id number] W THE PATIENT (COULD INCL CAREGIVER/FAMILY) EA [...] PSYCHOPHYSICOLOGICAL MON, HEALTH-ORIENTED QUESTIONNAIRES), EACH 15 MIN [id number] WITH THE PATIENT; RE-ASSESS 06/18 DoD PSYCHOTHERAPY, [...] 1 VACCINE (SINGLE OR COMBINATION VACCINE/TOXOID) 03/12 DoD BRIEF COMM TECH-BASE SERV,E.G. VIRT CHK-IN,BY PHYS/OTH QUAL HCP,RPT E&M SERV,PROV TO EST PT,NOT ORIG FRM REL E/M SERV PROV W/IN PREV 7DAY NOR LEAD TO E/M SRV/PX W/IN NEXT 24HR/SOON MIRIAM; 5-10 MIN DISC 07/31 [facility] HEPATITIS B VACCINE (HEPB), PEDIATRIC/ADOLESCENT DOSAGE, 3 DOSE SCHEDULE, FOR INTRAMUSCULAR USE 01/09 [facility] PATIENT EDUCATION, NOT OTHERWISE CLASSIFIED, NON-PHYSICIAN PROVIDER, GROUP, PER SESSION 12/18 [facility] INJECTION, PENICILLIN G BENZATHINE, 100,000 UNITS 12/08 [facility] AUDIOMETRIC TESTING OF GROUPS 12/05 [facility] DETERMINATION OF REFRACTIVE STATE 12/05 [facility] Psychotherapy Individual Approximately 45 Minutes Psychotherapy Individual Approximately 45 Minutes 52415 06/08 ESTEBAN WONG [facility] Influenza Split Virus Vaccine IM Preserv Free 0.5mL Dosage Quadrivalent Influenza Split Virus Vaccine IM Preserv Free 0.5mL Dosage Quadrivalent 63533 03/12 MIGUELANGEL BILLINGSLEY Influenza Seasonal, injectable quadrivalent - preservative free; Series #: 1; .5 mL; IM; Left Arm; Mfg: BenchPrep; Lot: [id number]; VIS given (Itz: 11/03/2014). [facility] Immunization Administration By Injection, One Vaccine Immunization Administration By Injection, One Vaccine 83060 03/12 MIGUELANGEL BILLINGSLEY [facility] Immunization Administration By Injection, One Vaccine Immunization Administration By Injection, One Vaccine 24765 01/09 MAK ROBERTS [facility] Immunization Administration By Injection, Each Additional Vaccine Immunization Administration By Injection, Each Additional Vaccine 23901 01/09 MAK ROBERTS [facility] Vaccines Viral Polio, Inactivated Vaccines Viral Polio, Inactivated 34540 01/09 MAK ROBERTS IPV; Series #: 1; .5 mL; SC; Right Arm; Mfg: Sanofi Pasteur; Lot: [id number]; VIS given (Itz: 10/17/15; 02/01/15 - Multiple). [facility] Hepatitis B Vaccine (Active); [place] To 11 Years Hepatitis B Vaccine (Active); To 11 Years 76725 01/09 MAK ROBERTS Hep B, adolescent or pediatric; Series #: 2; .5 mL; IM; Left Arm; Mfg: BenchPrep; Lot: [id number]; VIS given (Itz: 10/17/2015). [facility] Patient education, not otherwise cla ified, non-physician provider, group, per se ion 12/18 BRANDONSOPHIE SHEREE FALL [facility] Physician Supervised Injection Intramuscular Antibiotic Physician Supervised Injection Intramuscular Antibiotic 63222 12/08 MAK ROBERTS [facility] Injection, penicillin g benzathine, 100,000 units 12/08 MAK ROBERTS [facility] Immunization Admin Intranasal / Oral Each Additional Vaccine Immunization Admin Intranasal / Oral Each Additional Vaccine 48613 12/08 MAK ROBERTS Vaccines Adenovirus Type 4 Live, For Oral Use Vaccines Adenovirus Type 4 Live, For Oral Use 02445 12/08 MAK ROBERTS [facility] Vaccines Adenovirus Type 7 Live, For Oral Use Vaccines Adenovirus Type 7 Live, For Oral Use 44633 12/08 MAK ROBERTS DoD Hepatitis B Vaccine (Active); [place] To 11 Years Hepatitis B Vaccine (Active); [place] To 11 Years 48032 12/08 MAK ROBERTS Hep B, adolescent or pediatric; Series #: 1; .5 mL; IM; Left Arm; Mfg: BenchPrep; Lot: [id number]; VIS given (Itz: 10/17/2015). [facility] Meningococcal Polysaccharide Diphtheria Toxoid Conjugate Vaccine 12/08 MAK ROBERTS Meningococcal MCV4P; Series #: 1; .5 mL; IM; Left Arm; Mfg: Sanofi Pasteur; Lot: [id number]; VIS given (Itz: 06/28/2015). [facility] Tdap Vaccine Tdap Vaccine 81582 12/08 MAK ROBERTS Tdap; Series #: 1; .5 mL; IM; Right Arm; Mfg: Other; Lot: [id number]; VIS given (Itz: 05/23/14). [facility] Immunization Administration By Injection, One Vaccine Immunization Administration By Injection, One Vaccine 2984612/08 MAK ROBERTS [facility] Immunization Administration By Injection, Each Additional Vaccine Immunization Administration By Injection, Each Additional Vaccine 1268712/08 MAK ROBERTS [facility] Audiometry Group Testing Audiometry Group Testing 58627 12/05 WENDY JOSHUA Threshold Audiogram (Pure Tone) Threshold Audiogram (Pure Tone) 67722 12/05 WENDY JOSHUA [facility] Spectacles Services Fitting Monofocal Except For Aphakia Spectacles Services Fitting Monofocal Except For Aphakia 94782 12/05 KEAGAN HAN [facility] Determination Of Refractive State Determination Of Refractive State 93428 12/05 KEAGAN HAN Visual Function Screening Visual Function Screening 81721 12/05 KEAGAN HAN Psychotherapy Individual Approximately 60 Minutes Psychotherapy Individual Approximately 60 Minutes 95560 01/27 ESTEBAN WONG Psychotherapy Individual Approximately 60 Minutes Psychotherapy Individual Approximately 60 Minutes 65665 01/18 ESTEBAN WONG Immunization Administration By Injection, One Vaccine Immunization Administration By Injection, One Vaccine 43032 01/18 MAJOR, CHARLENE LIMA [facility] Influenza Split Virus Vaccine IM Preserv Free 0.5mL Dosage Quadrivalent Influenza Split Virus Vaccine IM Preserv Free 0.5mL Dosage Quadrivalent 54214 01/18 [facility] Influenza Seasonal, injectable quadrivalent - preservative free; Series #: 1; .5 mL; IM; Left Arm; Mfg: BenchPrep; Lot: [id number]; VIS given (Itz: 11/03/2014). [facility] Determination Of Refractive State Determination Of Refractive State 04180 01/13 CATY NEW Ophthalmological New Patient Start Comprehensive Care Ophthalmological New Patient Start Comprehensive Care 14808 01/13 CATY NEW Threshold Audiogram (Pure Tone) Automated Threshold Audiogram (Pure Tone) Automated 0208T 01/06 RIVER ROBLES [facility] Psychotherapy Individual Approximately 30 Minutes Psychotherapy Individual Approximately 30 Minutes 63820 01/06 ESTEBAN WONG Psychotherapy Individual Approximately 60 Minutes Psychotherapy Individual Approximately 60 Minutes 22720 12/29 ESTEBAN WONG Psychotherapy Individual Approximately 60 Minutes Psychotherapy Individual Approximately 60 Minutes 13647 12/22 ESTEBAN WONG Preventive Medicine Administration Of Health Risk Questionnaire Patient-Focused Preventive Medicine Administration Of Health Risk Questionnaire Patient-Focused 35963 12/17 BRIANDA CASTILLO Psychotherapy Individual Approximately 60 Minutes Psychotherapy Individual Approximately 60 Minutes 20042 12/16 ESTEBAN WONG Psychotherapy Individual Approximately 60 Minutes Psychotherapy Individual Approximately 60 Minutes 04031 12/03 ESTEBAN WONG Psychotherapy Individual Approximately 30 Minutes Psychotherapy Individual Approximately 30 Minutes 01479 11/23 SARAH CHU Bao Psychotherapy With Medication Management Psychotherapy With Medication Management 19456 11/19 SOFIE JACOB Psychotherapy Individual Approximately 45 Minutes Psychotherapy Individual Approximately 45 Minutes 27085 11/19 SOFIE JACOB R Bao Psychotherapy Individual Approximately 45 Minutes Psychotherapy Individual Approximately 45 Minutes 10141 11/16 ESTEBAN WONG Psychotherapy Individual Approximately 60 Minutes Psychotherapy Individual Approximately 60 Minutes 69501 11/13 ESTEBAN WONG Case Management, each 15 minutes 11/13 BARBARA ARTEAGA Psychotherapy Individual Approximately 60 Minutes Psychotherapy Individual Approximately 60 Minutes 62349 11/11 ESTEBAN WONG Psychotherapy With Medication Management Psychotherapy With Medication Management 98834 11/06 SOFIE JACOB Psychotherapy Individual Approximately 45 Minutes Psychotherapy Individual Approximately 45 Minutes 42111 11/06 SOFIE JACOB Psychotherapy Individual Approximately 60 Minutes Psychotherapy Individual Approximately 60 Minutes 68757 11/05 ESTEBAN WONG Psychotherapy With Medication Management Psychotherapy With Medication Management 79316 10/29 SOFIE JACOB Psychotherapy Individual Approximately 45 Minutes Psychotherapy Individual Approximately 45 Minutes 60122 10/29 SOFIE JACOB Psychotherapy Individual Approximately 60 Minutes Psychotherapy Individual Approximately 60 Minutes 54084 10/29 ESTEBAN WONG Psychotherapy Individual Approximately 30 Minutes Psychotherapy Individual Approximately 30 Minutes 28738 10/26 ESTEBAN WONG Psychotherapy Individual Approximately 60 Minutes Psychotherapy Individual Approximately 60 Minutes 34707 10/15 ESTEBAN WONG Psychotherapy Individual Approximately 60 Minutes Psychotherapy Individual Approximately 60 Minutes 09499 10/14 ESTEBAN WONG Psychotherapy Individual Approximately 60 Minutes Psychotherapy Individual Approximately 60 Minutes 94778 10/13 ESTEBAN WONG Physical Therapy Service Re-Evaluation Physical Therapy Service Re-Evaluation 66200 10/09 TIMUR AVENDANO Psychotherapy With Medication Management Psychotherapy With Medication Management 14225 10/08 SOFIE JACOB Psychotherapy Individual Approximately 45 Minutes Psychotherapy Individual Approximately 45 Minutes 87664 10/08 SOFIE JACOB R Bao Psychotherapy Individual Approximately 30 Minutes Psychotherapy Individual Approximately 30 Minutes 60680 10/05 ESTEBAN WONG Psychotherapy Individual Approximately 45 Minutes Psychotherapy Individual Approximately 45 Minutes 03273 10/02 ESTEBAN WONG [facility] Case Management, each 15 minutes 09/29 GORGE BARKER Psychotherapy Individual Approximately 30 Minutes Psychotherapy Individual Approximately 30 Minutes 27128 09/28 ESTEBAN WONG [facility] Modalities Cryotherapy Cold Packs Modalities Cryotherapy Cold Packs 68329 09/24 CARLOZ LEI Taping Knee Taping Knee 40646 09/24 CARLOZ LEI Physical Therapy: ___ Se ion Segments, 15 Minutes Each Physical Therapy: ___ Session Segments, 15 Minutes Each 08070 09/24 CARLOZ LEI Psychotherapy With Medication Management Psychotherapy With Medication Management 39382 09/23 SOFIE JACOB [facility] Psychotherapy Individual Approximately 45 Minutes Psychotherapy Individual Approximately 45 Minutes 65812 09/23 SOFIE JACOB Psychotherapy Individual Approximately 60 Minutes Psychotherapy Individual Approximately 60 Minutes 86140 09/22 ESTEBAN WONG [facility] Modalities Cryotherapy Cold Packs Modalities Cryotherapy Cold Packs 99961 09/15 CARLOZ LEI Physical Therapy Mobilization Joint Physical Therapy Mobilization Joint 65050 09/15 CARLOZ LEI Physical Therapy: ___ Se ion Segments, 15 Minutes Each Physical Therapy: ___ Session Segments, 15 Minutes Each 19225 09/15 CARLOZ LEI Psychotherapy Individual Approximately 30 Minutes Psychotherapy Individual Approximately 30 Minutes 36460 09/11 ESTEBAN WONG [facility] Psychotherapy With Medication Management Psychotherapy With Medication Management 22718 09/11 SOFIE JACOB [facility] Psychotherapy Individual Approximately 45 Minutes Psychotherapy Individual Approximately 45 Minutes 30219 09/11 SOFIE JACOB [facility] Psychotherapy Individual Approximately 60 Minutes Psychotherapy Individual Approximately 60 Minutes 84164 09/10 ESTEBAN WONG [facility] Modalities Cryotherapy Cold Packs Modalities Cryotherapy Cold Packs 32254 09/09 CARLOZ LEI Physical Therapy: ___ Se ion Segments, 15 Minutes Each Physical Therapy: ___ Session Segments, 15 Minutes Each 17520 09/09 CARLOZ LEI Psychotherapy Individual Approximately 45 Minutes Psychotherapy Individual Approximately 45 Minutes 94853 09/08 ESTEBAN WONG [facility] Psychotherapy Individual Approximately 30 Minutes Psychotherapy Individual Approximately 30 Minutes 10215 09/03 ESTEBAN WONG Modalities Cryotherapy Cold Packs Modalities Cryotherapy Cold Packs 38287 09/02 CARLOZ LEI Taping Lower Back Taping Lower Back 88870 09/02 CARLOZ LEI Physical Therapy: ___ Se ion Segments, 15 Minutes Each Physical Therapy: ___ Session Segments, 15 Minutes Each 73860 09/02 CARLOZ LEI Psychotherapy Individual Approximately 45 Minutes Psychotherapy Individual Approximately 45 Minutes 98248 08/25 ESTEBAN WONG Psychotherapy With Medication Management Psychotherapy With Medication Management 48937 08/13 SOFIE JACOB Psychotherapy Individual Approximately 45 Minutes Psychotherapy Individual Approximately 45 Minutes 00519 08/13 SOFIE JACOB Pelvic belt/harne /boot 08/13 TIMUR AVENDANO Physical Therapy Service Re-Evaluation Physical Therapy Service Re-Evaluation 90327 08/13 TIMUR AVENDANO Human Papilloma Virus Vaccine, Nonavalent Human Papilloma Virus Vaccine, Nonavalent 92687 08/11 VIVIENNE SANCHEZ HPV9; Series #: 1; .5 mL; IM; Left Arm; Mfg: Spyra; Lot: [id number]; VIS given (Itz: 02/29/2016). [facility] Immunization Administration By Injection, One Vaccine Immunization Administration By Injection, One Vaccine 1902208/11 VIVIENNE SANCHEZ Immunization Administration By Injection, Each Additional Vaccine Immunization Administration By Injection, Each Additional Vaccine 4586508/11 VIVIENNE SANCHEZ Hepatitis B Vaccine (Active) Adult Dosage 3 Dose Schedule Hepatitis B Vaccine (Active) Adult Dosage 3 Dose Schedule 20081 08/11 VIVIENNE SANCHEZ Hep B - Adult; Series #: 1; 1.0 mL; IM; Left Arm; g: BenchPrep; Lot: [id number]; VIS given (Itz: 10/17/2015). [facility] Psychotherapy Individual Approximately 60 Minutes Psychotherapy Individual Approximately 60 Minutes 45355 08/10 ESTEBAN WONG Psychotherapy Individual Approximately 45 Minutes Psychotherapy Individual Approximately 45 Minutes 16906 07/27 ESTEBAN WONG Psychotherapy With Medication Management Psychotherapy With Medication Management 32559 07/27 SOFIE JACOB Psychotherapy Individual Approximately 30 Minutes Psychotherapy Individual Approximately 30 Minutes 11932 07/22 ESTEBAN WONG [facility] Psychotherapy With Medication Management Psychotherapy With Medication Management 63834 07/22 NIDIA SOFIE Swati Gore Psychotherapy Individual Approximately 45 Minutes Psychotherapy Individual Approximately 45 Minutes [id number] NIDIA SOFIE Swati Gore Psychotherapy Individual Approximately 30 Minutes Psychotherapy Individual Approximately 30 Minutes [id number]/21 ESTEBAN WONG [facility] Psychotherapy Individual Approximately 30 Minutes Psychotherapy Individual Approximately 30 Minutes [id number]/20 ESTEBAN WONG [facility] Psychotherapy Individual Approximately 30 Minutes Psychotherapy Individual Approximately 30 Minutes [id number]/10 ESTEBAN WONG [facility] Physical Therapy: ___ Se ion Segments, 15 Minutes Each Physical Therapy: ___ Session Segments, 15 Minutes Each 08263 07/09 BARBARA ALTAMIRANO [facility] Psychotherapy With Medication Management Psychotherapy With Medication Management [id number]/09 NIDIA SOFIE Swati [facility] Psychotherapy Individual Approximately 45 Minutes Psychotherapy Individual Approximately 45 Minutes [id number]/09 NIDIA SOFIE Swati [facility] Psychotherapy Individual Approximately 60 Minutes Psychotherapy Individual Approximately 60 Minutes 53825 07/06 ESTEBAN WONG [facility] Physical Therapy: ___ Se ion Segments, 15 Minutes Each Physical Therapy: ___ Session Segments, 15 Minutes Each 52288 07/03 BARBARA ALTAMIRANO [facility] Psychotherapy Individual Approximately 45 Minutes Psychotherapy Individual Approximately 45 Minutes [id number]/03 ESTEBAN WONG [facility] Psychotherapy Individual Approximately 60 Minutes Psychotherapy Individual Approximately 60 Minutes 11424 06/30 ESTEBAN WONG [facility] Physical Therapy: ___ Se ion Segments, 15 Minutes Each Physical Therapy: ___ Session Segments, 15 Minutes Each 82177 06/30 BARBARA ALTAMIRANO [facility] Physical Therapy: ___ Se ion Segments, 15 Minutes Each Physical Therapy: ___ Session Segments, 15 Minutes Each 52898 06/29 BARBARA ALTAMIRANO [facility] Patient Counseling Medical Management Individual Patient Patient Counseling Medical Management Individual Patient 05993 06/29 LOLASAUL Flaca [facility] Psychotherapy Individual Approximately 30 Minutes Psychotherapy Individual Approximately 30 Minutes 99410 06/25 ESTEBAN WONG [facility] Psychotherapy Individual Approximately 30 Minutes Psychotherapy Individual Approximately 30 Minutes [id number]/23 ESTEBAN WONG [facility] Psychotherapy Individual Approximately 60 Minutes Psychotherapy Individual Approximately 60 Minutes 02711 06/23 ESTEBAN WONG [facility] Physical Therapy: ___ Se ion Segments, 15 Minutes Each Physical Therapy: ___ Session Segments, 15 Minutes Each 92469 06/22 BARBARA ALTAMIRANO ANGÉLICA [facility] Physical Therapy: ___ Se ion Segments, 15 Minutes Each Physical Therapy: ___ Session Segments, 15 Minutes Each 29258 06/19 BARBARA ALTAMIRANO [facility] Health And Behav A e mt Each Additional 15 Min [place] e ment Health And Behav Assessmt Each Additional 15 Min Reassessment 08012 06/18 ESTEBAN WONG [facility] Psychotherapy Individual Approximately 45 Minutes Psychotherapy Individual Approximately 45 Minutes 96733 06/17 ESTEBAN WONG [facility] Psychotherapy Individual Approximately 60 Minutes Psychotherapy Individual Approximately 60 Minutes 23990 06/17 ESTEBAN WONG [facility] Physical Therapy Service Evaluation Moderate Complexity Physical Therapy Service Evaluation Moderate Complexity 50426 06/10 AVENDANO [employer] [facility] Physical Therapy: ___ Se ion Segments, 15 Minutes Each Physical Therapy: ___ Session Segments, 15 Minutes Each 32554 06/10 AVENDANO TIMUR [facility] Psychotherapy Individual Approximately 45 Minutes Psychotherapy Individual Approximately 45 Minutes 10423 06/09 ESTEBAN WONG [facility] Psychotherapy Individual Approximately 60 Minutes Psychotherapy Individual Approximately 60 Minutes 36916 06/09 ESTEBAN WONG [facility] Brief communication technology-based service, e.g. virtual check-in, by a physician or other qualified health care profe wendy who can report evaluation and management services, provided to an established patient, not originating from a related E/M service provided within the previous 7 days nor leading to an E/M service or procedure within the next 24 hours or soonest available appointment; 5-10 minutes of medical discu CARTER Pruitt [facility] No data available for this section Ambulatory Pharmacy Social History Combined list of available smoking, tobacco, and other social history from Department of Defense and Veterans Affairs facilities. Social History Type Response Date Comment [facility] e Tobacco smoking status MIIS VA-TOBACCO NEVER [...] Plan No data available for this section 02/10/2024 Ambulatory Pharmacy Functional Status Combined list of recent functional and cognitive assessments recorded at Department of Defense and Veterans Affairs (VA).VA Functional Pratt Measurement (FIM) Scale: 1 = Total Assistance (Subject = 0% +), 2 = Maximal Assistance (Subject = 25% +), 3 = Moderate Assistance (Subject = 50% +), 4 = Minimal Assistance (Subject = 75% +), 5 = Supervision, 6 = Modified Pratt (Device), 7 = Complete Pratt (Timely, Safely). Assessment Date/Time Source Assessment Type Assessment Skill Assessment Score Assessment Details No data available for this section
== END 2024-02-10 10:20 | disposition home or self-care (01) ==
PROVIDERS: PCP Family Medicine; Visit Provider Advanced Practice Midwife
DX: Z34.93 Encounter for supervision of normal pregnancy, unspecified, third trimester (principal); Z3A.29 29 weeks gestation of pregnancy
CPT/HCPCS: 82565; 84450; 84460

== ENCOUNTER 2024-03-07 10:59 | Outpatient (CLI) | payer OTHER, SELFPAY ==
--- OUTSIDE RECORDS SUMMARY | 2024-03-07 11:02 | XMS_ITS | Continuity of Care Document ---
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 It does not include entries that were removed or entered in error. Problem Status Onset Date Problem Type Date of Resolution Comme nts Source Encounter for other specified special examinations Active 12/30/2016 Condition DoD Overweight Active Condition [facility] Medications Combined list of outpatient [...] NOVITIUM/AN I PH, 500 ea. BOTTLE Active [id number] 2023 5 Pharmac y Data Transac [...] Swelling of oral cavity structure active 8 [facility] Cassandra n Immunizations Combined list of available immunizations from the Department of Defense and Veterans Affairs facilities. Immunization Series Date Given Administered By Site Reaction Lot Number CVX Code Drug Marketing Consultant Status Comments Source INFLUENZA, INJECTABLE, QUADRIVALENT 2018 158 complet ed Partner: [facility]. Administe red by: [facility] Clinician (NPI=Not Provided) . Partner 0 Lot#: [id number] Mfr: SEQIRUS MARTINAP [facility] influenza, injectable, quadrivalent- pf 2017 zzLef t Arm [id number] 150 GlaxoSmithKli ne complet ed influenza , injectabl e, quadrival ent-pf 01/18/18 Given Ambulat ory Pharmac y Influenza, injectable, quadrivalent, preservative free 1 2017 CHARLENE THOMAS V [id number] 150 Smithine ([facility]) complet ed Influenza , injectabl e, quadrival ent, preservat kyara free DoD influenza, injectable, quadrivalent- pf 2017 [id number] 150 GlaxoSmithKli ne complet ed influenza , injectabl e, quadrival ent-pf 01/14/18 Given Ambulat ory Pharmac y Influenza, injectable, quadrivalent, preservative free 0 2017 [id number] 150 [facility] complet ed Influenza , injectabl e, quadrival ent, preservat kyara free DoD Human Papillomaviru s 9-valent vaccine 2017 zzLef t Arm [id number] Merck & Company Inc complet ed Human Papilloma virus 9-valent vaccine 08/11/17 Given Ambulat ory Pharmac y hepatitis B adult vaccine 2017 zzLef t Arm [id number] 43 GlaxoSmithKli ne complet ed hepatitis B adult vaccine 08/11/17 Given Ambulat ory Pharmac y hepatitis B vaccine, adult dosage 1 2017 VIVIENNE SANCHEZ [id number] 43 [facility] ([facility]) complet ed hepatitis B vaccine, adult dosage DoD Human Papillomaviru s 9-valent vaccine 1 2017 VIVIENNE SANCHEZ [id number] Merck (MSD) complet ed Human Papilloma virus 9-valent vaccine DoD influenza, injectable, quadrivalent- pf 2016 zzLef t Arm [id number] 150 GlaxoSmithKli ne complet ed influenza , injectabl e, quadrival ent-pf 03/12/17 Given Ambulat ory Pharmac y Influenza, injectable, quadrivalent, preservative free 1 2016 MIGUELANGEL BILLINGSLEY [id number] 150 [facility]) complet ed Influenza , injectabl [...] DoD poliovirus vaccine, inactivated 2016 zzHi Arm [id number] 10 sanofi pasteur complet ed polioviru s vaccine, inactivat ed 01/09/17 Given Ambulat ory Pharmac y hepatitis B pediatric/ado lescent 2016 zzLef t Arm [id number] 08 GlaxoSmithKli ne complet ed hepatitis B pediatric /adolesce nt 01/09/17 Given Ambulat ory Pharmac y hepatitis B vaccine, pediatric or pediatric/ado lescent dosage 2 2016 MAK ROBERTS [id number] 08 [facility] complet ed hepatitis B vaccine, pediatric or pediatric /adolesce nt dosage DoD poliovirus vaccine, inactivated 1 2016 MAK ROBERTS [id number] 10 Sanofi Pasteur ([facility]) complet ed polioviru s vaccine, inactivat [...] meningococcal A,C,Y,W-135 (MCV4P) 2016 zzLef t Arm [id number] 114 sanofi pasteur complet ed meningoco ccal A,C,Y,W-1 35 (MCV4P) 12/08/16 Given Ambulat ory Pharmac y hepatitis B pediatric/ado lescent 2016 zzLef t Arm [id number] 08 GlaxoSmithKli ne complet ed hepatitis B pediatric /adolesce nt 12/08/16 Given Ambulat ory Pharmac y adenovirus vaccine, live 2016 [id number] 143 Unknown complet ed adenoviru s vaccine, live 12/08/16 Given Ambulat ory Pharmac y hepatitis B vaccine, pediatric or pediatric/ado lescent dosage 1 2016 MAK ROBERTS PN595 08 SmithKline (SKB) complet ed hepatitis B vaccine, pediatric or pediatric /adolesce nt dosage DoD meningococcal polysaccharid e (groups A, C, Y and W-135) diphtheria toxoid conjugate vaccine (MCV4P) 1 2016 MAK ROBERTS [id number] 114 Sanofi Pasteur (PMC) complet ed meningoco [...] 7, live, oral 1 2016 MAK ROBERTS [id number] 9 143 Other (OTH) complet ed Adenoviru [...] Source One or More A Facilitie s [facility]AM STRIPPER History 03/30 One or More A Facilit ies [facility] STRIPPER Nirmal Foster [facility](Op tometry [facility] 1523) OUTPATIENT [id number] Notes Entered by: KEAGAN HAN 05 Dec [id number] ------- ------- ------- ------- -- recruit screen KEAGAN HAN N 12/05 Released w/o Limitations [facility]( Optomet ry [facility] 1523) [facility](Au diology [facility] 1523) OUTPATIENT [id number] WENDY JOSHUA A 12/05 Released w/o Limitations [facility]( Audiolo gy HC 1523) [facility](Fe male Screening 1523) OUTPATIENT [id number] [facility] JUAN CARLOS LEÓN 12/08 Released w/o Limitations [facility]( Female Screeni ng 1523) [facility] [place](Im munizatio n 1523) OUTPATIENT [id number] Notes Entered by: LAMONT VIGIL ON L 08 Dec 2016 1022 ------- ------- ------- ------- -- P4 Immuniz ations ELENA ROQUE 12/08 Released w/o Limitations [facility]( Immuniz ation 1523) [facility](Co urage (White) 1007) OUTPATIENT [id number] NILDAFU LEG AFSHAN DAMON 12/11 Sick at Home/Quarter s [facility]( Courage (White) 1007) [facility] [place](Co urage (White) 1007) OUTPATIENT [id number] Cold Sx/Vomi tting TONY MESA V 12/18 Sick at Home/Quarter s [facility]( Courage (White) 1007) [facility] Female) OUTPATIENT [id number] Notes Entered by: SUNDEEP PARKS 18 Dec 2016 1333 ------- ------- ------- ------- -- SHEREE BARLOW 12/18 Released w/o Limitations [facility](Sp ecial Physicals [facility] 1007) OUTPATIENT [id number] ALEXA DEMPSEY Flaca 12/23 Released w/o Limitations [facility]( Special Physica ls [facility] 1007) [facility] [place]([facility] [place] [address]) OUTPATIENT [id number] Notes Entered by: JOHN CARTER 30 Dec 2016 1136 ------- ------- ------- ------- -- UMO Special Duty Physica l Review JOHN RIVERA 12/30 Released w/o Limitations [facility]( Special Physica ls [facility] 1007) [facility] [place](Im munizatio n 1523) OUTPATIENT [id number] Notes Entered by: LAMONT VIGIL 09 Jan 2017 0922 ------- ------- ------- ------- -- 5-2 Immuniz ations DAVE PATEL 01/09 Released w/o Limitations [facility]( Immuniz ation 1523) [facility](We ekend Mil Sick Call 1007) OUTPATIENT [id number] Notes Entered by: CARMEN TAYLOR 11 Jan 2017 0640 ------- ------- ------- ------- -- Cold STORRES Shepherd 01/11 Sick at Home/Quarter s [facility]( Weekend Mil Sick Call 1007) [facility] Preventiv e Med) OUTPATIENT [id number] Notes Entered by: MIGUELANGEL BILLINGSLEY 12 Mar 2017 1110 ------- ------- ------- ------- -- Flu Vx MIGUELANGEL BILLINGSLEY 03/12 Released w/o Limitations [facility] Andrade gilman([facility] C Prevent kyara Med) [facility] omar([facility] Undersea Medicine) OUTPATIENT [id number] Notes Entered by: MARIFER KAMINSKI 08 Apr 2017 0648 ------- ------- ------- ------- -- RANKIN/ upset SUDARSHAN Sanford 04/08 Sick at Home/Quarter s [facility] Andrade mukul([facility] C Underse a Medicin e) [facility] Cassandra nelson([facility] Medicine) OUTPATIENT [id number] Notes Entered by: MARIFER KMAINSKI 22 Apr 2017 0637 ------- ------- ------- ------- -- cold josettex SUDARSHAN BURT 04/22 Sick at Home/Quarter s [facility] Andrade mukul([facility] C Underse a Medicin e) [facility] Cassandra nelson([facility] Medicine) OUTPATIENT [id number] Notes Entered by: NEEL HALL 07 May 2017 1455 ------- ------- ------- ------- -- LBP MILAGRO ROBLEDO 05/07 Released w/o Limitations [facility] Andrade mukul([facility] C Underse a Medicin e) [facility] Cassandra nelson([facility] Medicine) OUTPATIENT [id number] back pain/so re throat JOSE ANGEL MULTANI 05/19 Released with Work/Duty Limitations [facility] Andrade mukul([facility] C Underse a Medicin e) [facility] Cassandra nelson([facility] Medicine) OUTPATIENT [id number] parul zamora dunia,con gestMILAGRO Melendez 05/27 Released w/o Limitations [facility] Andrade mukul([facility] C Underse a Medicin e) [facility] Cassandra nelson([facility] Medicine) OUTPATIENT [id number] nose bleeds, kylie hollins PETRONILO J 06/08 Released with Work/Duty Limitations [facility] Andrade mukul([facility] C Underse a Medicin e) [facility] Cassandra nelson([facility] Physical Therapy) OUTPATIENT [id number] Low back pain TIMUR AVENDANO 06/10 Released w/o Limitations [facility] Andrade mukul([facility] C Physica l Therapy ) [facility] Charlesviri n([facility] Physical Therapy) OUTPATIENT [id number] BARBARA ALTAMIRANO 06/15 Released w/o Limitations [facility] Andrade mukul([facility] C Physica l Therapy ) [facility] Charlesviri n([facility] Physical Therapy) OUTPATIENT [id number] BARBARA ALTAMIRANO 06/17 Released w/o Limitations [facility] Andrade gilman([facility] C Physica l Therapy ) [facility] Physical Therapy) OUTPATIENT [id number] BARBARA ALTAMIRANO 06/24 Released w/o Limitations [facility] Andrade gilman([facility] C Physica l Therapy ) [facility] n([facility] Physical Therapy) OUTPATIENT [id number] BARBARA ALTAMIRANO 06/29 Released w/o Limitations [facility] Andrade gilman([facility] C Physica l Therapy ) [facility] n([facility]) OUTPATIENT [id number] Notes Entered by: ALAD BAUGH 29 Jun 2017 1000 ------- ------- ------- ------- -- smoking cessati on SAUL DAVILA 06/29 Released w/o Limitations [facility] Andrade gilman([facility] Occupat [facility]) [facility] n([facility] Physical Therapy) OUTPATIENT [id number] BARBARA ALTAMIRANO 07/01 Released w/o Limitations [facility] Andrade gilman([facility] C Physica l Therapy ) [facility] Undersea Medicine) OUTPATIENT [id number] Notes Entered by: ZOE THAKKAR 03 Jul 2017 1219 ------- ------- ------- ------- -- SUDARSHAN Buchanan 07/03 Released with Work/Duty Limitations [facility] Andrade gilman([facility] C Underse a Medicin e) [facility] Cassandra nelson([facility] Undersea Medicine) OUTPATIENT [id number] PT F/U JOSE ANGEL MULTANI 07/03 Released w/o Limitations [facility] Andrade gilman([facility] C Underse a Medicin e) [facility] Physical Therapy) OUTPATIENT [id number] EVELIA BARBARA LINDSAY 07/06 Released w/o Limitations [facility] Andrade gilman([facility] C Physica l Therapy ) [facility] Psychiatr y Clinic) OUTPATIENT [id number] SOFIE PANTOJA 07/09 Released w/o Limitations [facility] Andrade gilman([facility] C Psychia try Clinic) [facility] n([facility]) TELE CONSULT [id number] Notes Entered by: MARIA DEL ROSARIO DAVILA 13 Jul 2017 1128 ------- ------- ------- ------- -- Tobacco Cessati on F/u SAUL DAVILA 07/13 Referred for Appointment [facility] Andrade mukul([facility] Occupat ional Health) [facility] Cassandra nelson([facility] Psychiatr y Clinic) OUTPATIENT [id number] f/u SOFIE JACOB 07/22 Released w/o Limitations [facility] Andrade gilman([facility] C Psychia try Clinic) [facility] Psychiatr y Clinic) OUTPATIENT [id number] F/U SOFIE JACOB 07/27 Released w/o Limitations [facility] Andrade gilman([facility] C Psychia try Clinic) [facility] n([facility]) TELE CONSULT [id number] Notes Entered by: MARIA DEL ROSARIO DAVILA 04 Aug 2017 1012 ------- ------- ------- ------- -- Tobacco cessati on follow up SAUL DAVILA 08/[address] [facility] Andrade mukul([facility] Occupat ional Health) [facility] Cassandra nelson([facility] Undersea Medicine) TELE CONSULT [id number] Notes Entered by: MAYDA FELIZ 07 Aug 2017 0955 ------- ------- ------- ------- -- Network Results - Emergen cy 4.21.18 [place]OST[place]JOSE ANGEL DURAN Leonie 08/07 [facility] Andrade gilman([facility] C Underse a Medicin e) [facility] Cassandra nelson([facility] Unders Medicine) TELE CONSULT [id number] Notes Entered by: MAYDA FELIZ 07 Aug 2017 0956 ------- ------- ------- ------- -- Network Results - Emergen cy 4.23.18 DEEJAYCHARLEEN DURANSUSSY Hadley 08/07 [facility] Andrade gilman([facility] Underse a Medicin e) [facility] Cassandra nelson([facility]) OUTPATIENT [id number] Notes Entered by: Bronson SANCHEZ 10 Aug 2017 1527 ------- ------- ------- ------- -- HEP#3, HPV#1 VIVIENNE SANCHEZ 08/10 Released w/o Limitations [facility] Andrade gilman([facility] Communi Health Clinic) [facility] Cassandra nelson([facility] Occupatio [facility]) OUTPATIENT [id number] HCW/BBF FABRIZIO ALVAREZ 08/13 Released w/o Limitations [facility] Andrade gilman([facility] Occupat ional Health) [facility] Cassandra nelson([facility] Psychiatr y Clinic) OUTPATIENT [id number] f/u SOFIE JACOB 08/13 Released w/o Limitations [facility] Andrade gilman([facility] C Psychia try Clinic) [facility] Cassandra nelson([facility] Physical Therapy) OUTPATIENT [id number] TIMUR AVENDANO 08/13 Released w/o Limitations [facility] Andrade gilman([facility] Physica l Therapy ) [facility] Med MHC Gold) TELE CONSULT [id number] Notes Entered by: JORDON SIMEON 28 Aug 2017 1027 ------- ------- ------- ------- -- June Rai tucker JORDON SIMEON Leonie 08/28 [facility] Andrade mukul([facility] C [facility] Med [facility] Gold) [facility] Undersea Medicine) OUTPATIENT [id number] Notes Entered by: CHAD CAST 31 Aug 2017 1050 ------- ------- ------- ------- -- NAUSEA/ VOMITTI NG X2 DAYS SUDARSHAN BURT 08/31 Sick at Home/Quarter s [facility] Andrade gilman([facility] C Underse a Medicin e) [facility] Cassandra nelson([facility] Physical Therapy) OUTPATIENT [id number] CARLOZ LEI 09/02 Released w/o Limitations [facility] Andrade gilman([facility] C Physica l Therapy ) [facility] Cassandra nelson([facility] Physical Therapy) OUTPATIENT [id number] CARLOZ LEI 09/09 Released w/o Limitations [facility] Andrade gilman([facility] C Physica l Therapy ) [facility] Cassandra nelson([facility] Psychiatr y Clinic) OUTPATIENT [id number] F/U SOFIE JACOB 09/11 Released w/o Limitations [facility] Andrade gilman([facility] C Psychia try Clinic) [facility] Cassandra nelson([facility] Physical Therapy) OUTPATIENT [id number] CARLOZ LEI 09/14 Released w/o Limitations [facility] Andrade gilman([facility] C Physica l Therapy ) [facility] Cassandra n([facility] Undersea Medicine) OUTPATIENT [id number] CONNIE MCGINNIS 09/16 Released with Work/Duty Limitations [facility] Andrade gilman([facility] C Underse a Medicin e) [facility] Cassandra n([facility] Physical Therapy) OUTPATIENT [id number] CARLOZ LEI 09/23 Released w/o Limitations [facility] Andrade gilman([facility] C Physica l Therapy ) [facility] Psychiatr y Clinic) OUTPATIENT [id number] F/U SOFIE JACOB 09/23 Released w/o Limitations [facility] Andrade mukul([facility] C Psychia try Clinic) [facility] Cassandra n([facility] Case Managemen t) OUTPATIENT [id number] Notes Entered by: CAROLINA PERSE 29 Sep 2017 0752 ------- ------- ------- ------- -- LIMDU review for cc/cm needs GORGE PRITCHETT 09/29 Released w/o Limitations [facility] Andrade mukul([facility] C Case Managem ent) [facility] Cassandra nelson([facility] Undersea Medicine) OUTPATIENT [id number] Notes Entered by: SUDARSHAN ANDRADE 08 Oct 2017 0903 ------- ------- ------- ------- -- Cold Symptom s SUDARSHAN BURT 10/08 Sick at Home/Quarter s [facility] Andrade mukul([facility] C Underse a Medicin e) [facility] Psychiatr y Clinic) OUTPATIENT [id number] f/u SOFIE JACOB 10/08 Released w/o Limitations [facility] Andrade mukul([facility] C Psychia try Clinic) [facility] Physical Therapy) OUTPATIENT [id number] TIMUR Hebert 10/09 Released w/o Limitations [facility] Andrade mukul([facility] C Physica l Therapy ) [facility] n([facility] Psychiatr y Clinic) OUTPATIENT [id number] F/U SOFIE JACOB 10/27 Released w/o Limitations [facility] Andrade mukul([facility] Psychia try Clinic) [facility] Psychiatr y Clinic) OUTPATIENT [id number] f/u SOFIE JACOB 11/05 Released w/o Limitations [facility] Andrade mukul([facility] Psychia try Clinic) [facility] n([facility] Undersea Medicine) TELE CONSULT [id number] Notes Entered by: CAMILA WATERMAN 06 Nov 2017 1053 ------- ------- ------- ------- -- Network Results - Mental Health 11/05/17 VENESSA BAKER 11/06 [facility] Andrade gilman([facility] Underse a Medicin e) [facility] Cassandra nelson([facility] Undersea Medicine) OUTPATIENT [id number] F/U TCD VENESSA BAKER 11/12 Released w/o Limitations [facility] Andrade gilman([facility] Underse a Medicin e) [facility] Case Managemen t) OUTPATIENT [id number] Notes Entered by: Swati ARTEAGA 13 Nov 2017 1046 ------- ------- ------- ------- -- Case Managem ent BARBARA ARTEAGA 11/13 Released w/o Limitations [facility] Andrade gilman([facility] Case Managem ent) [facility] Psychiatr y Clinic) OUTPATIENT [id number] F/U SOFIE JACOB 11/17 Released w/o Limitations [facility] Andrade gilman([facility] Psychia try Clinic) [facility] Undersea Medicine) OUTPATIENT [id number] spider bite/he VENESSA Devine 11/26 Released w/o Limitations [facility] Andrade gilman([facility] Underse a Medicin e) [facility] Occupatio nal Health) OUTPATIENT [id number] BRIANDA SHAW 12/17 Released w/o Limitations [facility] Andrade gilman([facility] Occupat ional Health) [facility] Andrade n([facility] Undersea Medicine) OUTPATIENT [id number] prt VENESSA Young 12/21 Released w/o Limitations [facility] Andrade gilman([facility] Underse a Medicin e) [facility] OUTPATIENT [id number] Notes Entered by: ZOE THAKKAR 25 Dec 2017 0822 ------- ------- ------- ------- -- Cold sx x1wk SUDARSHAN BURT 12/25 Sick at Home/Quarter s [facility] Andrade gilman([facility] Underse a Medicin e) [facility] Hearing Conservat ion) OUTPATIENT [id number] Notes Entered by: RIVER ROBLES 06 Jan 2018 1348 ------- ------- ------- ------- -- Termina tion Audiogr am RIVER ROBLES 01/06 Released w/o Limitations [facility] Andrade gilman([facility] Hearing Conserv ation) [facility] Cassandra n([facility] Optometry Clinic) OUTPATIENT [id number] EYE EXAM CATY NEW 01/13 Released w/o Limitations [facility] Andrade gilman([facility] Optomet ry Clinic) [facility] Cassandra nelson([facility] Preventiv e Med) OUTPATIENT [id number] Notes Entered by: [place] THOMAS 18 Jan 2018 1102 ------- ------- ------- ------- -- Flu Vx CHARLENE THOMAS 01/18 Released w/o Limitations [facility] Andrade gilman([facility] Prevent kyara Med) [facility] Cassandra nelson([facility] Undersea Medicine) OUTPATIENT [id number] Ad Sep Pe VENESSA BAKER 02/01 Released w/o Limitations [facility] Andrade gilman([facility] C Underse a Medicin e) [facility] Undersea Medicine) OUTPATIENT [id number] 1 cold sx VENESSA BAKER 03/08 Released w/o Limitations [facility] Andrade mukul([facility] Underse a Medicin e) Procedures Combined list of: 1) Procedures from Department of Veterans Affairs facilities going back up to thelast 18 months, not all VA non-surgical procedures are included; 2) All procedures from the Department of Defense facilities. Procedure Procedure Type Code Date Perfomer Comments Sour e Psychotherapy Individual Approximately 45 Minutes Psychotherapy Individual Approximately 45 Minutes 82382 06/08 ESTEBAN WONG [facility] Influenza Split Virus Vaccine IM Preserv Free 0.5mL Dosage Quadrivalent Influenza Split Virus Vaccine IM Preserv Free 0.5mL Dosage Quadrivalent 25735 03/12 ANALILIAMIGUELANGEL CHRISTIANSON CATY Influenza Seasonal, injectable quadrivalent - preservative free; Series #: 1; .5 mL; IM; Left Arm; Mfg: SmithKline; Lot: [id number]; VIS given (Itz: 11/03/2014). DoD Immunization Administration By Injection, One Vaccine Immunization Administration By Injection, One Vaccine 52247 03/12 ANALILIA MIGUELANGEL BYRNE DoD Immunization Administration By Injection, One Vaccine Immunization Administration By Injection, One Vaccine 37380 01/09 MAK ROBERTS [facility] Immunization Administration By Injection, Each Additional Vaccine Immunization Administration By Injection, Each Additional Vaccine 5035601/09 MAK ROBERTS [facility] Vaccines Viral Polio, Inactivated Vaccines Viral Polio, Inactivated 92930 01/09 MAK ROBERTS IPV; Series #: 1; .5 mL; SC; Right Arm; Mfg: Sanofi Pasteur; Lot: [id number]; VIS given (Itz: 10/17/15; 02/01/15 - Multiple). [facility] Hepatitis B Vaccine (Active); [place] To 11 Years Hepatitis B Vaccine (Active); [place] To 11 Years 67894 01/09 MAK ROBERTS Hep B, adolescent or pediatric; Series #: 2; .5 mL; IM; Left Arm; Mfg: SmithEncore Alertine; Lot: [id number]; VIS given (Itz: 10/17/2015). [facility] Patient education, not otherwise cla ified, non-physician provider, group, per se ion 12/18 SHEREE LATHAM [facility] Physician Supervised Injection Intramuscular Antibiotic Physician Supervised Injection Intramuscular Antibiotic 83719 12/08 MAK ROBERTS [facility] Injection, penicillin g benzathine, 100,000 units 12/08 MAK ROBERTS [facility] Immunization Admin Intranasal / Oral Each Additional Vaccine Immunization Admin Intranasal / Oral Each Additional Vaccine 09484 12/08 MAK ROBERTS [facility] Vaccines Adenovirus Type 4 Live, For Oral Use Vaccines Adenovirus Type 4 Live, For Oral Use 41033 12/08 MAK ROBERTS [facility] Vaccines Adenovirus Type 7 Live, For Oral Use Vaccines Adenovirus Type 7 Live, For Oral Use 29321 12/08 MAK ROBERTS [facility] Hepatitis B Vaccine (Active); [place] To 11 Years Hepatitis B Vaccine (Active); [place] To 11 Years 36179 12/08 MAK ROBERTS Hep B, adolescent or pediatric; Series #: 1; .5 mL; IM; Left Arm; Mfg: SmithKline; Lot: [id number]; VIS given (Itz: 10/17/2015). [facility] Meningococcal Polysaccharide Diphtheria Toxoid Conjugate Vaccine 12/08 MAK ROBERTS Meningococcal MCV4P; Series #: 1; .5 mL; IM; Left Arm; Mfg: Sanofi Pasteur; Lot: [id number]; VIS given (Itz: 06/28/2015). [facility] Tdap Vaccine Tdap Vaccine 07495 12/08 MAK ROBERTS Tdap; Series #: 1; .5 mL; IM; Right Arm; Mfg: Other; Lot: [id number]; VIS given (Itz: 05/23/14). DoD Immunization Administration By Injection, One Vaccine Immunization Administration By Injection, One Vaccine 6770112/08 MAK ROBERTS Immunization Administration By Injection, Each Additional Vaccine Immunization Administration By Injection, Each Additional Vaccine 6887512/08 MAK ROBERTS Audiometry Group Testing Audiometry Group Testing 70546 12/05 WENDY JOSHUA Threshold Audiogram (Pure Tone) Threshold Audiogram (Pure Tone) 44919 12/05 WENDY JOSHUA [employer] [facility] Fitting Monofocal Except For Aphakia [employer] [facility] Fitting Monofocal Except For Aphakia 54086 12/05 KEAGAN HAN Determination Of Refractive State Determination Of Refractive State 66051 12/05 KEAGAN HAN Visual Function Screening Visual Function Screening 81127 12/05 KEAGAN HAN Psychotherapy Individual Approximately 60 Minutes Psychotherapy Individual Approximately 60 Minutes 59033 01/27 ESTEBAN WONG Psychotherapy Individual Approximately 60 Minutes Psychotherapy Individual Approximately 60 Minutes 48873 01/18 ESTEBAN WONG Immunization Administration By Injection, One Vaccine Immunization Administration By Injection, One Vaccine 87861 01/18 CHARLENE THOMAS DoD Influenza Split Virus Vaccine IM Preserv Free 0.5mL Dosage Quadrivalent Influenza Split Virus Vaccine IM Preserv Free 0.5mL Dosage Quadrivalent 71793 01/18 CHARLENE THOMAS Influenza Seasonal, injectable quadrivalent - preservative free; Series #: 1; .5 mL; IM; Left Arm; g: Realitycheck; Lot: [id number]; VIS given (Itz: 11/03/2014). [facility] Determination Of Refractive State Determination Of Refractive State 72561 01/13 CATY NEW Ophthalmological New Patient Start Comprehensive Care Ophthalmological New Patient Start Comprehensive Care 63395 01/13 CATY NEW Threshold Audiogram (Pure Tone) Automated Threshold Audiogram (Pure Tone) Automated [id number] 01/06 [place] DoD Psychotherapy Individual Approximately 30 Minutes Psychotherapy Individual Approximately 30 Minutes 24453 01/06 ESTEBAN WONG Psychotherapy Individual Approximately 60 Minutes Psychotherapy Individual Approximately 60 Minutes 56698 12/29 ESTEBAN WONG Psychotherapy Individual Approximately 60 Minutes Psychotherapy Individual Approximately 60 Minutes 07862 12/22 ESTEBAN WONG Preventive Medicine Administration Of Health Risk Questionnaire Patient-Focused Preventive Medicine Administration Of Health Risk Questionnaire Patient-Focused 65149 12/17 BRIANDA CASTILLO Psychotherapy Individual Approximately 60 Minutes Psychotherapy Individual Approximately 60 Minutes 16998 12/16 ESTEBAN WONG Psychotherapy Individual Approximately 60 Minutes Psychotherapy Individual Approximately 60 Minutes 16088 12/03 ESTEBAN WNOG Psychotherapy Individual Approximately 30 Minutes Psychotherapy Individual Approximately 30 Minutes 92124 11/23 CHU SMITH Psychotherapy With Medication Management Psychotherapy With Medication Management 96788 11/19 SOFIE JACOB Psychotherapy Individual Approximately 45 Minutes Psychotherapy Individual Approximately 45 Minutes 27735 11/19 SOFIE JACOB Psychotherapy Individual Approximately 45 Minutes Psychotherapy Individual Approximately 45 Minutes 17997 11/16 ESTEBAN WONG Psychotherapy Individual Approximately 60 Minutes Psychotherapy Individual Approximately 60 Minutes 95031 11/13 ESTEBAN WONG Case Management, each 15 minutes 11/13 BARBARA ARTEAGA Psychotherapy Individual Approximately 60 Minutes Psychotherapy Individual Approximately 60 Minutes 32258 11/11 ESTEBAN WONG Psychotherapy With Medication Management Psychotherapy With Medication Management 90713 11/06 SOFIE JACOB Psychotherapy Individual Approximately 45 Minutes Psychotherapy Individual Approximately 45 Minutes 77046 11/06 SOFIE JACOB Psychotherapy Individual Approximately 60 Minutes Psychotherapy Individual Approximately 60 Minutes 15427 11/05 ESTEBAN WONG Psychotherapy With Medication Management Psychotherapy With Medication Management 83196 10/29 SOFIE JACOB Psychotherapy Individual Approximately 45 Minutes Psychotherapy Individual Approximately 45 Minutes 72761 10/29 SOFIE JACOB Psychotherapy Individual Approximately 60 Minutes Psychotherapy Individual Approximately 60 Minutes 40663 10/29 ESTEBAN WONG Psychotherapy Individual Approximately 30 Minutes Psychotherapy Individual Approximately 30 Minutes 57923 10/26 ESTEBAN WONG Psychotherapy Individual Approximately 60 Minutes Psychotherapy Individual Approximately 60 Minutes 17796 10/15 ESTEBAN WONG Psychotherapy Individual Approximately 60 Minutes Psychotherapy Individual Approximately 60 Minutes 05480 10/14 ESTEBAN WONG Psychotherapy Individual Approximately 60 Minutes Psychotherapy Individual Approximately 60 Minutes 63998 10/13 ESTEBAN WONG Physical Therapy Service Re-Evaluation Physical Therapy Service Re-Evaluation 09603 10/09 TIMUR AVENDANO [facility] Psychotherapy With Medication Management Psychotherapy With Medication Management 43761 10/08 SOFIE JACOB Psychotherapy Individual Approximately 45 Minutes Psychotherapy Individual Approximately 45 Minutes 67572 10/08 SOFIE JACOB Psychotherapy Individual Approximately 30 Minutes Psychotherapy Individual Approximately 30 Minutes 76795 10/05 ESTEBAN WONG Psychotherapy Individual Approximately 45 Minutes Psychotherapy Individual Approximately 45 Minutes 93588 10/02 ESTEBAN WONG Case Management, each 15 minutes 09/29 GORGE BARKER Psychotherapy Individual Approximately 30 Minutes Psychotherapy Individual Approximately 30 Minutes 94792 09/28 ESTEBAN WONG [facility] Modalities Cryotherapy Cold Packs Modalities Cryotherapy Cold Packs 33781 09/24 CARLOZ LEI Taping Knee Taping Knee 19064 09/24 CARLOZ LEI Physical Therapy: ___ Se ion Segments, 15 Minutes Each Physical Therapy: ___ Session Segments, 15 Minutes Each 73118 09/24 CARLOZ LEI Psychotherapy With Medication Management Psychotherapy With Medication Management 50448 09/23 SOFIE JACOB Psychotherapy Individual Approximately 45 Minutes Psychotherapy Individual Approximately 45 Minutes 90364 09/23 SOFIE JACOB Psychotherapy Individual Approximately 60 Minutes Psychotherapy Individual Approximately 60 Minutes 85938 09/22 ESTEBAN WONG [facility] Modalities Cryotherapy Cold Packs Modalities Cryotherapy Cold Packs 97057 09/15 CARLOZ LEI E Bao Physical Therapy Mobilization Joint Physical Therapy Mobilization Joint 87882 09/15 CARLOZ LEI E Bao Physical Therapy: ___ Se ion Segments, 15 Minutes Each Physical Therapy: ___ Session Segments, 15 Minutes Each 06083 09/15 CARLOZ LEI E Bao Psychotherapy Individual Approximately 30 Minutes Psychotherapy Individual Approximately 30 Minutes 73604 09/11 ESTEBAN WONG Psychotherapy With Medication Management Psychotherapy With Medication Management 21841 09/11 SOFIE JACOB Psychotherapy Individual Approximately 45 Minutes Psychotherapy Individual Approximately 45 Minutes 33385 09/11 SOFIE JACOB Psychotherapy Individual Approximately 60 Minutes Psychotherapy Individual Approximately 60 Minutes 34220 09/10 ESTEBAN WONG [facility] Modalities Cryotherapy Cold Packs Modalities Cryotherapy Cold Packs 92209 09/09 CARLOZ LEI E Bao Physical Therapy: ___ Se ion Segments, 15 Minutes Each Physical Therapy: ___ Session Segments, 15 Minutes Each 45438 09/09 CARLOZ LEI Psychotherapy Individual Approximately 45 Minutes Psychotherapy Individual Approximately 45 Minutes 59808 09/08 ESTEBAN WONG Psychotherapy Individual Approximately 30 Minutes Psychotherapy Individual Approximately 30 Minutes 46615 09/03 ESTEBAN WONG [facility] Modalities Cryotherapy Cold Packs Modalities Cryotherapy Cold Packs 63075 09/02 CARLOZ LEI Taping Lower Back Taping Lower Back 52831 09/02 CARLOZ LEI E Bao Physical Therapy: ___ Se ion Segments, 15 Minutes Each Physical Therapy: ___ Session Segments, 15 Minutes Each 50108 09/02 CARLOZ LEI E Bao Psychotherapy Individual Approximately 45 Minutes Psychotherapy Individual Approximately 45 Minutes 90969 08/25 ESTEBAN WONG Psychotherapy With Medication Management Psychotherapy With Medication Management 40399 08/13 SOFIE JACOB Psychotherapy Individual Approximately 45 Minutes Psychotherapy Individual Approximately 45 Minutes 09193 08/13 SOFIE JACOB [facility] Pelvic belt/harne /boot 08/13 TIMUR AVENDANO [facility] Physical Therapy Service Re-Evaluation Physical Therapy Service Re-Evaluation 37825 08/13 TIMUR AVENDANO [facility] Human Papilloma Virus Vaccine, Nonavalent Human Papilloma Virus Vaccine, Nonavalent 09151 08/11 VIVIENNE SANCHEZ HPV9; Series #: 1; .5 mL; IM; Left Arm; Mfg: Merck; Lot: [id number]; VIS given (Itz: 02/29/2016). [facility] Immunization Administration By Injection, One Vaccine Immunization Administration By Injection, One Vaccine 3156908/11 VIVIENNE SANCHEZ Immunization Administration By Injection, Each Additional Vaccine Immunization Administration By Injection, Each Additional Vaccine 6351508/11 VIVIENNE SANCHEZ Hepatitis B Vaccine (Active) Adult Dosage 3 Dose Schedule Hepatitis B Vaccine (Active) Adult Dosage 3 Dose Schedule 3037108/11 VIVIENNE SANCHEZ Hep B - Adult; Series #: 1; 1.0 mL; IM; Left Arm; Mfg: Realitycheck; Lot: [id number]; VIS given (Itz: 10/17/2015). [facility] Psychotherapy Individual Approximately 60 Minutes Psychotherapy Individual Approximately 60 Minutes 3048308/10 ESTEBAN WONG [facility] Psychotherapy Individual Approximately 45 Minutes Psychotherapy Individual Approximately 45 Minutes 2053007/27 ESTEBAN WONG Psychotherapy With Medication Management Psychotherapy With Medication Management 2240407/27 SOFIE JACOB Psychotherapy Individual Approximately 30 Minutes Psychotherapy Individual Approximately 30 Minutes 8428107/22 ESTEBAN WONG [facility] Psychotherapy With Medication Management Psychotherapy With Medication Management 8211207/22 SOFIE JACOB [facility] Psychotherapy Individual Approximately 45 Minutes Psychotherapy Individual Approximately 45 Minutes 5651007/22 SOFIE JACOB Psychotherapy Individual Approximately 30 Minutes Psychotherapy Individual Approximately 30 Minutes 6720307/21 ESTEBAN WONG [facility] Psychotherapy Individual Approximately 30 Minutes Psychotherapy Individual Approximately 30 Minutes 9465007/20 ESTEBAN WONG [facility] Psychotherapy Individual Approximately 30 Minutes Psychotherapy Individual Approximately 30 Minutes 1096307/10 ESTEBAN WONG [facility] Physical Therapy: ___ Se ion Segments, 15 Minutes Each Physical Therapy: ___ Session Segments, 15 Minutes Each 97970 07/09 BARBARA ALTAMIRANO [facility] Psychotherapy With Medication Management Psychotherapy With Medication Management 92683 07/09 SOFIE JACOB [facility] Psychotherapy Individual Approximately 45 Minutes Psychotherapy Individual Approximately 45 Minutes 35535 07/09 SOFIE JACOB [facility] Psychotherapy Individual Approximately 60 Minutes Psychotherapy Individual Approximately 60 Minutes 91433 07/06 ESTEBAN WONG [facility] Physical Therapy: ___ Se ion Segments, 15 Minutes Each Physical Therapy: ___ Session Segments, 15 Minutes Each 63607 07/03 BARBARA ALTAMIRANO [facility] Psychotherapy Individual Approximately 45 Minutes Psychotherapy Individual Approximately 45 Minutes 04356 07/03 ESTEBAN WONG Psychotherapy Individual Approximately 60 Minutes Psychotherapy Individual Approximately 60 Minutes 08086 06/30 ESTEBAN WONG Physical Therapy: ___ Se ion Segments, 15 Minutes Each Physical Therapy: ___ Session Segments, 15 Minutes Each 79510 06/30 BARBARA ALTAMIRANO [facility] Physical Therapy: ___ Se ion Segments, 15 Minutes Each Physical Therapy: ___ Session Segments, 15 Minutes Each 75860 06/29 BARBARA ALTAMIRANO [facility] Patient Counseling Medical Management Individual Patient Patient Counseling Medical Management Individual Patient 59115 06/29 SAUL DAVILA [facility] Psychotherapy Individual Approximately 30 Minutes Psychotherapy Individual Approximately 30 Minutes 72173 06/25 ESTEBAN WONG Psychotherapy Individual Approximately 30 Minutes Psychotherapy Individual Approximately 30 Minutes 36597 06/23 ESTEBAN WONG Psychotherapy Individual Approximately 60 Minutes Psychotherapy Individual Approximately 60 Minutes 07650 06/23 ESTEBAN WONG [facility] Physical Therapy: ___ Se ion Segments, 15 Minutes Each Physical Therapy: ___ Session Segments, 15 Minutes Each 39420 06/22 BARBARA ALTAMIRANO [facility] Physical Therapy: ___ Se ion Segments, 15 Minutes Each Physical Therapy: ___ Session Segments, 15 Minutes Each 07759 06/19 BARBARA ALTAMIRANO [facility] Health And Behav A e mt Each Additional 15 Min Wilson e ment Health And Behav Assessmt Each Additional 15 Min Reassessment 08083 06/18 ESTEBAN WONG Psychotherapy Individual Approximately 45 Minutes Psychotherapy Individual Approximately 45 Minutes 66133 06/17 ESTEBAN WONG [facility] Psychotherapy Individual Approximately 60 Minutes Psychotherapy Individual Approximately 60 Minutes 46574 06/17 ESTEBAN WONG [facility] Physical Therapy Service Evaluation Moderate Complexity Physical Therapy Service Evaluation Moderate Complexity 25775 06/10 TIMUR AVENDANO [facility] Physical Therapy: ___ Se ion Segments, 15 Minutes Each Physical Therapy: ___ Session Segments, 15 Minutes Each 11063 06/10 TIMUR AVENDANO [facility] Psychotherapy Individual Approximately 45 Minutes Psychotherapy Individual Approximately 45 Minutes 41310 06/09 ORIENTAL ORTHODOXESTEBAN ESCOTO CAROLYNE [facility] Psychotherapy Individual Approximately 60 Minutes Psychotherapy Individual Approximately 60 Minutes 02104 06/09 ORIENTAL ORTHODOXESTEBAN ESCOTO CAROLYNE [facility] Brief communication technology-based service, e.g. [...] available appointment; 5-10 minutes of medical discu ion CARTER RAZO [facility] BRIEF COMM TECH-BASE SERV,E.G. VIRT CHK-IN,BY PHYS/OTH QUAL HCP,RPT E&M SERV,PROV TO EST PT,NOT ORIG FRM REL E/M SERV PROV W/IN PREV 7DAY NOR LEAD TO E/M SRV/PX W/IN NEXT 24HR/SOON MIRIAM; 5-10 MIN DISC 07/31 [facility] HEPATITIS B VACCINE (HEPB), PEDIATRIC/ADOLESCENT DOSAGE, 3 DOSE SCHEDULE, FOR INTRAMUSCULAR USE 01/09 [facility] PATIENT EDUCATION, NOT OTHERWISE CLASSIFIED, NON-PHYSICIAN PROVIDER, GROUP, PER SESSION 12/18 [facility] INJECTION, PENICILLIN G BENZATHINE, 100,000 UNITS 12/08 [facility] AUDIOMETRIC TESTING OF GROUPS 12/05 [facility] DETERMINATION OF REFRACTIVE STATE 12/05 DoD PSYCHOTHERAPY, 60 MINUTES WITH PATIENT 01/27 [facility]D IMMUNIZATION ADMINISTRATION (INCLUDES PERCUTANEOUS, INTRADERMAL, SUBCUTANEOUS, OR INTRAMUSCULAR INJECTIONS); 1 VACCINE (SINGLE OR COMBINATION VACCINE/TOXOID) 01/18 DoD PSYCHOTHERAPY, 60 MINUTES WITH PATIENT 01/18 DoD DETERMINATION OF REFRACTIVE STATE 01/13 [facility] PURE TONE AUDIOMETRY (THRESHOLD), AUTOMATED; [...] &/ROWDY ASSESS FUNC OUTCOME TYP,20 MIN SPENT [id number] W PAT&/FAM 10/09 [facility] PHARMACOLOGIC MANAGEMENT, INCLUDING PRESCRIPTION AND [...] TO THE CODE FOR PRIMARY PROCEDURE) 09/23 [facility] APPLICATION OF A MODALITY TO 1 OR [...] EDUCATION &TRAINING, PATIENT SELF-MGT QUALIFIED, NONPHYSICIAN HEALTH MUSHROOM CULTIVATOR USING STDIZED CURRICULUM, [id number] W THE PATIENT (COULD INCL CAREGIVER/FAMILY) EA [...] PSYCHOPHYSICOLOGICAL MON, HEALTH-ORIENTED QUESTIONNAIRES), EACH 15 MIN [id number] WITH THE PATIENT; RE-ASSESS 06/18 [facility]D PSYCHOTHERAPY, [...] 1 VACCINE (SINGLE OR COMBINATION VACCINE/TOXOID) 03/12 [facility] No data available for this section Ambulatory Pharmacy Social History Combined list of available smoking, tobacco, and other social history from Department of Defense and Veterans Affairs facilities. Social History Type Response Date Comment [facility] e Tobacco smoking status NHIS VA-TOBACCO NEVER USED 06/06/2021 [facility] FED [...] Plan No data available for this section 03/07/2024 Ambulatory Pharmacy Functional Status Combined list of recent functional and cognitive assessments recorded at Department of Defense and Veterans Affairs (VA).VA Functional [place] Measurement (FIM) Scale: 1 = Total Assistance (Subject = 0% +), 2 = Maximal Assistance (Subject = 25% +), 3 = Moderate Assistance (Subject = 50% +), 4 = Minimal Assistance (Subject = 75% +), 5 = Supervision, 6 = Modified [place] (Device), 7 = Complete [place] (Timely, Safely). Assessment Date/Time Source Assessment Type Assessment Skill Assessment Score Assessment Details No data available for this section
--- OUTSIDE RECORDS SUMMARY | 2024-03-07 11:02 | XMS_ITS | Clinical Summary ---
Author Organization [employer] [facility] Address [place], [place] [address] Care Team Providers Care C Winforms Developer Name Role Phone Ariela Machado MD Primary Care Provider [phone] Ariela Machado MD Unavailable [phone] Allergies Active Allergy Reactions Criticality Noted Date Comments Bupropion Other - Describe In Comment Field Morphine Anaphylaxis,Rash High 04/21/2019 Medications vit/iron fum/folic ac ( 1 + 1 ORAL) Take by mouth. Activ e iron bisgly,ps-FA-B -C#12-succ 65 mg-65 mg -1,000 mcg (24) tab Take by mouth. 4 Active miconazole nitrate (MONISTAT 7) 2 % vaginal creamIndicatio ns:Vaginal yeast infection Insert 1 Applicatorful into the vagina at bedtime. 54 g 4 Active Active Problems Problem Noted Date Diagnosed Date anomaly suspected but not found 09/29/2023 [facility] Supervision of high-risk 4 Overview (09/25/2023): [...] []CVS []Amnio [] BMI > 40 [] Game Agent - Language [] [place] Insurance: Location Specialty Days Any [facility] Clinic [] In-person [] Virtual [] Either N/A Comments: RN: Gail Swenson RN Manager Mail: REGINE GC: DANIEL DING/Provider: Date:09/25/2023 Urgency: BLANCA []Can be sooner [] Can be split Jeannie Alberto Foster : 1995 REFERRING PROVIDER/CLINIC LOCATION/FAX #: Ariela Machado MD - Elizabeth Fish MD approves scheduling of recommended ultrasounds/testing: Yes [facility] ULTRASOUND/TESTING PATIENT [facility] CONSULT ON Support person name: Navin [...] Date Resolved Date COVID-19 virus infection 02/17/2020 Immunizations Name Administration Dates Next Due Adenovirus [...] Recorded Sex Assigned at Not on file Legal Sex 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 Gender Identity Not on file Sexual Orientation Not on file Occupation Industry Job Start Date Job End Date Not on file Not on file Not on file Not on file Obstetrics History Para Term AB IAB SAB Ectopic Multiple Livin g Live Births 1 Date Outcome GA Total Labor Labor/2nd/3rd Weight Sex Type Anes PTL Oralia A1 A5 Name Clin Current Summary Episode Dates Number of Fetuses Estimated Date of Delivery 08/28/2023 - Present (03/07/2024) 1 04/21/2024 (set by Ariela Machado MD on 09/25/2023 based on Last Menstrual Period on 07/16/2023) Dating Summary Based On DANAY GA Diff Last Menstrual Period on 07/16/2023 04/21/2024 Working Ultrasound on 09/21/2023 04/16/2024 +5d GA:10w2d Alternate DANAY Entry 04/21/2024 Same Vitals Pregravid Weight Height TWG (As of 03/07/2024) Pregrav id BMI 57.2 kg (126 lb) [...] center she has become close to the chaperone providers and appreciates how they deliver babies. We discuss that I do water births, but certainly support her to transfer care if that is what she desires. Recommend follow up with them in 4 weeks for transfer of care. Ariela Machado MD .................... 12/02/2023 4:45 PM CC: [facility] Progress Notes - OB Encounte r - [...] Machado MD .................... 10/21/2023 10:37 AM CC: [facility] Progress Notes - Hospital En counter - 09/28/2023 - GA:10w4d 09/28/2023 - w - Alphonse Boston MD [facility] Ultrasound Visit Your patient had an ultrasound with [facility] on 09/28/2023. The report is ready and can be found in the Results review [facility]. Recommendations regarding further care are listed [...] at 20 weeks. If you would like [facility] to perform this follow up Ultrasound, [...] a video of her ultrasound at the [facility] from that morning (09/28/2023) that purportedly [...] as needed. Medical Decision Making Low Level [address] Minimal Diagnoses including one self limited problem: with discrepant outside [place] Limited Data including review of prior ultrasound and review of prior external notes Minimal risk of morbidity to the fetus from additional testing. 09/28/2023 - 10w4d - Bea Ruby i, MS, [facility] [place] Note Genetic Counseling RE: eJannie Foster : 1995 MR: [id number] Partner name: Navin - present for today's visit Referred By: Ariela Machado MD Indication for Visit: Possible hydrops and determination of warren vs twin gestation History: Estimated Date of Delivery: 04/21/24 by LMP, confirmed by ultrasound GAA: 10w4d Complete genetic screening/testing: Low risk cell free DNA screening ([id number]) for Trisomies 21, 18, 13, sex chromosome [...] skin. Other symptoms of the condition include pxlmnm-ccec-hnqdly amounts of amniotic fluid (polyhydramnios) and a [...] The low risk cell-free DNA screening test ([id number]) decreases the risk for this to be [...] reports on the free outside clinic and [facility]. She has not looked into hydrops and [...] to proceed with her scheduled ultrasound after today s consult. Please see the corresponding report for final impressions and recommendations. Thank you for allowing us to participate in your patient's care. Please do not hesitate to contact me with any additional questions or concerns. Sincerely, Bea Nicolas MS, [facility] Licensed Genetic Counselor Total time: 30 minutes in person Total time preparing to see this patient, nvll-ej-qpub time, and coordinating care time on the same calendar date: 35 minutes. [facility] [place] [address], [address] [place] [address] Progress Notes - OB Encounte r - 09/25/2023 - GA:10w1d 09/25/2023 - 10w1d - Flaca Machado MD Clinic Note: First OB Visit 09/25/2023 Jeannie Foster is a 27 y.o. with Estimated Date of Delivery: 04/21/24, here today for a first visit. FOB Navin is here today. Has been having headaches [...] little overwhelming at times. US at [facility])- showed twin gestation. (8 week [address] days). [address] [facility]-- had ultrasound at 8 week 1day-- showed warren (did have incomplete fusion of amnion and chorion) [facility]-- had another ultrasound 09/21/2023- 10w2d. Possible mild hydrops. 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 /Father of baby: Navin MENSTRUAL HISTORY [...] Socioeconomic History Marital status: Occupational History Employer: [employer] Tobacco Use Smoking status: Former Current packs/day: [...] lb) LMP 07/16/2023 SpO2 100% BMI 24.00 kg/m General Appearance: Alert, well-developed, well-nourished, with appropriate [...] Patient has had 4 ultrasound. 2 at [facility] that showed twin gestation. 2 at [facility] that showed warren. Most recent showed concern for mild hydrops and ADRIAN. Bedside ultrasound shows Will send to perinatology for follow up imaging and further evaluation. Did have NIPT drawn at [facility]-- will alert me when this results is available. Discussed mental health and offered resources for therapy, medications. She will reach out as needed. Reviewed OB labs. Follow up in 4 weeks, sooner with concerns. Total time preparing to see this patient, xnqa-av-vzjv time, and coordinating care time on the same calendar date: 45 minutes. Ariela Machado MD .................... 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 Name of Partner [...] of estimated date of delivery: No Thalassemia (Peruvian, Sierra Leonean, Mediterranean, or background): MCV less than 80: No Neural tube defect (Meningomyelocele, Spina bifida, or Anencephaly): No Congenital heart defect: No Down syndrome: No Elver-Sachs (Ashkenazi Presybeterian, Cajun, Canadian O'Brien): No George disease (Ashkenazi Presybeterian): No Familial dysautonomia (Ashkenazi Presybeterian): No Sickle cell disease or trait (): No Hemophilia or other blood disorders: No Muscular dystrophy: No Cystic fibrosis: No [place]a's chorea: No Intellectual disability and/or autism: Yes [...] lb 6.4 oz) LMP 07/16/2023 BMI 23.88 kg/m No results found for: PREGURINE ASSESSMENT/PLAN: ICD-10-CM 1. Encounter for supervision of normal first in first trimester Z34.01 CBC W PLT NO DIFF ANTI HIV 1/2 URINE CULTURE TYPE AND SCREEN RUBELLA IMMUNE STATUS TREPONEMA PALLIDUM HBSAG (HBS) ANTI HCV BROADCAST SUPERVISOR PROBE - GC CHLAMYDIA DNA PCR [[id number]] URINALYSIS W REFLEX MICROSCOPIC IF POSITIVE [56971.2] US 1ST TRIMESTER (< 14 weeks) [75423.0] EDUCATION/PATIENT INSTRUCTIONS - Advised patient to start/continue vitamin. - Discussed risk of using alcohol, tobacco, other drugs in . - Discussed healthy lifestyle in . - Provided copy of Beginnings book and book inserts, discussed yglu-lak-dmgjsrd medications, and follow up. - Encouraged patient to call clinic at [phone] with any vaginal bleeding, fluid leaking from [...] Center 09/25/2023 8:45 AM Ariela Machado MD [facility] Marilyn Tilley RN .................... 08/28/2023 10:33 AM Last Filed Vital Signs Vital Sign Reading Time Taken Comments Blood Pressure 97/62 12/02/2023 4:37 PM CDT Pulse 75 12/02/2023 4:37 PM CDT Temperature 36.3 C (97.4 F) 08/20/2022 11:03 AM CDT Respiratory Rate 18 04/23/2022 5:40 PM FACILITIES ADMINISTRATOR Oxygen Saturation 100% 12/02/2023 4:37 PM CDT [...] Additional history exists COVID-19 vaccine series ( - season) 2023 05/31/2021, 04/27/2021 Influenza for age [...] Procedure Name Priority Date/Time Associated Diagnosis Comments HPV HIGH RISK Routine 09/11/2023 9:00 AM CDT ANTI HIV 1/2 Routine 08/28/2023 11:14 AM CDT Encounter for supervision of normal first in first trimester ANTI HCV Routine 08/28/2023 11:14 AM CDT Encounter for supervision of normal first in first trimester from Last 3 Months or Most Recently Relevant to Health Maintenance Results * HPV HIGH RISK (09/11/2023 9:00 AM CDT) TYPE 16 Negative Negative 09/16/2023 6:04 AM CDT [facility] TYPE 18 Negative Negative 09/16/2023 6:04 AM CDT [facility] OTHER HIGH RISK TYPES Negative Negative 09/16/2023 6:04 AM CDT [facility] Other (Cervical) 09/11/2023 9:00 AM CDT 09/14/2023 12:50 PM [facility] 09/16/2023 6:04 AM CDT HPV types 16, 18, 31, 33, 35, 39, 45, 51, 52, 56, 58, 59, 66 and 68 DNA were undetectable or below the pre-set threshold. Methodology: Saniya Dani 4800 HPV Test us Tonya Scruggs ACCOUNT TECHNICIAN MICROBIOLOGY Final Res ult Performing Organization Address [facility] Co de Phone Number [facility] [address] [place] [address], * ANTI HCV (08/28/2023 11:14 AM CDT) HEPATITIS C ANTIBODY Non-Reacti ve Non-React kyara 08/28/2023 11:39 PM CDT [facility] Comment:Please note, per www [...] 11:14 AM CDT 08/28/2023 11:17 AM CDT us Ariela Machado MD SEND OUTS Final Resul t Performing Organization Address [facility] de Phone Number [facility] [address] [place] [address], * ANTI HIV 1/2 (08/28/2023 11:14 AM CDT) HIV-1/HIV-2 SCREEN Non-Reacti ve Non-Reacti ve 08/28/2023 11:42 PM CDT [facility] Comment:HIV-1 p24 and HIV-1/ HIV-2 Ab Not Detected. Blood BLOOD SPECIMEN / Unknown Venipuncture / Unknown 08/28/2023 11:14 AM CDT 08/28/2023 11:17 AM CDT us Ariela Machado MD SEND OUTS Final Resul t Performing Organization Address City/[facility] Co de Phone Number [facility] [address] [place] [address], from Last 3 Months or Most Recently Relevant to Health Maintenance Insurance Care Teams C Winforms Developer Relationship Specialty Start Date End Date Ariela Machado MD [address] [place] [address] PCP - General Family Practice 08/04/19 Ariela Machado MD [address] [place] [address] Referring Provider Family Practice 09/25/23
--- NOTE | 2024-03-07 12:00 | CRLHL7_ITS ---
For Patients: As a result of the Century Cures Act, medical imaging exams and procedure reports are released immediately into your electronic medical record. You may view this report before your referring provider. If you have questions, please contact your health care provider. OB UTRASOUND LMP: 07/16/2023. DANAY by LMP: 04/21/2024. GA: 33 w, 4 d. Single. INDICATION: Decreased movement. CERVIX: Not visualized. POSITIONING: Breech. AMNIOTIC FLUID: 6.0 cm. BIOPHYSICAL PROFILE: Total score: 8. Gross body movements: 2. tone: 2. Respiratory activity: 2. Amniotic fluid: 2. (SDP N: Increase 2 x 1 cm) PLACENTA: Technique: Transabdominal. PLACENTA POSITION: Posterior. DOPPLER: heart rate: 159 bpm. IMPRESSION: Normal biophysical profile score of 8/8. Franki Pedersen M.D. Body/Diagnostic Radiologist [email or web address] JANE/sheree bentley/Dictated by: Franki Pedersen MD @ 03/08/2024 9:49:00 AM (Electronically Signed)
== END 2024-03-07 11:00 | disposition home or self-care (01) ==
PROVIDERS: PCP Family Medicine; Visit Provider Advanced Practice Midwife
DX: O36.8130 Decreased fetal movements, third trimester, not applicable or unspecified (principal); Z3A.33 33 weeks gestation of pregnancy; N89.0 Mild vaginal dysplasia; F41.9 Anxiety disorder, unspecified
CPT/HCPCS: 76819

== ENCOUNTER 2024-03-07 11:56 | Outpatient (CLI) | payer OTHER, SELFPAY ==
--- OUTSIDE RECORDS SUMMARY | 2024-03-07 20:34 | XMS_ITS | Continuity of Care Document ---
Author Name [facility] Organization [facility] Care Team Providers Care Supervisor Put[employer] Caluk[employer] Name Role Phone [facility] Unavailable Unavailable Problems Combined list of problems from Department of Defense and Veterans Affairs facilities. It does not include entries that were removed or entered in error. Problem Status Onset Date Problem Type Date of Resolution Comme nts Source Encounter for other specified special examinations Active 12/30/2016 Condition DoD Overweight Active Condition [facility] Medications Combined list of outpatient medications from Department of Defense and Veterans Affairs facilities.Medications provided include 1) outpatient medications from the last 15 months, and 2) patient-reported medications. Medication Details Route Status Patient Instructions Prescription Expires Prescription Number Last Dispense Date Ordering Provider Order Date Order Qty Source PREDNISONE (prednisone ), 20 MG, TABLET, ORAL, NOVITIUM/AN I PH, 500 ea. BOTTLE Active [id number] 2023 5 Pharmac y Data Transac tion Service Facilit y Allergies, Adverse Reactions, Alerts Combined list of allergies from Department of Defense and Veterans Affairs facilities. It does not include entries that were removed or entered in error. Substance Category Reaction Severity Reaction type Status Date Reported Comments Source BUPROPION Propensity to adverse reactions to drug (finding) Suicidal thoughts active 9 [facility] morphine Propensity to adverse reactions to drug Swelling of oral cavity structure, Anaphylaxis Active 8 [facility] MORPHINE Propensity to adverse reactions to drug (finding) Anaphylaxis active 9 [facility] MORPHINE (MORPHINE SULFATE) Drug allergy (disorder) Rash, Swelling of oral cavity structure active 8 [facility] Cassandra n Immunizations Combined list of available immunizations from the Department of Defense and Veterans Affairs facilities. Immunization Series Date Given Administered By Site Reaction Lot Number CVX Code Drug Dehydrator Operator Status Comments Source INFLUENZA, INJECTABLE, QUADRIVALENT 2018 158 complet ed Partner: [facility]. Administe red by: [facility] Clinician (NPI=Not Provided) . Partner 0 Lot#: [id number] Mfr: SEQIRUS MARTINAP ANDRÉS [facility] influenza, injectable, quadrivalent- pf 2017 zzLef t Arm [id number] 150 GlaxoSmithKli ne complet ed influenza , injectabl e, quadrival ent-pf 01/18/18 Given Ambulat ory Pharmac y Influenza, injectable, quadrivalent, preservative free 1 2017 CHARLENE THOMAS V [id number] 150 Smithine ([facility]) complet ed Influenza , injectabl e, quadrival ent, preservat kyara free DoD influenza, injectable, quadrivalent- pf 2017 [id number] 150 GlaxoSmithKli ne complet ed influenza , injectabl e, quadrival ent-pf 01/14/18 Given Ambulat ory Pharmac y Influenza, injectable, quadrivalent, preservative free 0 2017 [id number] 150 [facility] complet ed Influenza , injectabl e, quadrival ent, preservat kyara free DoD Human Papillomaviru s 9-valent vaccine 2017 zzLef t Arm [id number] Merck & Company Inc complet ed Human Papilloma virus 9-valent vaccine 08/11/17 Given Ambulat ory Pharmac y hepatitis B adult vaccine 2017 zzLef t Arm [id number] 43 GlaxoSmithKli ne complet ed hepatitis B adult vaccine 08/11/17 Given Ambulat ory Pharmac y hepatitis B vaccine, adult dosage 1 2017 VIVIENNE SANCHEZ [id number] 43 [facility] ([facility]) complet ed hepatitis B vaccine, adult dosage DoD Human Papillomaviru s 9-valent vaccine 1 2017 VIVIENNE SANCHEZ [id number] Merck (MSD) complet ed Human Papilloma virus 9-valent vaccine DoD influenza, injectable, quadrivalent- pf 2016 zzLef t Arm [id number] 150 GlaxoSmithKli ne complet ed influenza , injectabl e, quadrival ent-pf 03/12/17 Given Ambulat ory Pharmac y Influenza, injectable, quadrivalent, preservative free 1 2016 MIGUELANGEL BILLINGSLEY [id number] 150 [facility] complet ed Influenza , injectabl e, [...] DoD poliovirus vaccine, inactivated 2016 zzHi Arm [id number] 10 sanofi pasteur complet ed polioviru s vaccine, inactivat ed 01/09/17 Given Ambulat ory Pharmac y hepatitis B pediatric/ado lescent 2016 zzLef t Arm [id number] 08 GlaxoSmithKli ne complet ed hepatitis B pediatric /adolesce nt 01/09/17 Given Ambulat ory Pharmac y hepatitis B vaccine, pediatric or pediatric/ado lescent dosage 2 2016 MAK ROBERTS [id number] 08 [facility] complet ed hepatitis B vaccine, pediatric or pediatric /adolesce nt dosage DoD poliovirus vaccine, inactivated 1 2016 MAK ROBERTS [id number] 10 Sanofi Pasteur ([facility]) complet ed polioviru s vaccine, inactivat [...] meningococcal A,C,Y,W-135 (MCV4P) 2016 zzLef t Arm [id number] 114 sanofi pasteur complet ed meningoco ccal A,C,Y,W-1 35 (MCV4P) 12/08/16 Given Ambulat ory Pharmac y hepatitis B pediatric/ado lescent 2016 zzLef t Arm [id number] 08 GlaxoSmithKli ne complet ed hepatitis B pediatric /adolesce nt 12/08/16 Given Ambulat ory Pharmac y adenovirus vaccine, live 2016 [id number] 143 Unknown complet ed adenoviru s vaccine, live 12/08/16 Given Ambulat ory Pharmac y hepatitis B vaccine, pediatric or pediatric/ado lescent dosage 1 2016 MAK ROBERTS [id number] 08 SmithKline (SK[facility]) complet ed hepatitis B vaccine, pediatric or pediatric /adolesce nt dosage DoD meningococcal polysaccharid e (groups A, C, Y and W-135) diphtheria toxoid conjugate vaccine (MCV4P) 1 2016 MAK ROBERTS [id number] 114 Sanofi Pasteur ([facility]) complet ed meningoco [...] 7, live, oral 1 2016 MAK ROBERTS [id number] 143 Other (OTH) complet ed Adenoviru [...] Source One or More A Facilitie s SALES OUTFITTER History 03/30 One or More A Facilit ies SALES OUTFITTER Nirmal Foster [facility](Op tometry [facility] 1523) OUTPATIENT [id number] Notes Entered by: KEAGAN HAN 05 Dec [id number] ------- ------- ------- ------- -- recruit screen KEAGAN HAN N 12/05 Released w/o Limitations [facility]( Optomet ry [facility] 1523) [facility](Au diology [facility] 1523) OUTPATIENT [id number] WENDY JOSHUA A 12/05 Released w/o Limitations [facility]( Audiolo gy HC 1523) [facility](Fe male Screening 1523) OUTPATIENT [id number] [facility] JUAN CARLOS LEÓN 12/08 Released w/o Limitations [facility]( Female Screeni ng 1523) [facility] [place](Im munizatio n 1523) OUTPATIENT [id number] Notes Entered by: LAMONT VIGIL ON L 08 Dec 2016 1022 ------- ------- ------- ------- -- P4 Immuniz ations ELENA ROQUE 12/08 Released w/o Limitations [facility]( Immuniz ation 1523) [facility](Co urage (White) 1007) OUTPATIENT [id number] NILDAFU LEG AFSHAN DAMON 12/11 [facility]( Courage (White) 1007) [facility] [place](Co urage (White) 1007) OUTPATIENT [id number] Cold Sx/Vomi tting TONY MESA V 12/18 [facility] s [facility]( Courage (White) 1007) [facility](We [facility] Female) OUTPATIENT [id number] Notes Entered by: SUNDEEP PARKS 18 Dec 2016 1333 ------- ------- ------- ------- -- SHEREE BARLOW 12/18 Released w/o Limitations [facility]( [facility]) [facility](Sp ecial Physicals [facility] 1007) OUTPATIENT [id number] ALEXA DEMPSEY Flaca 12/23 Released w/o Limitations [facility]( Special Physica ls [facility] 1007) [facility] [place] [place] [address]) OUTPATIENT [id number] Notes Entered by: JOHN CARTER 30 Dec 2016 1136 ------- ------- ------- ------- -- UMO Special Duty Physica l Review JOHN RIVERA 12/30 Released w/o Limitations [facility]( Special Physica ls [facility] 1007) [facility] [place](Im munizatio n 1523) OUTPATIENT [id number] Notes Entered by: LAMONT VIGIL 09 Jan 2017 0922 ------- ------- ------- ------- -- 5-2 Immuniz ations DAVE PATEL 01/09 Released w/o Limitations [facility]( Immuniz ation 1523) [facility](We ekend Mil Sick Call 1007) OUTPATIENT [id number] Notes Entered by: CARMEN TAYLOR 11 Jan 2017 0640 ------- ------- ------- ------- -- Cold STORRES Shepherd 01/11 Sick at Home/Quarter s [facility]( Weekend Mil Sick Call 1007) [facility] Preventiv e Med) OUTPATIENT [id number] Notes Entered by: MIGUELANGEL BILLINGSLEY 12 Mar 2017 1110 ------- ------- ------- ------- -- Flu Vx MIGUELANGEL BILLINGSLEY 03/12 Released w/o Limitations [facility] Andrade gilman([facility] C Prevent kyara Med) [facility] omar([facility] Undersea Medicine) OUTPATIENT [id number] Notes Entered by: MARIFER KAMINSKI 08 Apr 2017 0648 ------- ------- ------- ------- -- RANKIN/ upset SUDARSHAN [facility] 04/08 Sick at Home/Quarter s [facility] Andrade mukul([facility] C Underse a Medicin e) [facility] Cassandra nelson([facility] Medicine) OUTPATIENT [id number] Notes Entered by: MARIFER KAMINSKI 22 Apr 2017 0637 ------- ------- ------- ------- -- cold josettex SUDARSHAN BURT 04/22 Sick at Home/Quarter s [facility] Andrade mukul([facility] C Underse a Medicin e) [facility] Cassandra nelson([facility] Medicine) OUTPATIENT [id number] Notes Entered by: NEEL HALL 07 May 2017 1455 ------- ------- ------- ------- -- LBP MILAGRO ROBLEDO 05/07 Released w/o Limitations [facility] Andrade mukul([facility] C Underse a Medicin e) [facility] Cassandra nelson([facility] Medicine) OUTPATIENT [id number] back pain/so re throat JOSE ANGEL MULTANI 05/19 Released with Work/Duty Limitations [facility] Andrade mukul([facility] C Underse a Medicin e) [facility] Cassandra nelson([facility] Medicine) OUTPATIENT [id number] parul zamora dunia,con gestMILAGRO Melendez 05/27 Released w/o Limitations [facility] Andrade mukul([facility] C Underse a Medicin e) [facility] Cassandra nelson([facility] Medicine) OUTPATIENT [id number] nose bleeds, kylie hollins PETRONILO J 06/08 Released with Work/Duty Limitations [facility] Andrade mukul([facility] C Underse a Medicin e) [facility] Cassandra nelson([facility] Physical Therapy) OUTPATIENT [id number] Low back pain TIMUR AVENDANO 06/10 Released w/o Limitations [facility] Andrade mukul([facility] C Physica l Therapy ) [facility] Charlesviri n([facility] Physical Therapy) OUTPATIENT [id number] BARBARA ALTAMIRANO 06/15 Released w/o Limitations [facility] Andrade mukul([facility] C Physica l Therapy ) [facility] Charlesviri n([facility] Physical Therapy) OUTPATIENT [id number] BARBARA ALTAMIRANO 06/17 Released w/o Limitations [facility] Andrade gilman([facility] C Physica l Therapy ) [facility] Physical Therapy) OUTPATIENT [id number] BARBARA ALTAMIRANO 06/24 Released w/o Limitations [facility] Andrade gilman([facility] C Physica l Therapy ) [facility] n([facility] Physical Therapy) OUTPATIENT [id number] BARBARA ALTAMIRANO 06/29 Released w/o Limitations [facility] Andrade gilman([facility] C Physica l Therapy ) [facility] n([facility] OUTPATIENT [id number] Notes Entered by: ALDA BAUGH 29 Jun 2017 1000 ------- ------- ------- ------- -- smoking cessati on SAUL DAVILA 06/29 Released w/o Limitations [facility] Andrade gilman([facility] Occupat [facility]) [facility] Charles[facility]i n([facility] Physical Therapy) OUTPATIENT [id number] BARBARA ALTAMIRANO 07/01 Released w/o Limitations [facility] Andrade gilman([facility] C Physica l Therapy ) [facility] Undersea Medicine) OUTPATIENT [id number] Notes Entered by: ZOE THAKKAR 03 Jul 2017 1219 ------- ------- ------- ------- -- SUDARSHAN Buchanan 07/03 Released with Work/Duty Limitations [facility] Andrade gilman([facility] C Underse a Medicin e) [facility] Cassandra nelson([facility] Undersea Medicine) OUTPATIENT [id number] PT F/U JOSE ANGEL MULTANI 07/03 Released w/o Limitations [facility] Andrade gilman([facility] C Underse a Medicin e) [facility] Physical Therapy) OUTPATIENT [id number] EVELIA BARBARA LINDSAY 07/06 Released w/o Limitations [facility] Andrade gilman([facility] C Physica l Therapy ) [facility] Psychiatr y Clinic) OUTPATIENT [id number] SOFIE PANTOJA 07/09 Released w/o Limitations [facility] Andrade gilman([facility] C Psychia try Clinic) [facility] n([facility]) TELE CONSULT [id number] Notes Entered by: MARIA DEL ROSARIO DAVILA 13 Jul 2017 1128 ------- ------- ------- ------- -- Tobacco Cessati on F/u SAUL DAVILA 07/13 Referred for Appointment [facility] Andrade mukul([facility] Occupat ional Health) [facility] Cassandra nelson([facility] Psychiatr y Clinic) OUTPATIENT [id number] f/u SOFIE JACOB 07/22 Released w/o Limitations [facility] Andrade gilman([facility] C Psychia try Clinic) [facility] Psychiatr y Clinic) OUTPATIENT [id number] F/U SOFIE JACOB 07/27 Released w/o Limitations [facility] Andrade gilman([facility] C Psychia try Clinic) [facility] n([facility]) TELE CONSULT [id number] Notes Entered by: MARIA DEL ROSARIO DAVILA 04 Aug 2017 1012 ------- ------- ------- ------- -- Tobacco cessati on follow up SAUL DAVILA 08/04 Referred for Appointment [facility] Andrade mukul([facility] Occupat ional Health) [facility] Cassandra nelson([facility] Undersea Medicine) TELE CONSULT [id number] Notes Entered by: MAYDA FELIZ 07 Aug 2017 0955 ------- ------- ------- ------- -- Network Results - Emergen cy 4.21.18 KOSTAPOLOJOSE ANGEL DURAN Leonie 08/07 [facility] Andrade gilman([facility] C Underse a Medicin e) [facility] Cassandra nelson([facility] Unders Medicine) TELE CONSULT [id number] Notes Entered by: MAYDA FELIZ 07 Aug 2017 0956 ------- ------- ------- ------- -- Network Results - Emergen cy 4.23.18 DEEJAYCHARLEEN DURANSUSSY Hadley 08/07 [facility] Andrade gilman([facility] Underse a Medicin e) [facility] Cassandra nelson([facility] Health [facility]) OUTPATIENT [id number] Notes Entered by: Bronson SANCHEZ 10 Aug 2017 1527 ------- ------- ------- ------- -- HEP#3, HPV#1 VIVIENNE SANCHEZ 08/10 Released w/o Limitations [facility] Andrade gilman([facility] Communi Health Clinic) [facility] Cassandra nelson([facility] Occupatio [facility]) OUTPATIENT [id number] HCW/BBF FABRIZIO ALVAREZ 08/13 Released w/o Limitations [facility] Andrade gilman([facility] Occupat ional Health) [facility] Cassandra nelson([facility] Psychiatr y Clinic) OUTPATIENT [id number] f/u SOFIE JACOB 08/13 Released w/o Limitations [facility] Andrade gilman([facility] C Psychia try Clinic) [facility] Cassandra nelson([facility] Physical Therapy) OUTPATIENT [id number] TIMUR AVENDANO 08/13 Released w/o Limitations [facility] Andrade gilman([facility] Physica l Therapy ) [facility] Med MHC Gold) TELE CONSULT [id number] Notes Entered by: JORDON SIMEON 28 Aug 2017 1027 ------- ------- ------- ------- -- June Rai tucker JORDON SIMEON Leonie 08/28 [facility] Andrade mukul([facility] C [facility] Med [facility] Gold) [facility] [place] [facility] Undersea Medicine) OUTPATIENT [id number] Notes Entered by: CHAD CAST 31 Aug 2017 1050 ------- ------- ------- ------- -- NAUSEA/ VOMITTI NG X2 DAYS SUDARSHAN BURT 08/31 Sick at Home/Quarter s [facility] Andrade gilman([facility] C Underse a Medicin e) [facility] Cassandra nelson([facility] Physical Therapy) OUTPATIENT [id number] CARLOZ LEI 09/02 Released w/o Limitations [facility] Andrade gilman([facility] C Physica l Therapy ) [facility] Cassandra nelson([facility] Physical Therapy) OUTPATIENT [id number] CARLOZ LEI 09/09 Released w/o Limitations [facility] Andrade gilman([facility] C Physica l Therapy ) [facility] Cassandra nelson([facility] Psychiatr y Clinic) OUTPATIENT [id number] F/U SOFIE JACOB 09/11 Released w/o Limitations [facility] Andrade gilman([facility] C Psychia try Clinic) [facility] Cassandra nelson([facility] Physical Therapy) OUTPATIENT [id number] CARLOZ LEI 09/14 Released w/o Limitations [facility] Andrade gilman([facility] C Physica l Therapy ) [facility] Cassandra n([facility] Undersea Medicine) OUTPATIENT [id number] CONNIE MCGINNIS 09/16 Released with Work/Duty Limitations [facility] Andrade gilman([facility] C Underse a Medicin e) [facility] Cassandra n([facility] Physical Therapy) OUTPATIENT [id number] CARLOZ LEI 09/23 Released w/o Limitations [facility] Andrade gliman([facility] C Physica l Therapy ) [facility] Psychiatr y Clinic) OUTPATIENT [id number] F/U SOFIE JACOB 09/23 Released w/o Limitations [facility] Andrade mukul([facility] C Psychia try Clinic) [facility] Cassandra n([facility] Case Managemen t) OUTPATIENT [id number] Notes Entered by: CRAOLINA PERES 29 Sep 2017 0752 ------- ------- ------- ------- -- LIMDU review for cc/cm needs GORGE PRITCHETT 09/29 Released w/o Limitations [facility] Andrade mukul([facility] C Case Managem ent) [facility] Cassandra nelson([facility] Undersea Medicine) OUTPATIENT [id number] Notes Entered by: SUDARSHAN ANDRADE 08 Oct 2017 0903 ------- ------- ------- ------- -- Cold Symptom s SUDARSHAN BURT 10/08 Sick at Home/Quarter s [facility] Andrade mukul([facility] C Underse a Medicin e) [facility] Psychiatr y Clinic) OUTPATIENT [id number] f/u SOFIE JACOB 10/08 Released w/o Limitations [facility] Andrade mukul([facility] C Psychia try Clinic) [facility] Physical Therapy) OUTPATIENT [id number] TIMUR Hebert 10/09 Released w/o Limitations [facility] Andrade mukul([facility] C Physica l Therapy ) [facility] [place] [facility] Psychiatr y Clinic) OUTPATIENT [id number] F/U SOFIE JACOB 10/27 Released w/o Limitations [facility] Andrade mukul([facility] C Psychia try Clinic) [facility] Psychiatr y Clinic) OUTPATIENT [id number] f/u SOFIE JACOB 11/05 Released w/o Limitations [facility] Andrade mukul([facility] C Psychia try Clinic) [facility] [place] [facility] Undersea Medicine) TELE CONSULT [id number] Notes Entered by: CAMILA WATERMAN 06 Nov 2017 1053 ------- ------- ------- ------- -- Network Results - Mental Health 11/05/17 VENESSA BAKER 11/06 [facility] Andrade gilman([facility] Underse a Medicin e) [facility] Cassandra nleson([facility] Undersea Medicine) OUTPATIENT [id number] F/U TCD VENESSA BAKER 11/12 Released w/o Limitations [facility] Andrade gilman([facility] Underse a Medicin e) [facility] Case Managemen t) OUTPATIENT [id number] Notes Entered by: Swati ARTEAGA 13 Nov 2017 1046 ------- ------- ------- ------- -- Case Managem ent BARBARA ARTEAGA 11/13 Released w/o Limitations [facility] Andrade gilman([facility] Case Managem ent) [facility] Psychiatr y Clinic) OUTPATIENT [id number] F/U SOFIE JACOB 11/17 Released w/o Limitations [facility] Andrade gilman([facility] Psychia try Clinic) [facility] Undersea Medicine) OUTPATIENT [id number] spider bite/he VENESSA Devine 11/26 Released w/o Limitations [facility] Andrade gilman([facility] Underse a Medicin e) [facility] omar([facility] Occupatio nal Health) OUTPATIENT [id number] BRIANDA SHAW 12/17 Released w/o Limitations [facility] Andrade gilman([facility] Occupat ional Health) [facility] Andrade n([facility] Undersea Medicine) OUTPATIENT [id number] prt VENESSA Young 12/21 Released w/o Limitations [facility] Andrade gilman([facility] Underse a Medicin e) [facility] OUTPATIENT [id number] Notes Entered by: ZOE THAKKAR 25 Dec 2017 0822 ------- ------- ------- ------- -- Cold sx x1wk SUDARSHAN BURT 12/25 Sick at Home/Quarter s [facility] Andrade gilman([facility] Underse a Medicin e) [facility] Charlesviri n([facility] Hearing Conservat ion) OUTPATIENT [id number] Notes Entered by: RIVER ROBLES 06 Jan 2018 1348 ------- ------- ------- ------- -- Termina tion Audiogr am RIVER ROBLES 01/06 Released w/o Limitations [facility] Andrade gilman([facility] Hearing Conserv ation) [facility] Cassandra n([facility] Optometry Clinic) OUTPATIENT [id number] EYE EXAM CATY NEW 01/13 Released w/o Limitations [facility] Andrade gilman([facility] Optomet ry Clinic) [facility] Cassandra nelson([facility] Preventiv e Med) OUTPATIENT [id number] Notes Entered by: West THOMAS 18 Jan 2018 1102 ------- ------- ------- ------- -- Flu Vx CHARLENE THOMAS 01/18 Released w/o Limitations [facility] Andrade gilman([facility] Prevent kyara Med) [facility] Cassandra nelson([facility] Undersea Medicine) OUTPATIENT [id number] Ad Sep Pe VENESSA BAKER 02/01 Released w/o Limitations [facility] Andrade gilman([facility] C Underse a Medicin e) [facility] Undersea Medicine) OUTPATIENT [id number] 1 cold sx VENESSA BAKER 03/08 Released w/o Limitations [facility] Andrade mukul([facility] Underse a Medicin e) Procedures Combined list of: 1) Procedures from Department of Veterans Affairs facilities going back up to thelast 18 months, not all VA non-surgical procedures are included; 2) All procedures from the Department of Defense facilities. Procedure Procedure Type Code Date Perfomer Comments Sour e Psychotherapy Individual Approximately 45 Minutes Psychotherapy Individual Approximately 45 Minutes 69661 06/08 ESTEBAN WONG [facility] Influenza Split Virus Vaccine IM Preserv Free 0.5mL Dosage Quadrivalent Influenza Split Virus Vaccine IM Preserv Free 0.5mL Dosage Quadrivalent 55655 03/12 ANALILIAMIGUELANGEL CHRISTIANSON CATY Influenza Seasonal, injectable quadrivalent - preservative free; Series #: 1; .5 mL; IM; Left Arm; Mfg: SmithKline; Lot: [id number]; VIS given (Itz: 11/03/2014). DoD Immunization Administration By Injection, One Vaccine Immunization Administration By Injection, One Vaccine 70096 03/12 ANALILIA MIGUELANGEL BYRNE DoD Immunization Administration By Injection, One Vaccine Immunization Administration By Injection, One Vaccine 22699 01/09 MAK ROBERTS [facility] Immunization Administration By Injection, Each Additional Vaccine Immunization Administration By Injection, Each Additional Vaccine 0395401/09 MAK ROBERTS [facility] Vaccines Viral Polio, Inactivated Vaccines Viral Polio, Inactivated 94177 01/09 MAK ROBERTS IPV; Series #: 1; .5 mL; SC; Right Arm; Mfg: Sanofi Pasteur; Lot: [id number]; VIS given (Itz: 10/17/15; 02/01/15 - Multiple). [facility] Hepatitis B Vaccine (Active); [place] To 11 Years Hepatitis B Vaccine (Active); [place] To 11 Years 88361 01/09 MAK ROBERTS Hep B, adolescent or pediatric; Series #: 2; .5 mL; IM; Left Arm; Mfg: SmithAudioBooine; Lot: [id number]; VIS given (Itz: 10/17/2015). [facility] Patient education, not otherwise cla ified, non-physician provider, group, per se ion 12/18 SHEREE LATHAM [facility] Physician Supervised Injection Intramuscular Antibiotic Physician Supervised Injection Intramuscular Antibiotic 65285 12/08 MAK ROBERTS [facility] Injection, penicillin g benzathine, 100,000 units 12/08 MAK ROBERTS [facility] Immunization Admin Intranasal / Oral Each Additional Vaccine Immunization Admin Intranasal / Oral Each Additional Vaccine 54081 12/08 MAK ROBERTS [facility] Vaccines Adenovirus Type 4 Live, For Oral Use Vaccines Adenovirus Type 4 Live, For Oral Use 94844 12/08 MAK ROBERTS [facility] Vaccines Adenovirus Type 7 Live, For Oral Use Vaccines Adenovirus Type 7 Live, For Oral Use 16237 12/08 MAK ROBERTS [facility] Hepatitis B Vaccine (Active); [place] To 11 Years Hepatitis B Vaccine (Active); [place] To 11 Years 40621 12/08 MAK ROBERTS Hep B, adolescent or pediatric; Series #: 1; .5 mL; IM; Left Arm; Mfg: SmithKline; Lot: [id number]; VIS given (Itz: 10/17/2015). [facility] Meningococcal Polysaccharide Diphtheria Toxoid Conjugate Vaccine 12/08 MAK ROBERTS Meningococcal MCV4P; Series #: 1; .5 mL; IM; Left Arm; Mfg: Sanofi Pasteur; Lot: [id number]; VIS given (Itz: 06/28/2015). [facility] Tdap Vaccine Tdap Vaccine 68098 12/08 MAK ROBERTS Tdap; Series #: 1; .5 mL; IM; Right Arm; Mfg: Other; Lot: [id number]; VIS given (Itz: 05/23/14). DoD Immunization Administration By Injection, One Vaccine Immunization Administration By Injection, One Vaccine 8497112/08 MAK ROBERTS Immunization Administration By Injection, Each Additional Vaccine Immunization Administration By Injection, Each Additional Vaccine 3205812/08 MAK ROBERTS Audiometry Group Testing Audiometry Group Testing 20430 12/05 WENDY JOSHUA Threshold Audiogram (Pure Tone) Threshold Audiogram (Pure Tone) 13915 12/05 WENDY JOSHUA [employer] [facility] Fitting Monofocal Except For Aphakia [employer] [facility] Fitting Monofocal Except For Aphakia 46999 12/05 KEAGAN HAN Determination Of Refractive State Determination Of Refractive State 09686 12/05 KEAGAN HAN Visual Function Screening Visual Function Screening 88117 12/05 KEAGAN HAN Psychotherapy Individual Approximately 60 Minutes Psychotherapy Individual Approximately 60 Minutes 35605 01/27 ESTEBAN WONG Psychotherapy Individual Approximately 60 Minutes Psychotherapy Individual Approximately 60 Minutes 24669 01/18 ESTEBAN WONG Immunization Administration By Injection, One Vaccine Immunization Administration By Injection, One Vaccine 73244 01/18 CHARLENE THOMAS DoD Influenza Split Virus Vaccine IM Preserv Free 0.5mL Dosage Quadrivalent Influenza Split Virus Vaccine IM Preserv Free 0.5mL Dosage Quadrivalent 09402 01/18 CHARLENE THOMAS Influenza Seasonal, injectable quadrivalent - preservative free; Series #: 1; .5 mL; IM; Left Arm; g: Popbasic; Lot: [id number]; VIS given (Itz: 11/03/2014). [facility] Determination Of Refractive State Determination Of Refractive State 57674 01/13 CATY NEW Ophthalmological New Patient Start Comprehensive Care Ophthalmological New Patient Start Comprehensive Care 17252 01/13 CATY NEW Threshold Audiogram (Pure Tone) Automated Threshold Audiogram (Pure Tone) Automated [id number] 01/06 RIVER ROBLES DoD Psychotherapy Individual Approximately 30 Minutes Psychotherapy Individual Approximately 30 Minutes 99320 01/06 ESTEBAN WONG Psychotherapy Individual Approximately 60 Minutes Psychotherapy Individual Approximately 60 Minutes 38247 12/29 ESTEBAN WONG Psychotherapy Individual Approximately 60 Minutes Psychotherapy Individual Approximately 60 Minutes 01903 12/22 ESTEBAN WONG Preventive [facility] Administration Of Health Risk Questionnaire Patient-Focused Preventive Medicine Administration Of Health Risk Questionnaire Patient-Focused 02103 12/17 BRIANDA CASTILLO Psychotherapy Individual Approximately 60 Minutes Psychotherapy Individual Approximately 60 Minutes 83985 12/16 ESTEBAN WONG Psychotherapy Individual Approximately 60 Minutes Psychotherapy Individual Approximately 60 Minutes 46052 12/03 ESTEBAN WONG Psychotherapy Individual Approximately 30 Minutes Psychotherapy Individual Approximately 30 Minutes 57097 11/23 CHU SMITH Psychotherapy With Medication Management Psychotherapy With Medication Management 91546 11/19 SOFIE JACOB Psychotherapy Individual Approximately 45 Minutes Psychotherapy Individual Approximately 45 Minutes 17755 11/19 SOFIE JACOB Psychotherapy Individual Approximately 45 Minutes Psychotherapy Individual Approximately 45 Minutes 99941 11/16 ESTEBAN WONG Psychotherapy Individual Approximately 60 Minutes Psychotherapy Individual Approximately 60 Minutes 90483 11/13 ESTEBAN WONG Case Management, each 15 minutes 11/13 BARBARA ARTEAGA Psychotherapy Individual Approximately 60 Minutes Psychotherapy Individual Approximately 60 Minutes 59097 11/11 ESTEBAN WONG Psychotherapy With Medication Management Psychotherapy With Medication Management 88534 11/06 SOFIE JACOB Psychotherapy Individual Approximately 45 Minutes Psychotherapy Individual Approximately 45 Minutes 08902 11/06 SOFIE JACOB Psychotherapy Individual Approximately 60 Minutes Psychotherapy Individual Approximately 60 Minutes 41484 11/05 ESTEBAN WONG Psychotherapy With Medication Management Psychotherapy With Medication Management 80295 10/29 SOFIE JACOB Psychotherapy Individual Approximately 45 Minutes Psychotherapy Individual Approximately 45 Minutes 01410 10/29 SOFIE JACOB Psychotherapy Individual Approximately 60 Minutes Psychotherapy Individual Approximately 60 Minutes 21686 10/29 ESTEBAN WONG Psychotherapy Individual Approximately 30 Minutes Psychotherapy Individual Approximately 30 Minutes 56260 10/26 ESTEBAN WONG Psychotherapy Individual Approximately 60 Minutes Psychotherapy Individual Approximately 60 Minutes 79033 10/15 ESTEBAN WONG Psychotherapy Individual Approximately 60 Minutes Psychotherapy Individual Approximately 60 Minutes 61887 10/14 ESTEBAN WONG Psychotherapy Individual Approximately 60 Minutes Psychotherapy Individual Approximately 60 Minutes 22478 10/13 ESTEBAN WONG Physical Therapy Service Re-Evaluation Physical Therapy Service Re-Evaluation 51773 10/09 TIMUR AVENDANO [facility] Psychotherapy With Medication Management Psychotherapy With Medication Management 10399 10/08 SOFIE JACOB Psychotherapy Individual Approximately 45 Minutes Psychotherapy Individual Approximately 45 Minutes 82011 10/08 SOFIE JACOB Psychotherapy Individual Approximately 30 Minutes Psychotherapy Individual Approximately 30 Minutes 12172 10/05 ESTEBAN WONG Psychotherapy Individual Approximately 45 Minutes Psychotherapy Individual Approximately 45 Minutes 60269 10/02 ESTEBAN WONG Case Management, each 15 minutes 09/29 GORGE BARKER Psychotherapy Individual Approximately 30 Minutes Psychotherapy Individual Approximately 30 Minutes 51182 09/28 ESTEBAN WONG [facility] Modalities Cryotherapy Cold Packs Modalities Cryotherapy Cold Packs 20143 09/24 CARLOZ LEI Taping Knee Taping Knee 53155 09/24 CARLOZ LEI Physical Therapy: ___ Se ion Segments, 15 Minutes Each Physical Therapy: ___ Session Segments, 15 Minutes Each 02129 09/24 CARLOZ LEI Psychotherapy With Medication Management Psychotherapy With Medication Management 95320 09/23 SOFIE JACOB Psychotherapy Individual Approximately 45 Minutes Psychotherapy Individual Approximately 45 Minutes 35358 09/23 SOFIE JACOB Psychotherapy Individual Approximately 60 Minutes Psychotherapy Individual Approximately 60 Minutes 49627 09/22 ESTEBAN WONG [facility] Modalities Cryotherapy Cold Packs Modalities Cryotherapy Cold Packs 20106 09/15 CARLOZ LEI E Bao Physical Therapy Mobilization Joint Physical Therapy Mobilization Joint 03550 09/15 CARLOZ LEI E Bao Physical Therapy: ___ Se ion Segments, 15 Minutes Each Physical Therapy: ___ Session Segments, 15 Minutes Each 38488 09/15 CARLOZ LEI E Bao Psychotherapy Individual Approximately 30 Minutes Psychotherapy Individual Approximately 30 Minutes 49666 09/11 ESTEBAN WONG Psychotherapy With Medication Management Psychotherapy With Medication Management 72322 09/11 SOFIE JACOB Psychotherapy Individual Approximately 45 Minutes Psychotherapy Individual Approximately 45 Minutes 13471 09/11 SOFIE JACOB Psychotherapy Individual Approximately 60 Minutes Psychotherapy Individual Approximately 60 Minutes 30379 09/10 ESTEBAN WONG [facility] Modalities Cryotherapy Cold Packs Modalities Cryotherapy Cold Packs 69998 09/09 CARLOZ LEI E Bao Physical Therapy: ___ Se ion Segments, 15 Minutes Each Physical Therapy: ___ Session Segments, 15 Minutes Each 63416 09/09 CARLOZ LEI Psychotherapy Individual Approximately 45 Minutes Psychotherapy Individual Approximately 45 Minutes 63417 09/08 ESTEBAN WONG Psychotherapy Individual Approximately 30 Minutes Psychotherapy Individual Approximately 30 Minutes 80256 09/03 ESTEBAN WONG [facility] Modalities Cryotherapy Cold Packs Modalities Cryotherapy Cold Packs 42023 09/02 CARLOZ LEI Taping Lower Back Taping Lower Back 48583 09/02 CARLOZ LEI E Bao Physical Therapy: ___ Se ion Segments, 15 Minutes Each Physical Therapy: ___ Session Segments, 15 Minutes Each 74946 09/02 CARLOZ LEI E Bao Psychotherapy Individual Approximately 45 Minutes Psychotherapy Individual Approximately 45 Minutes 93454 08/25 ESTEBAN WONG Psychotherapy With Medication Management Psychotherapy With Medication Management 52615 08/13 SOFIE JACOB Psychotherapy Individual Approximately 45 Minutes Psychotherapy Individual Approximately 45 Minutes 59362 08/13 SOFIE JACOB [facility] Pelvic belt/harne /boot 08/13 TIMUR AVENDANO [facility] Physical Therapy Service Re-Evaluation Physical Therapy Service Re-Evaluation 12402 08/13 TIMUR AVENDANO [facility] Human Papilloma Virus Vaccine, Nonavalent Human Papilloma Virus Vaccine, Nonavalent 36750 08/11 VIVIENNE SANCHEZ HPV9; Series #: 1; .5 mL; IM; Left Arm; Mfg: Merck; Lot: [id number]; VIS given (Itz: 02/29/2016). [facility] Immunization Administration By Injection, One Vaccine Immunization Administration By Injection, One Vaccine 4106708/11 VIVIENNE SANCHEZ Immunization Administration By Injection, Each Additional Vaccine Immunization Administration By Injection, Each Additional Vaccine 7063908/11 VIVIENNE SANCHEZ Hepatitis B Vaccine (Active) Adult Dosage 3 Dose Schedule Hepatitis B Vaccine (Active) Adult Dosage 3 Dose Schedule 1441808/11 VIVIENNE SANCHEZ Hep B - Adult; Series #: 1; 1.0 mL; IM; Left Arm; Mfg: Popbasic; Lot: [id number]; VIS given (Itz: 10/17/2015). [facility] Psychotherapy Individual Approximately 60 Minutes Psychotherapy Individual Approximately 60 Minutes 1332908/10 ESTEBAN WONG [facility] Psychotherapy Individual Approximately 45 Minutes Psychotherapy Individual Approximately 45 Minutes 8005207/27 ESTEBAN WONG Psychotherapy With Medication Management Psychotherapy With Medication Management 9873607/27 SOFIE JACOB Psychotherapy Individual Approximately 30 Minutes Psychotherapy Individual Approximately 30 Minutes 5127307/22 ESTEBAN WONG [facility] Psychotherapy With Medication Management Psychotherapy With Medication Management 2899707/22 SOFIE JACOB [facility] Psychotherapy Individual Approximately 45 Minutes Psychotherapy Individual Approximately 45 Minutes 8941407/22 SOFIE JACOB Psychotherapy Individual Approximately 30 Minutes Psychotherapy Individual Approximately 30 Minutes 8746307/21 ESTEBAN WONG [facility] Psychotherapy Individual Approximately 30 Minutes Psychotherapy Individual Approximately 30 Minutes 7249807/20 ESTEBAN WONG [facility] Psychotherapy Individual Approximately 30 Minutes Psychotherapy Individual Approximately 30 Minutes 8723407/10 ESTEBAN WONG [facility] Physical Therapy: ___ Se ion Segments, 15 Minutes Each Physical Therapy: ___ Session Segments, 15 Minutes Each 32539 07/09 BARBARA ALTAMIRANO [facility] Psychotherapy With Medication Management Psychotherapy With Medication Management 52139 07/09 SOFIE JACOB [facility] Psychotherapy Individual Approximately 45 Minutes Psychotherapy Individual Approximately 45 Minutes 49752 07/09 SOFIE JACOB [facility] Psychotherapy Individual Approximately 60 Minutes Psychotherapy Individual Approximately 60 Minutes 71669 07/06 ESTEBAN WONG [facility] Physical Therapy: ___ Se ion Segments, 15 Minutes Each Physical Therapy: ___ Session Segments, 15 Minutes Each 74826 07/03 BARBARA ALTAMIRANO [facility] Psychotherapy Individual Approximately 45 Minutes Psychotherapy Individual Approximately 45 Minutes 69287 07/03 ESTEBAN WONG Psychotherapy Individual Approximately 60 Minutes Psychotherapy Individual Approximately 60 Minutes 18137 06/30 ESTEBAN WONG Physical Therapy: ___ Se ion Segments, 15 Minutes Each Physical Therapy: ___ Session Segments, 15 Minutes Each 53341 06/30 BARBARA ALTAMIRANO [facility] Physical Therapy: ___ Se ion Segments, 15 Minutes Each Physical Therapy: ___ Session Segments, 15 Minutes Each 30321 06/29 BARBARA ALTAMIRANO [facility] Patient Counseling Medical Management Individual Patient Patient Counseling Medical Management Individual Patient 70770 06/29 SAUL DAVILA [facility] Psychotherapy Individual Approximately 30 Minutes Psychotherapy Individual Approximately 30 Minutes 83093 06/25 ESTEBAN WONG Psychotherapy Individual Approximately 30 Minutes Psychotherapy Individual Approximately 30 Minutes 60994 06/23 ESTEBAN WONG Psychotherapy Individual Approximately 60 Minutes Psychotherapy Individual Approximately 60 Minutes 13452 06/23 ESTEBAN WONG [facility] Physical Therapy: ___ Se ion Segments, 15 Minutes Each Physical Therapy: ___ Session Segments, 15 Minutes Each 07673 06/22 BARBARA ALTAMIRANO [facility] Physical Therapy: ___ Se ion Segments, 15 Minutes Each Physical Therapy: ___ Session Segments, 15 Minutes Each 76656 06/19 BARBARA ALTAMIRANO [facility] Health And Behav A e mt Each Additional 15 Min [place] e ment Health And Behav Assessmt Each Additional 15 Min Reassessment 92898 06/18 ESTEBAN WONG Psychotherapy Individual Approximately 45 Minutes Psychotherapy Individual Approximately 45 Minutes 40200 06/17 ESTEBAN WONG [facility] Psychotherapy Individual Approximately 60 Minutes Psychotherapy Individual Approximately 60 Minutes 76432 06/17 ESTEBAN WONG [facility] Physical Therapy Service Evaluation Moderate Complexity Physical Therapy Service Evaluation Moderate Complexity 61902 06/10 TIMUR AVENDANO [facility] Physical Therapy: ___ Se ion Segments, 15 Minutes Each Physical Therapy: ___ Session Segments, 15 Minutes Each 24596 06/10 TIMUR AVENDANO [facility] Psychotherapy Individual Approximately 45 Minutes Psychotherapy Individual Approximately 45 Minutes 86388 06/09 PRESYBETERIANESTEBAN ESCOTO CAROLYNE [facility] Psychotherapy Individual Approximately 60 Minutes Psychotherapy Individual Approximately 60 Minutes 44150 06/09 PRESYBETERIANESTEBAN ESCOTO CAROLYNE [facility] Brief communication technology-based service, e.g. virtual check-in, [...] minutes of medical discu ion CARTER RAZO [facility] BRIEF COMM TECH-BASE SERV,E.G. VIRT CHK-IN,BY PHYS/OTH QUAL HCP,RPT E&M SERV,PROV TO EST PT,NOT ORIG FRM REL E/M SERV PROV W/IN PREV 7DAY NOR LEAD TO E/M SRV/PX W/IN NEXT 24HR/SOON MIRIAM; 5-10 MIN DISC 07/31 [facility] HEPATITIS B VACCINE (HEPB), PEDIATRIC/ADOLESCENT DOSAGE, 3 DOSE SCHEDULE, FOR INTRAMUSCULAR USE 01/09 [facility] PATIENT EDUCATION, NOT OTHERWISE CLASSIFIED, NON-PHYSICIAN PROVIDER, GROUP, PER SESSION 12/18 [facility] INJECTION, PENICILLIN G BENZATHINE, 100,000 UNITS 12/08 [facility] AUDIOMETRIC TESTING OF GROUPS 12/05 [facility] DETERMINATION OF REFRACTIVE STATE 12/05 DoD PSYCHOTHERAPY, 60 MINUTES WITH PATIENT 01/27 [facility]D IMMUNIZATION ADMINISTRATION (INCLUDES PERCUTANEOUS, INTRADERMAL, SUBCUTANEOUS, OR INTRAMUSCULAR INJECTIONS); 1 VACCINE (SINGLE OR COMBINATION VACCINE/TOXOID) 01/18 DoD PSYCHOTHERAPY, 60 MINUTES WITH PATIENT 01/18 DoD DETERMINATION OF REFRACTIVE STATE 01/13 [facility] PURE TONE AUDIOMETRY (THRESHOLD), AUTOMATED; AIR ONLY [...] &/ROWDY ASSESS FUNC OUTCOME TYP,20 MIN SPENT [id number] W PAT&/FAM 10/09 [facility] PHARMACOLOGIC MANAGEMENT, INCLUDING PRESCRIPTION AND REVIEW OF [...] TO THE CODE FOR PRIMARY PROCEDURE) 09/23 [facility] APPLICATION OF A MODALITY TO 1 OR [...] EDUCATION &TRAINING, PATIENT SELF-MGT QUALIFIED, NONPHYSICIAN HEALTH TAB CUTTER USING STDIZED CURRICULUM, [id number] W THE PATIENT (COULD INCL CAREGIVER/FAMILY) EA [...] PSYCHOPHYSICOLOGICAL MON, HEALTH-ORIENTED QUESTIONNAIRES), EACH 15 MIN [id number] WITH THE PATIENT; RE-ASSESS 06/18 [facility]D PSYCHOTHERAPY, [...] 1 VACCINE (SINGLE OR COMBINATION VACCINE/TOXOID) 03/12 [facility] No data available for this section Ambulatory Pharmacy Social History Combined list of available smoking, tobacco, and other social history from Department of Defense and Veterans Affairs facilities. Social History Type Response Date Comment [facility] e Tobacco smoking status NHIS VA-TOBACCO [...] Plan No data available for this section 03/08/2024 Ambulatory Pharmacy Functional Status Combined list of recent functional and cognitive assessments recorded at [facility] Defense and [facility] ([facility] Functional [place] Measurement (FIM) Scale: 1 = Total Assistance (Subject = 0% +), 2 = Maximal Assistance (Subject = 25% +), 3 = Moderate Assistance (Subject = 50% +), 4 = Minimal Assistance (Subject = 75% +), 5 = Supervision, 6 = Modified [place] (Device), 7 = Complete [place] (Timely, Safely). Assessment Date/Time Source Assessment Type Assessment Skill Assessment Score Assessment Details No data available for this section
--- OUTSIDE RECORDS SUMMARY | 2024-03-07 20:34 | XMS_ITS | Clinical Summary ---
Author Organization [facility] Address [place], [place] [address] Care Team Providers Care Implementation Director Name Role Phone Ariela Machado MD Primary Care Provider [phone] Ariela Machado MD Unavailable [phone] Allergies Active Allergy Reactions Criticality Noted Date [...] Date anomaly suspected but not found 09/29/2023 [facility] Supervision of high-risk 4 Overview (09/25/2023): [...] []CVS []Amnio [] BMI > 40 [] Media Analyst - Language [] [place] Insurance: Location Specialty Days Any [facility] Clinic [] In-person [] Virtual [] Either N/A Comments: RN: Gail Swenson RN Behavioral Therapy Coordinator: REGINE GC: DANIEL DING/Provider: Date:09/25/2023 Urgency: BLANCA []Can be sooner [] Can be split Jeannie Alberto Foster : 1995 REFERRING PROVIDER/CLINIC LOCATION/FAX #: Ariela Machado MD - Elizabeth Fish MD approves scheduling of recommended ultrasounds/testing: Yes [facility] ULTRASOUND/TESTING PATIENT [facility] CONSULT ON Support person name: Navin [...] on file Legal Sex Female 1:03 PM REGULATORY AFFAIRS INTERN Gender Identity Not on file Sexual Orientation [...] center she has become close to the attorney general providers and appreciates how they deliver babies. We discuss that I do water births, but certainly support her to transfer care if that is what she desires. Recommend follow up with them in 4 weeks for transfer of care. Ariela Machado MD .................... 12/02/2023 4:45 PM CC: [facility] Progress Notes - OB Encounte r - [...] Machado MD .................... 10/21/2023 10:37 AM CC: [facility] Progress Notes - Hospital En counter - 09/28/2023 - GA:10w4d 09/28/2023 - w - Alphonse Boston MD [facility] Ultrasound Visit Your patient had an ultrasound with [facility] on 09/28/2023. The report is ready and can be found in the Results review section of the [facility] chart. Recommendations regarding further care are listed [...] at 20 weeks. If you would like [facility] to perform this follow up Ultrasound, [...] a video of her ultrasound at the [facility] from that morning (09/28/2023) that purportedly [...] as needed. Medical Decision Making Low Level 02338 Minimal Diagnoses including one self limited problem: with discrepant outside US Limited Data including review of prior ultrasound and review of prior external notes Minimal risk of morbidity to the fetus from additional testing. 09/28/2023 - 10w4d - Bea Ruby i, MS, [facility] / Clinic Note Genetic Counseling RE: Jeannie Foster : 1995 MR: [id number] Partner name: Navin - present for today's visit Referred By: Ariela Machado MD Indication for Visit: Possible hydrops and determination of warren vs twin gestation History: Estimated Date of Delivery: 04/21/24 by LMP, confirmed by ultrasound GAA: 10w4d Complete genetic screening/testing: Low risk cell free DNA screening ([id number]) for Trisomies 21, 18, 13, sex chromosome [...] skin. Other symptoms of the condition include utahfp-zixs-hnonmf amounts of amniotic fluid (polyhydramnios) and a [...] The low risk cell-free DNA screening test ([id number]) decreases the risk for this to be [...] reports on the free outside clinic and [facility]. She has not looked into hydrops [...] questions or concerns. Sincerely, Bea Nicolas MS, [facility] Licensed Genetic Counselor Total time: 30 minutes in person Total time preparing to see this patient, osvn-ap-vbnk time, and coordinating care time on the same calendar date: 35 minutes. [facility] [place] [address], [address] [place] [address] Progress Notes - OB Encounte r - [...] little overwhelming at times. [facility] at [facility] ([facility])- showed twin gestation. (8 week 0 days). [facility] to [facility]-- had ultrasound at 8 week 1day-- showed warren (did have incomplete fusion of amnion and chorion) [facility]-- had another ultrasound 09/21/2023- 10w2d. Possible mild hydrops. 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 /Father of baby: Navin MENSTRUAL HISTORY [...] Socioeconomic History Marital status: Occupational History Employer: [employer] Tobacco Use Smoking status: Former Current packs/day: [...] Patient has had 4 ultrasound. 2 at [facility] that showed twin gestation. 2 at [facility] that showed warren. Most recent showed concern for mild hydrops and ADRIAN. Bedside ultrasound shows Will send to perinatology for follow up imaging and further evaluation. Did have NIPT drawn at [facility]-- will alert me when this results is available. Discussed mental health and offered resources for therapy, medications. She will reach out as needed. Reviewed OB labs. Follow up in 4 weeks, sooner with concerns. Total time preparing to see this patient, ofyz-sr-zxio time, and coordinating care time on the same calendar date: 45 minutes. Ariela Machado MD .................... 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..] STATUS TREPONEMA PALLIDUM HBSAG (HBS) ANTI HCV METEOROLOGICAL EQUIPMENT REPAIRER PROBE - GC CHLAMYDIA DNA PCR [FOQ5848] URINALYSIS W REFLEX MICROSCOPIC IF POSITIVE [61243.2] US 1ST TRIMESTER (< 14 weeks) [77348.0] EDUCATION/PATIENT INSTRUCTIONS - Advised patient to start/continue vitamin. - Discussed risk of using alcohol, tobacco, other drugs in . - Discussed healthy lifestyle in . - Provided copy of Beginnings book and book inserts, discussed fslc-tge-hvwjwas medications, and follow up. - Encouraged patient to call clinic at [phone] with any vaginal bleeding, fluid leaking from [...] Center 09/25/2023 8:45 AM Ariela Machado MD [facility] Marilyn Tilley RN .................... 08/28/2023 10:33 AM Last Filed Vital Signs Vital Sign Reading Time Taken Comments Blood Pressure 97/62 12/02/2023 4:37 PM CDT Pulse 75 12/02/2023 4:37 PM CDT Temperature 36.3 C (97.4 F) 08/20/2022 11:03 AM CDT Respiratory Rate 18 04/23/2022 5:40 PM REGULATORY AFFAIRS INTERN Oxygen Saturation 100% 12/02/2023 4:37 PM CDT [...] 09/16/2023 6:04 AM CDT [facility] TYPE 18 Negative Negative 09/16/2023 6:04 AM CDT [facility] OTHER HIGH RISK TYPES Negative Negative 09/16/2023 6:04 AM CDT [facility] Other (Cervical) 09/11/2023 9:00 AM CDT 09/14/2023 12:50 PM CDT [facility] - 09/16/2023 6:04 AM CDT HPV types 16, 18, 31, 33, 35, 39, 45, 51, 52, 56, 58, 59, 66 and 68 DNA were undetectable or below the pre-set threshold. Methodology: Saniya Dani 4800 HPV Test us Tonya Scruggs INTERVENTION TEACHER MICROBIOLOGY Final Res ult Performing Organization Address [facility] Co de Phone Number [facility] [address] [place] [address], * ANTI HCV (08/28/2023 11:14 AM CDT) HEPATITIS C ANTIBODY Non-Reacti ve Non-React kyara 08/28/2023 11:39 PM CDT [facility] Comment:Please note, per www [...] OUTS Final Resul t Performing Organization Address [facility] de Phone Number [facility] [address] [place] [address], * ANTI HIV 1/2 (08/28/2023 11:14 AM CDT) HIV-1/HIV-2 SCREEN Non-Reacti ve Non-Reacti ve 08/28/2023 11:42 PM CDT [facility] Comment:HIV-1 p24 and HIV-1/ HIV-2 Ab Not Detected. Blood BLOOD SPECIMEN / Unknown Venipuncture / Unknown 08/28/2023 11:14 AM CDT 08/28/2023 11:17 AM CDT us Ariela Machado MD SEND OUTS Final Resul t Performing Organization Address City/[facility] Co de Phone Number [facility] [address] [place] [address], from Last 3 Months or Most Recently Relevant to Health Maintenance Insurance Care Teams Implementation Director Relationship Specialty Start Date End Date Ariela Machado MD [address] [place] [address] PCP - General Family Practice 08/04/19 Ariela Machado MD [address] [place] [address] Referring Provider Family Practice 09/25/23
== END 2024-03-07 11:57 | disposition home or self-care (01) ==
LOC: NFLDREF 20:32
PROVIDERS: PCP Family Medicine; Referring Provider Family Medicine; Visit Provider Advanced Practice Midwife
DX: O36.8130 Decreased fetal movements, third trimester, not applicable or unspecified (principal); Z3A.31 31 weeks gestation of pregnancy; N89.8 Other specified noninflammatory disorders of vagina; F41.9 Anxiety disorder, unspecified
CPT/HCPCS: 82728

== ENCOUNTER 2024-03-21 14:10 | Outpatient (CLI) | payer OTHER, SELFPAY | END 2024-03-21 14:11 | disposition home or self-care (01) | PROVIDERS: PCP Family Medicine; Visit Provider Midwife | DX: O12.13 Gestational proteinuria, third trimester (principal); O12.03 Gestational edema, third trimester; Z3A.35 35 weeks gestation of pregnancy | CPT/HCPCS: 82565; 82570; 84156; 84450; 84460; 84520; 84550 ==

== ENCOUNTER 2024-03-28 10:10 | Outpatient (CLI) | payer OTHER, SELFPAY | END 2024-03-28 10:11 | disposition home or self-care (01) | PROVIDERS: PCP Family Medicine; Visit Provider Midwife | DX: O12.03 Gestational edema, third trimester (principal); O12.13 Gestational proteinuria, third trimester; Z3A.36 36 weeks gestation of pregnancy | CPT/HCPCS: 82565; 82570; 84156; 84450; 84460; 84520; 84550; 87081; 87653 ==

== ENCOUNTER 2024-04-04 13:37 | Outpatient (CLI) | payer OTHER, SELFPAY | END 2024-04-04 13:38 | disposition home or self-care (01) | PROVIDERS: PCP Family Medicine; Visit Provider Advanced Practice Midwife | DX: O12.13 Gestational proteinuria, third trimester (principal); Z3A.37 37 weeks gestation of pregnancy | CPT/HCPCS: 82565; 82570; 84156; 84450; 84460 ==

== ENCOUNTER 2024-04-17 18:24 | Outpatient (CLI) | payer OTHER, SELFPAY ==
[2024-04-17 18:42] VITALS: RESP 18; TEMP 36.6
[2024-04-17 18:49] VITALS: BP 124/74; PULSE 86
[2024-04-17 18:51] VITALS: BP 114/66; PULSE 95
[2024-04-17] MEDS: ACETAMINOPHEN 500 MG TABLET 1000 MG PO (19:16)
--- NOTE | 2024-04-17 20:17 | PC.OBNST ---
NST Note NST Note Start: 04/17/24 18:34 Freq: ONCE Status: Active Protocol: Document 04/17/24 20:15 STIVEN (Rec: 04/17/24 20:17 STIVEN [id number]) NST Note 1 Para (# of births) 0 EDC 04/21/24 Gestational Age In Weeks & Days 39 Weeks & 3 Days Patient Presented with Complaint(s) of Observation after an injury If Observation after an injury, describe Patient fell around 6pm today on the stairs Reactive Yes Appropriate for Gestational Age Yes SURINDER Hilton RNC Date 04/17/24 Reactive Yes Appropriate for Gestational Age Yes SURINDER Lauren RN Date 04/17/24 OB NST charge Yes Complete NST Note via Write Note Yes The provider's electronic signature indicates the NST is reactive/appropriate for gestational age. *Note to provider: If an addendum is required, open the patient's chart and click on the note under the Nurse/Allied Health tab.
== END 2024-04-17 20:15 | disposition home or self-care (01) ==
LOC: OB OUT 18:24 → OB 18:25
PROVIDERS: PCP Family Medicine; Visit Provider Advanced Practice Midwife
DX: O26.893 Other specified pregnancy related conditions, third trimester (principal); S29.9XXA Unspecified injury of thorax, initial encounter; Z3A.39 39 weeks gestation of pregnancy
CPT/HCPCS: 59025; G0463; A9270

== ENCOUNTER 2024-04-19 18:27 | Inpatient (IN) | payer OTHER, SELFPAY ==
[2024-04-19] VITALS (7 sets, daily range): BP systolic 106–116; BP diastolic 60–80; PULSE 83–126; TEMP 36.8; O2SAT 96–97; BMI 36.1
--- NOTE | 2024-04-19 18:40 | P.LDBA_ITS ---
Documented by User: Shanelle Wilkins CNM 04/19/24 20:08 Subjective History of Present Illness Narrative: Patient is being admitted to Labor and Delivery for elective induction of labor. She is a 28 year old at 39 weeks 5days gestation. Her full history and physical was dictated by Julee Lemons CNM on 04/04/24. Please see this for details. She reports feeling well today, denies any vaginal spotting/bleeding or leaking of fluid. Positive movement. Navin is bedside and supportive. Of note, some elevated BPs from home noted earlier this month. See visits. No elevations recorded in office or hospital as of yet, though. Problem list below Specific Issues/Plans G 1 P 0 RN on the center Transferred to Dr. Machado in early 10/05/23 and returned at 22.4 weeks H&P done by Julee Lemons CNM on 04/04/24 # Pt was told she had a twin at another facility, our US (x2) show warren gestation [facility] M visit with [facility]PP 09/28/2023. Possible two gestational sacs but only evidence of warren at this time. Records here. Low risk cell free DNA testing Genetic consult 09/28/2023 #Patient's twin brother with neurofibromatosis type 1 [id number]- low risk # Anxiety-started on Lexapro 10mg, pt only taking 5mg daily at 33.4wks, enc to increase history of anxiety and depression. Was treated with Zoloft in 2018. Has been without medication for some time and currently doing well. Her sister suffered from depression. She is somewhat worried about anxiety and depression. # history of PTSD from service #sister had PreE recommended baby ASA Baseline labs 02/09 for her anxiety r/t #Anemia recommended oral iron at 34 weeks, hgb 10.7 States taking about every third day 03/21/2024 #Proteinuria without diagnosis of HTN- .37PCR on 03/21/24-normotensive, but increased swelling. Consider repeat labs next visit. Pt checking BP at home. 0.47 PCR on 04/04/24, all other labs WNL, BP stable Ultrasound: 12/02/2023 Anatomy US: SIUP with no gross anomaly visualized. Posterior placenta, EFW 92%ile. Covid: Completed. Not up-to-date with booster. Recommended. Patient declines. Flu: 02/10/24 received through employee health Tdap: 02/10/24 32wk Mental Health: 03/07/2024 Comments: OB - Problem Based A/P Additional Plan (1) Elective induction of labor planned: Status: Acute (2) : Status: Acute (3) Edema during in third trimester: Status: Acute (4) Proteinuria affecting : Status: Acute Plan ASSESSMENT:?? Age 28yo at 39 weeks 5 days gestation. complicated by:??Proteinuria without Dx HTN, edema third trimester, anemia, decreased movement. Labor type: Induction Category 1 FHR pattern.Intermittent contractions. GBS negative ?? PLAN:?? 1. Elective IOL. Vaginal Cytotec, up to 6X. Vistaril for rest overnight. 2. Routine intrapartum cares as ordered. Continue with expectant management?? 3. Monitoring per policy, continuous 4. Planning unmedicated . Desires water . Consent signed. Hep C negative. Candidate for analgesia of choice.??? 5. Patient encouraged to reposition and ambulate to promote physiologic labor and .?? 6. plan reviewed. Chapo Lucas APRN, CNM, was present for visit and have reviewed and agree with documentation by the Certified Nurse Midwifery Student.? Delivery/Labor/Induction Plan Plan: induction OB Result Labs Blood Type: B (+) positive Rubella: immune RPR/VDLR: nonreactive GBS Status: negative HBsAG: negative OB Exam Physical Exam Narrative: Vitals Reviewed Constitutional:? Alert and oriented x3 HEENT:? Normocephalic, atraumatic Neuro: +3/4 reflexes bilateral lower extremities, +1 beat clonus bilateral lower extremities Lungs:? Clear to auscultation bilaterally Heart:? Regular rate and rhythm, no murmur, rub or gallop Abdomen:? Soft, nontender, and gravid. Vertex by Nick's. EFW estimated at 7.5# Extremities:? trace edema, NST: 130 bpm/moderate variability/accelerations present/ decelerations absent/irregular contractions Documented by User: Vidya Ramirez 04/19/24 20:08 Subjective History of Present Illness Date Seen: 04/19/24 Narrative: Patient is being admitted to Labor and Delivery for elective induction of labor. She is a 28 year old at 39 weeks 5days gestation. Her full history and physical was dictated by Julee Lemons CNM on 04/04/24. Please see this for details. She reports feeling well today, denies any vaginal spotting/bleeding or leaking of fluid. Positive movement. Specific Issues/Plans G 1 P 0 RN on the center Transferred to Dr. Machado in early 10/05/23 and returned at 22.4 weeks H&P done by Julee Lemons CNM on 04/04/24 # Pt was told she had a twin at another facility, our US (x2) show warren gestation [facility] M visit with [facility] 09/28/2023. Possible two gestational sacs but only evidence of warren at this time. Records here. Low risk cell free DNA testing Genetic consult 09/28/2023 #Patient's twin brother with neurofibromatosis type 1 [id number]- low risk # Anxiety-started on Lexapro 10mg, pt only taking 5mg daily at 33.4wks, enc to increase history of anxiety and depression. Was treated with Zoloft in 2018. Has been without medication for some time and currently doing well. Her sister suffered from depression. She is somewhat worried about anxiety and depression. # history of PTSD from service #sister had PreE recommended baby ASA Baseline labs 02/09 for her anxiety r/t #Anemia recommended oral iron at 34 weeks, hgb 10.7 States taking about every third day 03/21/2024 #Proteinuria without diagnosis of HTN- .37PCR on 03/21/24-normotensive, but increased swelling. Consider repeat labs next visit. Pt checking BP at home. 0.47 PCR on 04/04/24, all other labs WNL, BP stable Ultrasound: 12/02/2023 Anatomy US: SIUP with no gross anomaly visualized. Posterior placenta, EFW 92%ile. Covid: Completed. Not up-to-date with booster. Recommended. Patient declines. Flu: 02/10/24 received through employee health Tdap: 02/10/24 32wk Mental Health: 03/07/2024 OB - Problem Based A/P Additional Plan (1) Elective induction of labor planned: Status: Acute (2) : Status: Acute (3) Edema during in third trimester: Status: Acute (4) Proteinuria affecting : Status: Acute Plan ASSESSMENT:?? Age 28yo at 39 weeks 5 days gestation. complicated by:??Proteinuria without Dx HTN, edema third trimester, anemia, decreased movement. Labor type: Induction Category 1 FHR pattern.Intermittent contractions. GBS negative ?? PLAN:?? 1. Elective IOL. Vaginal Cytotec, up to 6X. Vistaril for rest overnight. 2. Routine intrapartum cares as ordered. Continue with expectant management?? 3. Monitoring per policy, continuous 4. Planning unmedicated . Desires water . Consent signed. Hep C negative. Candidate for analgesia of choice.??? 5. Patient encouraged to reposition and ambulate to promote physiologic labor and .?? 6. plan reviewed. Delivery/Labor/Induction Plan Induction method: per misoprostol protocol OB Exam Physical Exam Narrative: Vitals Reviewed Constitutional:? Alert and oriented x3 HEENT:? Normocephalic, atraumatic Neuro: Reflexes hyperactive, clonus: 1 Lungs:? Clear to auscultation bilaterally Heart:? Regular rate and rhythm, no murmur, rub or gallop Abdomen:? Soft, nontender, and gravid. Vertex by Nick's. Extremities:? trace edema NST: 130 bpm/moderate variability/accelerations present/ decelerations absent/irregular contractions
[2024-04-19 20:23] LABS: Basophils Absolute Auto 0.03 K/uL (0.00-0.30); Basophils Percent Auto 0.3 % (0.0-3.0); Eosinophils Absolute Auto 0.11 K/uL (0.00-0.50); Hematocrit 34.3 % (33.0-51.0); Immature Granulocytes Abs Auto 0.03 K/uL (0.00-0.30); Immature Granulocytes Pct Auto 0.3 %; Lymphocytes Percent Auto 14.4 % (20-44); Mean Corpuscular HGB Conc 32 gm/dL (32-36); Mean Corpuscular Hemoglobin 27 pg (26-34); Mean Corpuscular Volume 83 fL (80-100); Monocytes Percent Auto 5.8 % (0.0-11.0); Neutrophils Percent Auto 78.2 % (42.0-72.0); Platelet Count* 203 K/uL (140-440); RDW Coefficient of Variation % 14.2 % (11.5-15.5); Red Blood Count 4.14 m/uL (4.00-5.20); Slide Review Reflex No; White Blood Count* 10.66 K/uL (4.50-11.00)
[2024-04-19] MEDS: miSOPROStoL 25 MCG/0.25 TABLET VAGINAL ×2 (20:23→23:33)
[2024-04-19] MEDS: hydrOXYzine pamoate 25 MG CAPSULE 100 MG PO (21:05)
[2024-04-19] MEDS: ESCITALOPRAM 10 MG TABLET PO (21:06)
[2024-04-19 23:28] LABS: Total Protein Urine 12 mg/dL
[2024-04-19 23:30] LABS: Creatinine Urine 119.6 mg/dL
[2024-04-20] VITALS (16 sets, daily range): BP systolic 104–132; BP diastolic 58–80; PULSE 58–95; RESP 16; TEMP 36.6–37; O2SAT 97–98
[2024-04-20] MEDS: miSOPROStoL 25 MCG/0.25 TABLET VAGINAL (02:36)
[2024-04-20] MEDS: LACTATED RINGERS 1000 ML 1,000 ML 500 ML IV (04:45)
[2024-04-20] MEDS: ONDANSETRON 2 MG/ML inj 4 MG IV (08:03)
[2024-04-20] MEDS: fentaNYL 100 MCG/2 ML inj IVP (08:10)
--- NOTE | 2024-04-20 08:11 | PM.OBPNL ---
Subjective Date Seen: 04/20/24 Narrative: ?Jeannie is coping well with labor pain/contractions. ?Navin is with her for support. ?She wanted to discuss her options for comfort and pain management. Before making a decision she desired a cervical exam, she is now 6/100/0 with a bulging bag of water. She is planning a waterbirth so will get in the regular tub at this time while the waterbirth tub is being filled. ? Objective Exam: VSS, afebrile General Appearance:? Calm, cooperative. ?No acute distress. ? Psychiatric Exam: Alert and oriented, appropriate affect Abdomen: Gravid Ctx: ?Q 1.5-2 min apart. ? ? ?Strong FHTs: ?Baseline: 145. ? ? Variability: moderate. ?Accels: -. ? ?Decels: ?-. SVE: 6/100/0 Membranes: Intact ?bulging Vital Signs: Last Vital Signs Temp 98 F 04/20/24 07:57 Pulse 62 04/20/24 07:57 Resp 16 04/20/24 02:34 BP 132/80 04/20/24 07:57 Pulse Ox 97 04/19/24 18:52 Plan Plan: Assessment:?? at 39.6 weeks gestation?? GBS negative Patient is coping well with challenges of labor.?? Labor type: Induced, Active labor? Category 1 FHR pattern.? complicated by: Proteinuria without Dx HTN, edema third trimester, anemia, decreased movement. Anxiety Labor complicated by: NA? Plan:?? Move patient to waterbirth tub when ready Continue with routine intrapartum cares as ordered.?? Patient encouraged to move and change positions to promote physiologic labor and .?? Nonpharmacologic comfort measures per patient preference. Candidate for analgesia of choice if desired. Patient planning waterbirth Anticipate progress to NVD. ?
[2024-04-20] MEDS: OXYTOCIN 10 UNIT/ML INJ IM (09:21)
[2024-04-20] MEDS: LIDOCAINE 1 % PF 30 ML INJECTION (09:49)
[2024-04-20] MEDS: lidocaine HCL 2 % JELLY (TOP) STERILE 6 ML TOPICAL (09:54)
--- NOTE | 2024-04-20 10:09 | W.PM.OBVAGDE ---
OB Procedure Vag Delivery Mother Details Mother Details: The patient is a 28 year-old, 1, Para 0, admitted on 04/19/24 at 39.5 weeks gestation. : 1 Para: 1 Weeks Gestation: 39.6 Admission Date: 04/19/24 Additional Details Amniotic Membrane Status: SROM Amniotic Membrane Rupture Date: 04/20/24 Amniotic Membrane Rupture Time: 09:10 Amniotic Membrane Fluid Description: Meconium Stained Analgesia/Anesthesia Type: None Waterbirth: Yes Pitcoin: Yes (for AMTSL) Intrapartal Events: Labor Induction Induction Method: per misoprostol protocol Labor Onset: 07:50 Complete: 08:52 Pushin:52 Heart: heart tones during second stage were continuously monitored sometime difficult to trace due to maternal position. Moderate variability with variables to 90's with , return to 115-120 between contractions. Delivery Details Delivery Date: 04/20/24 Delivery Time: 09:10 Route of delivery: Infant Gender: Male Viability: Alive; Heart Rate Present Position at Delivery: OA Delivery Details: Jeannie is a 28?y.o?at 39.6 weeks.? She had an elective induction of labor with misoprostol overnight received two doses then this morning was darby regularly and uncomfortable with contractions. She was 6cm on exam and was encouraged to move into the regular tub for water therapy while the waterbirth tub was filling. She then was moved to the waterbirth room and entered the tub. She labored well in the tub, on her knees with upright torso then began to spontaneously push at 0852 assumed complete at that time. She pushed in this position then was encouraged to bring one foot forward into a lunge and continued to push effectively. ? Spontaneous vaginal delivery at 0910 of?a viable?male infant.??Delivered in vertex OA position.?There was a loose nuchal cord that was not reduced as baby delivered through before reduction. ?Shoulders delivered easily.?Nuchal cord reduced underwater and then mother brought baby out of the water onto her chest. Infant slow to cry so stimulated for weak cry. ?Cord?was clamped and cut after a 5+ minute delay then brought to the warmer for more monitoring. ??Nose and mouth were bulb suctioned.???Membranes intact until time of delivery and meconium stained fluid was seen. Infant passed terminal meconium at time of delivery as well. Shoulder dystocia: no? Nuchal cord: yes times one, delivered through? Meconium stained?fluid: yes? Water : yes? ? ? 6 at 1 minute and 8 at 5 minutes.? Weight is pending. ? Placenta delivered spontaneously and?complete?at 0920 with a?3 vessel?cord.?? Bleeding controlled with fundal massage and?IM pitocin?for AMTSL.? ? Lacerations:? 2nd degree vaginal tear with extension up the right labia, repaired with 3-0?vicryl. Perineum intact.??Periurethral laceration, not bleeding, not repaired? ? Bleeding?post delivery?was: minimal. ?The fundus was firm to palpation.? Blood loss: 200?mL.? Blood loss measurement type: QBL? ? ? Sponge,?lap?and needles counts are correct.? Mother and were stable after delivery.? 1 Minute Interval Total Score: 6 5 Minute Interval Total Score: 8 Additional Details Shoulder Dystocia: No Placenta Delivery Time: 09:20 Placental Delivery Description: Spontaneous Delivery repair: Vicryl Procedure Done: Global Blood Loss: 200 Laceration: Vaginal - 2nd Degree (extension to right labia) Blood Loss Measurement Type: QBL Bakri Used: No Sponge/Need Count Correct: Yes Cord Vessel Description: 3 Vessels, Nuchal Cord and Delivered through Event Summary Status: Mother and infant were stable after delivery. Disposition: floor
[2024-04-20] MEDS: IBUPROFEN 600 MG TABLET PO ×2 (12:09→18:16)
[2024-04-20] MEDS: ACETAMINOPHEN 500 MG TABLET 1000 MG PO ×2 (15:10→21:13)
[2024-04-20] MEDS: ESCITALOPRAM 10 MG TABLET PO (21:25)
[2024-04-21] MEDS: IBUPROFEN 600 MG TABLET PO ×4 (00:17→19:38)
[2024-04-21 00:20] VITALS: BP 113/69; PULSE 78; RESP 16; TEMP 36.5; O2SAT 97
[2024-04-21] MEDS: ACETAMINOPHEN 500 MG TABLET 1000 MG PO ×4 (03:21→23:04)
[2024-04-21 05:52] LABS: Rapid Plasma Reagin (RPR) Non Reactive (Non Reactive)
[2024-04-21] MEDS: FERROUS SULFATE 325 MG TABLET PO (08:03)
[2024-04-21] MEDS: DOCUSATE SODIUM 100 MG CAPSULE PO (08:03)
[2024-04-21 08:22] VITALS: BP 117/83; PULSE 70; RESP 18; TEMP 36.4; O2SAT 98
--- NOTE | 2024-04-21 08:24 | P.OBPN_ITS ---
OB - PN:Subj Subjective Date Seen: 04/21/24 Narrative: Jeannie is a 28 y.o. G 1 P 1 who was admitted to [facility] for induction of labor, elective. ?She had a NVD that was uncomplicated. The patient feels well. ?The pain is well controlled with current medications. ?She has no new complaints. ? She is breast feeding and reports things are going well. the patient has done well.? Vitals have been stable.? She has remained afebrile.? Has a good appetite, is tolerating a general diet. ?She is voiding without difficulty.? She is passing gas and has not had a bowel movement.? She is ambulating and denies any dizziness.? Has small amount of rubra lochia. Problems: none OB - PN: Obj Exam Physical Exam: Vital signs: Temp Pulse Resp BP Pulse Ox O2 Del Method 97.5 F L 70 18 117/83 98 Room Air 04/21/24 08:22 04/21/24 08:22 04/21/24 08:22 04/21/24 08:22 04/21/24 08:22 04/21/24 08:22 Narrative: GENERAL APPEARANCE:? normal affect, alert, no distress MOOD:? appropriate CHEST:? clear to auscultation HEART:? regular rate and rhythm ABDOMEN:? soft, non-tender the uterine fundus is At Umbilicus, Midline and is appropriate for the stage of recovery. PERINEUM:? mild edema of the perineum, there is a vaginal Laceration,?2nd degree that is healing well. EXTREMITIES:? normal and no edema OB - PN: Obj Data Labs Labs: Laboratory Results - last 24 hr 04/19/24 20:16 RPR Screen Non Reactive OB - PN: A/P Delivery Assessment and Plan (1) care and examination immediately after delivery: Status: Acute (2) Edema during in third trimester: Status: Acute (3) Proteinuria affecting : Status: Resolved Assessment and Plan: Resolved on labs at admission (4) Lactating mother: Status: Acute Plan day: 1 Plan: routine care Comments: Routine care , may see if needed? Proteinuria, resolved with labs on admission Anticipate discharge tomorrow
[2024-04-21] MEDS: BENZOCAINE/MENTHOL SPRAY 85 GM AEROSOL 1 APPLIC TOPICAL (08:30)
[2024-04-21 14:20] VITALS: BP 135/87
[2024-04-21 14:40] VITALS: BP 120/78; RESP 18; TEMP 36.3
[2024-04-21] MEDS: ESCITALOPRAM 10 MG TABLET PO (21:00)
[2024-04-21 21:38] VITALS: BP 115/78; PULSE 89; RESP 18; O2SAT 98
[2024-04-22] MEDS: IBUPROFEN 600 MG TABLET PO ×2 (01:59→08:48)
[2024-04-22] MEDS: ACETAMINOPHEN 500 MG TABLET 1000 MG PO (05:29)
[2024-04-22 05:33] VITALS: BP 120/80; PULSE 76; RESP 18; TEMP 36.4; O2SAT 97
--- NOTE | 2024-04-22 07:38 | P.DS_ITS ---
DS: Providers Provider Date Seen: 04/22/24 Date of admission: 04/19/24 18:27 Primary care physician: Ariela Machado MD Admitting Clinician: Shanelle Wilkins CNM Attending Physician on discharge: Shanelle Wilkins CNM Date of Discharge: 04/22/24 DS: Diagnosis Discharge Diagnosis (1) care and examination of lactating mother: Status: Acute Exam Narrative: Exam Narrative: GENERAL APPEARANCE:? normal affect, alert, no distress MOOD:? appropriate CHEST:? clear to auscultation HEART:? regular rate and rhythm ABDOMEN:? soft, non-tender the uterine fundus is At Umbilicus, Midline and is appropriate for the stage of recovery. fine erythema patches bilateral lower abdomen-contact dermatitis PERINEUM:? mild edema of the perineum, there is a Perineal Laceration,?well approximated and minimal edema, no erythema EXTREMITIES:? normal and minimal edema Const: Vital Signs, click to edit/add: Vital Signs - 24 hr 04/21/24 08:22 04/21/24 14:20 04/21/24 14:40 Temperature 97.5 F L 97.4 F L Pulse Rate [Pulse Oximeter] 70 Respiratory Rate 18 18 Blood Pressure [Le ft Arm] 117/83 135/87 120/78 Pulse Oximetry 98 Oxygen Delivery Me thod Room Air 04/21/24 21:38 04/22/24 05:33 Temperature 97.6 F Pulse Rate [Pulse Oximeter] 89 76 Respiratory Rate 18 18 Blood Pressure [Le ft Arm] 115/78 120/80 Pulse Oximetry 98 97 Oxygen Delivery Me thod Room Air Room Air OB - DS: Summary Hospital Course Hospital Course: Jeannie is a 28 y.o. G 1 P 1001 who was admitted to [facility] & [facility] for elective IOL. She received vaginal cytotec.? She had a NVD in the tub that was uncomplicated. The patient feels well.? The pain is well controlled with current medications.? She has no new complaints.? She is breast feeding and reports things are going [well]. the patient has done well.? Vitals have been stable.? She has remained afebrile.? Has a good appetite, is tolerating a general diet.? She is voiding without difficulty.? She is passing gas and has not had a bowel movement.? She is ambulating and denies any dizziness.? Has small amount of rubra lochia. She is planning possibly the Mirena for prevention.? ?? Problems: one episode of pallor and dizziness that resolved spontaneously and was brief.? ?? plan:? Discharge home with baby.? Follow up in 2 weeks and 6 weeks.? , may see if needed? Hgb 11.0. ? ? Labs WNL or stable with trending? ? ? Call for signs/symptoms of preeclampsia? Peripartum Data Infant delivery method: Vaginal Laceration description: Perineal - 2nd Degree (repaired) Episiotomy description: None complications: none [place] Gender: Male Infant Discharge Plan: Home Status at Discharge Overall status at discharge: patient is progressing back to baseline Time Spent with Patient Time attestation: Total time spent providing and/or coordinating discharge services: Time spent: Less than 30 minutes Discharge Plan Discharge Disposition: Home, Self-Care Date of Admission: 04/19/24 18:27 Attending Provider on Discharge: Shanelle Wilkins Primary Care Provider: Ariela Machado Condition: Stable Anticipated Discharge Date/Time: 04/22/24 12:00 Discharge Medications: New hydrocortisone 2.5 % cream 1 applic topical QID PRNQty: 28 0RF Continued magnesium 250 mg tablet 250 mg PO 3XW ascorbate calcium (vitamin C) 500 mg tablet 1 g PO Q6H DHA 200 mg capsule 200 mg PO DAILY escitalopram oxalate 10 mg tablet 10 mg PO QDAY Qty: 90 0RF Discontinued ferrous sulfate [Feosol] 325 mg (65 mg iron) tablet 325 mg PO QDAY Discharge Orders: Discharge Order (Routine); Ordered 04/22/24 Ordered By: Shanelle Wilkins Patient Education: OB Vaginal/Breast Feeding Additional Instructions: Discharge instructions were reviewed with the patient including signs and symptoms of infection and home going medications Nothing vaginally for 6 weeks: no tampons or intercourse Do not drive while taking narcotic pain medication(s) Off Work or School for 6 weeks Symptoms to report to doctor: * Bleeding that saturates more than one pad per hour * Passing clots larger than the size of a golf ball * Pain not relieved by prescribed medication * Fever above 100.4 degrees Fahrenheit * A foul vaginal odor * Difficulty in emotions, mood, and functions * Thoughts of hurting yourself and/or * Painful, reddened area in your breast * Any drainage, redness, or tenderness in your IV/epidural site * Severe headache that doesn't improve after taking medications * Changes in vision, including temporary loss of vision, blurred vision, and/or light sensitivity * Upper abdominal pain (usually under ribs on the right side) * Decrease in urination or painful, frequent urinating * Chest pain * Shortness of breath * Tenderness or pain with redness and/swelling in the calf(s) of your leg 2-week visit: discuss infant feeding concerns, review control options and screen for anxiety/depression. 6-week visit for an annual exam. consultation services are available to all mothers and babies for the first year after delivery.? To make an appointment, please call [phone]. For pain control of perineum, breast and pelvic pain, take 600 mg Ibuprofen every 6 hours as needed by mouth or 1000 mg acetaminophen (Tylenol) every 6 hours by mouth as needed. You can alternate these so you are taking something every 3 hours as needed. A heating pad can also be used for your abdomen or breasts. You may also take docusate sodium up to twice daily to soften your stoo ls and help to prevent constipation. You may wean off of it when your stools return to normal.? Activity Level: Activity as Tolerated Discharge Diet: Regular Follow Up Appointments: [facility] [Provider Group] Forms: [employer] Info Instructions
[2024-04-22 08:20] VITALS: BP 138/88; PULSE 64; RESP 16; O2SAT 98
[2024-04-22 08:34] VITALS: BP 130/86
[2024-04-22] MEDS: DOCUSATE SODIUM 100 MG CAPSULE PO (08:48)
[2024-04-22] MEDS: FERROUS SULFATE 325 MG TABLET PO (08:48)
== END 2024-04-22 16:00 | disposition home or self-care (01) | DRG 807 ==
PROVIDERS: Admitting Provider Midwife; PCP Family Medicine; Visit Provider Midwife
DX: O12.24 Gestational edema with proteinuria, complicating childbirth (principal); Z37.0 Single live birth; Z3A.39 39 weeks gestation of pregnancy; O70.1 Second degree perineal laceration during delivery; O99.344 Other mental disorders complicating childbirth; F41.9 Anxiety disorder, unspecified; F43.10 Post-traumatic stress disorder, unspecified; O99.02 Anemia complicating childbirth; D64.9 Anemia, unspecified; O77.0 Labor and delivery complicated by meconium in amniotic fluid; Z82.0 Family history of epilepsy and other diseases of the nervous system
CPT/HCPCS: 36415; 59200; 82570; 84156; 85025; 86592; 86850; 86900; 86901; A9270; J2003; J2405; J2590; J3010; J7120

== ENCOUNTER 2024-05-16 17:23 | Outpatient (CLI) | payer OTHER, SELFPAY ==
--- NOTE | 2024-05-16 17:45 | CRLHL7_ITS ---
For Patients: As a result of the Century Cures Act, medical imaging exams and procedure reports are released immediately into your electronic medical record. You may view this report before your referring provider. If you have questions, please contact your health care provider. CLINICAL HISTORY: bleeding TECHNIQUE: 2D harper scale and color Doppler images were acquired of the pelvis using a transvaginal approach. FINDINGS: On transvaginal imaging, the myometrium has a normal uniform echotexture. Uterus measures 7.0 x 5.1 x 5.8 cm. The endometrial lining appears mildly heterogeneous and measures 10.2 mm in thickness. No endometrial fluid. No abnormal vascularity. The left ovary measures 2.6 x 1.5 x 2.5 cm in size and the right ovary measures 3.0 x 1.0 x 1.6 cm. The ovaries demonstrate normal arterial and venous blood flow on color Doppler analysis. There are no suspicious fluid collections within the cul-de-sac. IMPRESSION: No evidence of retained products. Dictated by Alphonse Alexander MD @ 05/16/2024 8:22:18 PM (Electronically Signed)
== END 2024-05-16 17:24 | disposition home or self-care (01) ==
LOC: US 17:23
PROVIDERS: PCP Family Medicine; Visit Provider Midwife
DX: O72.1 Other immediate postpartum hemorrhage (principal)
CPT/HCPCS: 76830

== ENCOUNTER 2024-06-14 14:48 | Outpatient (CLI) | payer OTHER, SELFPAY ==
--- NOTE | 2024-06-14 15:00 | CRLHL7_ITS ---
For Patients: As a result of the Century Cures Act, medical imaging exams and procedure reports are released immediately into your electronic medical record. You may view this report before your referring provider. If you have questions, please contact your health care provider. INDICATION: Long IUD strings, check placement COMPARISON: 05/16/2024 TECHNIQUE: 2D harper scale and color Doppler images were acquired of the pelvis using a transabdominal and transvaginal approach. FINDINGS: Sonographic images demonstrate a normal size and smooth outer contour of the uterus. Uterus measures 7.6 cm in length by 3.4 cm in AP diameter by 5.1 cm in transverse dimension. The myometrium has a normal uniform echotexture. The endometrial lining appears normal and measures 6.1 mm in composite thickness. Normal position of an IUD within the endometrial canal. The right ovary measures 3.3 x 1.9 x 1.7 cm in size and the left ovary measures 3.1 x 1.4 x 2.2 cm. The ovaries demonstrate normal arterial and venous blood flow on color Doppler analysis. There are no suspicious fluid collections within the cul-de-sac. IMPRESSION: Normal position of an IUD within the endometrial canal. Dictated by Alphonse Alexander MD @ 06/15/2024 8:47:53 AM (Electronically Signed)
== END 2024-06-14 14:49 | disposition home or self-care (01) ==
LOC: US 14:48
PROVIDERS: PCP Family Medicine; Visit Provider Obstetrics & Gynecology
DX: T83.32XA Displacement of intrauterine contraceptive device, initial encounter (principal)
CPT/HCPCS: 76830; 76856

== ENCOUNTER 2024-08-11 14:00 | Outpatient (RCR) | payer OTHER, SELFPAY ==
[2025-01-01 19:37] LABS: PCR FLU A Negative PCR FLU A (Negative); PCR FLU B Negative PCR FLU B (Negative); SARS PCR* Negative SARS-CoV-2 (Negative)
== END 2024-12-09 23:59 | disposition home or self-care (01) ==
PROVIDERS: PCP Family Medicine; Visit Provider Advanced Practice Midwife
DX: N81.89 Other female genital prolapse (principal); M62.08 Separation of muscle (nontraumatic), other site; R10.2 Pelvic and perineal pain; Z51.89 Encounter for other specified aftercare
CPT/HCPCS: 97110; 97112; 97140; 97161; 97530; 97535